=== PATIENT | female | born 1965 | race Caucasian/White ===

== ENCOUNTER → 2017-06-25 08:46 | Outpatient (CLI) | payer OTHER, SELFPAY ==
--- NOTE | 2017-06-25 09:03 | RAD_ITS ---
STUDY: X-RAY - ESOPHAGUS (BARIUM SWALLOW) WITH FLUOROSCOPY REASON FOR EXAM: Female, 52 years old. Acid reflux disease. TECHNIQUE: 11 view(s) of the esophagus were obtained following swallowing of barium. FLUOROSCOPY TIME (if supplied): (0:17) minutes/seconds COMPARISON: None. FINDINGS: There is no demonstrated esophageal foreign body. There is no demonstrated stricture or mucosal abnormality. Normal gastroesophageal junction, without a demonstrated hiatal hernia. The patient ingested a 12 mm tablet of barium without any difficulty. Normal visualized aortic arch and descending thoracic aorta. Normal visualized pulmonary parenchyma. Normal visualized osseous structures of the thorax. IMPRESSION: Normal plain film x-ray examination (barium swallow) of the esophagus. Electronically Signed: Simon Ortega MD at 15:44 EDT Tel [phone], Service support , STUDY: AIR-CONTRAST UPPER GI SERIES. REASON FOR EXAM: Female, 52 years old. Gastroesophageal reflux disease. FLUOROSCOPY TIME (if supplied): (0:16) minutes/seconds TECHNIQUE: The patient ingested barium. Multiple images of the esophagus, stomach and duodenum were obtained. COMPARISON: None. FINDINGS: The esophagus is unremarkable. There is no evidence of esophageal obstruction. No mass lesion is seen. The stomach and duodenum are unremarkable. There is no evidence of ulceration. No mass lesion is seen. RAD/Upper GI w/BA Swallow IMPRESSION: Unremarkable air contrast upper GI series. Electronically Signed: Simon Ortega MD at 15:46 EDT Tel [phone], Service support ,
== END ==
PROVIDERS: Family Provider Family Medicine; PCP Family Medicine; Visit Provider Family Medicine
DX: K20.9 Esophagitis, unspecified (principal)
CPT/HCPCS: 74246

== ENCOUNTER 2017-10-20 01:26 | Emergency (ER) | payer OTHER, SELFPAY ==
[2017-10-20 01:27] VITALS: BP 153/73; PULSE 77; PULSE 86; RESP 15; RESP 18; TEMP 36.6; O2SAT 95; O2SAT 96; BMI 34.7
[2017-10-20 01:42] LABS: Bacteria 0 SEEN /hpf (None Seen); Mucous, Urine 0 SEEN /hpf (<or=2+)
--- NOTE | 2017-10-20 01:52 | ED.VIS.GEN ---
History of Present Illness Chief Complaint: Complaint Informant: Patient Onset: Days - 2 Context: Gradual Onset - was only w/ urinating, now constant Timing: Continuous Quality: pain Location: urethral Current Severity: Moderate Maximum Severity: Moderate Worsened by: urinating Relieved by: nothing Associated Symptoms: ur frequency, urgency, dribbling urine when she goes. no blood. Narrative: Feels like prior UTI. Discomfort radiates into low mid-back, feels burning. Suprapubic pressure. No n/v, fevers, vaginal bleeding or discharge, hematuria. S/p BTL, still having menstrual cycles, denies any possibility of . Prior similar symptoms: Yes Past Medical History - Allergies and Home Meds Allergies/Adverse Reactions: Allergies prednisone Adverse Reaction (Verified 10/20/17 01:26) Other Primary Care Physician: Sylvester Ontiveros MD [Primary Care Provider] - Past Medical History: None Surgical History: - - bilateral tubal ligectomy Smoking Status: Never smoker Review of Systems All systems negative except as indicated General: Denies: Chills, Fever Gastrointestinal: Reports: Abdominal pain. Denies: Nausea, Vomiting, Diarrhea Genitourinary: Reports: Dysuria, Frequency. Denies: Hematuria Musculoskeletal: Reports: Back pain Skin: Denies: Rash, Wounds Physical Exam Vital Signs/Narrative: Vital Signs Temp Pulse Resp BP Pulse Ox 10/20/17 01:27 97.8 F 77 15 153/73 H 95 Inital Vital Signs reviewed: Yes General: Well nourished, Well developed Head: Normocephalic, Atraumatic Cardiovascular: Regular rate, Regular rhythm, No murmurs Respiratory: No distress, CTA bilaterally, Chest nontender Abdomen: Soft, Nontender, Nondistended, Normal bowel sounds Back: Nontender, Normal Inspection. Negative for: CVA tenderness Extremities: Nontender, No edema Skin: Normal color, No rash Neurological: Alert, Oriented x3, Cranial nerves II-XII grossly intact, Normal Strength, Normal Sensation Psychological: Normal affect Diagnostic/Tx/Re-eval Laboratory Tests 10/20/17 01:38 Urine Color Yellow Urine Clarity Sl. Cloudy Urine pH 7.0 Ur Specific Odell 1.010 Urine Protein 100 H Urine Glucose (UA) Normal Urine Ketones Negative Urine Occult Blood 250 H Urine Nitrite Negative Urine Bilirubin Negative Urine Urobilinogen Normal Ur Leukocyte Esterase 500 H Urine RBC 50-100 SEEN Urine WBC 50-100 SEEN Ur Squamous Epith Cells 25-50 SEEN Urine Bacteria 0 SEEN Urine Mucus 0 SEEN - Medical Decision Making Labs and history consistent with cystitis. Will treat with Macrobid and prescribe her Pyridium in addition. Culture sent. ED Disposition - Plan for ED Patient: Disposition: Home or Assisted Living Chief Complaint: Complaint Diagnosis: Acute cystitis without hematuria Instructions: ED UTI Cystitis Female Prescriptions: Nitrofurantoin Macrocrystals [Macrobid] 100 mg PO Q12 #10 cap Phenazopyridine HCl [Pyridium] 200 mg PO TID #6 tab Referrals: Sylvester Ontiveros MD [Primary Care Provider] - 3-5 Days if not improving
[2017-10-20 02:05] LABS: Color, Urine Yellow (Yellow); Glucose, Dipstick Normal (Normal); Ketone-Dipstick Negative (Negative); Leukocyte Esterase-Dipstick 500 /ul (Negative); Nitrite-Dipstick Negative (Negative); Occult Blood-Urine 250 /ul (Negative); Protein-Dipstick 100 mg/dl (Negative); Urine Bilirubin Dipstick Negative (Negative); Urine Clarity Sl. Cloudy (Clear); Urine Urobilinogen Normal (Normal)
[2017-10-20 02:12] LABS: Red Blood Cells-Urine 50-100 SEEN /hpf (0-5); Squamous Epithelial Cells - UA 25-50 SEEN /hpf (5-10); White Blood Cells 50-100 SEEN /hpf (0-5)
[2017-10-20 02:38] VITALS: BP 144/84; PULSE 83; RESP 16; O2SAT 96
[2017-10-20] MEDS: Nitrofurantoin Macrocrystals 100 MG Capsule PO (02:49)
[2017-10-20] MEDS: Phenazopyridine 95 MG Tablet 190 MG PO (02:49)
== END 2017-10-20 02:51 | disposition home or self-care (01) ==
PROVIDERS: Emergency Provider Emergency Medicine; Family Provider Family Medicine; PCP Family Medicine
DX: N30.00 Acute cystitis without hematuria (principal); B96.89 Other specified bacterial agents as the cause of diseases classified elsewhere
CPT/HCPCS: 81001; 87086; 87088; 87186; 99283

== ENCOUNTER → 2017-12-09 16:44 | Outpatient (CLI) | payer OTHER, SELFPAY ==
[2017-12-09 17:24] LABS: Absolute Lymphocyte Count 1.34 X10^3/ul (0.83-4.51); Absolute Neutrophil Count 8.7 X10^3/uL (2.0-7.7); Basophil# 0.01 X10^3/uL; Basophil% 0.1 % (0-1); Eosinophil# 0.01 X10^3/uL; Eosinophils% 0.1 % (0-5); Hematocrit 43.1 % (37-47); Hemoglobin 14.2 g/dl (12.0-15.0); Lymphocyte # 1.34 X10^3/ul (4.0); Lymphocyte % 12.6 % (19-41); Mean Corp Hgb Conc 32.9 g/gl (32-36); Mean Corpuscular Hgb 29.3 pg (27.0-32.0); Mean Corpuscular Volume 88.9 fL (81-99); Mean Platelet Vol. 9.7 fl (6.2-12.0); Monocyte# 0.52 X10^3/uL; Monocyte% 4.9 % (0-10); Neutrophil # 8.69 X10^3/uL (2.7-7.7); Platelet Count 243 K/mm3 (150-450); RBC Distribution Width CV 13.1 % (11.6-14.6); RBC Distribution Width SD 42.2 fl (35.1-43.9); Red Blood Count 4.85 M/mm3 (4.2-5.4); White Blood Count 10.6 K/mm3 (4.4-11.0)
[2017-12-09 17:31] LABS: POSITIVE COUNT NO; POSITIVE DIFFERENTIAL NO; POSITIVE MORPHOLOGY NO
[2017-12-09 17:49] LABS: Anion Gap 7 (5-15); BUN 16 mg/dL (7-18); BUN/Creat Ratio 14.4 RATIO (10-20); Calcium,Total 8.8 mg/dL (8.5-10.1); Chloride 101 mmol/L (98-107); Creatinine, Serum 1.11 mg/dL (0.55-1.02); EST Glomerular Filtration Rate 55 mL/min (>60); Est Glom Filt Rate - Afr Amer 66 mL/min (>60); Glucose 154 mg/dL (74-106); Magnesium 2.2 mg/dL (1.6-2.6); Potassium 4.6 mmol/L (3.5-5.1); Sodium Level 136 mmol/L (136-145); T4 Free Direct 0.67 ng/dL (0.76-1.46); Thyroid Stim Hormone (TSH) 1.94 uIU/mL (0.358-3.74)
== END ==
PROVIDERS: Family Provider Family Medicine; PCP Family Medicine; Visit Provider Family Medicine
DX: R00.2 Palpitations (principal); E03.9 Hypothyroidism, unspecified; R20.0 Anesthesia of skin
CPT/HCPCS: 36415; 80048; 83735; 84439; 84443; 84484; 85025

== ENCOUNTER 2017-12-09 19:19 | Emergency (ER) | payer OTHER, SELFPAY ==
[2017-12-09 19:21] VITALS: BP 162/75; PULSE 78; PULSE 80; RESP 16; RESP 18; TEMP 36.4; O2SAT 99; BMI 34.2
--- NOTE | 2017-12-09 19:30 | ED.RN ---
RN CALLED FOR EKG, PULLED OLD EKGS FOR
--- NOTE | 2017-12-09 19:41 | ED.RN ---
PATIENT CURRENTLY NOT HAVING CHEST PAIN OR PRESSURE, LAST NOTED AT 0500 THIS MORNING. PATIENT WENT TO DR. MATA OFFICE AND DID EKG AND LAB WORK AND DID NOT HEAR BACK FROM HIS OFFICE. PATIENT WAS TOLD TO COME GET CHECKED OUT IN ED.
--- NOTE | 2017-12-09 19:50 | EKG12_ITS ---
Test Reason : CHEST PAIN Blood Pressure : / mmHG Vent. Rate : 077 BPM Atrial Rate : 077 BPM P-R Int : 160 ms QRS Dur : 080 ms QT Int : 368 ms P-R-T Axes : 044 028 029 degrees QTc Int : 416 ms Normal sinus rhythm Normal ECG Confirmed by WEST CHISHOLM MD ([id number]), fan mail editor DEYSI GLEASON ([id number]) on 12/17/2017 1:41:44 PM Referred By: FORTUNATO Confirmed By:WEST CHISHOLM MD
--- NOTE | 2017-12-09 19:55 | RAD_ITS ---
STUDY: X-RAY CHEST REASON FOR EXAM: Female, 52 years old. Chest pain. TECHNIQUE: Single frontal view of the chest. COMPARISON: February 10, 2017. FINDINGS: The lungs are clear and expanded. There is no demonstrated pleural abnormality. Normal size heart. Normal mediastinum and marissa. Normal visualized pulmonary arteries. Normal visualized aortic arch and descending thoracic aorta. There is a stable dextroscoliosis of the thoracic spine. Normal visualized ribs, clavicles, and shoulders. There is no demonstrated abnormality of the visualized soft tissue structures of the upper abdomen. RAD/Chest 1 View (Portable) IMPRESSION: No acute cardiopulmonary process. Electronically Signed: Chelsie Berg MD at 21:03 EDT Tel , Service support ,
[2017-12-09 19:58] VITALS: O2SAT 98
[2017-12-09 20:22] LABS: Absolute Lymphocyte Count 1.41 X10^3/ul (0.83-4.51); Absolute Neutrophil Count 7.9 X10^3/uL (2.0-7.7); Basophil# 0.01 X10^3/uL; Basophil% 0.1 % (0-1); Eosinophil# 0.01 X10^3/uL; Eosinophils% 0.1 % (0-5); Hemoglobin 14.5 g/dl (12.0-15.0); Lymphocyte # 1.41 X10^3/ul (4.0); Lymphocyte % 14.3 % (19-41); Mean Corp Hgb Conc 33.7 g/gl (32-36); Mean Corpuscular Hgb 29.5 pg (27.0-32.0); Mean Corpuscular Volume 87.6 fL (81-99); Mean Platelet Vol. 9.6 fl (6.2-12.0); Monocyte# 0.45 X10^3/uL; Monocyte% 4.6 % (0-10); Neutrophil # 7.92 X10^3/uL (2.7-7.7); Neutrophil % 80.6 % (47-70); Platelet Count 258 K/mm3 (150-450); RBC Distribution Width CV 13.2 % (11.6-14.6); RBC Distribution Width SD 41.9 fl (35.1-43.9); Red Blood Count 4.91 M/mm3 (4.2-5.4); White Blood Count 9.8 K/mm3 (4.4-11.0)
[2017-12-09 20:23] LABS: POSITIVE COUNT NO; POSITIVE DIFFERENTIAL NO; POSITIVE MORPHOLOGY NO
[2017-12-09 20:27] LABS: BUN 15 mg/dL (7-18); Creatinine, Serum 0.98 mg/dL (0.55-1.02); EST Glomerular Filtration Rate 63 mL/min (>60); Estimated Creatinine Clearance 60.43 ml/min; Glucose 138 mg/dL (74-106)
[2017-12-09 20:28] LABS: Anion Gap 7 (5-15); BUN/Creat Ratio 15.3 RATIO (10-20); Calcium,Total 8.6 mg/dL (8.5-10.1); Chloride 102 mmol/L (98-107); Est Glom Filt Rate - Afr Amer 77 mL/min (>60); Potassium 4.4 mmol/L (3.5-5.1); Sodium Level 137 mmol/L (136-145)
--- NOTE | 2017-12-09 21:05 | ED.VISSUMM ---
- ER Visit Summary Date of Service: 12/09/17 Chief Complaint: Left jaw pain and swelling History of Present Illness: The patient is a 52 F who states that earlier today around noon she developed a sudden onset of left-sided jaw swelling. She states it made her face feel numb. She denies any dental pain. She states the swelling has come down. She is also for the past week been having some heart palpitations. She had an EKG at her doctor's office and she is concerned because it said possible anterior myocardial infarction. She believes that her heart palpitations is related to her recent increased in her [place]. Physical Examination: Afebrile vital signs are stable Gen: Well-nourished well-developed Head: Normocephalic atraumatic Eyes: Perrl EOMI ENT: TMs clear no rhinorrhea moist mucous membranes is mild swelling about the left parotid gland there is no overlying erythema. Neck: Supple no lymphadenopathy no JVD nontender CVS: Regular rate rhythm no murmurs normal S1-S2 Respiratory: No distress clear to auscultation bilaterally chest nontender Abdomen: Soft nontender nondistended normal bowel sounds no masses Back: Nontender Extremity: Nontender no edema Skin: Normal color no rash Neuro: alert orientated ?3 CN II-XII intact normal strength sensation reflexes gait cerebellar Psych: Normal affect normal mood Test Results: EKG shows a normal sinus rhythm at a rate of 77. Her outpatient EKG was reviewed which I believe is a normal sinus rhythm without ACS evidence. CBC chemistry showed a glucose of 138. Troponin was negative. Chest x-ray negative. Emergency Department Course and Treatment: I do not see evidence of ACS. Her troponin is greater than 6 hours is negative. She said 2 EKGs today that did not show ACS. Patient was seen earlier this year for chest pain has not yet had a stress test. Advised her to talk with her doctor about getting that. As far as the left facial swelling I believe that this is swelling of the parotid gland. I would recommend lemon drops monitor for erythema or for fever return if worsening or concerns Impression: 1. Left parotid salivary gland obstruction 2. Palpitations This note was generated with Osmopure dictation software. It may contain incorrect words, spelling, and punctuation that were not noted in review of the chart prior to signing ED Disposition - Plan for ED Patient: Disposition: Home or Assisted Living Chief Complaint: Dental Instructions: ED Sublingual Gland Swelling UKO Referrals: Sylvester Ontiveros MD [Primary Care Provider] - 1 Week
[2017-12-09 21:40] VITALS: BP 155/70; PULSE 75; RESP 16; O2SAT 95
== END 2017-12-09 21:45 | disposition home or self-care (01) ==
PROVIDERS: Emergency Provider Emergency Medicine; Family Provider Family Medicine; PCP Family Medicine
DX: K11.8 Other diseases of salivary glands (principal); R00.2 Palpitations; K21.9 Gastro-esophageal reflux disease without esophagitis
CPT/HCPCS: 71045; 80048; 84484; 85025; 93005; 99284; A4216

== ENCOUNTER → 2017-12-18 05:37 | Outpatient (CLI) | payer OTHER, SELFPAY ==
[2017-12-18 07:54] LABS: AST(SGOT) 23 U/L (15-37); Alanine Aminotransfer ALT/SGPT 23 U/L (13-56); Albumin, Serum 3.2 g/dL (3.2-5.0); Alkaline Phosphatase 48 U/L (45-117); Bilirubin, Direct 0.11 mg/dL (0.00-0.30); Cholesterol 203 mg/dL (200); Globulin 3.4 g/dL (2.2-4.2); High Density Lipoprotein 32 mg/dL; Protein, Total 6.6 g/dL (6.4-8.2); Triglycerides 298 mg/dL; Very Low Density Lipoprotein 60 mg/dL (5-40)
== END ==
PROVIDERS: Family Provider Family Medicine; PCP Family Medicine; Referring Provider Internal Medicine Cardiovascular Disease; Visit Provider Internal Medicine Cardiovascular Disease
DX: R07.89 Other chest pain (principal); E03.9 Hypothyroidism, unspecified; E78.5 Hyperlipidemia, unspecified
CPT/HCPCS: 36415; 80061; 80076

== ENCOUNTER → 2017-12-30 12:54 | Outpatient (CLI) | payer OTHER, SELFPAY ==
--- NOTE | 2017-12-30 13:01 | ECHOD_ITS ---
Reason For Study: CHEST PAIN Procedure This was a 2D Doppler, Color Flow transthoracic echocardiogram. Exam performed in department. Left Ventricle Normal size and thickness. The estimated ejection fraction is 65 %. Stage 1 diastolic dysfunction. No regional wall motion abnormalities noted. Right Ventricle Normal size and thickness. Normal systolic function. Atria Normal left atrium. Normal right atrium. Normal atrial septum. Mitral Valve The mitral valve is structurally normal. No prolapse or stenosis seen. Tricuspid Valve Normal tricuspid valve. Trivial tricuspid valve insufficiency. Unable to estimate RV systolic pressure due to inadequate jet, pulmonary artery pressure probably normal. Aortic Valve Normal aortic valve. Trisinus/trileaflet aortic valve. Pulmonic Valve Normal pulmonic valve. Great Vessels Normal aortic root. Normal arch. Normal inferior vena cava. Inferior vena cava collapse with sniff. Pericardium/Pleural No pericardial effusion. MMode/2D Measurements & Calculations LVIDd: 4.2 cm IVSd: 0.92 cm Ao root diam: 3.0 cm LVIDs: 2.9 cm LVPWd: 0.92 cm RVDd: 3.3 cm FS: 31.3 % LAV(MOD-bp): 39.5 ml LA A4 area: 18.4 cm2 LA dimension(2D): 4.0 cm LAV(MOD-bp) Indexed: 19.5 ml/m2 LAV(MOD-sp2): 28.2 ml LAV(MOD-sp4): 52.3 ml RA A4 area: 13.0 cm2 Time Measurements MV dec time: 0.31 sec Doppler Measurements & Calculations MV E max kody: 75.6 cm/sec Lat Peak E' Kody: 9.4 cm/sec Med Peak E' Kody: 6.8 cm/sec MV A max kody: 92.5 cm/sec E/E' lat: 8.0 E/E' med: 11.0 MV E/A: 0.82 Ao V2 max: 175.9 cm/sec AI max kody: 367.3 cm/sec LV V1 max: 120.3 cm/sec Ao max P.4 mmHg AI max P.0 mmHg LV V1 max P.8 mmHg AI dec slope: 200.9 cm/sec2 AI P1/2t: 535.4 msec Interpretation Summary The estimated ejection fraction is 65 %. Stage 1 diastolic dysfunction. Trivial tricuspid valve insufficiency. Unable to estimate RV systolic pressure due to inadequate jet, pulmonary artery pressure probably normal. There is no comparison study available. Ordering Physician: Ricardo Gamez Referring Physician: CHARIS SMITH Performed By: Judy Bustillos, ELLENCS, RVT
== END ==
PROVIDERS: Family Provider Family Medicine; PCP Family Medicine; Referring Provider Internal Medicine Cardiovascular Disease; Visit Provider Internal Medicine Cardiovascular Disease
DX: R00.2 Palpitations (principal); R07.89 Other chest pain
CPT/HCPCS: 93306

== ENCOUNTER → 2018-03-31 10:06 | Outpatient (CLI) | payer OTHER, SELFPAY ==
--- NOTE | 2018-03-31 10:10 | BI_ITS ---
MAMMOGRAPHY - BILATERAL SCREENING REASON FOR EXAM: Female, 52 years old. Routine annual screening examination. PERTINENT HISTORY: Non-contributory. TECHNIQUE: Digital bilateral breast delfina (3D mammographic acquisition) in the CC and MLO projections. 2-D mediolateral oblique (MLO) and craniocaudad (CC) views of both breasts were obtained. CAD: Full Field Digital Mammography with Computer Added Detection was performed. COMPARISON: Comparison is made with prior examination dated March 17, 2015. FINDINGS: Breast Composition: There are scattered areas of fibroglandular density. There are no dominant masses or suspicious calcifications. Stable benign-appearing bilateral axillary lymph nodes. No other significant abnormalities are identified. There has been no significant change since the prior study. BI/SCREENING MAMM (CAD), BILAT IMPRESSION: Stable bilateral screening mammogram. Yearly follow-up mammogram recommended. (A) ASSESSMENT CATEGORY: BIRADS Category 2: Benign. A letter regarding these results will be sent to the patient by the facility within 30 days. Approximately 10% of breast cancers are not detected by mammography. A normal mammogram should not delay biopsy of a clinically suspicious abnormality. [id number] Electronically Signed: Simon Ortega MD at 12:49 EST , Service support ,
== END ==
PROVIDERS: Family Provider Family Medicine; PCP Family Medicine; Referring Provider Family Medicine; Visit Provider Family Medicine
DX: Z12.31 Encounter for screening mammogram for malignant neoplasm of breast (principal)
CPT/HCPCS: 77063; 77067

== ENCOUNTER → 2018-07-21 09:29 | Outpatient (CLI) | payer OTHER, SELFPAY ==
[2017-12-16 14:51] VITALS: BMI 34.7
[2018-07-21 12:17] LABS: Erythrocyte Sedimentation Rate 19 mm/hr (0-30)
[2018-07-21 12:19] LABS: Absolute Lymphocyte Count 1.44 X10^3/ul (0.83-4.51); Absolute Neutrophil Count 2.5 X10^3/uL (2.0-7.7); Basophil# 0.01 X10^3/uL; Basophil% 0.2 % (0-1); Eosinophil# 0.08 X10^3/uL; Eosinophils% 1.8 % (0-5); Hematocrit 40.6 % (37-47); Lymphocyte # 1.44 X10^3/ul (4.0); Lymphocyte % 31.9 % (19-41); Mean Corp Hgb Conc 34.5 g/gl (32-36); Mean Corpuscular Hgb 29.5 pg (27.0-32.0); Mean Corpuscular Volume 85.5 fL (81-99); Monocyte% 11.1 % (0-10); Neutrophil # 2.48 X10^3/uL (2.7-7.7); Platelet Count 226 K/mm3 (150-450); RBC Distribution Width CV 12.9 % (11.6-14.6); Red Blood Count 4.75 M/mm3 (4.2-5.4); White Blood Count 4.5 K/mm3 (4.4-11.0)
[2018-07-21 12:21] LABS: POSITIVE COUNT NO; POSITIVE DIFFERENTIAL NO; POSITIVE MORPHOLOGY NO
[2018-07-21 12:50] LABS: ALB/GLOB Ratio 0.9 RATIO (0.9-2.4); AST(SGOT) 26 U/L (15-37); Alanine Aminotransfer ALT/SGPT 30 U/L (13-56); Albumin, Serum 3.5 g/dL (3.2-5.0); Alkaline Phosphatase 60 U/L (45-117); Anion Gap 9 (5-15); BUN 14 mg/dL (7-18); BUN/Creat Ratio 16.5 RATIO (10-20); Calcium,Total 8.8 mg/dL (8.5-10.1); Chloride 103 mmol/L (98-107); Creatinine, Serum 0.85 mg/dL (0.55-1.02); EST Glomerular Filtration Rate 74 mL/min (>60); Est Glom Filt Rate - Afr Amer 90 mL/min (>60); Glucose 83 mg/dL (74-106); Protein, Total 7.5 g/dL (6.4-8.2); Rheumatoid Factor < 10.0 IU/mL (<15); Sodium Level 139 mmol/L (136-145)
[2018-07-22 12:18] LABS: ANTINUCLEAR ANTIBODIES DIRECT Negative (Negative)
[2018-07-23 03:06] LABS: HEPATITIS B SURFACE AG Negative (Negative)
[2018-07-23 09:56] LABS: CCP IgG Antibodies 5 units (0-19); Hep B Surface Antibodies Reactive (.); Hep C Antibodies 0.2 s/co ratio (0.0-0.9); Hepatitis B Core AB IgM Negative (Negative)
== END ==
PROVIDERS: Family Provider Family Medicine; PCP Family Medicine; Referring Provider Internal Medicine Rheumatology; Visit Provider Internal Medicine Rheumatology
DX: M06.4 Inflammatory polyarthropathy (principal); E03.9 Hypothyroidism, unspecified; J45.909 Unspecified asthma, uncomplicated; E88.81 Metabolic syndrome and other insulin resistance
CPT/HCPCS: 36415; 80053; 85025; 85652; 86038; 86140; 86200; 86431; 86705; 86706; 86803; 87340

== ENCOUNTER 2018-08-18 01:02 | Emergency (ER) | payer OTHER, SELFPAY ==
[2018-08-18 01:03] VITALS: BP 198/87; PULSE 97; RESP 16; TEMP 36.7; O2SAT 100; BMI 36.1
--- NOTE | 2018-08-18 01:22 | CT_ITS ---
STUDY: CT ABDOMEN AND PELVIS WITH CONTRAST REASON FOR EXAM: Female, 53 years old. Epigastric pain RADIATION DOSAGE (If Supplied By Facility): CTDIvol = ( 8.29 ) mGy, DLP = ( 1254.03 ) mGycm TECHNIQUE: Transaxial images were obtained from the dome of the diaphragm to the symphysis pubis without oral contrast. 100 IV/Oral Isovue 300 was administered. Sagittal and coronal images were reconstructed. Individualized dose optimization techniques were used for this CT. COMPARISON: None. FINDINGS: The visualized lung bases are unremarkable. The visualized portions of the heart are within normal limits. Normal liver. Normal gallbladder and extrahepatic biliary system. Normal spleen. Normal pancreas. Normal bilateral adrenal glands. Normal right kidney. Normal left kidney. Normal visualized stomach. Normal small intestine. Normal colon. The appendix is visualized and appears normal. Normal abdominal aorta. Normal inferior vena cava. Normal retroperitoneum. Normal urinary bladder. Normal visualized uterus and ovaries. 2 dominant follicles are seen in the left ovary largest measures 2.4 cm. Normal abdominal wall. Normal osseous structures. CT/Abdomen/Pelvis WITH Contrast IMPRESSION: Normal enhanced CT of the abdomen and pelvis. Electronically Signed: Alicia Matta, at 5:16 EDT Tel , Service support ,
[2018-08-18 01:37] VITALS: BP 198/87; PULSE 97; RESP 16; TEMP 36.7; O2SAT 100
[2018-08-18] MEDS: 0.9% Normal Saline 1,000 ML 1000 ML IV (01:37)
[2018-08-18 01:43] LABS: Mucous, Urine 0 SEEN /hpf (<or=2+); Red Blood Cells-Urine 0 SEEN /hpf (0-5)
[2018-08-18 01:45] LABS: Absolute Lymphocyte Count 1.93 X10^3/ul (0.83-4.51); Absolute Neutrophil Count 3.1 X10^3/uL (2.0-7.7); Basophil# 0.01 X10^3/uL; Basophil% 0.2 % (0-1); Eosinophil# 0.08 X10^3/uL; Eosinophils% 1.4 % (0-5); Hematocrit 41.9 % (37-47); Hemoglobin 14.5 g/dl (12.0-15.0); Lymphocyte # 1.93 X10^3/ul (4.0); Lymphocyte % 33.4 % (19-41); Mean Corp Hgb Conc 34.6 g/gl (32-36); Mean Corpuscular Hgb 29.8 pg (27.0-32.0); Mean Corpuscular Volume 86.2 fL (81-99); Mean Platelet Vol. 9.4 fl (6.2-12.0); Monocyte# 0.62 X10^3/uL; Monocyte% 10.7 % (0-10); Neutrophil # 3.12 X10^3/uL (2.7-7.7); Neutrophil % 54.1 % (47-70); Platelet Count 187 K/mm3 (150-450); RBC Distribution Width CV 13.5 % (11.6-14.6); Red Blood Count 4.86 M/mm3 (4.2-5.4); White Blood Count 5.8 K/mm3 (4.4-11.0)
[2018-08-18 01:46] LABS: POSITIVE COUNT NO; POSITIVE DIFFERENTIAL NO; POSITIVE MORPHOLOGY NO
[2018-08-18 01:53] LABS: Color, Urine Yellow (Yellow); Glucose, Dipstick Normal (Normal); Ketone-Dipstick Negative (Negative); Leukocyte Esterase-Dipstick 25 /ul (Negative); Nitrite-Dipstick Negative (Negative); Occult Blood-Urine 10 /ul (Negative); Protein-Dipstick 15 mg/dl (Negative); Specific Gravity, Urine 1.015 (1.002-1.030); Urine Bilirubin Dipstick Negative (Negative); Urine Clarity Clear (Clear); Urine Urobilinogen Normal (Normal); Urine pH 6.5 (5.0 - 8.0)
[2018-08-18 01:59] LABS: Bacteria RARE /hpf (None Seen); Squamous Epithelial Cells - UA 0-5 SEEN /hpf (5-10); White Blood Cells 0-5 SEEN /hpf (0-5)
[2018-08-18 02:03] LABS: ALB/GLOB Ratio 0.9 RATIO (0.9-2.4); AST(SGOT) 21 U/L (15-37); Alanine Aminotransfer ALT/SGPT 24 U/L (13-56); Albumin, Serum 3.6 g/dL (3.2-5.0); Alkaline Phosphatase 58 U/L (45-117); Anion Gap 10 (5-15); BUN 12 mg/dL (7-18); BUN/Creat Ratio 11.8 RATIO (10-20); Calcium,Total 9.1 mg/dL (8.5-10.1); Chloride 105 mmol/L (98-107); Creatinine, Serum 1.02 mg/dL (0.55-1.02); EST Glomerular Filtration Rate 60 mL/min (>60); Est Glom Filt Rate - Afr Amer 73 mL/min (>60); Globulin 3.8 g/dL (2.2-4.2); Glucose 111 mg/dL (74-106); Lipase 106 U/L (73-393); Potassium 3.8 mmol/L (3.5-5.1); Protein, Total 7.4 g/dL (6.4-8.2); Sodium Level 140 mmol/L (136-145)
[2018-08-18 05:07] VITALS: BP 147/78; PULSE 75; RESP 18; TEMP 37.1; O2SAT 99
--- NOTE | 2018-08-18 05:26 | ED.VISSUMM ---
- ER Visit Summary Date of Service: 08/18/18 Chief Complaint: Abdominal pain History of Present Illness: The patient is a 53 F who presents with abdominal pain. This is been present for 1 week. Initially it was located in the left lower quadrant. She saw her primary care physician who was clinically diagnosed with diverticulitis and prescribed Cipro and Flagyl. She now complains of some diffuse abdominal spasms worse in the upper abdomen. She complains of nausea without vomiting. She has been having diarrhea for the past week. She also had palpitations tonight. No chest pain or shortness of breath. No fevers. Physical Examination: Afebrile vitals unremarkable except blood pressure 198/87 Moist mucous membranes Heart regular rate and rhythm Lungs are clear Abdomen soft nondistended she does have some diffuse tenderness which is greatest in the epigastrium and right upper quadrant Alert Test Results: CBC CMP lipase unremarkable. Urinalysis shows [address] otherwise normal[address] CT the abdomen and pelvis is normal. Emergency Department Course and Treatment: Patient was treated with IV fluids. She declined any medication for pain or nausea. Her work-up as above is unremarkable. She was advised to follow-up as an outpatient. She does not appear to have any acute life-threatening or surgical pathology. She does understand to return for new or worsening symptoms and was instructed on signs and symptoms to monitor for. Treatment Plan: [] Disposition: Discharge Impression: Abdominal pain of uncertain etiology This note was generated with OpTrip dictation software. It may contain incorrect words, spelling, and punctuation that were not noted in review of the chart prior to signing ED Disposition - Plan for ED Patient: Referrals: Sylvester Ontiveros MD [Primary Care Provider] -
--- NOTE | 2018-08-18 05:28 | ED.DEP ---
ED Disposition - Plan for ED Patient: Instructions: ABDOMINAL PAIN, Unknown Cause, (Female) Referrals: Sylvester Ontiveros MD [Primary Care Provider] -
[2018-08-18 05:55] VITALS: BP 140/80; PULSE 80; RESP 16; O2SAT 97
== END 2018-08-18 05:56 | disposition home or self-care (01) ==
PROVIDERS: Emergency Provider Emergency Medicine; Family Provider Family Medicine; PCP Family Medicine
DX: R10.9 Unspecified abdominal pain (principal); R19.7 Diarrhea, unspecified; R11.0 Nausea; R00.2 Palpitations
CPT/HCPCS: 74177; 80053; 81001; 83690; 85025; 96360; 99285; J7030; Q9967; A4216

== ENCOUNTER 2018-10-06 13:39 | Outpatient (RCR) | payer OTHER, SELFPAY | END 2018-10-10 23:59 | LOC: NS 13:39 | PROVIDERS: Family Provider Family Medicine; PCP Family Medicine; Visit Provider Family Medicine | DX: E78.5 Hyperlipidemia, unspecified (principal); Z71.3 Dietary counseling and surveillance | CPT/HCPCS: 97802 ==

== ENCOUNTER 2018-10-21 15:53 | Outpatient (RCR) | payer OTHER, SELFPAY | END 2018-11-09 23:59 | LOC: NS 15:53 | PROVIDERS: Family Provider Family Medicine; PCP Family Medicine; Visit Provider Family Medicine | DX: E78.5 Hyperlipidemia, unspecified (principal); Z71.3 Dietary counseling and surveillance | CPT/HCPCS: 97803 ==

== ENCOUNTER 2018-12-01 15:30 | Outpatient (RCR) | payer OTHER, SELFPAY | END 2018-12-01 23:59 | disposition home or self-care (01) | LOC: NS 15:30 | PROVIDERS: Family Provider Family Medicine; PCP Family Medicine; Visit Provider Family Medicine | DX: Z71.3 Dietary counseling and surveillance (principal); E78.5 Hyperlipidemia, unspecified | CPT/HCPCS: 97803 ==

== ENCOUNTER → 2019-01-19 09:34 | Outpatient (CLI) | payer OTHER, SELFPAY ==
--- NOTE | 2019-01-19 09:40 | RAD_ITS ---
STUDY: X-RAY CHEST REASON FOR EXAM: Female, 53 years old. Cough since Friday. Fever. Asthma. Question pneumonia. TECHNIQUE: PA and lateral views of the chest. COMPARISON: December 09, 2017. FINDINGS: The lungs are well-expanded. There is linear atelectasis in the left hilar region. There is no new mass or infiltrate. There is no demonstrated pleural abnormality. Normal size heart. Normal mediastinum and marissa. Normal visualized pulmonary arteries. Normal visualized aortic arch and descending thoracic aorta. Stable degenerative changes and dextroscoliosis of the thoracic spine. Normal visualized ribs, clavicles, and shoulders. There is no demonstrated abnormality of the visualized soft tissue structures of the upper abdomen. RAD/Chest PA and Lateral IMPRESSION: Linear atelectasis in the left hilar region without other change from December 09, 2017. Electronically Signed: Dre Rankin DO at 17:23 EST Tel [phone], Service support ,
== END ==
PROVIDERS: Family Provider Family Medicine; PCP Family Medicine; Referring Provider Family Medicine; Visit Provider Family Medicine
DX: J18.9 Pneumonia, unspecified organism (principal); J45.909 Unspecified asthma, uncomplicated
CPT/HCPCS: 71046

== ENCOUNTER → 2019-02-23 12:06 | Outpatient (CLI) | payer OTHER, SELFPAY ==
[2019-02-23 13:54] LABS: Hemoglobin A1c 6.4 % (4.2-6.3)
[2019-02-23 13:56] LABS: Cholesterol 210 mg/dL (200); Glucose 119 mg/dL (74-106); High Density Lipoprotein 31 mg/dL; Triglycerides 415 mg/dL
[2019-02-25 12:08] LABS: SJOGREN'S Anti-SS-A test 0.7 AI (0.0-0.9)
[2019-02-25 13:43] LABS: SJOGREN'S Anti-SS-B test < 0.2 AI (0.0-0.9)
[2019-02-26 09:32] LABS: Mumps Antibody, IgM 1.58 AU (0.00-0.79); Mumps Antibody,IgG < 9.0 AU/mL (Immune >10.9)
== END ==
PROVIDERS: Family Provider Family Medicine; PCP Family Medicine; Referring Provider Family Medicine; Visit Provider Family Medicine
DX: R73.01 Impaired fasting glucose (principal); K11.23 Chronic sialoadenitis; M35.00 Sjogren syndrome, unspecified
CPT/HCPCS: 36415; 80061; 82947; 83036; 86235; 86735

== ENCOUNTER 2019-08-10 16:00 | Outpatient (RCR) | payer OTHER, SELFPAY ==
--- NOTE | 2019-07-20 12:03 | HP.PTEVAL ---
Patient's Visit Information MARKO CALLAWAY is a 54 year old F referred to Physical Therapy by Dr. Sylvester Ontiveros MD with a diagnosis of R arm pain. Date of Evaluation: 07/20/19 Physical Therapist: Anastacio Tavarez, SILVANAT, OCS, CSCS - Visit Plan Frequency: Every Other Week Duration: 4-6 Weeks Plan: weekly to every other week telehealth to educate and manage arm pain with nerve stretches, shoulder adn postural ROM and strengthening. - Subjective Visit done via telehealth at patient's request. Verbal consent to treat received! Granddaughter 2 yo sitting on armchair and arm wrap;ped around, Started to fall and Marko tried to pull her back away from hearth. Got sudden sharp pain in top of shoulder and got hot as well as in center of arm. That was mid May. Improving since then. Resting it. Tis is R arm problem. Is using L arm alot now. Putting bra on and stretching arm out is worse. Also worse first thing in the am. Reaching for phone at night can be painful. Avoiding bike riding due to this. 2/10 at rest adn worse with reaching. Did mow lawn last week for the first time. Is 70% better. Wakes up at night. Tends to sleep on right side. No diagnostics. Did have numbness and tingling but it has gone away, none lately. - Pain R upper arm Pain Intensity (Out of 10): 2 Pain Intensity Range: 2, 6 - Objective Done via [facility] telehealth meeting so those limitations should be noted. Posture appears forward head and slightly elevated scap. L UE AROM WFL and without pain. B elbow and wrist AROM appears WNL and without pain. R shoulder AROM ful elevation with encouragement but painful arc and end range abd and less so flexion. IR limited to about PSIS and painful, ER is full but painful at end range. Tender, unable to check. special test unable. Sensation Unable to check. reflexes unable. Strength unable. Pt afraid to go out of house due to coronavirus and wishes to be educated best possible via teleheatlh until which time she can confidently get out of house despite the limitations. - Goals Goal 1:: Lift arm OH and out to side withotu increasing pain. Goal Time Frame: 4-6 Weeks Goal 2:: Patient feel 90% back to normal and able to manage I at home with exercises. Goal Time Frame: 4-6 Weeks Goal 3:: No interrupted sleep. Goal Time Frame: 4-6 Weeks - Rehabilitation Potential Physical Therapy Diagnosis: R arm pain, brachial plexus vs shoulder RC strain. Rehabilitation Potential: Fair - Anticipated Interventions Patient/Client Instruction: Educate patient on: Condition For the Purpose of:: To increase tolerance to activity/condition/position Therapeutic Exercise to Include: Strength training, Postural training, Flexibilty training, Passive ROM, Active ROM For the Purpose of:: To decrease pain, To improve muscle performance and motor function, To increase tolerance to activity/condition/position Thank you for the opportunity to evaluate your patient. For Medicare and Medicare HMO plans, please review the plan of care and approve it. It will need to be FAXED BACK to us at [phone] for Medicare purposes. For Medicare only, by signing this I certify the plan of care. Please let me know if there are questions or concerns regarding this plan of care. Physician Signature: Date:
--- NOTE | 2019-08-10 16:33 | HP.PTREVAL ---
Dr. Sylvester Ontiveros MD, It has been my pleasure to treat MARKO CALLAWAY over the last 3 visits for R arm pain. Please see the progress note below for an update on the physical therapy plan of care! Subjective: Comfortable at rest. Pain gets up to 9/10 with lifting blanket into dog cage. Lifting out infront is hard. Lifting up is hard. Reaching and twisting it is the worst. Reaching from couch to table hurts R UE. Slept in recliner two night as she is afraid to roll on it.Needs to take something before going to bed . Is R handed. Exercises at home have stopped due to pain. Neck is fine but hand feels weak at times when flared up. Gets tingling in lower arm at times. Objective/Function: AROM 100 flexion R, 90 abd, 35 ext rotation, PSIS IR all with pain. PROM 130 with suddent pain elevation. Strength shows pain with biceps and IR and supination. Tenderness over biceps tendon anteriorly in R shoulder. + labral tests with resisted horiz abd and ext rotation, - drop arm and - ext rotation lag test. + HK and neer. OVERALL NOT IMPROVING AND BASED ON SPECIAL TESTS ADN NEREIDA SUSPICISOUS OF LABRAL PATHOLOGY. RECOMMEND BACK TO DOCTOR FOR NEXT STEP Plan Plan: PT TO CALL DOCTOR FOR NEXT MEDICAL STEP AND THIS THERAPIST RECOMMENDING MRI TO DELINEATE PROBLEM. PT TO CALL AFTER DOCTOR VISIT. If no other options, send back to therapy if patient is willing for more in clinic treatment if willing. Treatment to this point has been teleheatlh prior to this day. Goals Goal 1:: Lift arm OH and out to side withotu increasing pain. Goal Time Frame: 4-6 Weeks Goal Progress: Not Progressing Goal 2:: Patient feel 90% back to normal and able to manage I at home with exercises. Goal Time Frame: 4-6 Weeks Goal Progress: Not Progressing Goal 3:: No interrupted sleep. Goal Time Frame: 4-6 Weeks Goal Progress: Not Progressing Anticipated Interventions Patient/Client Instruction: Educate patient on: Condition For the Purpose of:: To increase tolerance to activity/condition/position Therapeutic Exercise to Include: Strength training, Postural training, Flexibilty training, Passive ROM, Active ROM For the Purpose of:: To decrease pain, To improve muscle performance and motor function, To increase tolerance to activity/condition/position Please do not hesitate to contact me at [phone] by phone or if you have questions or concerns regarding this new plan of care! Sincerely, Anastacio Tavarez, DPT, OCS, CSCS
--- NOTE | 2019-10-05 18:51 | HP.PT.NRP ---
MARKO CALLAWAY was seen in my office for initial evaluation on 07/20/19. The following Plan of Care was established for this patient: Initial Frequency: Every Other Week Initial Duration: 4-6 Weeks Patient/Client Instruction: Educate patient on: Condition For the Purpose of:: To increase tolerance to activity/condition/position Therapeutic Exercise to Include: Strength training, Postural training, Flexibilty training, Passive ROM, Active ROM For the Purpose of:: To decrease pain, To improve muscle performance and motor function, To increase tolerance to activity/condition/position This patient was last seen in our office 08/09/29. Pertinent comments regarding their Physical therapy will appear below: Pt seen 3 visits of therapy and recmmended returning to doctor for next step. She was to call if that included returning to therapy. at this point, it has been over 6 weeks adn I will discontinue. At this point I will be discontinuing this patient from physical therapy. I would be happy to see this patient again in the future if found appropriate by the physician. Thank you! Anastacio Tavarez, DPT, OCS, CSCS
== END 2019-08-10 19:00 | disposition home or self-care (01) ==
LOC: PT 16:00
PROVIDERS: PCP Family Medicine; Referring Provider Family Medicine; Visit Provider Family Medicine
DX: M79.601 Pain in right arm (principal)
CPT/HCPCS: 97161; 97530

== ENCOUNTER 2020-03-09 22:11 | Emergency (ER) | payer OTHER, SELFPAY ==
[2020-03-09 22:15] VITALS: BP 167/86; PULSE 80; RESP 16; TEMP 36.2; O2SAT 97; BMI 35.6
--- NOTE | 2020-03-09 23:05 | EKG12_ITS ---
Test Reason : DYSRHYTHMIA Blood Pressure : / mmHG Vent. Rate : 076 BPM Atrial Rate : 076 BPM P-R Int : 156 ms QRS Dur : 084 ms QT Int : 374 ms P-R-T Axes : 053 026 050 degrees QTc Int : 420 ms Normal sinus rhythm Normal ECG Confirmed by JADYN MAYEN, HARJIT ([id number]), greeting card editor RYANNE HOLM ([id number]) on 03/13/2020 10:52:04 AM Referred By: TACOS Confirmed By:ANNIA SALAMANCA MD
[2020-03-09] MEDS: 0.9% Normal Saline 1,000 ML 125 ML IV (23:29)
[2020-03-09 23:31] VITALS: O2SAT 98
--- NOTE | 2020-03-09 23:35 | RAD_ITS ---
STUDY: X-RAY CHEST REASON FOR EXAM: Female, 54 years old. PT ARRIVES TO WITH HEADACHE, DIARRHEA, AND SOB. TESTED POSITIVE FOR COVID-19 TECHNIQUE: Single AP portable view of the chest. COMPARISON: None. FINDINGS: The lungs are clear and expanded. There is no demonstrated pleural abnormality. Normal size heart. Normal mediastinum and marissa. Normal visualized pulmonary arteries. Normal visualized aortic arch and descending thoracic aorta. There is a dextroscoliosis of the thoracic spine. Normal visualized ribs, clavicles, and shoulders. There is no demonstrated abnormality of the visualized soft tissue structures of the upper abdomen. RAD/Chest 1 View (Portable) IMPRESSION: Normal x-ray examination of the chest. Electronically Signed: Bev Almonte MD at 0:11 EST , Service support ,
--- NOTE | 2020-03-09 23:38 | ED.VIS.GEN ---
History of Present Illness Chief Complaint: Shortness of Breath Informant: Patient Onset: Today Context: Gradual Onset Timing: Intermittent Current Severity: Moderate Maximum Severity: Moderate Narrative: The patient is a 54-year-old female with history of asthma the presents to the emergency department cough, generalized malaise, near syncope. Patient states that her tested positive for Covid about a week ago. She states that she has been having similar symptoms, but did not test positive. She was placed on prednisone burst and finished her last dose today. She states tonight, she got lightheaded and felt as if she was going to pass out. She is also had some loose watery diarrhea. She is not had fever. She denies chills or sweats. She denies vomiting. She is had no chest pain. Prior similar symptoms: No Recent Illness/Hospitalization: No Past Medical History - Allergies and Home Meds Allergies/Adverse Reactions: Allergies prednisone Adverse Reaction (Verified 03/09/20 22:15) Other INJECTABLE MESSES WITH MY VISION Primary Care Physician: Sylvester Ontiveros MD [Primary Care Provider] - Prior records reviewed: Yes Past Medical History: - Surgical History: - - bilateral tubal ligectomy Smoking Status: Never smoker Review of Systems ROS: - Asthma General: Denies: Chills, Fever, Sweats Eyes: Denies: Visual changes - bilaterally, Diplopia ENT: Denies: Rhinorrhea, Sore throat Cardiovascular: Denies: Chest pain, Palpitations Respiratory: Denies: Dyspnea, Cough, Dyspnea on exertion Gastrointestinal: Reports: Nausea. Denies: Abdominal pain, Vomiting, Diarrhea, Melena, Hematochezia Genitourinary: Denies: Dysuria, Hematuria, Frequency Musculoskeletal: Denies: Back pain, Extremity Pain Skin: Denies: Rash, Wounds Neurological: Denies: Headache, Weakness, Numbness Physical Exam Vital Signs/Narrative: Vital Signs Temp Pulse Resp BP Pulse Ox 03/09/20 22:15 97.2 F L 80 16 167/86 H 97 Inital Vital Signs reviewed: Yes General: Well nourished, Well developed, No Acute Distress Head: Normocephalic, Atraumatic Eyes: Perrl, EOMI ENT: Moist mucous membranes, No rhinorrhea Neck: Supple, Nontender Cardiovascular: Regular rate, Regular rhythm, No murmurs Respiratory: No distress, CTA bilaterally, Chest nontender Abdomen: Soft, Nontender, Nondistended, Normal bowel sounds Back: Nontender, Normal Inspection Extremities: Nontender, No edema Skin: Normal color, No rash Neurological: Alert, Oriented x3, Cranial nerves II-XII grossly intact, Normal Strength, Normal Sensation Psychological: Normal affect, Normal Mood Diagnostic/Tx/Re-eval Chest X-Ray - ED: 1 View, Read by ED Physician, Normal, Heart, Lungs, Mediastinum Abnormal Lab Results 03/09/20 03/09/20 23:25 23:25 WBC 9.2 RBC 4.76 Hgb 13.8 Hct 40.7 MCV 85.5 MCH 29.0 MCHC 33.9 RDW Std Deviation 37.8 RDW Coeff of Rina 12.2 Plt Count 255 MPV 9.9 Immature Gran % (Auto) 0.900 Neut % (Auto) 78.9 H Lymph % (Auto) 14.8 L Sutter % (Auto) 5.1 Eos % (Auto) 0.1 Baso % (Auto) 0.2 Absolute Neuts (auto) 7.3 Absolute Lymphs (auto) 1.36 Nucleated RBC % 0 Sodium 137 Potassium 4.0 Chloride 105 Carbon Dioxide 29.0 Anion Gap 3 L BUN 15 Creatinine 0.95 Estim Creat Clear Calc 63.37 Est GFR (MDRD) Af Amer 79 Est GFR (MDRD) Non-Af 65 BUN/Creatinine Ratio 15.8 Glucose 160 H Calcium 9.1 Total Bilirubin 0.30 AST 13 L ALT 21 Alkaline Phosphatase 52 Total Protein 7.6 Albumin 3.8 Globulin 3.8 Albumin/Globulin Ratio 1.0 - Rhythm Strip Rhythm Strip: Sinus Rhythm Rate: 80 Ectopy: None - EKG Initial EKG Interpretation: Sinus Rhythm, No Acute Injury Pattern Prior: No Prior - Medical Decision Making Patient presents after near syncopal episode. EKG was obtained. Was sinus rhythm. There is no acute ischemia. Patient was kept on the monitor. She was gently hydrated. Metabolic work-up was pursued. I did elect to send an outpatient Covid as the patient has had symptoms for 10 days and did not feel antigen test would be sufficient. On reevaluation, she is resting comfortably. At this point, I do feel that the patient would benefit from a continued burst of steroids especially given her underlying lung disease. She is comfortable with this plan of care and will be discharged home. Impression 1. COVID-19 2. Asthma exacerbation 3. Near syncope ED Disposition - Plan for ED Patient: Instructions: ED Asthma, Acute (Adult) Prescriptions: Prednisone 10 mg PO UD #33 tab Prescription Printed Referrals: Sylvester Ontiveros MD [Primary Care Provider] -
[2020-03-09 23:42] LABS: Absolute Lymphocyte Count 1.36 X10^3/uL (0.83-4.51); Absolute Neutrophil Count 7.3 X10^3/uL (2.0-7.7); Basophil# 0.02 X10^3/uL; Basophil% 0.2 % (0-1); Eosinophil# 0.01 X10^3/uL; Eosinophils% 0.1 % (0-5); Hematocrit 40.7 % (37-47); Hemoglobin 13.8 g/dL (12.0-15.0); Lymphocyte # 1.36 X10^3/ul (4.0); Lymphocyte % 14.8 % (19-41); Mean Corp Hgb Conc 33.9 g/dL (32-36); Mean Corpuscular Volume 85.5 fL (81-99); Mean Platelet Vol. 9.9 fl (6.2-12.0); Monocyte# 0.47 X10^3/uL; Monocyte% 5.1 % (0-10); NRBC Flagged by Analyzer 0 % (0-5); Neutrophil # 7.28 X10^3/uL (2.7-7.7); Neutrophil % 78.9 % (47-70); Platelet Count 255 K/mm3 (150-450); RBC Distribution Width CV 12.2 % (11.6-14.6); RBC Distribution Width SD 37.8 fl (35.1-43.9); Red Blood Count 4.76 M/mm3 (4.2-5.4); White Blood Count 9.2 K/mm3 (4.4-11.0)
[2020-03-09 23:58] LABS: AST(SGOT) 13 U/L (15-37); Alanine Aminotransfer ALT/SGPT 21 U/L (13-56); Albumin, Serum 3.8 g/dL (3.2-5.0); Alkaline Phosphatase 52 U/L (45-117); Anion Gap 3 (5-15); BUN 15 mg/dL (7-18); BUN/Creat Ratio 15.8 RATIO (10-20); Calcium,Total 9.1 mg/dL (8.5-10.1); Chloride 105 mmol/L (98-107); Creatinine, Serum 0.95 mg/dL (0.55-1.02); EST Glomerular Filtration Rate 65 mL/min (>60); Est Glom Filt Rate - Afr Amer 79 mL/min (>60); Estimated Creatinine Clearance 63.37 ml/min; Globulin 3.8 g/dL (2.2-4.2); Glucose 160 mg/dL (74-106); Protein, Total 7.6 g/dL (6.4-8.2); Sodium Level 137 mmol/L (136-145)
[2020-03-10 00:40] VITALS: BP 152/62; PULSE 68; RESP 18; O2SAT 95
== END 2020-03-10 00:41 | disposition home or self-care (01) ==
LOC: ED 03-10 00:07
PROVIDERS: Emergency Provider Emergency Medicine; PCP Family Medicine
DX: U07.1 COVID-19 (principal); J45.901 Unspecified asthma with (acute) exacerbation; R55 Syncope and collapse; Z79.52 Long term (current) use of systemic steroids
CPT/HCPCS: 71045; 80053; 85025; 87635; 93005; 96360; 99284; J7030; A4216; U0003

== ENCOUNTER → 2020-06-27 08:20 | Outpatient (CLI) | payer OTHER, SELFPAY ==
--- NOTE | 2020-06-27 08:24 | RAD_ITS ---
STUDY: X-RAY - ABDOMEN/PELVIS REASON FOR EXAM: Female, 55 years old. ABDOMINAL PAIN TECHNIQUE: Two AP supine views of the abdomen and pelvis. COMPARISON: None. FINDINGS: Normal visualized lung bases. There is an abundance of fecal material throughout the colon. There is no demonstrated free abdominal air. The visualized liver, spleen and kidneys are grossly normal in size and morphology. Normal soft tissue structures. There is a levoscoliosis RAD/Abdomen Single View IMPRESSION: No acute findings, retained stool Electronically Signed: Nasim Flannery MD at 10:13 EDT , Service support ,
== END ==
PROVIDERS: PCP Family Medicine; Referring Provider Family Medicine; Visit Provider Family Medicine
DX: K59.00 Constipation, unspecified (principal)
CPT/HCPCS: 74018

== ENCOUNTER 2020-07-01 16:25 | Emergency (ER) | payer OTHER, SELFPAY ==
[2020-07-01 16:25] VITALS: BP 156/92; PULSE 90; RESP 16; TEMP 36.3; O2SAT 99; BMI 35.1
--- NOTE | 2020-07-01 16:51 | CT_ITS ---
STUDY: CT ABDOMEN AND PELVIS WITH CONTRAST REASON FOR EXAM: Female, 55 years old. Constipation, eval for bowel obstruction RADIATION DOSAGE (If Supplied By Facility): CTDIvol = ( 17.81 ) mGy, DLP = ( 1267.21 ) mGycm TECHNIQUE: Transaxial images were obtained from the dome of the diaphragm to the symphysis pubis with oral contrast. gastrografin and Isovue 300 100ml was administered. Sagittal and coronal images were reconstructed. Individualized dose optimization techniques were used for this CT. COMPARISON: 08/18/2018 FINDINGS: The visualized lung bases are unremarkable. The visualized portions of the heart are within normal limits. Normal liver. Normal gallbladder and extrahepatic biliary system. Normal spleen. Normal pancreas. Normal bilateral adrenal glands. Normal right kidney. Normal left kidney. Normal visualized stomach. Normal small intestine. Normal colon. The appendix is visualized and appears normal. Normal abdominal aorta. Normal inferior vena cava. Normal retroperitoneum. Normal urinary bladder. There is a small umbilical hernia containing fat. Degenerative changes of the lumbar spine with levoscoliosis. CT/Abdomen/Pelvis WITH Contrast IMPRESSION: No acute inflammatory process or bowel obstruction. Electronically Signed: Lonny Moya MD ([place]) at 18:59 EDT , Service support ,
--- NOTE | 2020-07-01 17:22 | EX.ED.DYSGE1 ---
HPI History of Present Illness Chief Complaint: Abd Pain Informant: patient Narrative Narrative: Patient is a 55-year-old female who presents to the emergency department for constipation. She states that this has been an ongoing issue since May. At that time she had diarrhea and took Imodium. Since then she has not had a solid bowel movement. She states she has been having watery stools. She had an x-ray taken as an outpatient which showed severe constipation. She has been on MiraLAX. She did an enema yesterday. She does have some abdominal discomfort but denies any significant pain. She feels like she is having some urinary pressure secondary to this. This is flaring up her back issues. She has been having low back pain. She denies any fevers or chills. She has been nauseous but not vomiting. Denies any chest pain or shortness of breath. No cough. She is supposed to get a colonoscopy scheduled this coming Friday. She denies any blood or black tarry stools. She is never had this issue before in the past. No previous abdominal surgeries. [facility] Medical History (Updated 07/01/20 @ 19:[address] Petr Carlisle DO) Chest pressure Hypothyroidism Palpitations Parotiditis Home Medications albuterol sulfate 90 mcg/actuation aerosol inhaler 1 puff INHALATION Q6H PRN 12/10/17 [History Last Taken Unknown] thyroid (pork) 90 mg tablet 90 mg PO DAILY tab 12/16/17 [History Last Taken Unknown] Allergy/AdvReac Type Severity Reaction Status Date / Time prednisone AdvReac Other Verified 07/01/20 16:25 Family History Mother Hypertension Alcoholism Drug abuse Cancer CAD (coronary artery disease) Brother Diabetes Surgical History History of tubal ligation (~1997) Social History Smoking Status: Never smoker alcohol intake: never ROS ROS ED Constitutional Constitutional ED: Denies chills or fever(s) Eyes Eyes: Denies change in vision ENT ENT ED: Denies epistaxis or rhinorrhea Cardiovascular Cardiovascular: Denies chest pain or palpitations Respiratory/Chest Respiratory/Chest: Denies cough, dyspnea or dyspnea on exertion Gastrointestinal Gastrointestinal: Reports constipation, nausea and other Details: Abdominal discomfort. ; Denies diarrhea or vomiting Genitourinary Genitourinary ED: Reports dysuria; Denies hematuria or urinary frequency Musculoskeletal Musculoskeletal: Reports back pain; Denies neck pain Integumentary Denies rash Neurologic Neurologic: Denies dizziness, headache(s) or weakness EXAM Physical Exam Const Vital Signs: 07/01/20 16:25 Temperature 97.3 F L Temperature Source Temporal Pulse Rate 90 Respiratory Rate 16 Blood Pressure 156/92 H Blood Pressure Mean 113 Pulse Ox 99 Oxygen Delivery Method Room Air Positive well nourished and well developed General Appearance ED: well developed and NAD HEENT Reports normocephalic, head/scalp atraumatic and moist mucous membranes Eyes PERRL and EOMs intact bilaterally Neck no lymphadenopathy and supple General: Negative for tenderness Chest Wall inspection of chest normal Resp normal respiratory effort and clear to auscultation bilaterally Auscultation: Negative for rales, rhonchi or wheezes Cardio regular rate, regular rhythm and no murmurs GI normal to inspection, nondistended, normoactive bowel sounds GI Narrative: Mild discomfort to palpation of the epigastric region. Palpation: soft; Negative for guarding or rebound tenderness present Back/Spine no CVA tenderness Extremity normal to inspection General Extremety ED: Negative for edema or tenderness General Extremity: Negative for edema Neuro oriented x3, CN's II-XII intact bilaterally and no sensory deficits noted Sensorium / Orientation: alert Motor Exam: strength 5/5 throughout Psych mental status grossly normal Skin no rashes or lesions noted MDM MDM MDM Narrative Medical decision making narrative: Patient presents to the ED for constipation. She was concerned about a bowel obstruction. She states that this is been an ongoing issue over the past 2 months. She has not had a solid bowel movement but has only been having water come out. She does have a benign physical exam. Vital signs within normal limits. Will check basic lab work and CT scan of the abdomen/pelvis as this is been ongoing for multiple months. She states she did have a rectal exam performed this past week and they did not discover any mass or impaction. Patient's lab work did not reveal a significant acute abnormality. She does not have a high white blood cell count. No electrolyte disturbance. Urine does not show any signs of infection. CT scan did not show any signs of obstruction or acute intra-abdominal pathology. After receiving the oral contrast she did have a large bowel movement. Recommend she follow-up with her PCP. Return precautions are reviewed. Patient is feeling much better. She is discharged home in stable condition. All questions were answered. Lab Data Labs: Laboratory Results - last 24 hr 07/01/20 07/01/20 07/01/20 17:18 17:18 18:00 WBC 6.4 RBC 4.87 Hgb 14.0 Hct 42.9 MCV 88.1 MCH 28.7 MCHC 32.6 RDW Std Deviation 39.9 RDW Coeff of Rina 12.5 Plt Count 223 MPV 10.0 Immature Gran % (Auto) 0.200 Neut % (Auto) 57.9 Lymph % (Auto) 29.0 Emanuel % (Auto) 7.7 Eos % (Auto) 4.9 Baso % (Auto) 0.3 Absolute Neuts (auto) 3.7 Absolute Lymphs (auto) 1.85 Nucleated RBC % 0 Sodium 136 Potassium 4.0 Chloride 103 Carbon Dioxide 28.0 Anion Gap 5 BUN 10 Creatinine 1.05 H Estim Creat Clear Calc 56.67 Est GFR (MDRD) Af Amer 70 Est GFR (MDRD) Non-Af 58 L BUN/Creatinine Ratio 9.5 L Glucose 103 Calcium 9.2 Total Bilirubin 0.50 Direct Bilirubin 0.11 AST 21 ALT 27 Alkaline Phosphatase 52 Total Protein 7.7 Albumin 3.9 Globulin 3.8 Urine Color Yellow Urine Clarity Clear Urine pH 6.5 Ur Specific [place] 1.010 Urine Protein Negative Urine Glucose (UA) Normal Urine Ketones 5 H Urine Occult Blood Negative Urine Nitrite Negative Urine Bilirubin Negative Urine Urobilinogen Normal Ur Leukocyte Esterase Negative Urine RBC 0 SEEN Urine WBC 0 SEEN Ur Squamous Epith Cells 0 SEEN Urine Bacteria 0 SEEN Urine Mucus 0 SEEN Radiography Diagnostic Testing: Radiology Impression Abdomen/Pelvis CT 07/01/20 16:51 IMPRESSION: No acute inflammatory process or bowel obstruction. Electronically Signed: Lonny Moya MD ([place]) at 18:59 EDT , Service support , Discharge Plan Triage Chief Complaint: Abd Pain ED Provider: Petr Carlisle Dx/Rx/DC Orders Clinical Impression: Constipation Instructions: ED Constipation (Adult) Prescriptions: No Action ProAir HFA 90 mcg/actuation HFA aerosol inhaler 1 puff INHALATION Q6H PRN (Reason: Sob &/Or Wheezing) RF: 0 thyroid (pork) 90 mg tablet 90 mg PO DAILY RF: 0 Primary Care Provider: Sylvester Ontiveros Referrals: Sylvester Ontiveros MD [Primary Care Provider] - As Needed Disposition Disposition: Home, self care Discharge Date/Time: 07/01/20 19:42
[2020-07-01 17:48] LABS: AST(SGOT) 21 U/L (15-37); Alanine Aminotransfer ALT/SGPT 27 U/L (13-56); Albumin, Serum 3.9 g/dL (3.2-5.0); Alkaline Phosphatase 52 U/L (45-117); Anion Gap 5 (5-15); BUN 10 mg/dL (7-18); BUN/Creat Ratio 9.5 RATIO (10-20); Bilirubin, Direct 0.11 mg/dL (0.00-0.30); Calcium,Total 9.2 mg/dL (8.5-10.1); Chloride 103 mmol/L (98-107); Creatinine, Serum 1.05 mg/dL (0.55-1.02); EST Glomerular Filtration Rate 58 mL/min (>60); Est Glom Filt Rate - Afr Amer 70 mL/min (>60); Estimated Creatinine Clearance 56.67 ml/min; Globulin 3.8 g/dL (2.2-4.2); Glucose 103 mg/dL (74-106); Protein, Total 7.7 g/dL (6.4-8.2); Sodium Level 136 mmol/L (136-145)
[2020-07-01 18:07] LABS: Bacteria 0 SEEN /hpf (None Seen); Mucous, Urine 0 SEEN /hpf (<or=2+); Red Blood Cells-Urine 0 SEEN /hpf (0-5); Squamous Epithelial Cells - UA 0 SEEN /hpf (5-10); White Blood Cells 0 SEEN /hpf (0-5)
[2020-07-01 18:10] LABS: Absolute Lymphocyte Count 1.85 X10^3/uL (0.83-4.51); Absolute Neutrophil Count 3.7 X10^3/uL (2.0-7.7); Basophil# 0.02 X10^3/uL; Basophil% 0.3 % (0-1); Eosinophil# 0.31 X10^3/uL; Eosinophils% 4.9 % (0-5); Hematocrit 42.9 % (37-47); Lymphocyte # 1.85 X10^3/ul (0.83-4.51); Mean Corp Hgb Conc 32.6 g/dL (32-36); Mean Corpuscular Hgb 28.7 pg (27.0-32.0); Mean Corpuscular Volume 88.1 fL (81-99); Monocyte# 0.49 X10^3/uL; Monocyte% 7.7 % (0-10); NRBC Flagged by Analyzer 0 % (0-5); Neutrophil # 3.69 X10^3/uL (2.7-7.7); Neutrophil % 57.9 % (47-70); Platelet Count 223 K/mm3 (150-450); RBC Distribution Width CV 12.5 % (11.6-14.6); RBC Distribution Width SD 39.9 fl (35.1-43.9); Red Blood Count 4.87 M/mm3 (4.2-5.4); White Blood Count 6.4 K/mm3 (4.4-11.0)
[2020-07-01 18:11] LABS: Color, Urine Yellow (Yellow); Glucose, Dipstick Normal (Normal); Ketone-Dipstick 5 mg/dl (Negative); Leukocyte Esterase-Dipstick Negative /ul (Negative); Nitrite-Dipstick Negative (Negative); Occult Blood-Urine Negative /ul (Negative); Protein-Dipstick Negative (Negative); Urine Bilirubin Dipstick Negative (Negative); Urine Clarity Clear (Clear); Urine Urobilinogen Normal (Normal); Urine pH 6.5 (5.0 - 8.0)
== END 2020-07-01 19:42 | disposition home or self-care (01) ==
PROVIDERS: Emergency Provider Emergency Medicine; PCP Family Medicine
DX: K59.00 Constipation, unspecified (principal); Z98.51 Tubal ligation status; E03.9 Hypothyroidism, unspecified; Z79.52 Long term (current) use of systemic steroids
CPT/HCPCS: 74177; 80048; 80076; 81001; 85025; 99282; Q9967; A4216

== ENCOUNTER 2020-10-28 22:21 | Emergency (ER) | payer OTHER, SELFPAY ==
[2020-10-28 22:22] VITALS: BP 201/86; PULSE 96; RESP 16; TEMP 36.7; O2SAT 96; BMI 37.1
--- NOTE | 2020-10-28 22:54 | EX.ED.DYSGE1 ---
HPI History of Present Illness Chief Complaint: Sore Throat Informant: patient Narrative Narrative: 55-year-old female states that she awoke from sleep tonight to find that she had her fingers in her mouth attempting to remove her uvula. Patient states that she is tasting blood. She denies any ingestion of anything or exposures to anything that I would be out of the ordinary for her. She states this is never happened to her before. She started to have some dental pain and wonders if an infection is spreading. [facility] Medical History (Updated 10/28/20 @ 22:[address] Ricardo Lira DO) Chest pressure Hypothyroidism Palpitations Parotiditis Home Medications albuterol sulfate 90 mcg/actuation aerosol inhaler 1 puff INHALATION Q6H PRN 12/10/17 [History Last Taken Unknown] thyroid (pork) 90 mg tablet 90 mg PO DAILY tab 12/16/17 [History Last Taken Unknown] Allergy/AdvReac Type Severity Reaction Status Date / Time prednisone AdvReac Other Verified 10/28/20 22:22 Family History Mother Hypertension Alcoholism Drug abuse Cancer CAD (coronary artery disease) Brother Diabetes Surgical History History of tubal ligation (~1997) Social History Smoking Status: Never smoker alcohol intake: never ROS ROS ED Constitutional Constitutional ED: Denies chills or weight loss Eyes Eyes: Denies change in vision or diplopia ENT ENT ED: Reports other Details: See history of present illness ; Denies ear pain, rhinorrhea or sore throat Cardiovascular Cardiovascular: Denies chest pain, orthopnea, palpitations or racing heartbeat Respiratory/Chest Respiratory/Chest: Denies cough, dyspnea or orthopnea Gastrointestinal Gastrointestinal: Denies abdominal pain, diarrhea, nausea or vomiting Genitourinary Genitourinary ED: Denies dysuria, hematuria or urinary frequency Musculoskeletal Musculoskeletal: Denies arthralgias or myalgias Integumentary Denies abscess or rash Neurologic Neurologic: Denies headache(s) or weakness Psychiatric Psychiatric: Denies anxiety, depression, suicidal ideation or suicidal thoughts Endocrine Endocrinology: Denies polydipsia, polyphagia or polyuria Allergic/Immunologic Allergic/Immunologic ED: Denies mouth swelling, tongue swelling or urticaria EXAM Physical Exam Const Vital Signs: 10/28/20 22:22 Temperature 98.1 F Temperature Source Temporal Pulse Rate 96 Respiratory Rate 16 Blood Pressure 201/86 H Blood Pressure Mean 124 Pulse Ox 96 Oxygen Delivery Method Room Air Positive well nourished and well developed General Appearance ED: well developed HEENT Reports normocephalic, head/scalp atraumatic and moist mucous membranes HEENT Narrative: Uvula is mildly swollen. At the inferior aspect is some clotted blood. I do not see any swelling of the soft palate or any obvious swelling along the gumline's. Floor the mouth is soft. She is handling her secretions normally Eyes PERRL and EOMs intact bilaterally Neck no lymphadenopathy, supple and no JVD Resp normal respiratory effort and clear to auscultation bilaterally Cardio regular rate, regular rhythm and no murmurs GI normal to inspection, nondistended, normoactive bowel sounds and non-tender Palpation: soft Back/Spine no CVA tenderness and normal ROM Extremity normal to inspection General Extremety ED: Negative for edema General Extremity: Negative for edema Neuro oriented x3 and CN's II-XII intact bilaterally Sensorium / Orientation: alert Motor Exam: strength 5/5 throughout Psych mental status grossly normal Mood & Affect: Negative for depressed or tearful Skin no rashes or lesions noted and no wounds MDM MDM MDM Narrative Medical decision making narrative: Patient was advised that she can take some Benadryl tonight. Would recommend cold fluids. This should resolve uneventfully. Discharge Plan Triage Chief Complaint: Sore Throat ED Provider: Ricardo Lira Dx/Rx/DC Orders Clinical Impression: Uvulitis Instructions: ED Uvulitis Prescriptions: No Action ProAir HFA 90 mcg/actuation HFA aerosol inhaler 1 puff INHALATION Q6H PRN (Reason: Sob &/Or Wheezing) RF: 0 thyroid (pork) 90 mg tablet 90 mg PO DAILY RF: 0 Primary Care Provider: Sylvester Ontiveros Referrals: Sylvester Ontiveros MD [Primary Care Provider] - As Needed Disposition Disposition: Home, Self Care
[2020-10-28 23:07] VITALS: RESP 15
== END 2020-10-28 23:07 | disposition home or self-care (01) ==
PROVIDERS: Emergency Provider Emergency Medicine; PCP Family Medicine
DX: K12.2 Cellulitis and abscess of mouth (principal); E03.9 Hypothyroidism, unspecified
CPT/HCPCS: 99282

== ENCOUNTER → 2021-02-06 15:36 | Outpatient (CLI) | payer OTHER, SELFPAY ==
[2021-02-08 16:15] LABS: Endomysial Antibody IgA Negative (Negative); Immunoglobulin A 160 mg/dL (87-352); t-Transglutaminase IgA <2 U/mL (0-3)
== END ==
PROVIDERS: PCP Family Medicine; Referring Provider Family Medicine; Visit Provider Family Medicine
DX: R19.7 Diarrhea, unspecified (principal)
CPT/HCPCS: 36415; 82784; 83516; 86255

== ENCOUNTER → 2021-08-08 | Outpatient (CLI) | payer OTHER, SELFPAY ==
[2021-08-08 15:52] LABS: Lipase 105 U/L (73-393)
== END | disposition home or self-care (01) ==
LOC: LABSPEC 15:09
PROVIDERS: PCP Family Medicine; Referring Provider Nurse Practitioner Family; Visit Provider Nurse Practitioner Family
DX: B34.9 Viral infection, unspecified (principal); R50.9 Fever, unspecified; R10.84 Generalized abdominal pain
CPT/HCPCS: 83690

== ENCOUNTER 2021-09-04 06:57 | Emergency (ER) | payer OTHER, SELFPAY ==
[2021-09-04 06:58] VITALS: BP 152/82; PULSE 95; RESP 18; TEMP 35.8; O2SAT 95; BMI 34.0
[2021-09-04 07:07] VITALS: BP 152/82; PULSE 95; RESP 18; TEMP 35.8; O2SAT 95
--- NOTE | 2021-09-04 07:18 | CT_ITS ---
STUDY: CT ABDOMEN AND PELVIS WITH CONTRAST REASON FOR EXAM: Female, 56 years old. Abd pain RADIATION DOSAGE (If Supplied By Facility): CTDIvol = ( 16.47 ) mGy, DLP = ( 1181.99 ) mGycm TECHNIQUE: Transaxial images were obtained from the dome of the diaphragm to the symphysis pubis without oral contrast. IV 100mL Isovue-300 was administered. Sagittal and coronal images were reconstructed. Individualized dose optimization techniques were used for this CT. COMPARISON: 07/01/2020 FINDINGS: The visualized lung bases are unremarkable. The visualized portions of the heart are within normal limits. Normal liver. Normal gallbladder and extrahepatic biliary system. Normal spleen. Normal pancreas. Normal bilateral adrenal glands. Normal right kidney. Normal left kidney. Normal visualized stomach. Normal small intestine. Normal colon. The appendix is visualized and appears normal. Normal abdominal aorta. Normal inferior vena cava. Normal retroperitoneum. Normal urinary bladder. Normal visualized uterus. Normal abdominal wall. Thoracolumbar levoscoliosis CT/Abdomen/Pelvis W IV Cont ONLY IMPRESSION: No acute abnormal finding the abdomen or pelvis. Electronically Signed: Lui Stewart MD at 8:26 EDT ,
--- NOTE | 2021-09-04 07:19 | EDS_ITS ---
HPI History of Present Illness Chief Complaint: Abd Pain Informant: patient Onset/Context/Timing Onset: Today Context: Gradual Onset Current Severity: Moderate Maximum Severity: Moderate Narrative Narrative: Patient presents secondary to abdominal pain. She developed symptoms of COVID including cough and congestion with fever mid to late last week. Her primary care physician prescribed her Paxil of it. She started this prescription on the . Patient states that she has had diarrhea each time she took a dose. She presents today because she woke this morning with burning pain in her abdomen. She has a history of diverticulitis and just had a flare 6 weeks ago. She is concerned that her diverticulitis has recurred. She reports she continues to have cough that is now nonproductive. Fever has resolved over the last several days. [facility] Medical History Asthma Diverticulitis Hypothyroidism Palpitations Parotiditis Home Medications levothyroxine 112 mcg tablet (Synthroid) 112 mcg PO DAILY 09/04/21 [History Last Taken Unknown] ondansetron 4 mg disintegrating tablet 4 mg PO Q8H PRN nausea and vomiting #10 tabs 09/04/21 [Rx Last Taken Unknown] Allergy/AdvReac Type Severity Reaction Status Date / Time prednisone AdvReac Other Verified 09/04/21 07:02 Family History Mother Hypertension Alcoholism Drug abuse Cancer CAD (coronary artery disease) Brother Diabetes Surgical History History of tubal ligation (~1997) Social History Smoking Status: Never smoker alcohol intake: never ROS ROS ED Constitutional Constitutional ED: Denies chills or fever(s) Eyes Eyes: Denies change in vision or discharge from eye(s) ENT ENT ED: Denies discharge from eye(s), rhinorrhea or sore throat Cardiovascular Cardiovascular: Denies chest pain or palpitations Respiratory/Chest Respiratory/Chest: Denies cough or dyspnea Gastrointestinal Gastrointestinal: Reports abdominal pain and diarrhea; Denies nausea or vomiting Genitourinary Genitourinary ED: Denies difficulty urinating or dysuria Musculoskeletal Musculoskeletal: Denies back pain or extremity pain Integumentary Denies Abrasions or rash Neurologic Neurologic: Denies headache(s) or weakness Allergic/Immunologic Allergic/Immunologic ED: Denies lip swelling or urticaria EXAM Physical Exam Const Vital Signs: 09/04/21 06:58 09/04/21 07:07 09/04/21 08:27 Temperature 96.5 F L 96.5 F L 97.6 F L Temperature Source Temporal Temporal Oral Pulse Rate 95 95 81 Respiratory Rate 18 18 16 Blood Pressure 152/82 H 152/82 H 139/84 H Blood Pressure Mean 105 105 102 Pulse Ox 95 95 98 Oxygen Delivery Method Room Air Room Air Room Air 09/04/21 10:28 Temperature Temperature Source Pulse Rate 79 Respiratory Rate 15 Blood Pressure 126/88 H Blood Pressure Mean Pulse Ox 98 Oxygen Delivery Method Positive well nourished and well developed General Appearance ED: well developed HEENT Reports normocephalic and head/scalp atraumatic Eyes PERRL and EOMs intact bilaterally Neck supple Chest Wall inspection of chest normal and palpation of chest normal Resp normal respiratory effort and clear to auscultation bilaterally Cardio regular rate and regular rhythm GI non-tender Auscultation: hypoactive bowel sounds Palpation: soft Extremity normal to inspection Neuro oriented x3 and no sensory deficits noted Sensorium / Orientation: alert Motor Exam: strength 5/5 throughout Psych mental status grossly normal Skin no rashes or lesions noted MDM MDM MDM Narrative Medical decision making narrative: Lab work, urinalysis, CT scan obtained. Portable chest x-ray ordered. Patient given IV fluids and Zofran. She declined morphine. Lab Data Attestation: I reviewed the patient's lab results. Labs: Laboratory Results - last 24 hr 09/04/21 09/04/21 09/04/21 07:08 07:08 08:14 WBC 4.8 RBC 4.77 Hgb 14.2 Hct 42.9 MCV 89.9 MCH 29.8 MCHC 33.1 RDW Std Deviation 44.1 H RDW Coeff of Rina 13.5 Plt Count 213 MPV 9.4 Immature Gran % (Auto) 0.400 Neut % (Auto) 64.4 Lymph % (Auto) 23.8 Pleasants % (Auto) 9.5 Eos % (Auto) 1.7 Baso % (Auto) 0.2 Absolute Neuts (auto) 3.1 Absolute Lymphs (auto) 1.13 Nucleated RBC % 0 Sodium 136 Potassium 3.8 Chloride 104 Carbon Dioxide 26.0 Anion Gap 6 BUN 8 Creatinine 1.09 H Estim Creat Clear Calc 53.95 Est GFR (MDRD) Af Amer 67 Est GFR (MDRD) Non-Af 55 L BUN/Creatinine Ratio 7.3 L Glucose 137 H Calcium 9.0 Urine Color Straw Urine Clarity Clear Urine pH 6.5 Ur Specific [place] 1.005 Urine Protein Negative Urine Glucose (UA) Normal Urine Ketones Negative Urine Occult Blood Negative Urine Nitrite Negative Urine Bilirubin Negative Urine Urobilinogen Normal Ur Leukocyte Esterase Negative Urine RBC 0 SEEN Urine WBC 0 SEEN Ur Squamous Epith Cells 0 SEEN Urine Bacteria 0 SEEN Urine Mucus 0 SEEN Radiography Chest X-Ray - ED: 1 View, Read by ED Physician, Normal, Heart, Lungs and Mediastinum Diagnostic Testing: Clinical Impression(s) from Imaging Studies Abdomen/Pelvis CT 09/04/21 07:18 IMPRESSION: No acute abnormal finding the abdomen or pelvis. Electronically Signed: Lui Stewart MD at 8:26 EDT , Chest X-Ray 09/04/21 07:19 IMPRESSION: No acute abnormal cardiopulmonary finding. Electronically Signed: Lui Stewart MD at 8:12 EDT , Treatment and Re-Evaluation Narrative: Patient's chest x-ray per my interpretation shows no focal infiltrate. Radiology interpretation reviewed. CBC and chemistry studies unremarkable. Urinalysis reveals no infection. CT scan of the abdomen pelvis reveals no acute findings, specifically no evidence of recurrent diverticulitis. Test results discussed with the patient. She will continue supportive care at home. She will stop her Paxlovid as she started noticing the symptoms following initiation of that medication. She is written a prescription for Zofran at home. Discharge Plan Triage Chief Complaint: Abd Pain ED Provider: Aileen Cadena Dx/Rx/DC Orders Clinical Impression: COVID-19, Abdominal pain Instructions: Coronavirus Disease 2019 (COVID-19): Overview, Coronavirus Disease 2019 (COVID-19): Caring for Yourself or Others, ED Abdominal Pain Unkn Cause Fem Prescriptions: New ondansetron 4 mg tablet,disintegrating 4 mg PO Q8H PRN (Reason: nausea and vomiting) Qty: 10 0RF No Action levothyroxine [Synthroid] 112 mcg Tablet 112 mcg PO DAILY Primary Care Provider: Sylvester Ontiveros Referrals: Sylvester Ontiveros MD [Primary Care Provider] - 1 Week if not improving Disposition Disposition: Home, Self Care Discharge Date/Time: 09/04/21 10:29
--- NOTE | 2021-09-04 07:19 | RAD_ITS ---
STUDY: X-RAY CHEST REASON FOR EXAM: Female, 56 years old. cough, covid TECHNIQUE: Portable, upright, AP chest radiograph COMPARISON: 03/09/2020 FINDINGS: The lungs are clear and expanded. There is no demonstrated pleural abnormality. Normal size heart. Normal mediastinum and marissa. Normal visualized pulmonary arteries. Normal visualized aortic arch and descending thoracic aorta. There is no demonstrated abnormality of the visualized soft tissue structures of the upper abdomen. RAD/Chest 1 View (Portable) IMPRESSION: No acute abnormal cardiopulmonary finding. Electronically Signed: Lui Stewart MD at 8:12 EDT ,
[2021-09-04 07:29] LABS: Absolute Lymphocyte Count 1.13 X10^3/uL (0.83-4.51); Absolute Neutrophil Count 3.1 X10^3/uL (2.0-7.7); Basophil# 0.01 X10^3/uL; Basophil% 0.2 % (0-1); Eosinophil# 0.08 X10^3/uL; Eosinophils% 1.7 % (0-5); Hematocrit 42.9 % (37-47); Hemoglobin 14.2 g/dL (12.0-15.0); Lymphocyte # 1.13 X10^3/ul (0.83-4.51); Lymphocyte % 23.8 % (19-41); Mean Corp Hgb Conc 33.1 g/dL (32-36); Mean Corpuscular Hgb 29.8 pg (27.0-32.0); Mean Corpuscular Volume 89.9 fL (81-99); Mean Platelet Vol. 9.4 fl (6.2-12.0); Monocyte# 0.45 X10^3/uL; Monocyte% 9.5 % (0-10); NRBC Flagged by Analyzer 0 % (0-5); Neutrophil # 3.06 X10^3/uL (2.7-7.7); Neutrophil % 64.4 % (47-70); Platelet Count 213 K/mm3 (150-450); RBC Distribution Width CV 13.5 % (11.6-14.6); RBC Distribution Width SD 44.1 fl (35.1-43.9); Red Blood Count 4.77 M/mm3 (4.2-5.4); White Blood Count 4.8 K/mm3 (4.4-11.0)
[2021-09-04] MEDS: Ondansetron 4 MG/2 ML Vial IV (07:30)
[2021-09-04] MEDS: 0.9% Normal Saline 1,000 ML 150 ML IV (07:30)
[2021-09-04 07:42] LABS: Anion Gap 6 (5-15); BUN 8 mg/dL (7-18); BUN/Creat Ratio 7.3 RATIO (10-20); Chloride 104 mmol/L (98-107); Creatinine, Serum 1.09 mg/dL (0.55-1.02); EST Glomerular Filtration Rate 55 mL/min (>60); Est Glom Filt Rate - Afr Amer 67 mL/min (>60); Estimated Creatinine Clearance 53.95 ml/min; Glucose 137 mg/dL (74-106); Potassium 3.8 mmol/L (3.5-5.1); Sodium Level 136 mmol/L (136-145)
[2021-09-04 08:20] LABS: Bacteria 0 SEEN /hpf (None Seen); Mucous, Urine 0 SEEN /hpf (<or=2+); Red Blood Cells-Urine 0 SEEN /hpf (0-5); Squamous Epithelial Cells - UA 0 SEEN /hpf (5-10); White Blood Cells 0 SEEN /hpf (0-5)
[2021-09-04 08:27] VITALS: BP 139/84; PULSE 81; RESP 16; TEMP 36.4; O2SAT 98
[2021-09-04 08:27] LABS: Color, Urine Straw (Yellow); Glucose, Dipstick Normal (Normal); Ketone-Dipstick Negative (Negative); Leukocyte Esterase-Dipstick Negative /ul (Negative); Nitrite-Dipstick Negative (Negative); Occult Blood-Urine Negative /ul (Negative); Protein-Dipstick Negative (Negative); Specific Gravity, Urine 1.005 (1.002-1.030); Urine Bilirubin Dipstick Negative (Negative); Urine Clarity Clear (Clear); Urine Urobilinogen Normal (Normal); Urine pH 6.5 (5.0 - 8.0)
[2021-09-04 10:28] VITALS: BP 126/88; PULSE 79; RESP 15; O2SAT 98
== END 2021-09-04 10:29 | disposition home or self-care (01) ==
PROVIDERS: Emergency Provider Emergency Medicine; PCP Family Medicine; Visit Provider Emergency Medicine
DX: U07.1 COVID-19 (principal); R10.9 Unspecified abdominal pain; E03.9 Hypothyroidism, unspecified; J45.909 Unspecified asthma, uncomplicated
CPT/HCPCS: 71045; 74177; 80048; 81001; 85025; 96361; 96374; 96375; 99283; J7030; Q9967; A4216; J2405

== ENCOUNTER → 2021-09-14 | Outpatient (CLI) | payer OTHER, SELFPAY ==
--- NOTE | 2021-09-14 14:32 | RAD_ITS ---
EXAM: XR CHEST, 2 VIEWS CLINICAL INDICATION: COUGH TECHNIQUE: Frontal and lateral views of the chest. This report was created using [employer] report generation technology. COMPARISON: 09/04/2021 FINDINGS: LUNGS AND PLEURAL SPACES: Unremarkable. No consolidation or edema. No pneumothorax. No effusion. HEART: Unremarkable. Cardiac silhouette not enlarged. MEDIASTINUM: Central airways and mediastinal contour are unremarkable. BONES/JOINTS: Mild curvature of the thoracic spine. SOFT TISSUES: Unremarkable. RAD/Chest PA and Lateral IMPRESSION: No acute findings in the chest. Electronically Signed: Jose Gutierrez MD at 14:47 EDT ,
== END | disposition home or self-care (01) ==
PROVIDERS: PCP Family Medicine; Referring Provider Family Medicine; Visit Provider Family Medicine
DX: R05.9 Cough, unspecified (principal)
CPT/HCPCS: 71046

== ENCOUNTER → 2021-10-08 | Outpatient (CLI) | payer OTHER, SELFPAY ==
--- NOTE | 2021-10-08 09:18 | RAD_ITS ---
STUDY: X-RAY - LEFT WRIST REASON FOR EXAM: Female, 56 years old. Pain. TECHNIQUE: 3 view(s) of the wrist were obtained. COMPARISON: 01/27/2015. FINDINGS: Osteopenia. Mild arthrosis of the distal radiocarpal joint. Moderate arthrosis of the distal radial ulnar joint. Separate ossification center for the ulnar styloid remote ulnar styloid fracture. Mild arthrosis of the radiocarpal row of the wrist. Moderate arthrosis of the first CMC joint. The soft tissue structures are unremarkable. RAD/Wrist min 3 Views IMPRESSION: Osteopenia with stable osteoarthritic changes since the prior study. No acute abnormality, chondrocalcinosis or erosive changes. Electronically Signed: Ajith Lemus, at 9:56 EDT ,
== END | disposition home or self-care (01) ==
LOC: MTRAD 09:17
PROVIDERS: PCP Family Medicine; Referring Provider Family Medicine; Visit Provider Family Medicine
DX: M25.532 Pain in left wrist (principal)
CPT/HCPCS: 73110

== ENCOUNTER → 2022-05-01 | Outpatient (CLI) | payer OTHER, SELFPAY ==
--- NOTE | 2022-05-02 08:18 | PFT ---
INTRODUCTION: The patient is a 56-year-old female that presents for pulmonary function studies secondary to a diagnosis of asthma. Respiratory therapy reported good patient effort. Bronchodilators were used during testing. INTERPRETATION: Forced expiration spirometry demonstrates no evidence of a large airways obstructive ventilatory defect. There was a significant response to aerosolized bronchodilators. Spirograms are of good quality and plateau gradually indicating slow emptying of the lungs. Body plethysmography was performed and revealed lung volumes to be within normal limits. Diffusing capacity by single breath CO is also within normal limits. IMPRESSION: Stigmata of small airways disease with significant bronchodilator response, consistent with the patient's history of asthma.
== END | disposition home or self-care (01) ==
LOC: PSN 08:57
PROVIDERS: Visit Provider Internal Medicine Critical Care Medicine
DX: J45.909 Unspecified asthma, uncomplicated (principal)
CPT/HCPCS: 94060; 94726; 94729

== ENCOUNTER → 2022-05-13 | Outpatient (CLI) | payer OTHER, SELFPAY ==
[2022-05-13 15:52] LABS: Absolute Lymphocyte Count 1.99 X10^3/uL (0.83-4.51); Absolute Neutrophil Count 3.9 X10^3/uL (2.0-7.7); Basophil# 0.01 X10^3/uL; Basophil% 0.1 % (0-1); Eosinophil# 0.12 X10^3/uL; Eosinophils% 1.8 % (0-5); Hematocrit 40.7 % (37-47); Hemoglobin 13.9 g/dL (12.0-15.0); Lymphocyte # 1.99 X10^3/ul (0.83-4.51); Lymphocyte % 29.7 % (19-41); Mean Corp Hgb Conc 34.2 g/dL (32-36); Mean Corpuscular Hgb 29.8 pg (27.0-32.0); Mean Corpuscular Volume 87.3 fL (81-99); Mean Platelet Vol. 9.3 fl (6.2-12.0); Monocyte% 10.4 % (0-10); NRBC Flagged by Analyzer 0 % (0-5); Neutrophil # 3.85 X10^3/uL (2.7-7.7); Neutrophil % 57.6 % (47-70); Platelet Count 225 K/mm3 (150-450); Red Blood Count 4.66 M/mm3 (4.2-5.4); White Blood Count 6.7 K/mm3 (4.4-11.0)
[2022-05-16 22:06] LABS: Alternaria tenuis 1.01 kU/L (Class II); Ash, White 0.14 kU/L (Class 0/I); Aspergillus fumigatus <0.10 kU/L (Class 0); Bermuda Grass 0.28 kU/L (Class 0/I); Birch <0.10 kU/L (Class 0); Black Walnut 0.17 kU/L (Class 0/I); Cat Hair / Dander,Stand 0.83 kU/L (Class II); Cedar, Mountain <0.10 kU/L (Class 0); Cladosporium herbarum <0.10 kU/L (Class 0); Cockroach, American <0.10 kU/L (Class 0); Cottonwood <0.10 kU/L (Class 0); D farinae Mite <0.10 kU/L (Class 0); D pteronyssinus 0.13 kU/L (Class 0/I); Dog Epithelia 1.84 kU/L (Class III); Elm, American White 0.22 kU/L (Class 0/I); Immunoglobulin E 57 IU/mL (6-495); Maple/Box Elder <0.10 kU/L (Class 0); Mulberry, White <0.10 kU/L (Class 0); Oak, White 0.12 kU/L (Class 0/I); Pecan 0.15 kU/L (Class 0/I); Penicillium Notatum <0.10 kU/L (Class 0); Pigweed, Rough <0.10 kU/L (Class 0); Russian Thistle <0.10 kU/L (Class 0); Sheep Sorrel <0.10 kU/L (Class 0); Sycamore, American <0.10 kU/L (Class 0); Timothy Grass 0.89 kU/L (Class II)
[2022-05-17 15:16] LABS: Mouse Urine <0.10 kU/L (Class 0)
[2022-05-18 19:07] LABS: Aspirgillus flavus Negative (Neg:<1:1); Aspirgillus fumigatus Negative (Neg:<1:1); Aspirgillus niger Negative (Neg:<1:1)
[2022-05-19 11:07] LABS: Immunoglobulin E 57 IU/mL (6-495)
== END | disposition home or self-care (01) ==
PROVIDERS: Referring Provider Internal Medicine Critical Care Medicine; Visit Provider Internal Medicine Critical Care Medicine
DX: J45.909 Unspecified asthma, uncomplicated (principal)
CPT/HCPCS: 36415; 82785; 85025; 86003; 86606

== ENCOUNTER → 2022-05-14 | Outpatient (CLI) | payer OTHER, SELFPAY ==
[2022-05-14 15:31] LABS: Creatinine, Serum 1.03 mg/dL (0.55-1.02); EST Glomerular Filtration Rate 59 mL/min (>60); Est Glom Filt Rate - Afr Amer 71 mL/min (>60)
== END | disposition home or self-care (01) ==
PROVIDERS: Referring Provider Physician Assistant; Visit Provider Physician Assistant
DX: I65.29 Occlusion and stenosis of unspecified carotid artery (principal); Z82.49 Family history of ischemic heart disease and other diseases of the circulatory system; E06.3 Autoimmune thyroiditis
CPT/HCPCS: 36415; 82565

== ENCOUNTER → 2022-09-17 | Outpatient (CLI) | payer OTHER, SELFPAY | END | disposition home or self-care (01) | LOC: SL 20:11 | PROVIDERS: PCP Family Medicine; Referring Provider Family Medicine; Visit Provider Family Medicine | DX: G47.10 Hypersomnia, unspecified (principal) | CPT/HCPCS: 95810 ==

== ENCOUNTER → 2022-10-03 | Outpatient (CLI) | payer OTHER, SELFPAY ==
--- NOTE | 2022-10-03 16:36 | RAD_ITS ---
STUDY: X-RAY - RIGHT HAND, ATTENTION THIRD FINGER REASON FOR EXAM: Female, 57 years old. DIP ganglion cyst. TECHNIQUE: 3 view(s) of the finger were obtained. COMPARISON: None. FINDINGS: Normal metacarpal head. Normal metacarpophalangeal joint. Normal proximal phalanx. Normal middle phalanx. Normal distal phalanx. Normal proximal interphalangeal joint. Normal distal interphalangeal joint. Circumscribed small 8 mm in diameter soft tissue mass projected along the ulnar side of the distal aspect of the middle phalanx third digit. RAD/Finger(s) Min 2 Views IMPRESSION: Soft tissue mass. No aggressive features. Electronically Signed: Ajith Lemus MD at 10:33 EDT ,
== END | disposition home or self-care (01) ==
LOC: MTRAD 16:30
PROVIDERS: PCP Family Medicine; Referring Provider Surgery; Visit Provider Surgery
DX: M67.441 Ganglion, right hand (principal)
CPT/HCPCS: 73140

== ENCOUNTER → 2022-10-10 | Outpatient (CLI) | payer OTHER, SELFPAY ==
--- NOTE | 2022-10-10 16:25 | LES_PTH ---
PATIENT: MARKO CALLAWAY LOC: [facility] U#:[id number] AGE/SX: 57/F ROOM: RE10/10/[address]: Ham Tucker MD : 1965 BED: DIS: 10/10/2022 SPEC #: [id number] RECD: 10/10/22 17:40 STATUS: [place] KENDRA #: [id number] JOMAR: 10/10/22 16:[address]: Ham Tucker DEPT: SURGICAL PATHOLOGY RECD BY: Gala Peoples Tissues: Skin of finger, NOS Procedures: Surgery Specimen Level IV HEADER OPERATION: Shave biopsy PRE-OP DIAGNOSIS: Suspicious finger lesion TISSUE SUBMITTED: Right middle finger MICROSCOPIC DIAGNOSIS Right middle finger lesion, shave biopsy: Extensive hyperkeratosis. Negative for malignancy. See comment. DEISI:mikey 10/15/2022 COMMENT Clinical correlation and appropriate follow up are necessary. MICROSCOPIC DESCRIPTION Slides are reviewed. GROSS DESCRIPTION Received is one container labeled with the patient's name and not further designated. The specimen consists of a piece of wood-white skin measuring 0.8 x 0.8 x 0.3 cm. The specimen is inked and serially sectioned. Also present in the container is a detached piece of wood-white skin measuring 0.3 x 0.2 x 0.2 cm. The entire specimen is submitted in one cassette. / SJ:rg 10/11/2022 TC:5 CPT: 60868
== END | disposition home or self-care (01) ==
PROVIDERS: PCP Family Medicine; Visit Provider Family Medicine
DX: L57.0 Actinic keratosis (principal)
CPT/HCPCS: 88305

== ENCOUNTER → 2022-10-28 | Outpatient (CLI) | payer OTHER, SELFPAY | END | disposition home or self-care (01) | LOC: SL 10:14 | PROVIDERS: PCP Family Medicine; Visit Provider Nurse Practitioner Acute Care | DX: G47.33 Obstructive sleep apnea (adult) (pediatric) (principal) ==

== ENCOUNTER → 2022-11-04 | Outpatient (CLI) | payer OTHER, SELFPAY | END | disposition home or self-care (01) | LOC: SL 10:05 | PROVIDERS: PCP Family Medicine; Visit Provider Nurse Practitioner Acute Care | DX: Z46.89 Encounter for fitting and adjustment of other specified devices (principal) ==

== ENCOUNTER → 2023-03-04 | Outpatient (CLI) | payer OTHER, SELFPAY ==
--- NOTE | 2023-03-04 11:35 | VDLE_ITS ---
Reason For Study: Right leg pain RIGHT LEFT GSV is normal. CFV is compressible, spontaneous, phasic, CFV is compressible, spontaneous, phasic, competent, and demonstrates normal competent and demonstrates normal augmentation. augmentation. FV is compressible, spontaneous, phasic, competent and demonstrates normal augmentation. POP V is compressible, spontaneous, phasic, competent and demonstrates normal augmentation. T/P Trunk is compressible. PTV is compressible. RT PerV is compressible. Procedure This is a venous duplex using B-mode, color flow and spectral Doppler. Exam performed in department. A preliminary report was called and/or faxed to [facility]. VL/Venous Duplex US, Unilateral Interpretation Summary Deep veins of the right lower extremity are patent and compressible segmentally . There is no evidence of right lower extremity deep vein thrombosis. The right great sapheno us vein appears patent and compressible segmentally. Ordering Physician: Ninfa Pringle Referring Physician: Ham Tucker Performed By: Мария Roper RVT
--- OUTSIDE RECORDS SUMMARY | 2023-03-04 12:17 | XMS RPT_ITS | CCD ---
Author Name Unknown Address [address] [place] [address] Organization [facility] Care Team Providers Care Pan Helper Name Role Phone Sylvester Ontiveros MD Primary Care Provider 1( [phone] SHAHID CRUMP Attending Unavailable SYLVESTER ONTIVEROS Primary Care Unavailable SYLVESTER ONTIVEROS Primary Care Unavailable LUIS DOMÍNGUEZ Referring Unavailable SYLVESTER ONTIVEROS Primary Care Unavailable LUIS DOMÍNGUEZ Attending Unavailable SYLVESTER ONTIVEROS Primary Care Unavailable LUIS DOMÍNGUEZ Referring Unavailable Allergies Allergy Classification Reported Allergen(s) Allergy Type Date of Onset Reaction(s) Facility (12 sources) predniSONE; Translations: [PREDNISONE] Drug Allergy 09-17-2006 Mental Status Change [facility] Medications Current Medications Medication Drug Class(es) Dates Sig (Normalized) Sig (Original) levothyroxine sodium 0.125 mg oral tablet (14 sources) l-Thyroxine Start: 11-04-2022 End: 11-04-2023 take 1 tablet by mouth once daily SYNTHROID 125 mcg tablet Take 1 tablet by mouth once daily. Wait 30 min before eating or taking other meds; Wait 4 hrs before mineral vitamins 90 tablet 3 11/04/2022 11/04/2023 Active Completed/Discontinued Medications Medication Drug Class(es) Dates Sig (Normalized) Sig (Original) 200 actuat albuterol 0.09 mg/actuat metered dose inhaler (11 sources) beta2-Adrenergic Agonist Start: 05-21-2013 take 2 puff(s) by inhalation every four hours as needed for cough albuterol 90 mcg/actuation aero Indications: URI (upper respiratory infection) , History of asthma Inhale 2 Puffs as instructed every 4 hours as needed (shortness of breath/cough/wheez e). With spacer please. 1 Inhaler 0 05/21/2013 Active Problems Active Problems Problem Classification Problem Date Documented Date Episodic/Chronic Asthma (11 sources) Unspecified asthma, uncomplicated; Translations: [Asthma, unspecified type, unspecified] 04-13-2011 Chronic Diabetes mellitus without complication (3 sources) Abnormal glucose level; Translations: [Other abnormal glucose] Onset: 02-11-2023 Episodic Disorders of lipid metabolism (14 sources) Dyslipidemia; Translations: [Hyperlipidemia, unspecified] Onset: 11-08-2009 04-13-2011 Chronic Fever of unknown origin (1 source) Fever; Translations: [Fever, unspecified] Episodic Genitourinary symptoms and ill-defined conditions (11 sources) Female stress incontinence; Translations: [Stress incontinence (female) (male)] Onset: 08-19-2011 08-19-2011 Chronic Menstrual disorders (20 sources) Dysmenorrhea; Translations: [Dysmenorrhea, unspecified] Onset: 08-19-2011 04-13-2011 Chronic Nutritional deficiencies (13 sources) Vitamin D deficiency; Translations: [Vitamin D deficiency, unspecified] Onset: 11-08-2009 04-13-2011 Chronic Other acquired deformities (11 sources) Scoliosis deformity of spine; Translations: [Other forms of scoliosis, site unspecified] 04-13-2011 Chronic Other endocrine disorders (9 sources) Hyperandrogenemia; Translations: [Androgen excess] Onset: 11-08-2009 04-13-2011 Chronic Other endocrine disorders (2 sources) Increased androgen level; Translations: [Androgen excess] Onset: 11-08-2009 04-13-2011 Chronic Other female genital disorders (11 sources) Premenstrual tension syndrome; Translations: [Premenstrual tension syndrome] Onset: 08-19-2011 08-19-2011 Chronic Other nutritional; endocrine; and metabolic disorders (13 sources) Insulin resistance; Translations: [Metabolic syndrome] Onset: 11-08-2009 04-13-2011 Chronic Other nutritional; endocrine; and metabolic disorders (11 sources) Body mass index 30+ - obesity; Translations: [Obesity, unspecified] Onset: 08-19-2011 10-19-2019 Chronic Other nutritional; endocrine; and metabolic disorders (1 source) Metabolic syndrome; Translations: [Insulin resistance] Onset: 04-13-2011 Chronic Thyroid disorders (16 sources) 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; Translations: [Other specified hypothyroidism] Onset: 06-14-2016 Chronic Unclassified (1 source) Insulin resistance; Translations: [Insulin resistance] Onset: 04-13-2011 Viral infection (1 source) Viral disease; Translations: [Viral infection, unspecified] Episodic Past or Other Problems Problem Classification Problem Date Documented Da te Episodic/Chronic Abdominal pain (14 sources) Right lower quadrant pain; Translations: [Right lower quadrant pain] Onset: 08-19-2011 08-19-2011 Episodic Genitourinary symptoms and ill-defined conditions (13 sources) Urgent desire to urinate; Translations: [Urgency of urination] Onset: 08-19-2011 08-19-2011 Episodic Nonmalignant breast conditions (11 sources) Lump in left breast; Translations: [Unspecified lump in the left breast, unspecified quadrant] Onset: 02-24-2013 02-24-2013 Episodic Other female genital disorders (11 sources) Dysplasia of cervix; Translations: [Dysplasia of cervix uteri, unspecified] Onset: 08-19-2011 08-19-2011 Episodic Results Test Name Value Interpretation Reference Range Facil it Vital Signs Date Time Vital Sign Value Performing Clinician Facility 10-01-2021 16:07-0400 Body weight 94.8 kg Luis Domínguez MD Work Phone: [facility] 10-01-2021 16:07-0400 Diastolic blood pressure 80 mm[Hg] uLis Domínguez MD Work Phone: [facility] 10-01-2021 16:07-0400 Systolic blood pressure 117 mm[Hg] Luis Domínguez MD Work Phone: [facility] 08-21-2021 13:42-0400 Body weight 94.35 kg Verito Quechee LIBRARY SCIENCE PROFESSOR.BALL TRUING MACHINE OPERATOR Work Phone: [facility] 08-21-2021 13:42-0400 Diastolic blood pressure 74 mm[Hg] Verito Quechee LIBRARY SCIENCE PROFESSOR.BALL TRUING MACHINE OPERATOR Work Phone: [facility] 08-21-2021 13:42-0400 Systolic blood pressure 112 mm[Hg] Verito Quechee LIBRARY SCIENCE PROFESSOR.BALL TRUING MACHINE OPERATOR Work Phone: [facility] 08-08-2021 10:23-0400 Body temperature 101.19 [degF] Shirley Sands LIBRARY SCIENCE PROFESSOR.BALL TRUING MACHINE OPERATOR Work Phone: [facility] 08-08-2021 10:23-0400 Body weight 97.16 kg Shirley Sands LIBRARY SCIENCE PROFESSOR.BALL TRUING MACHINE OPERATOR Work Phone: [facility] 08-08-2021 10:23-0400 Diastolic blood pressure 80 mm[Hg] Shirley Sands LIBRARY SCIENCE PROFESSOR.BALL TRUING MACHINE OPERATOR Work Phone: [facility] 08-08-2021 10:23-0400 Heart rate 100 /min Shirley Sands LIBRARY SCIENCE PROFESSOR.BALL TRUING MACHINE OPERATOR Work Phone: [facility] 08-08-2021 10:23-0400 Respiratory rate 21 /min Shirley Sands LIBRARY SCIENCE PROFESSOR.BALL TRUING MACHINE OPERATOR Work Phone: [facility] 08-08-2021 10:23-0400 SaO2% (BldA) [Mass fraction] 97 % Shirley Sands LIBRARY SCIENCE PROFESSOR.BALL TRUING MACHINE OPERATOR Work Phone: [facility] 08-08-2021 10:23-0400 Systolic blood pressure 158 mm[Hg] Shirley Sands LIBRARY SCIENCE PROFESSOR.BALL TRUING MACHINE OPERATOR Work Phone: [facility] Encounters Encounter Date Encounter Type Care Provider Facility Start: 02-17-2023 End: 02-17-2023 ambulatory SHAHID CRUMP Facility:[facility] Start: 02-11-2023 End: 02-12-2023 ambulatory SYLVESTER JEFF ONTIVEROS Facility:[facility] Start: 01-13-2023 ambulatory Luis Domínguez MD Work Phone: Endocrinology Procedures Date Procedure Procedure Detail Performing Clinician Start: 07-24-2022 Lipid 1996 panel - S too or Plasma Luis Domínguez MD Work Phone: Start: 08-21-2021 Urnls dip stick/tabl et rgnt auto w/o microscopy Verito Quechee LIBRARY SCIENCE PROFESSOR.BALL TRUING MACHINE OPERATOR Work Phone: Start: 08-08-2021 Urnls dip stick/tabl et rgnt auto w/o microscopy [facility] Provider Start: 03-17-2015 Mammography Luis epps MD Work Phone: Plan of Treatment Date Care Activity Detail Author Start: 07-25-2027 Lipid 1996 panel - Serum or Plasma Lipid Screening [facility] Start: 09-29-2026 LIPID SCREEN LIPID SCREEN [facility] Start: 04-03-2026 LIPID SCREEN LIPID SCREEN [facility] Start: 07-24-2025 Diabetes Screening Diabetes Screenin g [facility] Start: 10-19-2024 HPV TESTING HPV TESTING [facility] Start: 10-19-2024 PAP TESTING PAP TESTING [facility] Start: 09-29-2024 DIABETES SCREEN DIABETES SCREEN [facility] Start: 08-08-2024 DIABETES SCREEN DIABETES SCREEN [facility] Start: 04-03-2024 DIABETES SCREEN DIABETES SCREEN [facility] Start: 01-13-2023 End: 11-05-2023 25-hydroxyvitamin D3 [Mass/volume] in Serum or Plasma VITAMIN D 25 HYDROXY Lab Routine Vitamin D deficiency Expected: 01/13/2023, Expires: 11/05/2023 [facility] Work Phone: Payers Date Payer Category Payer Unknown [employer] P[employer] [id number] 2019-Present [phone] [facility] [address] [place] [address] PPO [id number] 2019 Unknown [id number] 2019 Unknown [id number] Social History Date Type Detail Facility Start: 01-19-2013 Tobacco smoking status NHIS Never smoked tobacco [facility] Start: 04-20-2021 End: 08-21-2021 Alcohol intake Lifetime non-drinker (finding) [facility] Start: 10-20-2019 History SDOH Alcohol Frequency 1 [facility] Start: 10-20-2019 History SDOH Social Connections Phone 5 [facility] Start: 10-20-2019 History SDOH Social Connections Membership 2 [facility] Start: 10-20-2019 History SDOH Social Connections Living 3 [facility] Start: 10-20-2019 History SDOH Physical Activity MPS 6 [facility] Start: 1965 Sex Assigned At Female [facility] Start: 07-29-2021 End: 09-29-2021 Exposure to SARS-CoV-2 (event) Not sure [facility] Work Phone: Start: 01-19-2013 Tobacco use and exposure Smokeless tobacco non-user [facility] Work Phone: Start: 10-20-2019 End: 11-04-2022 History of Social function [facility] Start: 10-20-2019 End: 11-04-2022 Social connection and isolation panel [facility] Do you belong to any clubs or organizations such as holiness groups, unions, fraternal or athletic groups, or school groups? No [facility] Are you now , , , , never or living with a partner? [facility] How often to you hav e a drink containing alcohol? Never [facility] Average Number of Drinks Not on file [facility] How hard is it for y ou to pay for the very basics like food, housing, medical care, and heating Somewhat hard [facility] Do you feel stress - tense, restless, nervous, or anxious, or unable to sleep at night because your mind is troubled all the time - these days [OSQ] Very much [facility] (I/We) worried whebaljeet er (my/our) food would run out before (I/we) got money to buy more. Never true [facility] The food that (I/we) bought just didn't last, and (I/we) didn't have money to get more. Sometimes true [facility] Start: 04-09-2021 Gender identity Identifies as female gender (finding) [facility] Start: 04-09-2021 Sexual orientation Heterosexual (finding) [facility] Clinical Notes 03-30-2014 to 02-17-2023 Telephone Encounter - Glenna Saravia Ma - 01/15/2023 7:17 AM Luis Cannon MD - 11/04/2022 2:38 PM Josep Domínguez MD - 10/01/2021 4:07 PM Collin Franco APRN.BALL TRUING MACHINE OPERATOR - 08/21/2021 1:34 PM EDT Note Date & Type Note Facility 02-17-2023 Note HNO ID: [id number] Author: SHAHID CRUMP APRN.NATALYA Service: ? Author Type: Nurse Practitioner Type: Progress Notes Filed: 02/17/2023 10:00 Note Text: 02/17/23 VIRTUAL VISIT PROGRESS NOTE This is a virtual visit using [employer] Zoom Video Visit. It required patient-provider interaction for the medical decision making as documented below. I have communicated my name and active licensure. The patient's identity and physical location were verified at the time of this visit. Either the patient or their legal practice representative has been informed of the risks and benefits of -- and alternatives to -- treatment through a remote evaluation and consents to proceed with the evaluation remotely. 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 Has not increased her dose of Synthroid since HINA Has been alternating with 112 mcg tablet and 125 mcg tablet every other day Has been struggling with depression Father in early January Stopped caring for herself while caring for her father Was eating more fast food Now is able to do more self care Taking her vitamins Working to increase physical activity Weight is beginning to decrease Down 7 lbs Went through CHO withdrawal Lasted 7-8 days -- fatigued, dizzy, head ache Symptoms have subsided Goal is to lose 20 lbs Working on low CHO diet, increased protein intake No sugar No red meats Experiencing some constipation Going 1-2 days without having a bowel movement Consuming fiber with every meal Notes not consuming enough water A1c is up to 6.0 Checking blood glucose levels daily, fasting Has seen a decrease in the past week Down from 128 >>>> 99 mg/dl Elevated lipid panel Making dietary changes Will be adding exercise in the next few weeks MEDICATION Current Outpatient Medications on File Prior to Visit Medication Sig SYNTHROID 125 mcg tablet Take 1 tablet by mouth once daily. Wait 30 min before eating or taking other meds; Wait 4 hrs before mineral vitamins L.acidoph,rhamn-B.breve,longum (PROBIOTIC) 20 billion cell cpSP albuterol 90 mcg/actuation aero Inhale 2 Puffs as instructed every 4 hours as needed (shortness of breath/cough/wheeze). With spacer please. No current facility-administered medications on file prior to visit. REVIEW OF SYSTEMS: Answers submitted by the patient for this visit: Core Review of Systems (Submitted on 02/17/2023) Fever : No Night sweats: No Recent unintentional weight change: No Nasal Congestion: No Hearing Loss: No Vision Disturbance: Yes A cough: No Difficulty Breathing?: No Chest pain: No Irregular heartbeat: No Leg Swelling: No Nausea: No Diarrhea: No Black tarry stools: No Difficulty Urinating?: No Awaken at Night More Than Once to Urinate?: No Joint pain or stiffness: No Muscle aches: No Leg or Foot Discomfort at Night?: No A rash: No Dizziness: No Headaches: No Memory Loss: No Seizures: No LABS Component Latest Ref Rng AND Units 07/24/2022 02/11/2023 02/11/2023 7:33 AM 7:33 AM Protein, Total 6.3 - 8.0 g/dL 7.2 7.1 Albumin 3.9 - 4.9 g/dL 4.3 4.2 Calcium 8.5 - 10.2 mg/dL 9.6 9.7 Bilirubin, Total 0.2 - 1.3 mg/dL 0.4 0.4 Alkaline Phosphatase 34 - 123 U/L 53 63 AST 13 - 35 U/L 33 31 ALT 7 - 38 U/L 27 32 Glucose 74 - 99 mg/dL 108 (H) 119 (H) BUN 7 - 21 mg/dL 14 12 Creatinine 0.58 - 0.96 mg/dL 0.94 0.89 Sodium 136 - 144 mmol/L 140 140 Potassium 3.7 - 5.1 mmol/L 4.1 4.4 Chloride 97 - 105 mmol/L 102 100 CO2 22 - 30 mmol/L 25 28 Anion Gap 9 - 18 mmol/L 13 12 eGFR >=60 mL/min/1.73mA? 71 76 Cholesterol, Total <200 mg/dL 262 (H) 261 (H) Triglyceride <150 mg/dL 361 (H) 437 (H) HDL Cholesterol >39 mg/dL 33 (L) 33 (L) Non HDL Cholesterol <130 mg/dL 229 (H) 228 (H) Fasting Time hrs 16 12 VLDL Cholesterol 72 (H) 86 (H) TC:HDL Ratio <5.10 7.94 (H) 7.91 (H) LDL Cholesterol 157 (H) LDL:HDL Ratio 4.76 (H) Hemoglobin A1C 4.3 - 5.6 % 5.6 6.0 (H) Estimated Average Glucose mg/dL 114 126 LDL Cholesterol, Direct <100 mg/dL 142 (H) TSH 0.270 - 4.200 mIU/L 4.860 (H) 3.150 Free T3 2.3 - 4.1 pg/mL 2.5 2.6 Free T4 0.9 - 1.7 ng/dL 1.1 1.3 Insulin 3.0 - 25.0 mU/L 20.0 Vitamin D 25 Hydroxy 31.0 - 80.0 ng/mL 40.7 PHYSICAL EXAMINATION: [facility] 07/11/2021 Last 3 Encounter Wt Readings: Date: Wt: 10/01/2021 94.8 kg (209 lb) 08/21/2021 94.3 kg (208 lb) 08/08/2021 97.2 kg (214 lb 3.2 oz) General: Well appearing, alert, in no acute distress, well-hydrated, well nourished. 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 [facility] 01-15-2023 Miscellaneous Notes HINA: 11/04/2022 Patient is not feeling well and on Prednisone. She was going to have her labs drawn but would like to wait until these medications are out of her system. How long should she wait to have labs drawn? Glenna Saravia Ma documented in this encounter [facility] 11-04-2022 Note HNO ID: [id number] Author: Luis Domínguez MD Service: ? Author Type: Physician Type: Progress Notes Filed: 11/04/2022 4:56 PM Note Text: Subjective: Marko S Hull is here today to follow-up on endocrine issues. The visit was conducted virtually Answers submitted by the patient for this visit: Core Review of Systems (Submitted on 11/04/2022) Fever : No Night Sweats: No Recent Unintentional Weight Change: No Nasal Congestion: No Hearing Loss: No Vision Disturbance: No A Cough: No Difficulty Breathing?: No Chest Pain: No Irregular Heart Beat: No Leg Swelling: No Nausea: No Diarrhea: No Black Tarry Stools: No Difficulty Urinating?: No Awaken at Night More Than Once to Urinate?: Yes Joint Pain or Stiffness: Yes Muscle Aches: Yes Leg or Foot Discomfort at Night?: Yes A Rash: No Dizziness: No Headaches: No Memory Loss: Yes Seizures: No Current Outpatient Medications Medication Sig SYNTHROID 112 mcg tablet Take 1 tablet by mouth once daily. L.acidoph,rhamn-B.breve,longum (PROBIOTIC) 20 billion cell cpSP albuterol 90 mcg/actuation aero Inhale 2 Puffs as instructed every 4 hours as needed (shortness of breath/cough/wheeze). With spacer please. No current facility-administered medications for this visit. 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 (primary encounter diagnosis) (E88.81) Insulin resistance (R73.09) Abnormal glucose (E78.5) Dyslipidemia (E55.9) Vitamin D deficiency Extreme fatigue during the last few months She was recently diagnosed with obstructive sleep apnea She's been unable to use CPAP thus far, but will soon try nasal pillows Her lab work from July was reviewed Thyroid replacement is insufficient Lipid control was poor as well - which could be exacerbated by thyroid deficiency HbA1c was normal, however Increase Synthroid from 112 to 125 mcg daily Follow up in 3 months - or soonest thereafter - with Shahid Crump APRN.BALL TRUING MACHINE OPERATOR - fasting labs prior to visit Follow up in 6 months with me I spent a total of 20 minutes on the date of the service which included preparing to see the patient, [id number] patient care, completing clinical documentation, obtaining and/or reviewing separately obtained history, counseling and educating the patient/family/caregiver, ordering medications, tests, or procedures, independently interpreting results (not separately reported), communicating results to the patient/family/caregiver, and care coordination (not separately reported). Luis Domínguez MD Endocrinology, Diabetes, AND Metabolism November 04, 2022 2:38 PM I have communicated my name and active licensure. The patient's identity and physical location were verified at the time of this visit. Either the patient or their legal practice representative has been informed of the risks and benefits of -- and alternatives to -- treatment through a remote evaluation and consents to proceed with the evaluation remotely. [facility] 11-04-2022 History of Presen t illness Narrative Subjective: Marko Kelley is here today to follow-up on endocrine issues. The visit was conducted virtually Answers submitted by the patient for this visit: Core Review of Systems (Submitted on 11/04/2022) Fever : No Night Sweats: No Recent Unintentional Weight Change: No Nasal Congestion: No Hearing Loss: No Vision Disturbance: No A Cough: No Difficulty Breathing?: No Chest Pain: No Irregular Heart Beat: No Leg Swelling: No Nausea: No Diarrhea: No Black Tarry Stools: No Difficulty Urinating?: No Awaken at Night More Than Once to Urinate?: Yes Joint Pain or Stiffness: Yes Muscle Aches: Yes Leg or Foot Discomfort at Night?: Yes A Rash: No Dizziness: No Headaches: No Memory Loss: Yes Seizures: No Current Outpatient Medications Medication Sig SYNTHROID 112 mcg tablet Take 1 tablet by mouth once daily. L.acidoph,rhamn-B.breve,longum (PROBIOTIC) 20 billion cell cpSP albuterol 90 mcg/actuation aero Inhale 2 Puffs as instructed every 4 hours as needed (shortness of breath/cough/wheeze). With spacer please. No current facility-administered medications for this visit. 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 (primary encounter diagnosis) (E88.81) Insulin resistance (R73.09) Abnormal glucose (E78.5) Dyslipidemia (E55.9) Vitamin D deficiency Extreme fatigue during the last few months She was recently diagnosed with obstructive sleep apnea She's been unable to use CPAP thus far, but will soon try nasal pillows Her lab work from July was reviewed Thyroid replacement is insufficient Lipid control was poor as well - which could be exacerbated by thyroid deficiency HbA1c was normal, however Increase Synthroid from 112 to 125 mcg daily Follow up in 3 months - or soonest thereafter - with Shahid Crump APRN.BALL TRUING MACHINE OPERATOR - fasting labs prior to visit Follow up in 6 months with me I spent a total of 20 minutes on the date of the service which included preparing to see the patient, [id number] patient care, completing clinical documentation, obtaining and/or reviewing separately obtained history, counseling and educating the patient/family/caregiver, ordering medications, tests, or procedures, independently interpreting results (not separately reported), communicating results to the patient/family/caregiver, and care coordination (not separately reported). Luis Dmoínguez MD Endocrinology, Diabetes, & Metabolism November 04, 2022 2:38 PM I have communicated my name and active licensure. The patient's identity and physical location were verified at the time of this visit. Either the patient or their legal practice representative has been informed of the risks and benefits of -- and alternatives to -- treatment through a remote evaluation and consents to proceed with the evaluation remotely. documented in this encounter [facility] 10-01-2021 History of Presen t illness Narrative Subjective: Marko Kelley is here today to follow-up on endocrine issues. The visit was conducted virtually Answers submitted by the patient for this visit: Core Review of Systems (Submitted on 10/01/2021) Fever : No Night Sweats: Yes Recent Unintentional Weight Change: No Nasal Congestion: No Hearing Loss: No Vision Disturbance: Yes A Cough: No Difficulty Breathing?: No Chest Pain: No Irregular Heart Beat: No Leg Swelling: No Nausea: No Diarrhea: No Black Tarry Stools: No Difficulty Urinating?: No Awaken at Night More Than Once to Urinate?: No Joint Pain or Stiffness: Yes Muscle Aches: No Leg or Foot Discomfort at Night?: No A Rash: No Dizziness: No Headaches: No Memory Loss: No Seizures: No Current Outpatient Medications Medication Sig L.acidoph,rhamn-B.breve,longum (PROBIOTIC) 20 billion cell cpSP SYNTHROID 112 mcg tablet Take 1 tablet by mouth once daily. triamcinolone acetonide (KENALOG) 0.1 % cream Apply 1 application to affected area three times daily. Apply sparingly to area for rash/itching. (Patient not taking: Reported on 08/08/2021 ) albuterol 90 mcg/actuation aero Inhale 2 Puffs as instructed every 4 hours as needed (shortness of breath/cough/wheeze). With spacer please. No current facility-administered medications for this visit. 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 (primary encounter diagnosis) (E88.81) Insulin resistance (R73.09) Abnormal glucose (E78.5) Dyslipidemia Thyroid level is at goal Will continue current thyroid medication regimen Glycemic control is stable, but remains elevated (prediabetic range) Lipids are abnormal, with high Tg being the most significant deviation She had a lot of stress in her life shortly after our prior visit (~6 months ago), including the of both her brother & her sister She was making progress with intermittent fasting but got out of the habit during this timeframe Options discussed I encouraged her to resume the intermittent fasting approach (or something similar) If she can minimize carbohydrate intake and lost weight, then her glucose and lipid studies will improve significantly Follow up in 6 months with labs prior to visit I spent a total of 30 minutes on the date of the service which included preparing to see the patient, [id number] patient care, completing clinical documentation, obtaining and/or reviewing separately obtained history, counseling and educating the patient/family/caregiver, ordering medications, tests, or procedures, and communicating results to the patient/family/caregiver. Luis Domínguez MD Endocrinology, Diabetes, & Metabolism October 01, 2021 4:07 PM documented in this encounter [facility] 08-23-2021 Miscellaneous Notes Patient notified. Brenda Guerra RN Please let the pt know that her US is normal and vaginal culture is negative for infection. She should follow up the GI. Verito Franco APRN.CNP documented in this encounter [facility] 08-21-2021 History of Presen t illness Narrative Marko Kelley is a 56 year old female who presents for problem visit Vaginal pain/discomfort for 1 month(s). HPI: abd pressure more constant over the past few weeks, vaginal pain is sharp/stabbing off/on Diarrhea for the past 2-3 weeks having trouble with eating/drinking will just pass through her Vaginal discharge thin looks like dry blood Sexually active Menstrual cycle every 21-35 days flow lasting about 4-5 days LMP 07/11/21 OB History T0 L3 SAB0 IAB0 Ectopic0 Multiple0 Live Births0 Insulation Professional History LMP: 11/13/2019, Having periods Age at Menarche: Age at First : Age at Menopause: Insulation Professional History Comments: Sexual Activity: Yes; Male Contraception: Tubal Ligation PAST MEDICAL HISTORY Diagnosis Date Dysmenorrhea Dysplasia of cervix 1992 Treated with the cryo Excessive or frequent menstruation Heavy periods 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 Kidney stone 09/2014 Other kyphoscoliosis and scoliosis Unspecified asthma(493.90) PAST SURGICAL HISTORY Procedure Laterality Date CAUTERY CERVIX CRYOCAUTERY INITIAL/REPEAT 1992 LIG/TRNSXJ FLP TUBE ABDL/VAG APPR UNI/BI FAMILY HISTORY Problem Relation Age of Onset Heart Mother Hypertension Mother Cancer Mother lung No Known Problems Father Diabetes Brother Diabetes Brother Diabetes Sister Cancer Maternal Aunt breast Diabetes Maternal Grandmother No Known Problems Maternal Grandfather No Known Problems Paternal Grandmother No Known Problems Paternal Grandfather Social History Tobacco Use Smoking status: Never Smoker Smokeless tobacco: Never Used Vaping Use Vaping Use: Never used Substance Use Topics Alcohol use: Never Drug use: No Current Outpatient Medications Medication Sig SYNTHROID 112 mcg tablet Take 1 tablet by mouth once daily. triamcinolone acetonide (KENALOG) 0.1 % cream Apply 1 application to affected area three times daily. Apply sparingly to area for rash/itching. (Patient not taking: Reported on 08/08/2021 ) albuterol 90 mcg/actuation aero Inhale 2 Puffs as instructed every 4 hours as needed (shortness of breath/cough/wheeze). With spacer please. No current facility-administered medications for this visit. Allergies As of Date: 08/21/2021 Allergen Noted Reaction PREDNISONE 09/17/2006 Mental Status Change Fully Assessed 08/08/2021 REVIEW OF SYSTEMS SEE HPI Expanded ROS: N/A Allergies and current medication updated:Yes EXAM: LMP 11/13/2019 GENERAL: pleasant, female in no apparent distress HEENT: Normocephalic, atraumatic, mucus membranes moist and no lesions CHEST: Normal inspiratory effort PELVIC: external genitalia normal, normal Bartholin's glands, urethra, [place]'s glands, no vulvar lesions, no cervical lesions, good vaginal support, physiologic discharge present, normal appearing perineal body and perianal region BIMANUAL: uterus normal size, shape and consistency, no adnexal masses and Moderate tenderness NEURO: alert and oriented x3,exam grossly non-focal EXTREMITIES: normal ASSESSMENT/PLAN: 1. Gross hematuria - ICD9: 599.71, ICD10: R31.0 (primary diagnosis) - UA DIP, URINE (POC) 2. Pelvic pain in female - ICD9: 625.9, ICD10: R10.2 - BACT/SINGH VAG GRAM STAIN - PELVIC US WHI Verito Franco APRN.NATALYA Medical Decision Making: Problems: Low: Acute, uncomplicated illness or injury Data: Unique test(s) ordered: 3+ Risk: Low: Low risk from testing/treatment Medical Decision Making Level: 3 - Low documented in this encounter [facility] 08-10-2021 Miscellaneous Notes Phone call placed patient advised (see prior provider encounter) Patient verbalized understanding. Patient reported visit 08/09/21 with PCP Dx diverticulitis. Rae Orosco LPN Please inform patient that her urine culture was negative for growth. She needs to follow up with her PCP to further evaluate her symptoms and blood in urine. documented in this encounter [facility] 08-08-2021 Miscellaneous Notes Pt called back and results below given. Clarissa Orosco LPN TC to Pt. Unable to LM due to the mailbox is full. Will try again later. Georgiana Tillman LPN Lipase normal. Please inform patient. documented in this encounter [facility] 08-08-2021 Miscellaneous Notes Return patients call. Informed here of the results. CBC normal CMP normal aside from mildly elevated glucose. We are pending Lipase, call to lab. Specimen is pending being sent over to [facility] Patient also reeducated of blood in her urine, culture is pending. If positive we will treat with ATB as indicated. Verbalized understanding. Patient calling for lab results done today. She was able to view them in My Chart and is asking about her UA. Eloisa Gibson, RN documented in this encounter [facility] 08-08-2021 Instructions Shirley Sands APRN.NATALYA - 08/08/2021 10:57 AM EDT ABDOMINAL PAIN GENERAL INFORMATION: Many medical conditions can cause abdominal pain. Often, the cause cannot be found. INSTRUCTIONS: 1. Your doctor did not find any evidence of a serious disease that could be causing your pain. However, you should return immediately if you develop any of the symptoms listed below. These could be signs of serious diseases that need immediate medical care. 2. You should follow up with your regular physician or with the doctor recommended to you by the emergency department. 3. Rest in bed until you feel better. 4. Take your temperature every 4 hours. 5. Do not take any medications not prescribed by the physician including laxatives and pain killers. 6. As long as you still have pain, do not eat solid foods or drink large amounts of fluids. You may take small sips of clear liquids or suck on ice. CONTACT YOUR DOCTOR OR RETURN TO THE EMERGENCY DEPARTMENT IF: 1. Your pain gets worse or concentrates in only one area. 2. You vomit blood or find blood in your stool or urine. 3. You are dizzy or faint. 4. Your abdomen becomes swollen or your bowel movements stop. 5. You have a temperature over 102 F (39 C). 6. You have trouble passing urine. 7. You feel short of breath. documented in this encounter [facility] 08-08-2021 History of Presen t illness Narrative This note was created using Parantezriter. Subjective Marko Kelley is a 56 year old female. 56 year old female with PMH of hypothyroidism presents with multiple complaints. Acute onset 8 days. rash, fever, chills, nausea, and back pain. +bilateral lower back pain. Endorses she had pubic pressure yesterday, but that has since subsided. Denies diarrhea. Denies emesis. Denies sx initially, but then endorses a little hot when I went pee Rates pain 5/10. achy denies numbness or tingling Denies trauma or injury Denies SOB/CP, or weakness. 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 No world language teacher was used. Fever This is a new problem. The current episode started more than 2 days ago (3 days ago). The problem occurs constantly. Progression since onset: waxing and waning. The maximum temperature noted was 101 to 101.9 F. The temperature was taken using a tympanic thermometer. Associated symptoms include headaches and muscle aches. Pertinent negatives include no chest pain, no fussiness, no sleepiness, no diarrhea, no vomiting, no congestion, no sore throat, no tugging at ear and no cough. She has tried nothing for the symptoms. The treatment provided no relief. Rash This is a new problem. The current episode started in the past 7 days. The problem has been gradually improving since onset. The affected locations include the left arm, left wrist, left lower leg, right arm, right hand, right wrist and right lower leg. Associated symptoms include fatigue and a fever. Pertinent negatives include no congestion, cough, diarrhea, eye pain, joint pain, rhinorrhea, shortness of breath, sore throat or vomiting. Past treatments include nothing. The treatment provided no relief. There is no history of allergies, asthma, eczema or varicella. 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 albuterol 90 mcg/actuation aero Inhale 2 Puffs as instructed every 4 hours as needed (shortness of breath/cough/wheeze). With spacer please. triamcinolone acetonide (KENALOG) 0.1 % cream Apply 1 application to affected area three times daily. Apply sparingly to area for rash/itching. FAMILY HISTORY Problem Relation Age of Onset Heart Mother Hypertension Mother Cancer Mother lung No Known Problems Father Diabetes Brother Diabetes Brother Diabetes Sister Cancer Maternal Aunt breast Diabetes Maternal Grandmother No Known Problems Maternal Grandfather No Known Problems Paternal Grandmother No Known Problems Paternal Grandfather Social History Tobacco Use Smoking status: Never Smoker Smokeless tobacco: Never Used Vaping Use Vaping Use: Never used Substance Use Topics Alcohol use: Never Drug use: No Review of Systems Constitutional: Positive for chills, fatigue and fever. Negative for activity change. HENT: Negative for congestion, ear pain, facial swelling, postnasal drip, rhinorrhea, sinus pressure, sinus pain, sore throat, trouble swallowing and voice change. Eyes: Negative for pain, redness and visual disturbance. Respiratory: Negative for cough, chest tightness, shortness of breath and wheezing. Cardiovascular: Negative for chest pain, palpitations and leg swelling. Gastrointestinal: Positive for abdominal pain and nausea. Negative for constipation, diarrhea and vomiting. Genitourinary: Positive for flank pain and pelvic pain. Negative for decreased urine volume, difficulty urinating, dysuria, frequency and urgency. States it feels hot when I pee Musculoskeletal: Positive for back pain. Negative for gait problem, joint pain and neck stiffness. B/l flank pain Skin: Positive for rash. Negative for color change, pallor and wound. Itchy rash on b/l arms and legs Allergic/Immunologic: Negative for environmental allergies, food allergies and immunocompromised state. Neurological: Positive for headaches. Negative for dizziness and numbness. Hematological: Negative for adenopathy. Does not bruise/bleed easily. Psychiatric/Behavioral: Negative for agitation, behavioral problems, confusion and decreased concentration. Objective BP 158/80 Pulse 100 Temp (!) 38.4 C (101.2 F) Resp 21 Wt 97.2 kg (214 lb 3.2 oz) LMP 11/13/2019 SpO2 97% BMI 35.37 kg/m Physical Exam Vitals and nursing note reviewed. Constitutional: General: She is not in acute distress. Appearance: Normal appearance. She is normal weight. She is not ill-appearing, toxic-appearing or diaphoretic. HENT: Head: Normocephalic. Right Ear: Tympanic membrane, ear canal and external ear normal. There is no impacted cerumen. Left Ear: Tympanic membrane, ear canal and external ear normal. There is no impacted cerumen. Nose: Nose normal. No congestion or rhinorrhea. Mouth/Throat: Mouth: Mucous membranes are moist. Pharynx: No oropharyngeal exudate or posterior oropharyngeal erythema. Eyes: General: No scleral icterus. Right eye: No discharge. Left eye: No discharge. Extraocular Movements: Extraocular movements intact. Conjunctiva/sclera: Conjunctivae normal. Pupils: Pupils are equal, round, and reactive to light. Cardiovascular: Rate and Rhythm: Tachycardia present. Pulses: Normal pulses. Heart sounds: Normal heart sounds. No murmur heard. Pulmonary: Effort: Pulmonary effort is normal. Breath sounds: Normal breath sounds. No stridor. No wheezing or rales. Abdominal: General: Bowel sounds are normal. There is no distension. Palpations: Abdomen is soft. There is no mass. Tenderness: There is abdominal tenderness (generalized abdominal TTP). There is no right CVA tenderness, left CVA tenderness, guarding or rebound. Hernia: No hernia is present. Comments: B/l lower pelvic pain Musculoskeletal: General: No swelling or tenderness. Normal range of motion. Cervical back: Normal range of motion. No rigidity or tenderness. Right lower leg: No edema. Left lower leg: No edema. Skin: General: Skin is warm and dry. Capillary Refill: Capillary refill takes less than 2 seconds. Coloration: Skin is not pale. Findings: Rash present. No erythema or lesion. Comments: Pruritic erythematous based, macular rash. No petechia. No abscess. No red streaking. Neurological: General: No focal deficit present. Mental Status: She is alert and oriented to person, place, and time. Motor: No weakness. Gait: Gait normal. Psychiatric: Mood and Affect: Mood normal. Behavior: Behavior normal. Thought Content: Thought content normal. Judgment: Judgment normal. Assessment and Plan ASSESSMENT/PLAN: 1. Viral illness - ICD9: 079.99, ICD10: B34.9 (primary diagnosis) Not entirely sure what to make of multiple varying complaints. 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 - Symptomatic treatment with prn analgesia - Supportive care with fluids and rest - Follow up in 3-5 days if symptoms persist or sooner if worsening of symptoms - COVID WITH FLUA+B, ROUTINE - CBC + DIFF - COMP METABOLIC PANEL - LIPASE BLD 2. Fever, unspecified fever cause - ICD9: 780.60, ICD10: R50.9 Related to viral Illness Supportive measures - UA DIP Positive for moderate blood and trace of protein - COVID WITH FLUA+B, ROUTINE - CBC + DIFF - COMP METABOLIC PANEL - LIPASE BLD 3. Generalized abdominal pain - ICD9: 789.07, ICD10: R10.84 Exam rather benign, no guarding. No masses Suspicions for appendicitis or intraabdominal process are los. - Labs of CBC with Diff, CMP, Amylase, Lipase and Urine analysis - CBC + DIFF - COMP METABOLIC PANEL - LIPASE BLD - URINE CULTURE - Follow-up with your PCP in 3-5 days if symptoms have not improved or sooner if symptoms worsen - Discussed red flags and need for immediate medical evaluation if any occur. - Discussed supportive care treatment with fluids, rest and analgesia. - Discussed expected course of illness Will call the patient later today about lab values. Labs obtained stat post office visit. 4. Hematuria Microscopic Will send for culture Will wait to treat based on culture results. Patient aware of blood and need Petrona Mosesus TEACHING PROVIDER (Physician/PA/LIBRARY SCIENCE PROFESSOR) NOTE OF PERSONAL INVOLVEMENT IN CARE: I have personally seen and examined the patient and performed the medical decision-making components. I have reviewed the Advanced Practice Registered Nurse (LIBRARY SCIENCE PROFESSOR) Student's documentation and verified the findings in the note as written. Any additions or changes are noted in bold/italics. Signature: Shirley Sands Date: 08/08/2021 Time: 1:48 PM documented in this encounter [facility] 05-24-2021 Miscellaneous Notes Signed Prescriptions Disp Refills SYNTHROID 112 mcg tablet 90 tablet 1 Sig: Take 1 tablet by mouth once daily. JOYCE: Yes 1. 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 Can someone get back to her today, she is asking. HINA: 04/09/2021 NOV: 10/01/2021 Component Latest Ref Rng & Units 04/03/2021 05/19/2021 TSH 0.270 - 4.200 mIU/L 1.870 0.792 Patient concern with the drop in TSH. 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 Breast pain, left 02/24/2013 08/06/2016 Hypothyroidism 11/08/2009 03/30/2014 Routine general medical exam ination at a health care facility 05/16/2008 08/19/2011 Routine gynecological examination 05/16/2008 08/19/2011 documented as of this encounter (statuses as of 08/08/2021) [facility] History of Past illness Narrative* Problem Noted Date Resolved Date 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 Breast pain, left 02/24/2013 08/06/2016 Hypothyroidism 11/08/2009 03/30/2014 Routine general medical exam ination at a health care facility 05/16/2008 08/19/2011 Routine gynecological examination 05/16/2008 08/19/2011 documented as of this encounter (statuses as of 08/08/2021) [facility] History of Past illness Narrative* Problem Noted Date Resolved Date 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 Breast pain, left 02/24/2013 08/06/2016 Hypothyroidism 11/08/2009 03/30/2014 Routine general medical exam ination at a health care facility 05/16/2008 08/19/2011 Routine gynecological examination 05/16/2008 08/19/2011 documented as of this encounter (statuses as of 08/10/2021) [facility] History of Past illness Narrative* Problem Noted Date Resolved Date 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 Breast pain, left 02/24/2013 08/06/2016 Hypothyroidism 11/08/2009 03/30/2014 Routine general medical exam ination at a [facility] care facility 05/16/2008 08/19/2011 Routine gynecological examination 05/16/2008 08/19/2011 documented as of this encounter (statuses as of 08/21/2021) [address]18-2015 History of Past illness Narrative* Problem Noted Date Resolved Date 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 Breast pain, left 02/24/2013 08/06/2016 Hypothyroidism 11/08/2009 03/30/2014 Routine general medical exam ination at a [facility] care facility 05/16/2008 08/19/2011 Routine gynecological examination 05/16/2008 08/19/2011 documented as of this encounter (statuses as of 08/22/2021) [address]18-2015 History of Past illness Narrative* Problem Noted Date Resolved Date 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 Breast pain, left 02/24/2013 08/06/2016 Hypothyroidism 11/08/2009 03/30/2014 Routine general medical exam ination at a [facility] care facility 05/16/2008 08/19/2011 Routine gynecological examination 05/16/2008 08/19/2011 documented as of this encounter (statuses as of 08/23/2021) [address]18-2015 History of Past illness Narrative* Problem Noted Date Resolved Date 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 Breast pain, left 02/24/2013 08/06/2016 Hypothyroidism 11/08/2009 03/30/2014 Routine general medical exam ination at a [facility] care facility 05/16/2008 08/19/2011 Routine gynecological examination 05/16/2008 08/19/2011 documented as of this encounter (statuses as of 10/01/2021) [address]-2015 History of Past illness Narrative* Problem Noted Date Diagnosed Date Resolved Date 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 03/07/19 17 Breast pain, left 02/24/2013 08/06/2016 Hypothyroidism 11/08/2009 03/30/2014 Routine general medical exam ination at a [facility] care facility 05/16/2008 08/19/2011 Routine gynecological examination 05/16/2008 08/19/2011 documented as of this encounter (statuses as of 11/05/2022) [facility] of Past illness Narrative* Problem Noted Date Diagnosed Date Resolved Date 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 03/07/19 17 Breast pain, left 02/24/2013 08/06/2016 Hypothyroidism 11/08/2009 03/30/2014 Routine general medical exam ination at a [facility] care facility 05/16/2008 08/19/2011 Routine gynecological examination 05/16/2008 08/19/2011 documented as of this encounter (statuses as of 01/17/2023) [facility] Diagnosis 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 [facility] Diagnosis Viral illness- Primary Unspecified viral infection, in conditions classified elsewhere and of unspecified site Fever, unspecified fever cause Generalized abdominal pain Abdominal pain, generalized Microscopic hematuria [facility] Diagnosis Gross hematuria- Primary Pelvic pain in female Unspecified symptom associated with female genital organs [facility] Diagnosis Pelvic pain in female- Primary Unspecified symptom associated with female genital organs [facility] Diagnosis 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 Insulin resistance Dysmetabolic Syndrome X Abnormal glucose Other abnormal glucose Dyslipidemia Other and unspecified hyperlipidemia [facility] Diagnosis 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 Insulin resistance Dysmetabolic Syndrome X Abnormal glucose Other abnormal glucose Dyslipidemia Other and unspecified hyperlipidemia Vitamin D deficiency Unspecified vitamin D deficiency documented in this encounter [facility] for referral (narrative)* Diagnostic Procedure Only (Routine) - Pending Review Specialty Diagnoses / Procedures Referred By Contdarnell t Referred To Contact [facility] Diagnoses Pelvic pain in female Procedures PELVIC US WHI US PELVIC NONOBSTETRIC REAL-TIME IMAGE COMPLETE Verito Franco APRN.BALL TRUING MACHINE OPERATOR [address] [place] [address] [facility] [address] [place] [id number] Referral ID Status Reason Start Date Expiration Date Visits Requested Visits Authorized [id number] Pending Review Auto-Generat ed Referral 08/21/2021 08/21/2022 1 1 [facility] Health Concerns Infection Onset Date Last Indicated Resolved Time COVID-19 Rule-Out 08/08/2021 08/08/2021 Infection Onset Date Last Indicated Resolved Time COVID-19 Rule-Out 08/08/2021 08/08/2021 08/09/2021 12:54 AM EDT Summary Purpose Family History No Family History Records Found Advance Directives No Advanced Directives Records Found Additional Source Comments Source Comments (unrecognize d section and content) In the event this informatio n is protected by the Federal Confidentiality of Alcohol and Drug Abuse Patient Records regulations: The Federal rules restrict any use of the information to criminally investigate or prosecute any alcohol or drug abuse patient.[facility] event this information is protected by the Federal Confidentiality of Alcohol and Drug Abuse Patient Records regulations: The Federal rules restrict any use of the information to criminally investigate or prosecute any alcohol or drug abuse patient.[facility] the event this information is protected by the Federal Confidentiality of Alcohol and Drug Abuse Patient Records regulations: The Federal rules restrict any use of the information to criminally investigate or prosecute any alcohol or drug abuse patient.[facility] HospitalIn the event this information is protected by the Federal Confidentiality of Alcohol and Drug Abuse Patient Records regulations: The Federal rules restrict any use of the information to criminally investigate or prosecute any alcohol or drug abuse patient.[facility] the event this information is protected by the Federal Confidentiality of Alcohol and Drug Abuse Patient Records regulations: The Federal rules restrict any use of the information to criminally investigate or prosecute any alcohol or drug abuse patient.[facility] HospitalIn the event this information is protected by the Federal Confidentiality of Alcohol and Drug Abuse Patient Records regulations: The Federal rules restrict any use of the information to criminally investigate or prosecute any alcohol or drug abuse patient.[facility] HospitalIn the event this information is protected by the Federal Confidentiality of Alcohol and Drug Abuse Patient Records regulations: The Federal rules restrict any use of the information to criminally investigate or prosecute any alcohol or drug abuse patient.[facility] HospitalIn the event this information is protected by the Federal Confidentiality of Alcohol and Drug Abuse Patient Records regulations: The Federal rules restrict any use of the information to criminally investigate or prosecute any alcohol or drug abuse patient.[facility] HospitalIn the event this information is protected by the Federal Confidentiality of Alcohol and Drug Abuse Patient Records regulations: The Federal rules restrict any use of the information to criminally investigate or prosecute any alcohol or drug abuse patient.[facility] HospitalIn the event this information is protected by the Federal Confidentiality of Alcohol and Drug Abuse Patient Records regulations: The Federal rules restrict any use of the information to criminally investigate or prosecute any alcohol or drug abuse patient.[facility] HospitalIn the event this information is protected by the Federal Confidentiality of Alcohol and Drug Abuse Patient Records regulations: The Federal rules restrict any use of the information to criminally investigate or prosecute any alcohol or drug abuse patient.[facility] Care Teams (unrecognized sec tion and content) Pan Helper Relationship Specialty Start Date End Date Sylvester Ontiveros MD PCP - General 04/27/09 Pan Helper Relationship Specialty Start Date End Date Sylvester Ontiveros MD PCP - General 04/27/09 Pan Helper Relationship Specialty Start Date End Date Sylvester Ontiveros MD PCP - General 04/27/09 Pan Helper Relationship Specialty Start Date End Date Sylvester Ontiveros MD PCP - General 04/27/09 Pan Helper Relationship Specialty Start Date End Date Sylvester Ontiveros MD PCP - General 04/27/09 Pan Helper Relationship Specialty Start Date End Date Sylvester Ontiveros MD PCP - General 04/27/09 Pan Helper Relationship Specialty Start Date End Date Sylvester Ontiveros MD PCP - General 04/27/09 Reason for Visit (unrecogniz ed section and content) Specialty Diagnoses / Procedures Referred By Contdarnell t Referred To Contact Internal Medicine / [facility] Diagnoses Fever fever, chills and rash Procedures OFFICE/OUTPATIENT NEW MODERATE MDM 45-59 MINUTES NEW SAME DAY Self Shirley Sands, LIBRARY SCIENCE PROFESSOR.BALL TRUING MACHINE OPERATOR [address] [place] [address] Referral ID Status Reason Start Date Expiration Date Visits Re quested Visits Authorized [id number] Closed 08/08/2021 02/09/2022 1 1 Reason Comments Results Reason Comments Vaginal Problem Specialty Diagnoses / Procedures Referred By Contac t Referred To Contact Gynecology / COMMERCIAL INTELLIGENCE MANAGER Diagnoses Hematuria vaginal pressure/discharge/hemat uria Procedures OFFICE/OUTPATIENT ESTABLISHED HIGH MDM 40-54 MIN EST WHI PATIENT Self, Verito Varma APRN.BALL TRUING MACHINE OPERATOR [address] [place] [address] Referral ID Status Reason Start Date Expiration Date Visits Re quested Visits Authorized [id number] Closed 08/21/2021 02/09/2022 1 1 Reason Comments 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 Specialty Diagnoses / Procedures Referred By Contac t Referred To Contact COMMERCIAL INTELLIGENCE MANAGER Diagnoses READ Procedures US PELVIC NONOBSTETRIC REAL-TIME IMAGE COMPLETE PELVIC ULTRASOUND Verito Franco APRN.BALL TRUING MACHINE OPERATOR [address] [place] [address] Yvonne Garcia MD [address] [place] [address] Referral ID Status Reason Start Date Expiration Date Visits Re quested Visits Authorized [id number] Closed 08/22/2021 02/09/2022 1 1 Reason Comments Thyroid Problem High Blood Sugar Specialty Diagnoses / Procedures Referred By Contac t Referred To Contact Laboratory Medicine / [facility] Diagnoses lab Procedures VENIPUNCTURE LAB Luis Domínguez MD [address] [place] [address] Lab [facility] Draw Station [address] [place] [address] Referral ID Status Reason Start Date Expiration Date V isits Requested Visits Authorized [id number] Authorized 12/06/2020 12/05/2021 99 99 Reason Comments Follow Up Specialty Diagnoses / Procedures Referred By Contac t Referred To Contact Endocrinology / ENDOCRINOLOGY Diagnoses thyroid follow up Procedures VIDEO SPEC EST Self Luis Domínguez MD [address] [place] [address] Referral ID Status Reason Start Date Expiration Date Visits Re quested Visits Authorized [id number] Closed 11/04/2022 02/09/2023 1 1 INFORMATION SOURCE (unrecogn ized section and content) FOR RECORDS PERTAINING TO PATIENTS WHO ARE OR HAVE BEEN ENROLLED IN A CHEMICAL DEPENDENCY/SUBSTANCEABUSE PROGRAM, SOME INFORMATION MAY BE OMITTED. This clinical summary was aggregated from multiple sources. Caution should be exercised in using it in the provision of clinical care. This summary normalizes information from multiple sources, and as a consequence, information in this document may materially change the coding, format and clinical context of patient data. In addition, data may be omitted in some cases. CLINICAL DECISIONS SHOULD BE BASED ON THE PRIMARY CLINICAL RECORDS. [facility]. provides no warranty or guarantee of the accuracy or completeness of information in this document.
== END | disposition home or self-care (01) ==
LOC: CVS 11:34
PROVIDERS: PCP Family Medicine; Referring Provider Surgery Trauma Surgery; Visit Provider Surgery Trauma Surgery
DX: M79.661 Pain in right lower leg (principal); M79.89 Other specified soft tissue disorders
CPT/HCPCS: 93971

== ENCOUNTER → 2023-03-11 | Outpatient (CLI) | payer OTHER, SELFPAY ==
--- NOTE | 2023-03-11 10:04 | CDU_ITS ---
Reason For Study: Carotid Artery Stenosis Rt. Velocities/BP Lt. Velocities/BP Prox CCA 97.9/15.7 cm/sec. Prox CCA 128.9/30.3 cm/sec. Mid CCA 86.9/19.4 cm/sec. Mid CCA 103.4/24.8 cm/sec. Dist CCA 97.9/23.0 cm/sec. Dist CCA 86.9/15.7 cm/sec. Prox ICA 85.9/19.1 cm/sec. Prox ICA 96.1/21.2 cm/sec. Mid ICA 89.4/24.1 cm/sec. Mid ICA 80.6/26.9 cm/sec. Dist ICA 114.3/28.5 cm/sec. Dist ICA 91.2/30.5 cm/sec. Rt. ICA/CCA = 1.2. Lt. ICA/CCA = 1.1. Prox ECA 107.0/10.2 cm/sec. Prox ECA 119.8/15.7 cm/sec. Rt. Vert. 56.3/11.0 cm/sec. Lt. Vert. 52.9/13.6 cm/sec. Right Extracranial There is homogeneous, smooth atherosclerotic plaque noted in the right common carotid artery. There is intimal thickening but no significant atherosclerotic plaque noted in the right internal carotid artery. There is intimal thickening but no significant atherosclerotic plaque noted in the right external carotid artery. Antegrade flow is noted in the right vertebral artery. Left Extracranial There is homogeneous, smooth atherosclerotic plaque noted in the left common carotid artery. There is intimal thickening but no significant atherosclerotic plaque noted in the left internal carotid artery. There is intimal thickening but no significant atherosclerotic plaque noted in the left external carotid artery. Antegrade flow is noted in the left vertebral artery. Procedure Carotid Duplex [id number]. This is a Carotid Duplex examination using B-mode, color flow and specral Doppler. The exam was diagnostic. Exam performed in department. VL/Carotid Duplex Ultrasound Interpretation Summary Normal right extracranial internal carotid. Normal left extracranial internal carotid. Patent and antegrade vertebrals bilaterally. Ordering Physician: Ninfa Pringle Referring Physician: N/A Performed By: Ralf Verdin RVT
--- OUTSIDE RECORDS SUMMARY | 2023-03-11 10:36 | XMS RPT_ITS | CCD ---
Author Name Unknown Address [address] [place] [address] Organization [facility] Care Team Providers Care Carbon Brusher Assembler Name Role Phone Sylvester Ontiveros MD Primary Care Provider SHAHID CRUMP Attending Unavailable SYLVESTER ONTIVEROS Primary Care Unavailable SYLVESTER ONTIVEROS Primary Care Unavailable LUIS DOMÍNGUEZ Referring Unavailable SYLVESTER ONTIVEROS Primary Care Unavailable LUIS DOMÍNGUEZ Attending Unavailable SYLVESTER ONTIVEROS Primary Care Unavailable LUIS DOMÍNGUEZ Referring Unavailable Allergies Allergy Classification Reported Allergen(s) Allergy Type Date of Onset Reaction(s) Facility (12 sources) predniSONE; Translations: [PREDNISONE] Drug Allergy 09-17-2006 Mental Status Change [facility] Medications Current Medications Medication Drug Class(es) Dates [...] 94.8 kg Luis Domínguez MD Work Phone: [facility] 10-01-2021 16:07-0400 Diastolic blood pressure 80 mm[Hg] Luis Domínguez MD Work Phone: [facility] 10-01-2021 16:07-0400 Systolic blood pressure 117 mm[Hg] Luis Domínguez MD Work Phone: [facility] 08-21-2021 13:42-0400 Body weight 94.35 kg Verito [place]ustdale LABOR RELATIONS OR PERSONNEL NEGOTIATOR.[employer] MEMBER Work Phone: [facility] 08-21-2021 13:42-0400 Diastolic blood pressure 74 mm[Hg] Verito [place]dale LABOR RELATIONS OR PERSONNEL NEGOTIATOR.[employer]MING CREW MEMBER Work Phone: [facility] 08-21-2021 13:42-0400 Systolic blood pressure 112 mm[Hg] Verito [place]ustdale LABOR RELATIONS OR PERSONNEL NEGOTIATOR.[employer]ING [employer]W MEMBER Work Phone: [facility] 08-08-2021 10:23-0400 Body temperature 101.19 [degF] Shirley Sands LABOR RELATIONS OR PERSONNEL NEGOTIATOR.[employer]W MEMBER Work Phone: [facility] 08-08-2021 10:23-0400 Body weight 97.16 kg Shirley Sands LABOR RELATIONS OR PERSONNEL NEGOTIATOR.[employer]ING [employer]W MEMBER Work Phone: [facility] 08-08-2021 10:23-0400 Diastolic blood pressure 80 mm[Hg] Shirley Sands LABOR RELATIONS OR PERSONNEL NEGOTIATOR.[employer]ING CREW MEMBER Work Phone: [facility] 08-08-2021 10:23-0400 Heart rate 100 /min Shirley Sands LABOR RELATIONS OR PERSONNEL NEGOTIATOR.[employer]ING CREW MEMBER Work Phone: [facility] 08-08-2021 10:23-0400 Respiratory rate 21 /min Shirley Sands LABOR RELATIONS OR PERSONNEL NEGOTIATOR.[employer]ING CREW MEMBER Work Phone: [facility] 08-08-2021 10:23-0400 SaO2% (BldA) [Mass fraction] 97 % Shirley Sands LABOR RELATIONS OR PERSONNEL NEGOTIATOR.[employer]ING CREW MEMBER Work Phone: [facility] 08-08-2021 10:23-0400 Systolic blood pressure 158 mm[Hg] Shirley Sands LABOR RELATIONS OR PERSONNEL NEGOTIATOR.[employer]ING CREW MEMBER Work Phone: [facility] Encounters Encounter Date Encounter Type Care Provider Facility Start: 02-17-2023 End: 02-17-2023 ambulatory SHAHID CRUMP Facility:[facility] Start: 02-11-2023 End: 02-12-2023 ambulatory SYLVESTER JEFF ONTIVEROS Facility:[facility] Start: 01-13-2023 ambulatory Luis Domínguez MD Work Phone: Endocrinology Procedures Date Procedure Procedure Detail Performing Clinician Start: 07-24-2022 Lipid 1996 panel - S too or Plasma Luis Domínguez MD Work Phone: Start: 08-21-2021 Urnls dip stick/tabl et rgnt auto w/o microscopy Verito [place]dale LABOR RELATIONS OR PERSONNEL NEGOTIATOR.[employer] MEMBER Work Phone: Start: 08-08-2021 Urnls dip stick/tabl et rgnt auto w/o microscopy [facility] Provider Start: 03-17-2015 Mammography Luis epps MD Work Phone: Plan of Treatment Date Care Activity Detail Author Start: 07-25-2027 Lipid 1996 panel - Serum or Plasma Lipid Screening [facility] Start: 09-29-2026 LIPID SCREEN LIPID SCREEN [facility] Start: 04-03-2026 LIPID SCREEN LIPID SCREEN [facility] Start: 07-24-2025 Diabetes Screening Diabetes Screenin g [facility] Start: 10-19-2024 HPV TESTING HPV TESTING [facility] Start: 10-19-2024 PAP TESTING PAP TESTING [facility] Start: 09-29-2024 DIABETES SCREEN DIABETES SCREEN [facility] Start: 08-08-2024 DIABETES SCREEN DIABETES SCREEN [facility] Start: 04-03-2024 DIABETES SCREEN DIABETES SCREEN [facility] Start: 01-13-2023 End: 11-05-2023 25-hydroxyvitamin D3 [Mass/volume] in Serum or Plasma VITAMIN D 25 HYDROXY Lab Routine Vitamin D deficiency Expected: 01/13/2023, Expires: 11/05/2023 [facility] Work Phone: Payers Date Payer Category Payer Unknown [employer] P[employer] [id number] 2019-Present [phone] [facility] [address] [place] [address] PPO [id number] 2019 Unknown [id number] 2019 Unknown [id number] Social History Date Type Detail Facility Start: 01-19-2013 Tobacco smoking status NHIS Never smoked tobacco [facility] Start: 04-20-2021 End: 08-21-2021 Alcohol intake Lifetime non-drinker (finding) [facility] Start: 10-20-2019 History SDOH Alcohol Frequency 1 [facility] Start: 10-20-2019 History SDOH Social Connections Phone 5 [facility] Start: 10-20-2019 History SDOH Social Connections Membership 2 [facility] Start: 10-20-2019 History SDOH Social Connections Living 3 [facility] Start: 10-20-2019 History SDOH Physical Activity MPS 6 [facility] Start: 1965 Sex Assigned At Female [facility] Start: 07-29-2021 End: 09-29-2021 Exposure to SARS-CoV-2 (event) Not sure [facility] Work Phone: Start: 01-19-2013 Tobacco use and exposure Smokeless tobacco non-user [facility] Work Phone: Start: 10-20-2019 End: 11-04-2022 History of Social function [facility] Start: 10-20-2019 End: 11-04-2022 Social connection and isolation panel [facility] Do you belong to any clubs or organizations such as pentecostal groups, unions, fraternal or athletic groups, or school groups? No [facility] Are you now , , , , never or living with a partner? [facility] How often to you hav e a drink containing alcohol? Never [facility] Average Number of Drinks Not on file [facility] How hard is it for y ou to pay for the very basics like food, housing, medical care, and heating Somewhat hard [facility] Do you feel stress - tense, restless, nervous, or anxious, or unable to sleep at night because your mind is troubled all the time - these days [OSQ] Very much [facility] (I/We) worried whebaljeet er (my/our) food would run out before (I/we) got money to buy more. Never true [facility] The food that (I/we) bought just didn't last, and (I/we) didn't have money to get more. Sometimes true [facility] Start: 04-09-2021 Gender identity Identifies as female gender (finding) [facility] Start: 04-09-2021 Sexual orientation Heterosexual (finding) [facility] Clinical Notes 03-30-2014 to 02-17-2023 Telephone Encounter - Glenna Saravia Ma - 01/15/2023 7:17 AM Luis Cannon MD - 11/04/2022 2:38 PM Josep Domínguez MD - 10/01/2021 4:07 PM Collin Franco APRN.[employer]ING [employer] MEMBER - 08/21/2021 1:34 PM EDT Note Date & Type Note Facility 02-17-2023 Note HNO ID: [id number] Author: SHAHID CRUMP APRN.NATALYA Service: ? Author Type: Nurse Practitioner Type: Progress Notes Filed: 02/17/2023 10:00 Note Text: 02/17/23 VIRTUAL VISIT PROGRESS NOTE This is a virtual visit using SmartFleeth[employer] Zoom Video Visit. It required patient-provider interaction for the medical decision making as documented below. I have communicated my name and active licensure. The patient's identity and physical location were verified at the time of this visit. Either the patient or their legal business process representative has been informed of the risks [...] 31.0 - 80.0 ng/mL 40.7 PHYSICAL EXAMINATION: [facility] 07/11/2021 Last 3 Encounter Wt Readings: Date: [...] - SYNTHROID 1 (more content not included)... [facility] 01-15-2023 Miscellaneous Notes HINA: 11/04/2022 Patient is not feeling well and on Prednisone. She was going to have her labs drawn but would like to wait until these medications are out of her system. How long should she wait to have labs drawn? Glenna Saravia Ma documented in this encounter [facility] 11-04-2022 Note HNO ID: [id number] Author: Luis Domínguez MD Service: ? Author Type: Physician Type: Progress Notes Filed: 11/04/2022 4:56 PM Note Text: Subjective: Marko S [place] is here today to follow-up on endocrine [...] or soonest thereafter - with Shahid Crump APRN.[employer] MEMBER - fasting labs prior to visit Follow up in 6 months with me I spent a total of 20 minutes on the date of the service which included preparing to see the patient, [id number] patient care, completing clinical documentation, obtaining and/or [...] visit. Either the patient or their legal business process representative has been informed of the risks and benefits of -- and alternatives to -- treatment through a remote evaluation and consents to proceed with the evaluation remotely. [facility] 11-04-2022 History of Presen t illness [...] or soonest thereafter - with Shahid Crump APRN.GL[employer]MING CREW MEMBER - fasting labs prior to visit Follow up in 6 months with me I spent a total of 20 minutes on the date of the service which included preparing to see the patient, [id number] patient care, completing clinical documentation, obtaining and/or reviewing separately obtained history, counseling and educating the patient/family/caregiver, ordering medications, tests, or procedures, independently interpreting results (not separately reported), communicating results to the patient/family/caregiver, and care coordination (not separately reported). Luis Domínguez MD Endocrinology, Diabetes, & Metabolism November 04, 2022 2:38 PM I have communicated my name and active licensure. The patient's identity and physical location were verified at the time of this visit. Either the patient or their legal business process representative has been informed of the risks and benefits of -- and alternatives to -- treatment through a remote evaluation and consents to proceed with the evaluation remotely. documented in this encounter [facility] 10-01-2021 History of Presen t illness Narrative [...] which included preparing to see the patient, [id number] patient care, completing clinical documentation, obtaining and/or reviewing separately obtained history, counseling and educating the patient/family/caregiver, ordering medications, tests, or procedures, and communicating results to the patient/family/caregiver. Luis Domínguez MD Endocrinology, Diabetes, & Metabolism October 01, 2021 4:07 PM documented in this encounter [facility] 08-23-2021 Miscellaneous Notes Patient notified. Brenda Guerra RN Please let the pt know that her US is normal and vaginal culture is negative for infection. She should follow up the GI. Verito Franco APRN.CNP documented in this encounter [facility] 08-21-2021 History of Presen t illness Narrative [...] L3 SAB0 IAB0 Ectopic0 Multiple0 Live Births0 Date Puller History LMP: 11/13/2019, Having periods Age at Menarche: Age at First : Age at Menopause: Date Puller History Comments: Sexual Activity: Yes; Male Contraception: [...] external genitalia normal, normal Bartholin's glands, urethra, [place]'s glands, no vulvar lesions, no cervical lesions, [...] 3 - Low documented in this encounter [facility] 08-10-2021 Miscellaneous Notes Phone call placed patient advised (see prior provider encounter) Patient verbalized understanding. Patient reported visit 08/09/21 with PCP Dx diverticulitis. Rae Orosco LPN Please inform patient that her urine culture was negative for growth. She needs to follow up with her PCP to further evaluate her symptoms and blood in urine. documented in this encounter [facility] 08-08-2021 Miscellaneous Notes Pt called back and results below given. Clarissa Orosco LPN TC to Pt. Unable to LM due to the mailbox is full. Will try again later. Georgiana Tillman LPN Lipase normal. Please inform patient. documented in this encounter [facility] 08-08-2021 Miscellaneous Notes Return patients call. Informed here of the results. CBC normal CMP normal aside from mildly elevated glucose. We are pending Lipase, call to lab. Specimen is pending being sent over to [facility] Patient also reeducated of blood in her urine, culture is pending. If positive we will treat with ATB as indicated. Verbalized understanding. Patient calling for lab results done today. She was able to view them in My Chart and is asking about her UA. Eloisa Gibson, RN documented in this encounter [facility] 08-08-2021 Instructions Shirley Sands APRN.NATALYA - 08/08/2021 [...] short of breath. documented in this encounter [facility] 08-08-2021 History of Presen t illness Narrative This note was created using ImaginAbriter. Subjective Marko Kelley is a 56 year [...] Denies SOB/CP, or weakness. 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 No professor of criminal justice was used. Fever This is a new [...] blood and need Petrona Mosesus TEACHING PROVIDER (Physician/PA/LABOR RELATIONS OR PERSONNEL NEGOTIATOR) NOTE OF PERSONAL INVOLVEMENT IN CARE: I have personally seen and examined the patient and performed the medical decision-making components. I have reviewed the Advanced Practice Registered Nurse (LABOR RELATIONS OR PERSONNEL NEGOTIATOR) Student's documentation and verified the findings in the note as written. Any additions or changes are noted in bold/italics. Signature: Shirley Sands Date: 08/08/2021 Time: 1:48 PM documented in this encounter [facility] 05-24-2021 Miscellaneous Notes Signed Prescriptions Disp Refills SYNTHROID 112 mcg tablet 90 tablet 1 Sig: Take 1 tablet by mouth once daily. JOYCE: Yes 1. 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, ICD10: E03.8, E06.3 - SYNTHROID 112 MCG TABLET - TSH BLD Shahid Crump APRN.[employer] MEMBER Patient calling back- getting concerned as she [...] a dose change documented in this encounter [facility] documented as of this encounter (statuses as of 05/24/2021) [facility] History of Past illness Narrative* Problem Noted Date Resolved Date 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 Breast pain, left 02/24/2013 08/06/2016 Hypothyroidism 11/08/2009 03/30/2014 Routine general medical exam ination at a health care facility 05/16/2008 08/19/2011 Routine gynecological examination 05/16/2008 08/19/2011 documented as of this encounter (statuses as of 08/08/2021) [facility] History of Past illness Narrative* Problem Noted Date Resolved Date 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 Breast pain, left 02/24/2013 08/06/2016 Hypothyroidism 11/08/2009 03/30/2014 Routine general medical exam ination at a health care facility 05/16/2008 08/19/2011 Routine gynecological examination 05/16/2008 08/19/2011 documented as of this encounter (statuses as of 08/08/2021) [facility] History of Past illness Narrative* Problem Noted Date Resolved Date 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 Breast pain, left 02/24/2013 08/06/2016 Hypothyroidism 11/08/2009 03/30/2014 Routine general medical exam ination at a health care facility 05/16/2008 08/19/2011 Routine gynecological examination 05/16/2008 08/19/2011 documented as of this encounter (statuses as of 08/10/2021) [facility] History of Past illness Narrative* Problem Noted Date Resolved Date 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 Breast pain, left 02/24/2013 08/06/2016 Hypothyroidism 11/08/2009 03/30/2014 Routine general medical exam ination at a [facility] care facility 05/16/2008 08/19/2011 Routine gynecological examination 05/16/2008 08/19/2011 documented as of this encounter (statuses as of 08/21/2021) [address]18-2015 History of Past illness Narrative* Problem Noted Date Resolved Date 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 Breast pain, left 02/24/2013 08/06/2016 Hypothyroidism 11/08/2009 03/30/2014 Routine general medical exam ination at a [facility] care facility 05/16/2008 08/19/2011 Routine gynecological examination 05/16/2008 08/19/2011 documented as of this encounter (statuses as of 08/22/2021) [address]2015 History of Past illness Narrative* Problem Noted Date Resolved Date 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 Breast pain, left 02/24/2013 08/06/2016 Hypothyroidism 11/08/2009 03/30/2014 Routine general medical exam ination at a [facility] care facility 05/16/2008 08/19/2011 Routine gynecological examination 05/16/2008 08/19/2011 documented as of this encounter (statuses as of 08/23/2021) [address] History of Past illness Narrative* Problem Noted Date Resolved Date 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 Breast pain, left 02/24/2013 08/06/2016 Hypothyroidism 11/08/2009 03/30/2014 Routine general medical exam ination at a [facility] care facility 05/16/2008 08/19/2011 Routine gynecological examination 05/16/2008 08/19/2011 documented as of this encounter (statuses as of 10/01/2021) [address] History of Past illness Narrative* Problem Noted Date Diagnosed Date Resolved Date 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 03/07/19 17 Breast pain, left 02/24/2013 08/06/2016 Hypothyroidism 11/08/2009 03/30/2014 Routine general medical exam ination at a [facility] care facility 05/16/2008 08/19/2011 Routine gynecological examination 05/16/2008 08/19/2011 documented as of this encounter (statuses as of 11/05/2022) [facility] History of Past illness Narrative* Problem Noted Date Diagnosed Date Resolved Date 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 03/07/19 17 Breast pain, left 02/24/2013 08/06/2016 Hypothyroidism 11/08/2009 03/30/2014 Routine general medical exam ination at a [facility] care facility 05/16/2008 08/19/2011 Routine gynecological examination 05/16/2008 08/19/2011 documented as of this encounter (statuses as of 01/17/2023) [facility] Diagnosis 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 [facility] Diagnosis Viral illness- Primary Unspecified viral infection, in conditions classified elsewhere and of unspecified site Fever, unspecified fever cause Generalized abdominal pain Abdominal pain, generalized Microscopic hematuria [facility] Diagnosis Gross hematuria- Primary Pelvic pain in female Unspecified symptom associated with female genital organs [facility] Diagnosis Pelvic pain in female- Primary Unspecified symptom associated with female genital organs [facility] Diagnosis 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 Insulin resistance Dysmetabolic Syndrome X Abnormal glucose Other abnormal glucose Dyslipidemia Other and unspecified hyperlipidemia [facility] Diagnosis 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 Insulin resistance Dysmetabolic Syndrome X Abnormal glucose Other abnormal glucose Dyslipidemia Other and unspecified hyperlipidemia Vitamin D deficiency Unspecified vitamin D deficiency documented in this encounter [facility] for referral (narrative)* Diagnostic Procedure Only (Routine) - Pending Review Specialty Diagnoses / Procedures Referred By Contdarnell t Referred To Contact [facility] Diagnoses Pelvic pain in female Procedures PELVIC US WHI US PELVIC NONOBSTETRIC REAL-TIME IMAGE COMPLETE Verito Franco APRN.[employer]MING [employer]W MEMBER [address] [place] [address] [facility] [address] [place] [id number] Referral ID Status Reason Start Date Expiration Date Visits Requested Visits Authorized [id number] Pending Review Auto-Generat ed Referral 08/21/2021 08/21/2022 1 1 [facility] Health Concerns Infection Onset Date Last Indicated [...] or prosecute any alcohol or drug abuse patient.[facility] the event this information is protected by the Federal Confidentiality of Alcohol and Drug Abuse Patient Records regulations: The Federal rules restrict any use of the information to criminally investigate or prosecute any alcohol or drug abuse patient.[facility] the event this information is protected by the Federal Confidentiality of Alcohol and Drug Abuse Patient Records regulations: The Federal rules restrict any use of the information to criminally investigate or prosecute any alcohol or drug abuse patient.[facility] the event this information is protected by the Federal Confidentiality of Alcohol and Drug Abuse Patient Records regulations: The Federal rules restrict any use of the information to criminally investigate or prosecute any alcohol or drug abuse patient.[facility] the event this information is protected by the Federal Confidentiality of Alcohol and Drug Abuse Patient Records regulations: The Federal rules restrict any use of the information to criminally investigate or prosecute any alcohol or drug abuse patient.[facility] the event this information is protected by the Federal Confidentiality of Alcohol and Drug Abuse Patient Records regulations: The Federal rules restrict any use of the information to criminally investigate or prosecute any alcohol or drug abuse patient.[facility] the event this information is protected by the Federal Confidentiality of Alcohol and Drug Abuse Patient Records regulations: The Federal rules restrict any use of the information to criminally investigate or prosecute any alcohol or drug abuse patient.[facility] the event this information is protected by the Federal Confidentiality of Alcohol and Drug Abuse Patient Records regulations: The Federal rules restrict any use of the information to criminally investigate or prosecute any alcohol or drug abuse patient.[facility] the event this information is protected by the Federal Confidentiality of Alcohol and Drug Abuse Patient Records regulations: The Federal rules restrict any use of the information to criminally investigate or prosecute any alcohol or drug abuse patient.[facility] Center[facility] the event this information is protected by the Federal Confidentiality of Alcohol and Drug Abuse Patient Records regulations: The Federal rules restrict any use of the information to criminally investigate or prosecute any alcohol or drug abuse patient.[facility] Center[facility] the event this information is protected by the Federal Confidentiality of Alcohol and Drug Abuse Patient Records regulations: The Federal rules restrict any use of the information to criminally investigate or prosecute any alcohol or drug abuse patient.[facility] Care Teams (unrecognized sec tion and content) [employer] Brusher Assembler Relationship Specialty Start Date End Date Sylvester Ontiveros MD PCP - General 04/27/09 Carbon Brusher Assembler Relationship Specialty Start Date End Date Sylvester Ontiveros MD PCP - General 04/27/09 Carbon Brusher Assembler Relationship Specialty Start Date End Date Sylvester Ontiveros MD PCP - General 04/27/09 Carbon Brusher Assembler Relationship Specialty Start Date End Date Sylvester Ontiveros MD PCP - General 04/27/09 Carbon Brusher Assembler Relationship Specialty Start Date End Date Sylvester Ontiveros MD PCP - General 04/27/09 Carbon Brusher Assembler Relationship Specialty Start Date End Date Sylvester Ontiveros MD PCP - General 04/27/09 Carbon Brusher Assembler Relationship Specialty Start Date End Date Sylvester Ontiveros MD PCP - General 04/27/09 Reason for Visit (unrecogniz ed section and content) Specialty Diagnoses / Procedures Referred By Contdarnell t Referred To Contact Internal Medicine / [facility] Diagnoses Fever fever, chills and rash Procedures OFFICE/OUTPATIENT NEW MODERATE MDM 45-59 MINUTES NEW SAME DAY Self Shirley Sands, LABOR RELATIONS OR PERSONNEL NEGOTIATOR.[employer] [address] [place] [address] Referral ID Status Reason Start Date Expiration Date Visits Re quested Visits Authorized [id number] Closed 08/08/2021 02/09/2022 1 1 Reason Comments Results Reason Comments Vaginal Problem Specialty Diagnoses / Procedures Referred By Contac t Referred To Contact Gynecology / SENIOR RADIATION THERAPIST Diagnoses Hematuria vaginal pressure/discharge/hemat uria Procedures OFFICE/OUTPATIENT ESTABLISHED HIGH MDM 40-54 MIN EST WHI PATIENT Self, Verito Varma APRN.[employer] [address] [place] [address] Referral ID Status Reason Start Date Expiration Date Visits Re quested Visits Authorized [id number] Closed 08/21/2021 02/09/2022 1 1 Reason Comments TITLE CAMERA OPERATOR Ultrasound Specialty Diagnoses / Procedures Referred By Contac t Referred To Contact SENIOR RADIATION THERAPIST Diagnoses READ Procedures US PELVIC NONOBSTETRIC REAL-TIME IMAGE COMPLETE PELVIC ULTRASOUND Verito Franco APRN.[employer] [address] [place] [address] Yvonne Garcia MD [address] [place] [address] Referral ID Status Reason Start Date Expiration Date Visits Re quested Visits Authorized [id number] Closed 08/22/2021 02/09/2022 1 1 Reason Comments Thyroid Problem High Blood Sugar Specialty Diagnoses / Procedures Referred By Contac t Referred To Contact Laboratory Medicine / LAB [facility] Diagnoses lab Procedures VENIPUNCTURE LAB Luis Domínguez MD [address] [place] [address] Lab [facility] [address] [place] [address] Referral ID Status Reason Start Date Expiration Date V isits Requested Visits Authorized [id number] Authorized 12/06/2020 12/05/2021 99 99 Reason Comments Follow Up Specialty Diagnoses / Procedures Referred By Contac t Referred To Contact Endocrinology / ENDOCRINOLOGY Diagnoses thyroid follow up Procedures VIDEO SPEC EST Self Luis Domínguez MD [address] [place] [address] Referral ID Status Reason Start Date Expiration Date Visits Re quested Visits Authorized [id number] Closed 11/04/2022 02/09/2023 1 1 INFORMATION SOURCE [...] BE BASED ON THE PRIMARY CLINICAL RECORDS. [facility]. provides no warranty or guarantee of the accuracy or completeness of information in this document.
== END | disposition home or self-care (01) ==
PROVIDERS: Referring Provider Physician Assistant; Visit Provider Physician Assistant
DX: I65.29 Occlusion and stenosis of unspecified carotid artery (principal)
CPT/HCPCS: 93880

== ENCOUNTER → 2023-03-13 | Outpatient (CLI) | payer OTHER, SELFPAY ==
--- NOTE | 2023-03-13 10:45 | RAD_ITS ---
STUDY: X-RAY - UNILATERAL RIBS ( RIGHT ) WITH CHEST REASON FOR EXAM: Female, 57 years old. Rib pain. TECHNIQUE - RIBS: 4 views of the right ribs. TECHNIQUE - CHEST: Single PA view of the chest. COMPARISON: None. FINDINGS - RIBS: Normal visualized right ribs without a demonstrated fracture. FINDINGS - CHEST: The lungs are clear and expanded. There is no demonstrated pleural abnormality. Normal size heart. Normal mediastinum and marissa. Normal visualized pulmonary arteries. Normal visualized aortic arch and descending thoracic aorta. There is a dextroscoliosis of the thoracic spine. There is mild degenerative arthrosis of the acromioclavicular joints. There is no demonstrated abnormality of the visualized soft tissue structures of the upper abdomen. RAD/Ribs Uni Min 3V w/PA Chest IMPRESSION: RIBS: Normal x-ray examination of the right ribs. CHEST: Dextroscoliosis of the thoracic spine. Mild degenerative arthrosis of the acromioclavicular joint. Electronically Signed: Liam Kunz MD at 9:54 EST ,
== END | disposition home or self-care (01) ==
LOC: MTRAD 10:45
PROVIDERS: PCP Family Medicine; Referring Provider Family Medicine; Visit Provider Family Medicine
DX: M54.9 Dorsalgia, unspecified (principal)
CPT/HCPCS: 71101

== ENCOUNTER → 2023-06-10 | Outpatient (CLI) | payer OTHER, SELFPAY ==
--- NOTE | 2023-06-10 12:57 | VDLE_ITS ---
Reason For Study: LLE PAIN RIGHT LEFT CFV is compressible, spontaneous, phasic, GSV is normal. competent and demonstrates normal CFV is compressible, spontaneous, phasic, augmentation. competent, and demonstrates normal Procedure augmentation. This is a venous duplex using B-mode, color FV is compressible, spontaneous, phasic, flow and spectral Doppler. competent and demonstrates normal Exam performed in department. augmentation. A preliminary report was called and/or faxed POP V is compressible, spontaneous, phasic, to Dr. Tucker @ [phone] @ 13:20 pm. competent and demonstrates normal augmentation. T/P Trunk is compressible. PTV is compressible. LT PerV is compressible. VL/Venous Duplex US, Unilateral Interpretation Summary Deep veins of the left lower extremity are patent and compressible segmentally. There is no evidence of left lower extremity deep vein thrombosis. The left great saphenous vein ryan ears patent and compressible segmentally. Ordering Physician: Ham Tucker Referring Physician: Ham Tucker Performed By: Renee Moss, RDCS, RVT
== END | disposition home or self-care (01) ==
LOC: CVS 12:56
PROVIDERS: PCP Family Medicine; Referring Provider Family Medicine; Visit Provider Family Medicine
DX: M79.662 Pain in left lower leg (principal)
CPT/HCPCS: 93971

== ENCOUNTER → 2023-07-16 | Outpatient (CLI) | payer OTHER, SELFPAY ==
[2023-07-16 14:00] LABS: AST(SGOT) 38 U/L (15-37); Alanine Aminotransfer ALT/SGPT 49 U/L (13-56); Albumin, Serum 3.8 g/dL (3.2-5.0); Alkaline Phosphatase 68 U/L (45-117); Anion Gap 5 (5-15); BUN 14 mg/dL (7-18); Calcium,Total 9.6 mg/dL (8.5-10.1); Chloride 102 mmol/L (98-107); EST Glomerular Filtration Rate 61 mL/min (>60); Est Glom Filt Rate - Afr Amer 73 mL/min (>60); Globulin 3.8 g/dL (2.2-4.2); Glucose 101 mg/dL (74-106); Potassium 4.1 mmol/L (3.5-5.1); Protein, Total 7.6 g/dL (6.4-8.2); Sodium Level 136 mmol/L (136-145)
== END | disposition home or self-care (01) ==
PROVIDERS: PCP Family Medicine; Referring Provider Family Medicine; Visit Provider Family Medicine
DX: M79.10 Myalgia, unspecified site (principal); E03.9 Hypothyroidism, unspecified; N39.0 Urinary tract infection, site not specified
CPT/HCPCS: 36415; 80053; 84443

== ENCOUNTER → 2023-09-19 | Outpatient (CLI) | payer OTHER, SELFPAY ==
[2023-09-19 15:07] LABS: Absolute Lymphocyte Count 1.52 X10^3/uL (0.83-4.51); Basophil# 0.01 X10^3/uL; Basophil% 0.2 % (0-1); Eosinophils% 1.9 % (0-5); Hematocrit 41.7 % (37-47); Hemoglobin 13.7 g/dL (12.0-15.0); Lymphocyte # 1.52 X10^3/ul (0.83-4.51); Lymphocyte % 29.3 % (19-41); Mean Corp Hgb Conc 32.9 g/dL (32-36); Mean Corpuscular Hgb 28.7 pg (27.0-32.0); Mean Corpuscular Volume 87.4 fL (81-99); Mean Platelet Vol. 10.9 fl (6.2-12.0); Monocyte% 9.6 % (0-10); NRBC Flagged by Analyzer 0 % (0-5); Neutrophil # 3.04 X10^3/uL (2.7-7.7); Neutrophil % 58.6 % (47-70); Platelet Count 241 K/mm3 (150-450); RBC Distribution Width SD 41.2 fl (35.1-43.9); Red Blood Count 4.77 M/mm3 (4.2-5.4); White Blood Count 5.2 K/mm3 (4.4-11.0)
[2023-09-19 15:32] LABS: ALB/GLOB Ratio 1.1 RATIO (0.9-2.4); AST(SGOT) 39 U/L (15-37); Alanine Aminotransfer ALT/SGPT 47 U/L (13-56); Albumin, Serum 3.8 g/dL (3.2-5.0); Alkaline Phosphatase 73 U/L (45-117); Anion Gap 8 (5-15); BUN 16 mg/dL (7-18); Calcium,Total 9.3 mg/dL (8.5-10.1); Chloride 105 mmol/L (98-107); Creatinine, Serum 1.07 mg/dL (0.55-1.02); EST Glomerular Filtration Rate 56 mL/min (>60); Est Glom Filt Rate - Afr Amer 68 mL/min (>60); Globulin 3.6 g/dL (2.2-4.2); Glucose 128 mg/dL (74-106); Potassium 3.9 mmol/L (3.5-5.1); Protein, Total 7.4 g/dL (6.4-8.2); Sodium Level 139 mmol/L (136-145)
[2023-09-24 01:07] LABS: Copper, Serum or Plasma 89 ug/dL (80-158)
== END | disposition home or self-care (01) ==
LOC: MFPLAB 12:25
PROVIDERS: PCP Family Medicine; Visit Provider Family Medicine
DX: G50.0 Trigeminal neuralgia (principal); R20.2 Paresthesia of skin
CPT/HCPCS: 36415; 80053; 82525; 85025

== ENCOUNTER → 2024-02-09 | Outpatient (CLI) | payer OTHER, SELFPAY ==
--- NOTE | 2024-02-09 12:42 | CDU_ITS ---
Reason For Study: Carotid Artery Disease Rt. Velocities/BP Lt. Velocities/BP Prox CCA 100/19 cm/sec. Prox CCA 95/24 cm/sec. Mid CCA 111/23 cm/sec. Mid CCA 116/19 cm/sec. Dist CCA 85/23 cm/sec. Dist CCA 90/19 cm/sec. Prox ICA 71/18 cm/sec. Prox ICA 110/25 cm/sec. Mid ICA 145/50 cm/sec. Mid ICA 133/36 cm/sec. Dist ICA 77/24 cm/sec. Dist ICA 149/43 cm/sec. Rt. ICA/CCA = 1.3. Lt. ICA/CCA = 1.3. Prox ECA 121/14 cm/sec. Prox ECA 105/14 cm/sec. Rt. Vert. 64/14 cm/sec. Lt. Vert. 72/20 cm/sec. Right Extracranial There is intimal thickening but no significant atherosclerotic plaque noted in the right common carotid artery. There is intimal thickening but no significant atherosclerotic plaque noted in the right internal carotid artery. There is intimal thickening but no significant atherosclerotic plaque noted in the right external carotid artery. Antegrade flow is noted in the right vertebral artery. Left Extracranial There is heterogeneous, smooth atherosclerotic plaque noted in the left common carotid artery. There is intimal thickening but no significant atherosclerotic plaque noted in the left internal carotid artery. There is no significant atherosclerotic plaque noted in the left external carotid artery. Antegrade flow is noted in the left vertebral artery. Procedure Carotid Duplex 23138. This is a Carotid Duplex examination using B-mode, color flow and specral Doppler. Exam performed in department. VL/Carotid Duplex Ultrasound Interpretation Summary Normal right extracranial internal carotid. Normal left extracranial internal carotid. Patent and antegrade vertebrals bilaterally. Elevated velocities with no visualized plaque bilateral. Ordering Physician: Ninfa Pringle Referring Physician: Ham Tucker Performed By: Salma Pop, SHELBI, RVT
== END | disposition home or self-care (01) ==
LOC: CVS 12:41
PROVIDERS: PCP Family Medicine; Referring Provider Physician Assistant; Visit Provider Physician Assistant
DX: I65.29 Occlusion and stenosis of unspecified carotid artery (principal)
CPT/HCPCS: 93880

== ENCOUNTER → 2024-06-17 | Outpatient (CLI) | payer BC, SELFPAY ==
[2024-06-17 14:19] LABS: Creatinine, Serum 1.01 mg/dL (0.70-1.20); EST Glomerular Filtration Rate 64 (>60)
== END | disposition home or self-care (01) ==
LOC: MTLAB 09:14
PROVIDERS: PCP Family Medicine; Referring Provider Family Medicine; Visit Provider Family Medicine
DX: E03.9 Hypothyroidism, unspecified (principal)
CPT/HCPCS: 82565; 84439; 84443

== ENCOUNTER → 2024-06-22 | Outpatient (CLI) | payer BC, SELFPAY ==
--- NOTE | 2024-06-22 13:00 | US_ITS ---
PROCEDURE: THYROID 06/22/2024 REASON FOR EXAM: THYROID LUMP TECHNIQUE: High-frequency thyroid ultrasound, including grayscale and color-flow images. REFERENCE LINKS: TI-RADS Chart: [email or web address] TI-RADS Calculator Tool with Reference Images: [email or web address] COMPARISON: None FINDINGS: Right thyroid lobe size: 3.5 cm x 1.3 cm x 1.7 cm Left thyroid lobe size: 2.8 cm x 1.3 cm x 1.2 cm Isthmus: 0.3 cm Background parenchymal echotexture is heterogeneous Nodules: . Lobe: Left, Location: Inferior pole, Size: 9 mm x 6 mm x 6 mm cm, Stability: N/A Composition: Mixed cystic and solid (+1) Echogenicity: Hyper to Isoechoic (+1) Margin: Smooth (+0) Shape: Wider than tall (+0) Echogenic Foci: None (+0) TI-RADS: <2 = TR 1 * 2 = TR 2 * 3 = TR 3 * 4-6 = TR 4 * >6 = TR 5 4 mm x 5 mm x 3 mm solid hypoechoic nodule in the right side of the isthmus. Findings suggestive of an enlarged right parathyroid gland. It measures 1.7 cm x 1.2 cm x 1.4 cm. US/Thyroid IMPRESSION: TI-RADS category 2 Findings suggestive of an enlarged right parathyroid gland. Clinical correlati on recommended. RECOMMENDATION: Based on most suspicious nodule. Nodule size = largest diameter Only evaluate nodule if =>5 mm. Growth > 20% in 2 dimensions = worsening. Follow up to 4 nodules. Recommend biopsy for no more than 2 nodules. Reading Location: [facility]
== END | disposition home or self-care (01) ==
PROVIDERS: PCP Family Medicine; Referring Provider Family Medicine; Visit Provider Family Medicine
DX: E07.9 Disorder of thyroid, unspecified (principal)
CPT/HCPCS: 76536

== ENCOUNTER → 2024-06-28 | Outpatient (CLI) | payer BC, SELFPAY ==
[2024-06-28 08:11] LABS: PTHIN 42 pg/mL (11-61)
[2024-06-28 08:20] LABS: Calcium 9.8 mg/dL (7.6-11.0)
== END | disposition home or self-care (01) ==
LOC: LAB 07:10
PROVIDERS: PCP Family Medicine; Referring Provider Family Medicine; Visit Provider Family Medicine
DX: N39.0 Urinary tract infection, site not specified (principal); E21.5 Disorder of parathyroid gland, unspecified; E03.9 Hypothyroidism, unspecified
CPT/HCPCS: 36415; 82310; 83970; 84443; 87086; 87088

== ENCOUNTER → 2024-08-30 | Outpatient (CLI) | payer OTHER, SELFPAY ==
[2024-08-30 11:25] LABS: PTHIN 46 pg/mL (11-61)
[2024-08-30 12:02] LABS: Calcium 9.3 mg/dL (7.6-11.0)
== END | disposition home or self-care (01) ==
PROVIDERS: PCP Family Medicine; Referring Provider Family Medicine; Visit Provider Family Medicine
DX: E21.5 Disorder of parathyroid gland, unspecified (principal); E03.9 Hypothyroidism, unspecified
CPT/HCPCS: 36415; 82310; 83970; 84443

== ENCOUNTER → 2024-11-30 | Outpatient (CLI) | payer OTHER, SELFPAY ==
--- OUTSIDE RECORDS SUMMARY | 2024-11-30 16:29 | XMS RPT_ITS | CCD ---
Author Organization [facility] Care Team Providers Care Smart Grid Engineer Name Role Phone Sylvester Ontiveros MD Primary Care Provider [phone] Dr. Sylvester Ontiveros Primary Care Provider Dr. Sylvester Ontiveros Referring Provider Dr. Aston Grant Attending Provider Care Physician, No Primary Primary Care Provider Unavailable Dr. Pedro Luis Light Attending Provider Dr. Aston Grant Other Provider Care Physician, No Primary Referring Provider Un available Dr. Anastacio Kimbrough Attending Provider [phone] Sanya Mariano Attending Provider [phone] MD Ham Tucker Primary Care Provider MD Ham Tucker Referring Provider [phone] Lissett GLASSBLOWER, GLASSBLOWER-C Hawa Attending Provider Sylvester Ontiveros MD Primary Care Provider MD Ham Tucker Primary Care Provider MD Ham Tucker Referring Provider Lissett GLASSBLOWER, GLASSBLOWER-C Hawa Attending Provider JAMES Pringle Attending Provider [phone] Anastacio Kimbrough Attending Provider [phone] JAMES Pringle Referring Provider [phone] MD Ham Tucker Primary Care Provider [phone] MD Ham Tucker Referring Provider JAMES Pringle Attending Provider [phone] Anastacio Kimbrough Attending Provider JAMES Pringle Referring Provider Weston MAYEN, Sylvester Aguilar Primary Care Provider [phone] SYLVESTER ONTIVEROS Primary Care Unavailable CARL DOMÍNGUEZ Referring Unavailable GRUCA, HAYLEE Referring Unavailable WESTON, SYLVESTER AGUILAR Primary Care Unavailable GRUCA, HAYLEE Attending Unavailable WESTON, SYLVESTER AGUILAR Primary Care Unavailable CARL DOMÍNGUEZ Referring Unavailable WESTON, SYLVESTER AGUILAR Primary Care Unavailable Caitlin MAYEN, Ham Primary Care Provider Ham Tucker MD Attending Provider Caitlin MAYEN, Ham Referring Provider [phone] Rick Pereira MD Attending Provider Caitlin, Chalon Referring Unavailable Caitlin, Chalon Primary Care Unavailable Rick Pereira Attending Unavailable Pringle, Ninfa Referring Unavailable Caitlin, Chalon Primary Care Unavailable Anastacio Kimbrough Attending Unavailable Pringle, Ninfa Attending Unavailable Pringle, Ninfa Referring Unavailable Caitlin, Chalon Primary Care Unavailable Caitlin, Chalon Attending Unavailable Caitlin, Chalon Referring Unavailable Caitlin, Chalon Primary Care Unavailable Caitlin, Chalon Primary Care Unavailable Rick Pereira Attending Unavailable Caitlin, Chalon Referring Unavailable Caitlin, Chalon Primary Care Unavailable Caitlin, Chalon Attending Unavailable Caitlin, Chalon Referring Unavailable Caitlin, Chalon Primary Care Unavailable Caitlin, Chalon Attending Unavailable Caitlin, Chalon Attending Unavailable Caitlin, Chalon Referring Unavailable Caitlin, Chalon Primary Care Unavailable Caitlin, Chalon Attending Unavailable Caitlin, Chalon Primary Care Unavailable Allergies Allergy Classification Reported Allergen(s) Allergy Type Date of Onset Reaction(s) Facility (20 sources) predniSONE; Translations: [PREDNISONE] Drug Allergy [address] [facility] Comment on above: INJECTABLE MESSES WI TH MY VISION (1 source) predniSONE Drug Allergy 5 [facility] Repository Medications Current Medications Medication Drug Class(es) Dates Sig (Normalized) Sig (Original) Fluticasone Propion-Salmeterol (Advair Hfa) 230-21 mcg/actuation HFA aerosol inhaler (3 sources) Start: 04-16-2022 take 1 puff(s) by inhalation twice daily Fluticasone Propion-Salmeterol (Advair Hfa) 230-21 mcg/actuation HFA aerosol inhaler Active 2 PUFF INHALATION TWICE A DAY April 16, 2022 1:00am L.acidoph,rhamn-B.b reve,longum (PROBIOTIC) 20 billion cell cpSP (9 sources) Start: 02-24-2019 L.acidoph,rhamn-B. breve,longum (PROBIOTIC) 20 billion cell cpSP 02/24/2019 Active Start: 02-24-2019 L.acidoph,rham n-B.breve,longum (PROBIOTIC) 20 billion cell cpSP polyethylene glycol 3350 [id number] mg / potassium chloride 2970 mg / sodium bicarbonate 6740 mg / sodium chloride 5860 mg / sodium sulfate 09640 mg powder for oral solution (1 source) Osmotic Laxative Start: 07-19-2024 take 4000 mL by mouth once Peg 3350-Electrolytes 236-22.74-6.74 -5.86 gram recon soln Active 4000 mL PO ONCE 4000 0 July 19, 2024 12:00am until fecal effluent is clear; do not exceed a total volume of 4000 mL Thyroid (Pork) (Niva Thyroid) 60 mg tablet (2 sources) Start: 07-19-2024 take 1 tablet by mouth once daily Thyroid (Pork) (Niva Thyroid) 60 mg tablet Active 60 mg PO daily July 19, 2024 12:00am Completed/Discontinued Medications Medication Drug Class(es) Dates Sig (Normalized) Sig (Original) [id number] 200 actuat albuterol 0.09 mg/actuat metered dose inhaler (20 sources) beta2-Adrenergic Agonist Start: 03-27-2022 End: 07-19-2024 Albuterol Sulfate 90 mcg/actuation HFA aerosol inhaler Discontinued 2 NMA INHALATION Q4H as needed for shortness of breath or wheezing 8.5 November 12, 2022 8:19am July 19, 2024 8:05am administer with spacer Start: 03-27-2022 End: 11-12-2022 take 1 puff(s) by inhalation every four hours Albuterol Sulfate Active 2 PUFF INHALATION Q4H 8.5 November 12, 2022 8:19am administer with spacer Start: 09-07-2021 End: 07-19-2024 take 2.5 mg by inhalation every six hours Albuterol Sulfate 2.5 mg /3 mL (0.083 %) solution for nebulization Discontinued 2.5 mg INHALATION EVERY 6 HOURS September 07, 2021 12:00am July 19, 2024 8:05am Start: 12-10-2017 take 1 puff(s) by in halation every six hours Albuterol Sulfate (Proair Hfa) 90 mcg/actuation HFA aerosol inhaler Active 1 PUFF INHALATION EVERY 6 HOURS December 10, 2017 12:00am Start: 05-21-2013 take 2 puff(s) by in halation every four hours as needed for cough albuterol 90 mcg/actuation aero Indications: URI (upper respiratory infection) , History of asthma Inhale 2 Puffs as instructed every 4 hours as needed (shortness of breath/cough/wheeze). With spacer please. 1 Inhaler 0 05/21/2013 Active Comment on above: Inhale 2 Puffs as in structed every 4 hours as needed (shortness of breath/cough/wheeze). With spacer please. amoxicillin 875 mg / clavulanate 125 mg oral tablet (7 sources) Penicillin-class Antibacterial Start: 01-17-2023 End: 07-19-2024 Amoxicillin-Pot Clavulanate 875-125 mg tablet Discontinued 1 {tbl} PO TWICE A DAY January 17, 2023 1:00am July 19, 2024 8:05am Start: 01-17-2023 take 1 tablet by nestor twice daily Amoxicillin-Pot Clavulanate Active 1 TABLET PO TWICE A DAY January 17, 2023 1:00am aspirin 81 mg delayed release oral tablet (12 sources) Platelet Aggregation Inhibitor, Nonsteroidal Anti-inflammatory Drug Start: 05-15-2022 End: 07-19-2024 take 1 tablet by mouth once daily Aspirin 81 mg tablet,delayed release (DR/EC) Discontinued 81 mg PO DAILY May 15, 2022 12:00am July 19, 2024 8:05am atorvastatin 40 mg oral tablet (12 sources) HMG-CoA Reductase Inhibitor Start: 05-14-2022 End: 07-19-2024 take 1 tablet by mouth at bedtime Atorvastatin 40 mg tablet Discontinued 40 mg PO AT BEDTIME 30 2 May 14, 2022 12:00am July 19, 2024 8:05am Budesonide-Formot ever (13 sources) Corticosteroid, beta2-Adrenergic Agonist Start: 03-27-2022 End: 04-16-2022 Budesonide-Formoter ol (Symbicort) 160-4.5 mcg/actuation HFA aerosol inhaler Discontinued 2 NMA INHALATION TWICE A DAY 10.2 March 27, 2022 1:00am April 16, 2022 11:56am Start: 03-27-2022 End: 04-16-2022 Budesonide-Formoterol (Symbi shelby) 160-4.5 mcg/actuation HFA aerosol inhaler Discontinued 2 NMA INHALATION TWICE A DAY 10.2 March 27, 2022 1:00am April 16, 2022 11:56am Start: 03-27-2022 End: 04-16-2022 take 1 puff(s) by inhalation twice daily Budesonide-Formoterol (Symbicort) 160-4.5 mcg/actuation HFA aerosol inhaler Discontinued 2 PUFF INHALATION TWICE A DAY 10.2 March 27, 2022 12:00am April 16, 2022 10:56am Start: 03-27-2022 End: 04-16-2022 take 1 puff(s) by inhalation twice daily Budesonide-Formoterol (Symbicort) 160-4.5 mcg/actuation HFA aerosol inhaler Discontinued 2 PUFF INHALATION TWICE A DAY 10.2 March 27, 2022 1:00am April 16, 2022 11:56am cyclobenzaprine hydrochloride 10 mg oral tablet (15 sources) Muscle Relaxant Start: 09-07-2021 End: 05-14-2022 take 1 tablet by mouth three times daily Cyclobenzaprine 10 mg tablet Discontinued 10 mg PO THREE TIMES A DAY September 07, 2021 12:00am May 14, 2022 1:46pm Fluticasone Propion-Salmeterol (10 sources) Corticosteroid , beta2-Adrenerg ic Agonist Start: 04-16-2022 End: 10-09-2022 Fluticasone Propion-Salmeterol (Advair Hfa) 230-21 mcg/actuation HFA aerosol inhaler Discontinued 2 NMA INHALATION TWICE A DAY 12 6 April 16, 2022 1:00am October 09, 2022 1:48pm Start: 04-16-2022 End: 10-09-2022 Fluticasone Propion-Salmeter ol (Advair Hfa) 230-21 mcg/actuation HFA aerosol inhaler Discontinued 2 NMA INHALATION TWICE A DAY April 16, 2022 1:00am October 09, 2022 1:48pm Start: 04-16-2022 End: 10-09-2022 take 1 puff(s) by inhalation twice daily Fluticasone Propion-Salmeterol (Advair Hfa) 230-21 mcg/actuation HFA aerosol inhaler Discontinued 2 PUFF INHALATION TWICE A DAY April 16, 2022 12:00am October 09, 2022 12:48pm Start: 04-16-2022 End: 10-09-2022 take 1 puff(s) by inhalation twice daily Fluticasone Propion-Salmeterol (Advair Hfa) 230-21 mcg/actuation HFA aerosol inhaler Discontinued 2 PUFF INHALATION TWICE A DAY April 16, 2022 1:00am October 09, 2022 1:48pm Start: 04-16-2022 take 1 puff(s) by in halation twice daily Fluticasone Propion-Salmeterol (Advair Hfa) 230-21 mcg/actuation HFA aerosol inhaler Active 2 PUFF INHALATION TWICE A DAY April 16, 2022 1:00am Fluticasone Propionate (Flov ent Hfa) 110 mcg/actuation HFA aerosol inhaler (15 sources) Start: 09-07-2021 End: 05-14-2022 Fluticasone Propionate (Flov ent Hfa) 110 mcg/actuation HFA aerosol inhaler Discontinued 1 NMA INHALATION TWICE A DAY September 07, 2021 12:00am May 14, 2022 1:46pm Start: 09-07-2021 End: 05-14-2022 take 1 puff(s) by inhalation twice daily Fluticasone Propionate (Flovent Hfa) 110 mcg/actuation HFA aerosol inhaler Discontinued 1 PUFF INHALATION TWICE A DAY September 06, 2021 11:00pm May 14, 2022 12:46pm Start: 09-07-2021 End: 05-14-2022 take 1 puff(s) by inhalation twice daily Fluticasone Propionate (Flovent Hfa) 110 mcg/actuation HFA aerosol inhaler Discontinued 1 PUFF INHALATION TWICE A DAY September 07, 2021 12:00am May 14, 2022 1:46pm Start: 09-07-2021 take 1 puff(s) by in halation twice daily Fluticasone Propionate (Flovent Hfa) 110 mcg/actuation HFA aerosol inhaler Active 1 PUFF INHALATION TWICE A DAY September 07, 2021 12:00am levothyroxine sodium 0.112 mg oral tablet (20 sources) l-Thyroxine Start: 02-17-2023 End: 07-09-2023 take 1 tablet by mouth four times weekly SYNTHROID 125 mcg tablet Indications: 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 On Friday, , and Friday 45 tablet 3 07/09/2023 Active Start: 11-04-2022 End: 11-04-2023 take 1 tablet by mouth once daily SYNTHROID 125 mcg tablet Take 1 tablet by mouth once daily. Wait 30 min before eating or taking other meds; Wait 4 hrs before mineral vitamins 90 tablet 3 11/04/2022 11/04/2023 Active Start: 05-24-2021 End: 03-04-2023 take 1 tablet by mouth once daily Levothyroxine (Synthroid) 112 mcg tablet Discontinued 112 ug PO DAILY March 04, 2023 12:09pm rotate with 125mcg Start: 12-08-2020 End: 05-24-2021 take 1 tablet by mouth once daily SYNTHROID 125 mcg tablet Take 1 tablet by mouth once daily. Wait 30 min before eating or taking other meds; Wait 4 hrs before mineral vitamins 90 tablet 3 12/08/2020 05/24/2021 Discontinued (Course of therapy completed) Comment on above: Take 1 tablet by [facility] once daily. Wait 30 min before eating or taking other meds; Wait 4 hrs before mineral vitamins Take 1 tablet by [facility] once daily. Take 1 tablet by [facility] four times a week. Friday, Friday, Friday, and Friday Wait 30 min before eating or taking other meds; Wait 4 hrs before mineral vitamins Take 1 tablet by [facility] three times a week. On Friday, , and Friday nitrofurantoin, macrocrystals 25 mg / nitrofurantoin, monohydrate 75 mg oral capsule (17 sources) Nitrofuran Antibacterial Start: End: take 1 capsule by mouth every twelve hours Nitrofurantoin Monohyd/M-Cryst 100 MG capsule Discontinued 100 mg PO EVERY 12 HOURS 10 October 20, 2017 12:00am December 16, 2017 3:56pm ondansetron 4 mg disintegrating oral tablet (16 sources) Serotonin-3 Receptor Antagonist Start: End: take 1 tablet by mouth every eight hours as needed for nausea and vomiting Ondansetron 4 mg tablet,disintegrating Discontinued 4 mg PO Q8H as needed for nausea and vomiting 10 September 04, 2021 12:00am May 14, 2022 1:37pm phenazopyridine hydrochloride 200 mg oral tablet (17 sources) Start: End: take 1 tablet by mouth three times daily Phenazopyridine 200 MG tablet Discontinued 200 mg PO THREE TIMES A DAY 6 October 20, 2017 12:00am December 16, 2017 3:56pm thyroid (fci) 90 mg oral tablet (20 sources) Start: End: Thyroid (Pork) 90 mg tablet Discontinued 90 mg PO .COMPLEX December 10, 2017 5:28pm December 16, 2017 3:56pm 90 mg PO Mon, Weds, Fri: takes a 75 mg tablet (not in our formulary) other days; triamcinolone acetonide 1 mg/ml topical cream (9 sources) Corticosteroid Start: End: triamcinolone acetonide (KENALOG) 0.1 % cream Apply 1 application to affected area three times daily. Apply sparingly to area for rash/itching. 80 g 0 04/20/2021 10/01/2021 Discontinued Comment on above: Apply 1 application to affected area three times daily. Apply sparingly to area for rash/itching. Problems Active Problems Problem Classification Problem Date Documented Date Episodic/Chronic Abdominal pain (20 sources) Right lower quadrant pain; Translations: [Right lower quadrant pain] Onset: 2 08-19-2011 Episodic Allergic reactions (9 sources) Allergic condition; Translations: [Allergy, unspecified, initial encounter] 09-27-2022 Episodic Asthma (20 sources) Unspecified asthma, uncomplicated; Translations: [Asthma, unspecified type, unspecified] 04-13-2011 Chronic Blindness and vision defects (9 sources) Disorder of vision; Translations: [Unspecified visual loss] 09-27-2022 Chronic Cardiac dysrhythmias (17 sources) Palpitations; Translations: [Palpitations] 03-09-2020 Episodic Deficiency and other anemia (2 sources) Iron deficiency anemia; Translations: [Iron deficiency anemia, unspecified] 07-22-2024 Episodic Diseases of mouth; excluding dental (17 sources) Uvulitis; Translations: [Cellulitis and abscess of mouth] 11-05-2020 Episodic Disorders of lipid metabolism (20 sources) Dyslipidemia; Translations: [Hyperlipidemia, unspecified] Onset: 0 04-13-2011 Chronic Fever of unknown origin (1 source) Fever; Translations: [Fever, unspecified] Episodic Genitourinary symptoms and ill-defined conditions (14 sources) Female stress incontinence; Translations: [Stress incontinence (female) (male)] Onset: 2 08-19-2011 Chronic Menstrual disorders (20 sources) Dysmenorrhea; Translations: [Dysmenorrhea, unspecified] Onset: 2 04-13-2011 Chronic Nonspecific chest pain (17 sources) Chest discomfort; Translations: [Other chest pain] 09-04-2021 Episodic Nutritional deficiencies (16 sources) Vitamin D deficiency; Translations: [Vitamin D deficiency, unspecified] Onset: 0 04-13-2011 Chronic Occlusion or stenosis of precerebral arteries (16 sources) Carotid artery stenosis; Translations: [Occlusion and stenosis of unspecified carotid artery] Onset: 5 05-14-2022 Chronic Osteoarthritis (18 sources) Arthritis; Translations: [Unspecified osteoarthritis, unspecified site] 09-27-2022 Chronic Other acquired deformities (14 sources) Scoliosis deformity of spine; Translations: [Other forms of scoliosis, site unspecified] 04-13-2011 Chronic Other circulatory disease (12 sources) Disorder of carotid artery; Translations: [Disorder of arteries and arterioles, unspecified] 05-15-2022 Chronic Other circulatory disease (2 sources) Disorder of arteries and arterioles, unspecified; Translations: [Unspecified disorders of arteries and arterioles] 05-14-2022 Chronic Other connective tissue disease (9 sources) Ganglion cyst of right hand; Translations: [Ganglion, right hand] 09-29-2022 Episodic Comment on above: 8 mm ganglion cyst ( mucous cyst) dorsal radial aspect right long finger at DIP joint Other connective tissue disease (2 sources) Ganglion, right hand; Translations: [Ganglion of joint] 09-27-2022 Episodic Other connective tissue disease (7 sources) Pain of right lower leg; Translations: [Pain in right lower leg] 03-04-2023 Episodic Other connective tissue disease (3 sources) Pain in right lower leg; Translations: [Pain in limb] 03-04-2023 Episodic Other endocrine disorders (9 sources) Hyperandrogenemia; Translations: [Androgen excess] Onset: 0 04-13-2011 Chronic Other endocrine disorders (5 sources) Increased androgen level; Translations: [Androgen excess] Onset: 0 04-13-2011 Chronic Other endocrine disorders (1 source) Disorder of parathyroid gland, unspecified; Translations: [Disorder of parathyroid gland, unspecified] Onset: 5 Chronic Other endocrine disorders (9 sources) Hormone level - finding; Translations: [Endocrine disorder, unspecified] 09-27-2022 Episodic Other female genital disorders (14 sources) Premenstrual tension syndrome; Translations: [Premenstrual tension syndrome] Onset: 2 08-19-2011 Chronic Other gastrointestinal disorders (17 sources) Constipation; Translations: [Constipation, unspecified] 07-01-2020 Episodic Other gastrointestinal disorders (2 sources) Dysphagia; Translations: [Dysphagia, unspecified] 07-22-2024 Episodic Comment on above: Patient describes pr ogressive dysphagia to solids and liquids. She denies any history of reflux but does have some history of heartburn, bloating, and nausea. This history is suggestive for a number of differentials including esophageal stenosis, esophageal web, H. pylori, or other . Recommend further evaluation with EGD Other nutritional; endocrine; and metabolic disorders (16 sources) Insulin resistance; Translations: [Metabolic syndrome] Onset: 0 04-13-2011 Chronic Other nutritional; endocrine; and metabolic disorders (14 sources) Body mass index 30+ - obesity; Translations: [Obesity, unspecified] Onset: 2 10-19-2019 Chronic Other nutritional; endocrine; and metabolic disorders (9 sources) Obesity; Translations: [Obesity, unspecified] 10-09-2022 Chronic Other nutritional; endocrine; and metabolic disorders (2 sources) Obesity, unspecified; Translations: [Obesity, unspecified] 10-09-2022 Chronic Other nutritional; endocrine; and metabolic disorders (2 sources) Weight decreased; Translations: [Abnormal weight loss] 07-22-2024 Episodic Comment on above: Patient describes ne w weight loss which she has attributed to small intestinal bacterial overgrowth, however, taken in concert with iron deficiency anemia and alternating bowel habits with no prior colonoscopic evaluation I recommend she proceed for screening colonoscopy concurrent with EGD recommended above. Other screening for suspected conditions (not mental disorders or infectious disease) (13 sources) Patient encounter status; Translations: [Encounter for screening for malignant neoplasm of colon] 11-02-2021 Episodic Residual codes; unclassified (9 sources) Obstructive sleep apnea syndrome; Translations: [Obstructive sleep apnea (adult) (pediatric)] 10-09-2022 Chronic Comment on above: AHI is 6.2, however 17 events per hour in the REM stage of sleep Residual codes; unclassified (4 sources) Obstructive sleep apnea (adult) (pediatric); Translations: [Obstructive sleep apnea (adult)(pediatric)] 10-09-2022 Chronic Residual codes; unclassified (12 sources) Family history of aneurysm of artery; Translations: [Family history of ischemic heart disease and other diseases of the circulatory system] 05-14-2022 Episodic Residual codes; unclassified (2 sources) Family history of ischemic heart disease and other diseases of the circulatory system; Translations: [Family history of stroke (cerebrovascular)] 05-14-2022 Episodic Rheumatoid arthritis and related disease (9 sources) Rheumatoid arthritis; Translations: [Rheumatoid arthritis, unspecified] 09-27-2022 Chronic Thyroid disorders (20 sources) 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 Domínguez in [place] Patient is a 59-year -old female with longstanding history of hypothyroidism that is still to be fully replaced given TSH persisting at 14.7 on recent check. Patient denies most symptoms related to decreased metabolic function. She presents mainly because of concerns about dysphagia but thyroid ultrasound performed last month showed a normally proportioned thyroid gland. I discussed the prevalence of thyroid nodularity and prior to provide perspective on the size of her nodules which were enumerated by radiology as a 0.9 cm left-sided thyroid nodule and a 0.5 cm right sided thyroid nodule. No TI-RADS rating was given explicitly by radiology but by their description and my independent review of the imaging I rated these as a TI-RADS 2 and 4, respectively. Being subcentimeter in size I find no indication to pursue biopsy. However, I do differ with radiology and that I believe what they described as a possible parathyroid lesion actually represents a hypoechoic, solid nodule of the right thyroid lobe. As such it would be rated a TI-RADS 4 and would be indicated for biopsy with a dimension greater than 1.5 cm. Unfortunately we were not prepared for a biopsy at today's visit so this will have to be scheduled separately. Patient does not have biochemical diagnosis of hyperparathyroidism exhibiting no abnormal calciums in her history and PTH when checked last month was within the limits. However, to be complete in our assessment I recommended submitting a very small specimen from [facility] for PTH. Patient was receptive Thyroid disorders (1 source) Disorder of thyroid, unspecified; Translations: [Disorder of thyroid, unspecified] Onset: 5 Episodic Unclassified (1 source) Insulin resistance; Translations: [Insulin resistance] Onset: 2 Urinary tract infections (18 sources) Acute cystitis; Translations: [Acute cystitis without hematuria] Onset: 5 10-21-2017 Episodic Viral infection (17 sources) Viral disease; Translations: [Viral infection, unspecified] Episodic Past or Other Problems Problem Classification Problem Date Documented Da te Episodic/Chronic Diabetes mellitus without complication (3 sources) Abnormal glucose level; Translations: [Other abnormal glucose] Onset: 02-11-2023 Episodic Genitourinary symptoms and ill-defined conditions (16 sources) Urgent desire to urinate; Translations: [Urgency of urination] Onset: 08-19-2011 08-19-2011 Episodic Nonmalignant breast conditions (16 sources) Lump in left breast; Translations: [Unspecified lump in the left breast, unspecified quadrant] Onset: 02-24-2013 Resolved: 08-06-2016 02-24-2013 Episodic Other female genital disorders (14 sources) Dysplasia of cervix; Translations: [Dysplasia of cervix uteri, unspecified] Onset: 08-19-2011 08-19-2011 Episodic Other nervous system disorders (1 source) Trigeminal neuralgia; Translations: [Trigeminal neuralgia] Onset: 10-16-2023 Episodic Results Test Name Value Interpretation Reference Range Facility [id number] 08-30-2024 Calcium [Mass/Vol] 9.3 mg/dL Normal 7.6-11.0 [facility] Comment on above: Performed By: #### L 501.0895, L501.9520, L509.1000 ####[facility] [id number] [place], [address] PTHINon 08-30-2024 PTH 46 pg/mL Normal 11-61 [facility] Comment on above: Performed By: #### L 501.0895, L501.9520, L509.1000 ####[facility] [id number] [place], [address] Serum or plasma calcium rick urement (mass/volume)Ordered By: Ham Tucker on 08-30-2024 Calcium [Mass/Vol] 9.3 mg/dL 7.6-11.0 [facility] TSH DL <= 0.005 mIU/L QnOrde red By: Ham Tucker on 08-30-2024 TSH Qn 3.630 uIU/mL 0.300-4.200 [facility] Thyroid Stim Hormone (TSH)on 08-30-2024 TSH 3.630 uIU/mL Normal 0.300-4.200 [facility] Comment on above: Performed By: #### L 501.0895, L501.9520, L509.1000 ####[facility] [address] [place], [address] Surgery Visit Reporton 07-19 Surgery Visit Report [facility] [address] [place] [address] OFFICE VISIT Date of Service: 07/19/24 MR#: [id number] Acct: [id number] Name: MARKO KELLEY Rep #: [id number] : 1965 Provider: Dr. Rick stevens MD Age/Sex: 59/F Location: [facility] Status: Signed Intake Vital Signs 12/09/22 06:36 07/19/24 08:04 Height 5 ft 6 in 5 ft 5 in Weight: 207 lb 8 oz BMI 34.5 BP 148/80 H Blood Pressure Location Rt brachial Position Sitting Respiration 18 Pulse 73 Pulse Source Palpation Temp 97.2 F L Temp Source Temporal Pulse Oximetry (%) 97 Oxygen Delivery Method room air Intake Visit Reasons: THYROID NODULE Chief Complaint: enlarged parathyoid Accompanied by: Daughter Is patient in pain?: No Allergies prednisone Adverse Reaction (Verified 07/19/24 08:05) Other Medications ???Medication ???Instructions ???Recorded ???Confirmed ???Type levothyroxine 112 mcg tablet 112 mcg PO DAILY 03/04/23 03/04/23 History (Synthroid) peg 3350-electrolytes 236 4,000 ml PO ONCE #4,000 mL 5 Rx gram-22.74 gram-6.74 gram-5.86 gram solution thyroid (pork) 60 mg tablet (Niva 60 mg PO QDAY 07/19/24 07/19/24 H istory Thyroid) COUNT INCLUDES THE [facility] Medical History (Updated 07/22/24 @ 16:[address] Rick Pereira MD) Thyroid nodule Ganglion cyst of joint of finger of right hand Ulcer Vision problem Vitamin deficiency Rheumatoid arthritis Polycystic ovary Pneumonia Osteoarthritis Heart murmur Kidney stones Hypoglycemia Hormone deficiency High triglycerides High cholesterol Generalized headaches Chronic bronchitis Cataracts, bilateral UTI (urinary tract infection) Bone fracture Arthritis Allergies Family history of intracranial aneurysms Inflammatory polyarthropathies Impaired fasting glucose COVID-19 Diverticulitis Asthma Parotiditis Hypothyroidism Palpitations Surgical History History of cataract surgery History of tubal ligation ( 1997) Family History Mother Hypertension Alcoholism Drug abuse Cancer CAD (coronary artery disease) Lung cancer Heart disease Brother Diabetes Heart disease Hypertension Brother Diabetes Brother Diabetes Sister Bone cancer Melanoma Aunt Lung cancer Uncle Lung cancer Social History Smoking Status: Never smoker alcohol intake: never substance use type: does not use additional social history: Does Take Aspirin As Needed Does Take Ibuprofen As Needed HPI HPI HPI: Patient is a 59-year-old female who presents for surgical consultation related to thyroid nodularity. They are referred for surgical consultation from Dr. Tucker. She states that this was found during a workup for some swallowing difficulty. She also notes that she has a swollen neck whenever she eats bread and finds that the right side is more swollen and tender than the left side. They report the swallowing difficulty originated approximately 6 to 8 months ago but has been progressive to the point that it can sometimes even be experienced with saliva. They do complain of a cough but states this is not new and instead related to diagnosis of asthma and use of inhaler. They do appreciate new voice changes with hoarseness. They do not have a history of snoring/sleep apnea. Additionally, their weight has been decreasing and they have a history of weight loss of approximately 20 pounds. Patient states that she was diagnosed with small intestinal bacterial overgrowth based on a lab study and she has been taking oil of oregano to treat this. She also notes that she was recently diagnosed with some vitamin deficiency and was placed on a multivitamin. There is no history of recent fatigue. They do not have a history of [heat or cold] intolerance. Other symptoms include: Pertinent positives: Constipation and diarrhea, difficulty concentrating. Heat or cold intolerance. They do have a family history of thyroid disorders and shared that most of what they are aware of his hypothyroidism, however, they note their niece just under went thyroidectomy for diagnosis of hyperthyroidism. There is no history of prior radiation exposure. Previous work-up has included thyroid ultrasound. This study was performed on 06/22/2024 and showed a right thyroid lobe measuring 3.5 x 1.3 x 1.7 cm. Within this lobe radiology identified a single subcentimeter nodule measuring 0.4 x 0.5 x 0.3 cm and described solid and hypoechoic in the right side of the isthmus. The left thyroid lobe measured 2.8 x 1.3 x 1.2 cm. Within this lobe radiology identified a nodule measuring 0.9 x 0.6 x 0.6 cm with a mixed (more content not included)... Normal [facility] Urine Cultureon 06-29-2024 URC Order Date: 07/16/23 Order Info: 630-4 - CUUR Mixed Gram Positive Organisms [place] Count 11,000-25,000 MIXC Mixed contaminants. Submit a new specimen if indicated. Normal [facility] Comment on above: Performed By: #### M 100.2200 ####[facility] [address] [place], [address] L501.0895on 06-28-2024 Calcium [Mass/Vol] 9.8 mg/dL Normal 7.6-11.0 [facility] Comment on above: Order Comment: Order Date: 06/25/24 Order Info: 09962-2 - CA Order Info: 3016-3 - TSH Performed By: #### L 501.0895, L509.1000 #### [facility] [address] [place], [address] PTHINon 06-28-2024 PTH 42 pg/mL Normal 11-61 [facility] Comment on above: Order Comment: Order Date: 06/25/24 Order Info: 0565-1 - PTHIN Performed By: #### L 501.0895, L509.1000 #### [facility] [address] [place], [address] Serum or plasma calcium rick urement (mass/volume)Ordered By: Ham Tucker on 06-28-2024 Calcium [Mass/Vol] 9.8 mg/dL 7.6-11.0 [facility] TSH DL <= 0.005 mIU/L QnOrde red By: Ham Lemuske on 06-28-2024 TSH Qn 14.700 uIU/mL High 0.300-4.200 [facility] Thyroid Stim Hormone (TSH)on 06-28-2024 TSH 14.700 uIU/mL High 0.300-4.200 [facility] Comment on above: Order Comment: Order Date: 06/25/24Order Info: 93628-8 - CAOrder Info: 3016-3 - TSH Performed By: #### L 501.9520 ####[facility] [address] [facility] [place], [place], [id number] Urine cultureOrdered By: Yoana Tucker on 06-28-2024 Bacteria identified Cx Nom (U) Positive Abnormal [facility] Thyroidon 06-22-2024 Thyroid [facility] [address] [place], [place] [address] Thyroid MR#: [id number] Acct: [id number] Name: MARKO KELLEY Rep #: [id number] : 1965 F 59 From: Simon can MD PCP: Dr. Ham Tucker MD Status: REG CLI Study: Thyroid Date of Exam: 06/22/24 Exam# [id number] Ordering Dr: Ham Tucker MD PROCEDURE: THYROID 06/22/2024 REASON FOR EXAM: THYROID LUMP TECHNIQUE: High-frequency thyroid ultrasound, including grayscale and color-flow images. REFERENCE LINKS: TI-RADS Chart: [email or web address] istant.nl/head-neck/ ti-rads/ti-rads TI-RADS Calculator Tool with Reference Images: [email or web address]://radathand.co m/radiology-calculat ors/body-imaging/tir ads-calculator/ COMPARISON: None FINDINGS: Right thyroid lobe size: 3.5 cm x 1.3 cm x 1.7 cm Left thyroid lobe size: 2.8 cm x 1.3 cm x 1.2 cm Isthmus: 0.3 cm Background parenchymal echotexture is heterogeneous Nodules: . Lobe: Left, Location: Inferior pole, Size: 9 mm x 6 mm x 6 mm cm, Stability: N/A Composition: Mixed cystic and solid (+1) Echogenicity: Hyper to Isoechoic (+1) Margin: Smooth (+0) Shape: Wider than tall (+0) Echogenic Foci: None (+0) TI-RADS: <2 = TR 1 * 2 = TR 2 * 3 = TR 3 * 4-6 = TR 4 * >6 = TR 5 4 mm x 5 mm x 3 mm solid hypoechoic nodule in the right side of the isthmus. Findings suggestive of an enlarged right parathyroid gland. It measures 1.7 cm x 1.2 cm x 1.4 cm. US/Thyroid IMPRESSION: TI-RADS category 2 Findings suggestive of an enlarged right parathyroid gland. Clinical correlation recommended. RECOMMENDATION: Based on most suspicious nodule. Nodule size = largest diameter Only evaluate nodule if =>5 mm. Growth > 20% in 2 dimensions = worsening. Follow up to 4 nodules. Recommend biopsy for no more than 2 nodules. Reading Location: [facility] CC: Dr. Ham Tucker MD Bed Maker: Signed Normal [facility] Glomerular filtration rate ( GFR) estimation/1.73 sq m using serum, plasma, or whole bOrdered By: Ham Tucker on 06-17-2024 GFR/1.73 sq M.predicted among non-blacks MDRD (S/P/Bld) [Vol rate/Area] 64 mL/min/{1.73_m2} >60 [facility] Comment on above: mL/min/1.73m2 CKD-EP I Creatinine Equation (2020) Serum Creatinine AND GFRon 0 06-17-2024 Creatinine [Mass/Vol] 1.01 mg/dL Normal 0.70-1.20 [facility] Comment on above: Order Comment: MIRIAN RODRIGUEZ COMMENT-CREAT UTO URINE Order Date: 06/15/24 Order Info: 3016-3 - TSH Order Info: 3024-7 - T4F Performed By: #### L 501.1105 #### [facility] [address] [place], [address] GFR/1.73 sq M.predicted among non-blacks MDRD (S/P/Bld) [Vol rate/Area] 64 mL/min/{1.73_m2} Normal >60 [facility] Comment on above: Order Comment: PER Hattie RODRIGUEZ COMMENT-CREAT UTO URINE Order Date: 06/15/24 Order Info: 63 - TSH Order Info: 3023-08 - T4F Result Comment: mL/m in/1.73m2 CKD-EPI Creatinine Equation (2020) Performed By: #### L 501.1105 #### [facility] [address] [place], [address] Serum creatinine measurement (mass/volume)Ordered By: Ham Tucker on 06-17-2024 Creatinine [Mass/Vol] 1.01 mg/dL 0.70-1.20 [facility] T4 Free Directon 06-17-2024 T4 FREE DIRECT 0.80 ng/dL Normal 0.76-1.46 [facility] Comment on above: Order Comment: MIRIAN RODRIGUEZ COMMENT-CREAT UTO URINE Order Date: 06/15/24 Order Info: 3016-3 - TSH Order Info: 3023-08 - T4F Performed By: #### L 506.0400, L501.9520 #### [facility] [address] [place], [address] T4 freeOrdered By: Ham garcia on 06-17-2024 Free T4 [Mass/Vol] 0.80 ng/dL 0.76-1.46 [facility] TSH DL <= 0.005 mIU/L QnOrde red By: Ham Tucker on 06-17-2024 TSH Qn 15.800 uIU/mL High 0.300-4.200 [facility] Thyroid Stim Hormone (TSH)on 06-17-2024 TSH 15.800 uIU/mL High 0.300-4.200 [facility] Comment on above: Order Comment: PER Hattie RODRIGUEZ COMMENT-CREAT UTO URINE Order Date: 06/15/24 Order Info: 3016-3 - TSH Order Info: 3024-7 - T4F Performed By: #### L 506.0400, L501.9520 #### [facility] [address] [place], [address] Carotid Duplex Ultrasoundon 02-09-2024 Carotid Duplex Ultrasound [facility] [address] [place] [address] Carotid Duplex Ultrasound 02/09/24 1253 MR#: [id number] Acct: [id number] Name: MARKO KELLEY Rep #: [id number] : 1965 58 From: Anastacio Kimbrough MD Attending Dr: JAMES Donato Status: REG CLI Ordering Dr: Ninfa Pringle Date: 02/09/24 Location: [facility] Sex: F C Admitted: Reason For Study: Carotid Artery Disease Rt. Velocities/BP Lt. Velocities/BP Prox CCA 100/19 cm/sec. Prox CCA 95/24 cm/sec. Mid CCA 111/23 cm/sec. Mid CCA 116/19 cm/sec. Dist CCA 85/23 cm/sec. Dist CCA 90/19 cm/sec. Prox ICA 71/18 cm/sec. Prox ICA 110/25 cm/sec. Mid ICA 145/50 cm/sec. Mid ICA 133/36 cm/sec. Dist ICA 77/24 cm/sec. Dist ICA 149/43 cm/sec. Rt. ICA/CCA = 1.3. Lt. ICA/CCA = 1.3. Prox ECA 121/14 cm/sec. Prox ECA 105/14 cm/sec. Rt. Vert. 64/14 cm/sec. Lt. Vert. 72/20 cm/sec. Right Extracranial There is intimal thickening but no significant atherosclerotic plaque noted in the right common carotid artery. There is intimal thickening but no significant atherosclerotic plaque noted in the right internal carotid artery. There is intimal thickening but no significant atherosclerotic plaque noted in the right external carotid artery. Antegrade flow is noted in the right vertebral artery. Left Extracranial There is heterogeneous, smooth atherosclerotic plaque noted in the left common carotid artery. There is intimal thickening but no significant atherosclerotic plaque noted in the left internal carotid artery. There is no significant atherosclerotic plaque noted in the left external carotid artery. Antegrade flow is noted in the left vertebral artery. Procedure Carotid Duplex 80157. This is a Carotid Duplex examination using B-mode, color flow and specral Doppler. Exam performed in department. VL/Carotid Duplex Ultrasound Interpretation Summary Normal right extracranial internal carotid. Normal left extracranial internal carotid. Patent and antegrade vertebrals bilaterally. Elevated velocities with no visualized plaque bilateral. Ordering Physician: Ninfa Pringle Referring Physician: Ham Tucker Performed By: Salma Pop, SHELBI, RVT 02/09/24 1558 Date Anastacio Kimbrough MD CC: JAMES Donato; Dr. Ham Tucker MD Date Dictated: 02/09/24 1253 Date Transcribed: 02/09/24 1558 Bed Maker: Signed Normal [facility] T3Free SerPl-mCncon 11-17-19 24 Free T3 [Mass/Vol] 2.3 pg/mL Normal 2.3-4.1 [facility] Comment on above: Order Comment: Speci men Type: BLOOD SPECIMEN Ordering Facility: [facility] Address: [address] [place] [address] Performed By: #### 3 051-0, 3024-7, 3016-3 #### [facility] CLIA [id number] [address] [place] [address] [place] [address] [place] T4 Free SerPl-mCncon 10-07-2 024 Free T4 [Mass/Vol] 1.0 ng/dL Normal 0.9-1.7 [facility] Comment on above: Order Comment: Speci corby Type: BLOOD SPECIMEN Ordering Facility: [facility] Address: [address] [place] [address] Performed By: #### 3 051-0, 3024-7, 3016-3 #### [facility] CLIA [id number] [address] [place] [address] [place] TSH SerPl-aCncon 11-17-2023 TSH Qn 11.200 m[IU]/L High 0.270-4.200 [facility] Comment on above: Order Comment: Silvianohattie tavarez Type: BLOOD SPECIMEN Ordering Facility: [facility] Address: [address] [place] [address] Performed By: #### 2 4323-8, 3024-7, 13775-2, 3051-0 #### [facility] CLIA [id number] [address] [place] [address] [place] Copper, Serum or Plasmaon COPPER, SERUM 89 ug/dL Normal 80-158 [facility] Comment on above: Order Comment: Test( s) 875536-Psmdem, Serum or Plasma was developed and its performance characteristics determined by [facility]. It has not been cleared or approved by the Food and Drug Administration. Result Comment: Dete ction Limit = 5 Performed at: [address] [id number] Sheet Cutter: Eduardo Self MD, Phone: [phone] Performed By: #### L 500.4050, L3300.0100, L100.0100 #### [facility] [address] [place], [address] CBC W/Diff, Automatedon Absolute Lymph 1.52 X10 3/uL Normal 0.83-4.51 [facility] Comment on above: Order Comment: Order Date: 09/19/23 Order Info: 0184-1 - CBCD Performed By: #### L 500.4050, L3300.0100, L100.0100 #### [facility] [address] [place], [address] Absolute Neut 3.0 X10 3/uL Normal 2.0-7.7 [facility] Comment on above: Order Comment: Order Date: 09/19/23 Order Info: 0184-1 - CBCD Performed By: #### L 500.4050, L3300.0100, L100.0100 #### [facility] [address] [place], [address] Basophils/100 WBC (Bld) 0.2 % Normal 0-1 [facility] Comment on above: Order Comment: Order Date: 09/19/23 Order Info: 0184- - CBCD Performed By: #### L 500.4050, L3300.0100, L100.0100 #### [facility] [address] [place], [address] Eosinophils/100 WBC (Bld) 1.9 % Normal 0-5 [facility] Comment on above: Order Comment: Order Date: 09/19/23 Order Info: 018- - CBCD Performed By: #### L 500.4050, L3300.0100, L100.0100 #### [facility] [address] [place], [address] Erythrocyte distribution width (RBC) [Ratio] 13.0 % Normal 11.6-14.6 [facility] Comment on above: Order Comment: Order Date: 09/19/23 Order Info: 0184-1 - CBCD Performed By: #### L 500.4050, L3300.0100, L100.0100 #### [facility] [address] [place], [address] Hematocrit (Bld) [Volume fraction] 41.7 % Normal 37-47 [facility] Comment on above: Order Comment: Order Date: 09/19/23 Order Info: 0184- - CBCD Performed By: #### L 500.4050, L3300.0100, L100.0100 #### [facility] [address] [place], [address] Hemoglobin (Bld) [Mass/Vol] 13.7 g/dL Normal 12.0-15.0 [facility] Comment on above: Order Comment: Order Date: 09/19/23 Order Info: 018- - CBCD Performed By: #### L 500.4050, L3300.0100, L100.0100 #### [facility] [address] [place], [address] IG% 0.400 Normal 0.0-0.9 [facility] Comment on above: Order Comment: Order Date: 09/19/23 Order Info: 01805-11 - CBCD Result Comment: IG% - Immature Granulocytes (promyelocytes, myelocytes and metamyelocytes) > 1% indicates that a LEFT SHIFT is Present. Performed By: #### L 500.4050, L3300.0100, L100.0100 #### [facility] [address] [place], [address] Lymphocytes/100 WBC (Bld) 29.3 % Normal 19-41 [facility] Comment on above: Order Comment: Order Date: 09/19/23 Order Info: 01805-11 - CBCD Performed By: #### L 500.4050, L3300.0100, L100.0100 #### [facility] [address] [place], [address] MCH (RBC) [Entitic mass] 28.7 pg Normal 27.0-32.0 [facility] Comment on above: Order Comment: Order Date: 09/19/23 Order Info: 018- - CBCD Performed By: #### L 500.4050, L3300.0100, L100.0100 #### [facility] [address] [place], [address] MCHC (RBC) [Mass/Vol] 32.9 g/dL Normal 32-36 [facility] Comment on above: Order Comment: Order Date: 09/19/23 Order Info: 0184-1 - CBCD Performed By: #### L 500.4050, L3300.0100, L100.0100 #### [facility] [address] [place], [address] MCV (RBC) [Entitic vol] 87.4 fL Normal 81-99 [facility] Comment on above: Order Comment: Order Date: 09/19/23 Order Info: 0184-1 - CBCD Performed By: #### L 500.4050, L3300.0100, L100.0100 #### [facility] [address] [place], [address] Monocytes/100 WBC (Bld) 9.6 % Normal 0-10 [facility] Comment on above: Order Comment: Order Date: 09/19/23 Order Info: 0184- - CBCD Performed By: #### L 500.4050, L3300.0100, L100.0100 #### [facility] [address] [place], [address] Neutrophils/100 WBC (Bld) 58.6 % Normal 47-70 [facility] Comment on above: Order Comment: Order Date: 09/19/23 Order Info: 0184-1 - CBCD Performed By: #### L 500.4050, L3300.0100, L100.0100 #### [facility] [address] [place], [address] Nucleated RBC (Bld) [#/Vol] 0 10*3/uL Normal 0-5 [facility] Comment on above: Order Comment: Order Date: 09/19/23 Order Info: 0184-1 - CBCD Performed By: #### L 500.4050, L3300.0100, L100.0100 #### [facility] [address] [place], [address] Platelet mean volume (Bld) [Entitic vol] 10.9 fL Normal 6.2-12.0 [facility] Comment on above: Order Comment: Order Date: 09/19/23 Order Info: 0184-1 - CBCD Performed By: #### L 500.4050, L3300.0100, L100.0100 #### [facility] [address] [place], [address] Platelets (Bld) [#/Vol] 241 10*3/uL Normal 150-450 [facility] Comment on above: Order Comment: Order Date: 09/19/23 Order Info: 0184-1 - CBCD Performed By: #### L 500.4050, L3300.0100, L100.0100 #### [facility] [address] [place], [address] RBC (Bld) [#/Vol] 4.77 10*6/uL Normal 4.2-5.4 [facility] Comment on above: Order Comment: Order Date: 09/19/23 Order Info: 0184-1 - CBCD Performed By: #### L 500.4050, L3300.0100, L100.0100 #### [facility] [address] [place], [address] RDW SD 41.2 fl Normal 35.1-43.9 [facility] Comment on above: Order Comment: Order Date: 09/19/23 Order Info: 0184-1 - CBCD Performed By: #### L 500.4050, L3300.0100, L100.0100 #### [facility] [address] [place], [address] WBC (Bld) [#/Vol] 5.2 10*3/uL Normal 4.4-11.0 [facility] Comment on above: Order Comment: Order Date: 09/19/23 Order Info: 0184-1 - CBCD Performed By: #### L 500.4050, L3300.0100, L100.0100 #### [facility] [address] [place], [address] Comprehensive Metabolic Prof ilon 09-19-2023 Albumin [Mass/Vol] 3.8 g/dL Normal 3.2-5.0 [facility] Comment on above: Order Comment: Order Date: 09/19/23 Order Info: 0786-1 - CMP Performed By: #### L 500.4050, L3300.0100, L100.0100 #### [facility] [address] [place], [address] Albumin/Globulin [Mass ratio] 1.1 {ratio} Normal 0.9-2.4 [facility] Comment on above: Order Comment: Order Date: 09/19/23 Order Info: 0786-1 - CMP Performed By: #### L 500.4050, L3300.0100, L100.0100 #### [facility] [address] [place], [address] ALK P 73 U/L Normal 45-117 [facility] Comment on above: Order Comment: Order Date: 09/19/23 Order Info: 0786-1 - CMP Performed By: #### L 500.4050, L3300.0100, L100.0100 #### [facility] [address] [place], [address] ALT [Catalytic activity/Vol] 47 U/L Normal 13-56 [facility] Comment on above: Order Comment: Order Date: 09/19/23 Order Info: 0786-1 - CMP Performed By: #### L 500.4050, L3300.0100, L100.0100 #### [facility] [address] [place], [address] AST [Catalytic activity/Vol] 39 U/L High 15-37 [facility] Comment on above: Order Comment: Order Date: 09/19/23 Order Info: 0786-1 - CMP Performed By: #### L 500.4050, L3300.0100, L100.0100 #### [facility] [address] [place], [address] Bilirubin [Mass/Vol] 0.40 mg/dL Normal 0.20-1.00 [facility] Comment on above: Order Comment: Order Date: 09/19/23 Order Info: 0786-1 - CMP Result Comment: For patients on eltrombopag therapy, use of Dimension [place] TBIL is not recommended. Performed By: #### L 500.4050, L3300.0100, L100.0100 #### [facility] [address] [place], [address] BUN/CRE 15.0 RATIO Normal 10-20 [facility] Comment on above: Order Comment: Order Date: 09/19/23 Order Info: 0786-1 - CMP Performed By: #### L 500.4050, L3300.0100, L100.0100 #### [facility] [address] [place], [address] CA,Total 9.3 mg/dL Normal 8.5-10.1 [facility] Comment on above: Order Comment: Order Date: 09/19/23 Order Info: 0786-1 - CMP Performed By: #### L 500.4050, L3300.0100, L100.0100 #### [facility] [address] [place], [address] Chloride [Moles/Vol] 105 mmol/L Normal 98-107 [facility] Comment on above: Order Comment: Order Date: 09/19/23 Order Info: 0786-1 - CMP Performed By: #### L 500.4050, L3300.0100, L100.0100 #### [facility] [address] [place], [address] CO2 [Moles/Vol] 26.0 mmol/L Normal 21.0-32.0 [facility] Comment on above: Order Comment: Order Date: 09/19/23 Order Info: 0786-1 - CMP Performed By: #### L 500.4050, L3300.0100, L100.0100 #### [facility] [address] [place], [address] Creatinine [Mass/Vol] 1.07 mg/dL High 0.55-1.02 [facility] [facility] Comment on above: Order Comment: Order Date: 09/19/23 Order Info: 0786-1 - CMP Result Comment: The validity of the calculated GFR GFRAA in patients over 70 years has not been determined. Clinical correlation is essential. Performed By: #### L 500.4050, L3300.0100, L100.0100 #### [facility] [address] [place], [address] EST GFR - AA 68 mL/min Normal >60 [facility] Comment on above: Order Comment: Order Date: 09/19/23 Order Info: 0786-1 - CMP Result Comment: Afri can Japanese GFR Calc Performed By: #### L 500.4050, L3300.0100, L100.0100 #### [facility] [address] [place], [address] GAP 8 Normal 5-15 [facility] Comment on above: Order Comment: Order Date: 09/19/23 Order Info: 0786-1 - CMP Performed By: #### L 500.4050, L3300.0100, L100.0100 #### [facility] [address] [place], [address] GFR/1.73 sq M.predicted among non-blacks MDRD (S/P/Bld) [Vol rate/Area] 56 mL/min/{1.73_m2} Low >60 [facility] Comment on above: Order Comment: Order Date: 09/19/23 Order Info: 0786-1 - CMP Result Comment: Non- GFR Calc Performed By: #### L 500.4050, L3300.0100, L100.0100 #### [facility] [address] [place], [address] Globulin (S) [Mass/Vol] 3.6 g/dL Normal 2.2-4.2 [facility] Comment on above: Order Comment: Order Date: 09/19/23 Order Info: 0786-1 - CMP Performed By: #### L 500.4050, L3300.0100, L100.0100 #### [facility] [address] [place], [address] Glucose [Mass/Vol] 128 mg/dL High 74-106 [facility] Comment on above: Order Comment: Order Date: 09/19/23 Order Info: 0786-1 - CMP Result Comment: Fast ing Glucose result greater than or equal to 126 mg/dL suggests DIABETES MELLITUS per A.D.A. criteria. Performed By: #### L 500.4050, L3300.0100, L100.0100 #### [facility] [address] [place], [address] Potassium [Moles/Vol] 3.9 mmol/L Normal 3.5-5.1 [facility] Comment on above: Order Comment: Order Date: 09/19/23 Order Info: 0786-1 - CMP Performed By: #### L 500.4050, L3300.0100, L100.0100 #### [facility] [address] [place], [address] Sodium [Moles/Vol] 139 mmol/L Normal 136-145 [facility] Comment on above: Order Comment: Order Date: 09/19/23 Order Info: 0786-1 - CMP Performed By: #### L 500.4050, L3300.0100, L100.0100 #### [facility] [address] [place], [address] T PROT 7.4 g/dL Normal 6.4-8.2 [facility] Comment on above: Order Comment: Order Date: 09/19/23 Order Info: 0786-1 - CMP Performed By: #### L 500.4050, L3300.0100, L100.0100 #### [facility] [address] [place], [address] Urea nitrogen [Mass/Vol] 16 mg/dL Normal 7-18 [facility] Comment on above: Order Comment: Order Date: 09/19/23 Order Info: 0786-1 - CMP Performed By: #### L 500.4050, L3300.0100, L100.0100 #### [facility] [address] [place], [address] 25(OH)D3 [facility] 2023 25-hydroxyvitamin D3 [Mass/Vol] 54.5 ng/mL Normal 31.0-80.0 [facility] Comment on above: Order Comment: Speci men Type: BLOOD SPECIMEN Ordering Facility: [facility] Address: [address] [place] [address] Result Comment: Clas sification of 25 [place] Vitamin D status: Deficiency/Insufficiency: < or = 30 ng/ml. Sufficiency/Optimal Levels: 31-80 ng/mL Toxicity: > 100 ng/mL. Test performed by chemiluminescent immunoassay. Performed By: #### 1 989-3 #### [facility] CLIA [id number] [address] [place] [address] [place] Comprehensive metabolic 2000 panelon 05-21-2023 Albumin [Mass/Vol] 4.1 g/dL Normal 3.9-4.9 [facility] Comment on above: Order Comment: Speci men Type: BLOOD SPECIMEN Ordering Facility: [facility] Address: [address] [place] [address] Performed By: #### 2 4323-8, 3024-7, 75201-9, 3051-0 #### [facility] CLIA [id number] [address] [address] [place] ALP [Catalytic activity/Vol] 69 U/L Normal 34-123 [facility] Comment on above: Order Comment: Speci men Type: BLOOD SPECIMEN Ordering Facility: [facility] Address: [address] [place] [address] Performed By: #### 2 4323-8, 3024-7, 61919-7, 3051-0 #### [facility] CLIA [id number] [address] [place] [address] [place] ALT [Catalytic activity/Vol] 22 U/L Normal 7-38 [facility] Comment on above: Order Comment: Speci men Type: BLOOD SPECIMEN Ordering Facility: [facility] Address: [address] [place] [address] Performed By: #### 2 4323-8, 3024-7, 17506-0, 3051-0 #### [facility] CLIA [id number] [address] [place] [address] [place] Anion gap [Moles/Vol] 11 mmol/L Normal 9-18 [facility] Comment on above: Order Comment: Speci men Type: BLOOD SPECIMEN Ordering Facility: [facility] Address: [address] [place] [address] Performed By: #### 2 4323-8, 3024-7, 06151-5, 3051-0 #### [facility] CLIA [id number] [address] [place] [address] [place] AST [Catalytic activity/Vol] 28 U/L Normal 13-35 [facility] Comment on above: Order Comment: Speci men Type: BLOOD SPECIMEN Ordering Facility: [facility] Address: [address] [place] [address] Performed By: #### 2 4323-8, 3024-7, 48224-0, 3051-0 #### [facility] CLIA [id number] [address] [place] [address] [place] Bilirubin [Mass/Vol] 0.3 mg/dL Normal 0.2-1.3 [facility] Comment on above: Order Comment: Speci men Type: BLOOD SPECIMEN Ordering Facility: [facility] Address: [address] [place] [address] Performed By: #### 2 4323-8, 3024-7, 50297-8, 3051-0 #### [facility] CLIA [id number] [address] [place] [address] [place] Calcium [Mass/Vol] 8.6 mg/dL Normal 8.5-10.2 [facility] Comment on above: Order Comment: Speci men Type: BLOOD SPECIMEN Ordering Facility: [facility] Address: [address] [place] [address] Performed By: #### 2 4323-8, 3024-7, 55760-8, 3051-0 #### [facility] CLIA [id number] [address] [place] [address] [place] Chloride [Moles/Vol] 104 mmol/L Normal 97-105 [facility] Comment on above: Order Comment: Speci men Type: BLOOD SPECIMEN Ordering Facility: [facility] Address: [address] [place] [address] Performed By: #### 2 4323-8, 3024-7, 52558-2, 3051-0 #### [facility] CLIA [id number] [address] [place] [address] [place] CO2 [Moles/Vol] 25 mmol/L Normal 22-30 [facility] Comment on above: Order Comment: Speci men Type: BLOOD SPECIMEN Ordering Facility: [facility] Address: [address] [place] [address] Performed By: #### 2 4323-8, 3024-7, 07330-5, 3051-0 #### [facility] CLIA [id number] [address] [place] [address] [place] Creatinine [Mass/Vol] 0.99 mg/dL High 0.58-0.96 [facility] Comment on above: Order Comment: Elissa tavarez Type: BLOOD SPECIMEN Ordering Facility: [facility] Address: [address] [place] [address] Performed By: #### 2 4323-8, 3024-7, 90765-7, 3051-0 #### [facility] CLIA [id number] [address] [place] [address] [place] Creatinine and Glomerular filtration rate.predicted panel (S/P/Bld) 66 mL/min/1.73m??? Normal >=60 [facility] Comment on above: Order Comment: Elissa tavarez Type: BLOOD SPECIMEN Ordering Facility: [facility] Address: [address] [place] [address] Result Comment: Vivian mated Glomerular Filtration Rate (eGFR) is calculated using the 2020 CKD-EPI creatinine equation. This equation utilizes serum creatinine, sex, and age as parameters. The creatinine assay has traceable calibration to isotope dilution-mass spectrometry. Refer to KDIGO guidelines for clinical interpretation. In patients with unstable renal function, e.g. those with acute kidney injury, the eGFR may not accurately reflect actual GFR. Performed By: #### 2 4323-8, 3024-7, 88092-9, 3051-0 #### [facility] CLIA [id number] [address] [place] [address] [place] Glucose [Mass/Vol] 126 mg/dL High 74-99 [facility] Comment on above: Order Comment: Elissa tavarez Type: BLOOD SPECIMEN Ordering Facility: [facility] Address: [address] [place] [address] Result Comment: The [place] Diabetes Association (ADA) provides guidance for cutoff values for fasting glucose and random glucose. The ADA defines fasting as no caloric intake for at least 8 hours. Fasting plasma glucose results between 100 to 125 mg/dL indicate increased risk for diabetes (prediabetes). Fasting plasma glucose results greater than or equal to 126 mg/dL meet the criteria for diagnosis of diabetes. In the absence of unequivocal hyperglycemia, results should be confirmed by repeat testing. In a patient with classic symptoms of hyperglycemia or hyperglycemic crisis, random plasma glucose results greater than or equal to 200 mg/dL meet the criteria for diagnosis of diabetes. Reference: Standards of Medical Care in Diabetes 2016, [place] Diabetes Association. Diabetes Care. 2016.39(Suppl 1). Performed By: #### 2 4323-8, 3024-7, 91149-2, 3051-0 #### [facility] CLIA [id number] [address] [place] [address] [place] Potassium [Moles/Vol] 4.2 mmol/L Normal 3.7-5.1 [facility] Comment on above: Order Comment: Spechattie tavarez Type: BLOOD SPECIMEN Ordering Facility: [facility] Address: [address] [place] [address] Performed By: #### 2 4323-8, 3024-7, 93406-8, 3051-0 #### [facility] CLIA [id number] [address] [place] [address] [place] Protein [Mass/Vol] 6.8 g/dL Normal 6.3-8.0 [facility] Comment on above: Order Comment: Elissa tavarez Type: BLOOD SPECIMEN Ordering Facility: [facility] Address: [address] [place] [address] Performed By: #### 2 4323-8, 3024-7, 84581-9, 3051-0 #### [facility] CLIA [id number] [address] [place] [address] [place] Sodium [Moles/Vol] 140 mmol/L Normal 136-144 [facility] Comment on above: Order Comment: Silvianoi corby Type: BLOOD SPECIMEN Ordering Facility: [facility] Address: [address] [place] [address] Performed By: #### 2 4323-8, 3024-7, 76854-1, 3051-0 #### [facility] CLIA [id number] [address] [place] [address] [place] Urea nitrogen [Mass/Vol] 13 mg/dL Normal 7-21 [facility] Comment on above: Order Comment: Elissa tavarez Type: BLOOD SPECIMEN Ordering Facility: [facility] Address: [address] [place] [address] Performed By: #### 2 4323-8, 3024-7, 16599-6, 305-0 #### [facility] CLIA [id number] [address] [place] [address] [place] HbA1c (Bld)on 05-21-2023 Average glucose Estimated from glycated hemoglobin (Bld) [Mass/Vol] 114 mg/dL Normal [facility] Comment on above: Order Comment: Elissa tavarez Type: BLOOD SPECIMEN Ordering Facility: [facility] Address: [address] [place] [address] Result Comment: eAG: (Estimated average glucose) is a calculated value from HgbA1c and is customer development representative of the average blood glucose level in the last 2-3 month period. Performed By: #### 2 4323-8, 3027, 71778-2, 305-0 #### [facility] CLIA [id number] [address] [place] [address] [place] HbA1c (Bld) [Mass fraction] 5.6 % Normal 4.3-5.6 [facility] Comment on above: Order Comment: Elissa tavarez Type: BLOOD SPECIMEN Ordering Facility: [facility] Address: [address] [place] [address] Result Comment: Amer [place] Diabetes Association guidelines indicate that patients with HgbA1c in the range 5.7-6.4% are at increased risk for development of diabetes, and intervention by lifestyle modification may be beneficial. HgbA1c greater or equal to 6.5% is considered diagnostic of diabetes. Performed By: #### 2 4323-8, 3024-7, 56092-1, 305-0 #### [facility] CLIA [id number] [address] [place], [place] [address] [place] Lipid 1996 panelon 4 Cholesterol [Mass/Vol] 260 mg/dL High <200 [facility] Comment on above: Order Comment: Silvianoi men Type: BLOOD SPECIMEN Ordering Facility: [facility] Address: [address] [place] [address] Result Comment: <200 mg/dL, Desirable 200-239 mg/dL, Borderline high >239 mg/dL, High Performed By: #### 2 4323-8, 3024-7, 32845-8, 3051-0 #### [facility] CLIA [id number] [address] [place] [address] [place] Cholesterol in HDL [Mass/Vol] 34 mg/dL Low >39 [facility] Comment on above: Order Comment: Elissa tavarez Type: BLOOD SPECIMEN Ordering Facility: [facility] Address: [address] [place] [address] Result Comment: 40-5 9 mg/dL, Acceptable >59 mg/dL, High: Negative risk factor for coronary heart disease <40 mg/dL, Low: Positive risk factor for coronary heart disease Performed By: #### 2 4323-8, 3024-7, 99332-3, 3051-0 #### [facility] CLIA [id number] [address] [place] [address] [place] Cholesterol in LDL [Mass/Vol] 158 mg/dL High <100 [facility] Comment on above: Order Comment: Elissa corby Type: BLOOD SPECIMEN Ordering Facility: [facility] Address: [address] [place] [address] Result Comment: <100 mg/dL, Optimal 100-129 mg/dL, Near optimal/above optimal 130-159 mg/dL, Borderline high 160-189 mg/dL, High >189 mg/dL, Very high Secondary prevention optimal LDL Cholesterol levels are recommended to be < 70 mg/dL Performed By: #### 2 4323-8, 3024-7, 99003-9, 3051-0 #### [facility] CLIA [id number] [address] [place], [place] [address] [place] Cholesterol in LDL/Cholesterol in HDL [Mass ratio] 4.65 {ratio} High <2.54 [facility] Comment on above: Order Comment: Elissa tavarez Type: BLOOD SPECIMEN Ordering Facility: [facility] Address: [address] [place] [address] Result Comment: Maria E crain: 1. National Cholesterol Education Program ATP III Guideline At-A-Glance Quick Desk Reference: National Heart, Lung, and Blood Elwin. National Institutes of Health. 2001: NIH Publication No. 01-3305. 2. An International Atherosclerosis Society position paper: global recommendations for the management of dyslipidemia: executive summary, Atherosclerosis. 2014: 232(2):410-413. Performed By: #### 2 4323-8, 3024-7, 75151-0, 3051-0 #### [facility] CLIA [id number] [address] [place] [address] [place] Cholesterol in VLDL [Mass/Vol] 68 mg/dL High <30 [facility] Comment on above: Order Comment: Elissa tavarez Type: BLOOD SPECIMEN Ordering Facility: [facility] Address: [address] [place] [address] Performed By: #### 2 4323-8, 3024-7, 96919-6, 3051-0 #### [facility] CLIA [id number] [address] [place] [address] [place] Cholesterol non HDL [Mass/Vol] 226 mg/dL High <130 [facility] Comment on above: Order Comment: Elissa tavarez Type: BLOOD SPECIMEN Ordering Facility: [facility] Address: [address] [place] [address] Result Comment: <130 mg/dL, Optimal 130-159 mg/dL, Near optimal/above optimal 160-189 mg/dL, Borderline high 190-219 mg/dL, High >219 mg/dL, Very high Secondary prevention optimal non HDL Cholesterol levels are recommended to be <100 mg/dL Performed By: #### 2 4323-8, 3024-7, 14883-4, 3051-0 #### [facility] CLIA [id number] [address] [place] [address] [place] Cholesterol.total/Choleste rol in HDL [Mass ratio] 7.65 {ratio} High <5.10 [facility] Comment on above: Order Comment: Speci men Type: BLOOD SPECIMEN Ordering Facility: [facility] Address: [address] [place] [address] Performed By: #### 2 4323-8, 3024-7, 87476-2, 3051-0 #### [facility] CLIA [id number] [address] [place] [address] [place] FASTING TIME 14 hrs Normal [facility] Comment on above: Order Comment: Speci men Type: BLOOD SPECIMEN Ordering Facility: [facility] Address: [address] [place] [address] Performed By: #### 2 4323-8, 3024-7, 91341-2, 3051-0 #### [facility] CLIA [id number] [address] [place] [address] [place] Triglyceride [Mass/Vol] 341 mg/dL High <150 [facility] Comment on above: Order Comment: Speci men Type: BLOOD SPECIMEN Ordering Facility: [facility] Address: [address] [place] [address] Result Comment: <150 mg/dL, Normal 150-199 mg/dL, Borderline high 200-499 mg/dL, High >499 mg/dL, Very high Performed By: #### 2 4323-8, 3024-7, 43195-5, 3051-0 #### [facility] CLIA [id number] [address] [place], [place] [address] [place] T3Free SerPl-mCncon 05-21-19 24 Free T3 [Mass/Vol] 2.5 pg/mL Normal 2.3-4.1 [facility] Comment on above: Order Comment: Speci men Type: BLOOD SPECIMEN Ordering Facility: [facility] Address: [address] [place] [address] Performed By: #### 2 4323-8, 3024-7, 13513-8, 3051-0 #### [facility] CLIA [id number] [address] [place] [address] [place] T4 Free SerPl-mCncon 024 Free T4 [Mass/Vol] 1.2 ng/dL Normal 0.9-1.7 [facility] Comment on above: Order Comment: Speci men Type: BLOOD SPECIMEN Ordering Facility: [facility] Address: [address] [place] [address] Performed By: #### 2 4323-8, 3024-7, 94887-5, 3051-0 #### [facility] CLIA [id number] [address] [place] [address] [place] TSH SerPl-aCncon 05-21-2023 TSH Qn 3.490 m[IU]/L Normal 0.270-4.200 [facility] Comment on above: Order Comment: Speci men Type: BLOOD SPECIMEN Ordering Facility: [facility] Address: [address] [place] [address] Performed By: #### 2 4323-8, 3024-7, 60664-8, 3051-0 #### [facility] CLIA [id number] [address] [place] [address] OF [place]ID Haritha 02-18-2023 NATALYAN Telephone (ENDTWN) MARKO KELLEY ([id number]) 1965 F Date Time Provider Department 02/18/23 HAYLEE CRUMP During your visit today, we recorded the following information about you: Keith Irvin OCCA 02/18/2023 3:46 PM Signed Received a fax from [employer] stating that the patient has been approved for Synthroid 125 mcg and 112 mcg from 02/18/2023 to 02/19/2024. Letters have been sent to scanning. Thank you, ROSENDO Carrillo Allergies As of Date: 02/18/2023 Noted Allergy Reaction PREDNISONE 09/17/2006 1 - Mental Status Change Comments: Has taken recently and was ok / Injections in particular cause a reaction Date Reviewed: 02/17/2023 Reviewed by: Haylee Crump APRN.NURSING TECH - Fully Assessed Reason for Visit: Insurance Authorization [[id number]] Cmt: Synthroid Prescriptions as of 02/18/2023 - SYNTHROID 125 mcg tablet Take 1 tablet by mouth four times a week. Friday, Friday, Friday, and Friday Wait 30 min before eating or taking other meds; Wait 4 hrs before mineral vitamins - SYNTHROID 112 mcg tablet Take 1 tablet by mouth three times a week. On Friday, , and Friday - L.acidoph,rhamn-B.br mary yanes (PROBIOTIC) 20 billion cell cpSP - albuterol 90 mcg/actuation aero Inhale 2 Puffs as instructed every 4 hours as needed (shortness of breath/cough/wheeze) . With spacer please. 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] 11/08/2009 Hypothyroidism [E03.9] 11/08/2009 03/30/2014 Vitamin D deficiency [E55.9] 11/08/2009 Dyslipidemia [E78.5] 11/08/2009 Excessive or frequent menstruation [N92.0] 08/19/2011 Premenstrual tension syndromes [N94.3] 08/19/2011 Urgency of urination [R39.15] 08/19/2011 Female stress incontinence [N39.3] 08/19/2011 Obesity (BMI 30-39.9) [E66.9] 08/19/2011 Dysplasia of cervix, unspecified [N87.9] 08/19/2011 Abdominal pain, right lower quadrant [R10.31] 08/19/2011 Left breast lump [N63.20] 02/24/2013 Breast pain, left [N64.4] 02/24/2013 08/06/2016 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 Sufficiency/Optimal Levels: 31-80 ng/mL Toxicity: > 100 ng/mL. Test performed by chemiluminescent immunoassay. Performed By: #### 1 989-3 #### [facility] CLIA [id number] [address] [place] [address] [place] Cholesterol in LDL Direct as say [Mass/Vol]on 02-11-2023 Cholesterol in LDL [Mass/Vol] 142 mg/dL High <100 [facility] Comment on above: Order Comment: Elissa tavarez Type: BLOOD SPECIMEN Ordering Facility: [facility] Address: [address] [place] [address] Result Comment: <100 mg/dL, Optimal 100-129 mg/dL, Near optimal/above optimal 130-159 mg/dL, Borderline high 160-189 mg/dL, High >189 mg/dL, Very high Secondary prevention optimal LDL Cholesterol levels are recommended to be < 70 mg/dL Performed By: #### 2 4323-8, 3024-7, 36423-6, 3051-0 #### [facility] CLIA [id number] [address] [place] [address] [place] Cholesterol in VLDL [Mass/Vol] 86 mg/dL High <30 [facility] Comment on above: Order Comment: Speci men Type: BLOOD SPECIMEN Ordering Facility: [facility] Address: [address] [place] [address] Performed By: #### 2 4323-8, 3024-7, 76306-4, 3051-0 #### [facility] CLIA [id number] [address] [place] [address] [place] Comprehensive metabolic 2000 panelon 02-11-2023 Albumin [Mass/Vol] 4.2 g/dL Normal 3.9-4.9 [facility] Comment on above: Order Comment: Speci men Type: BLOOD SPECIMEN Ordering Facility: [facility] Address: [address] [place] [address] Performed By: #### 2 4323-8, 3024-7, 42255-8, 3051-0 #### [facility] CLIA [id number] [address] [place] [address] [place] ALP [Catalytic activity/Vol] 63 U/L Normal 34-123 [facility] Comment on above: Order Comment: Speci men Type: BLOOD SPECIMEN Ordering Facility: [facility] Address: [address] [place] [address] Performed By: #### 2 4323-8, 3024-7, 97678-4, 3051-0 #### [facility] CLIA [id number] [address] [place] [address] [place] ALT [Catalytic activity/Vol] 32 U/L Normal 7-38 [facility] Comment on above: Order Comment: Speci men Type: BLOOD SPECIMEN Ordering Facility: [facility] Address: [address] [place] [address] Performed By: #### 2 4323-8, 3024-7, 02838-6, 3051-0 #### [facility] CLIA [id number] [address] [place] [address] [place] Anion gap [Moles/Vol] 12 mmol/L Normal 9-18 [facility] Comment on above: Order Comment: Speci men Type: BLOOD SPECIMEN Ordering Facility: [facility] Address: [address] [place] [address] Performed By: #### 2 4323-8, 3024-7, 22609-2, 3051-0 #### [facility] CLIA [id number] [address] [place] [address] [place] AST [Catalytic activity/Vol] 31 U/L Normal 13-35 [facility] Comment on above: Order Comment: Speci men Type: BLOOD SPECIMEN Ordering Facility: [facility] Address: [address] [place] [address] Performed By: #### 2 4323-8, 3024-7, 43595-0, 3051-0 #### [facility] CLIA [id number] [address] [place] [address] [place] Bilirubin [Mass/Vol] 0.4 mg/dL Normal 0.2-1.3 [facility] Comment on above: Order Comment: Speci men Type: BLOOD SPECIMEN Ordering Facility: [facility] Address: [address] [place] [address] Performed By: #### 2 4323-8, 3024-7, 71387-5, 3051-0 #### [facility] CLIA [id number] [address] [place] [address] [place] Calcium [Mass/Vol] 9.7 mg/dL Normal 8.5-10.2 [facility] Comment on above: Order Comment: Speci men Type: BLOOD SPECIMEN Ordering Facility: [facility] Address: [address] [place] [address] Performed By: #### 2 4323-8, 3024-7, 30871-3, 3051-0 #### [facility] CLIA [id number] [address] [place] [address] [place] Chloride [Moles/Vol] 100 mmol/L Normal 97-105 [facility] Comment on above: Order Comment: Speci men Type: BLOOD SPECIMEN Ordering Facility: [facility] Address: [address] [place] [address] Performed By: #### 2 4323-8, 3024-7, 96687-2, 3051-0 #### [facility] CLIA [id number] [address] [place] [address] [place] CO2 [Moles/Vol] 28 mmol/L Normal 22-30 [facility] Comment on above: Order Comment: Speci men Type: BLOOD SPECIMEN Ordering Facility: [facility] Address: [address] [place] [address] Performed By: #### 2 4323-8, 3024-7, 81224-7, 3051-0 #### [facility] CLIA [id number] [address] [place] [address] [place] Creatinine [Mass/Vol] 0.89 mg/dL Normal 0.58-0.96 [facility] Comment on above: Order Comment: Speci men Type: BLOOD SPECIMEN Ordering Facility: [facility] Address: [address] [place] [address] Performed By: #### 2 4323-8, 3024-7, 61521-2, 3051-0 #### [facility] CLIA [id number] [address] [place] [address] [place] Creatinine and Glomerular filtration rate.predicted panel (S/P/Bld) 76 mL/min/1.73m??? Normal >=60 [facility] Comment on above: Order Comment: Speci men Type: BLOOD SPECIMEN Ordering Facility: [facility] Address: [address] [place] [address] Result Comment: Vivian mated Glomerular Filtration Rate (eGFR) is calculated using the 2020 CKD-EPI creatinine equation. This equation utilizes serum creatinine, sex, and age as parameters. The creatinine assay has traceable calibration to isotope dilution-mass spectrometry. Refer to KDIGO guidelines for clinical interpretation. In patients with unstable renal function, e.g. those with acute kidney injury, the eGFR may not accurately reflect actual GFR. Performed By: #### 2 4323-8, 3024-7, 73533-7, 3051-0 #### [facility] CLIA [id number] [address] [place] [address] [place] Glucose [Mass/Vol] 119 mg/dL High 74-99 [facility] Comment on above: Order Comment: Elissa men Type: BLOOD SPECIMEN Ordering Facility: [facility] Address: [address] [place] [address] Result Comment: The [place] Diabetes Association (ADA) provides guidance for cutoff values for fasting glucose and random glucose. The ADA defines fasting as no caloric intake for at least 8 hours. Fasting plasma glucose results between 100 to 125 mg/dL indicate increased risk for diabetes (prediabetes). Fasting plasma glucose results greater than or equal to 126 mg/dL meet the criteria for diagnosis of diabetes. In the absence of unequivocal hyperglycemia, results should be confirmed by repeat testing. In a patient with classic symptoms of hyperglycemia or hyperglycemic crisis, random plasma glucose results greater than or equal to 200 mg/dL meet the criteria for diagnosis of diabetes. Reference: Standards of Medical Care in Diabetes 2016, [place] Diabetes Association. Diabetes Care. 2016.39(Suppl 1). Performed By: #### 2 4323-8, 3024-7, 94934-7, 305-0 #### [facility] CLIA [id number] [address] [place] [address] [place] Potassium [Moles/Vol] 4.4 mmol/L Normal 3.7-5.1 [facility] Comment on above: Order Comment: Elissa men Type: BLOOD SPECIMEN Ordering Facility: [facility] Address: [address] [place] [address] Performed By: #### 2 4323-8, 3024-7, 69342-4, 3051-0 #### [facility] CLIA [id number] [address] [place] [address] [place] Protein [Mass/Vol] 7.1 g/dL Normal 6.3-8.0 [facility] Comment on above: Order Comment: Speci men Type: BLOOD SPECIMEN Ordering Facility: [facility] Address: [address] [place] [address] Performed By: #### 2 4323-8, 3024-7, 39818-1, 3051-0 #### [facility] CLIA [id number] [address] [place] [address] [place] Sodium [Moles/Vol] 140 mmol/L Normal 136-144 [facility] Comment on above: Order Comment: Speci men Type: BLOOD SPECIMEN Ordering Facility: [facility] Address: [address] [place] [address] Performed By: #### 2 4323-8, 3024-7, 96189-5, 3051-0 #### [facility] CLIA [id number] [address] [place] [address] [place] Urea nitrogen [Mass/Vol] 12 mg/dL Normal 7-21 [facility] Comment on above: Order Comment: Speci men Type: BLOOD SPECIMEN Ordering Facility: [facility] Address: [address] [place] [address] Performed By: #### 2 4323-8, 3024-7, 60088-7, 3051-0 #### [facility] CLIA [id number] [address] [place] [address] [place] HbA1c (Bld)on 02-11-2023 Average glucose Estimated from glycated hemoglobin (Bld) [Mass/Vol] 126 mg/dL Normal [facility] Comment on above: Order Comment: Speci men Type: BLOOD SPECIMEN Ordering Facility: [facility] Address: [address] [place] [address] Result Comment: eAG: (Estimated average glucose) is a calculated value from HgbA1c and is customer development representative of the average blood glucose level in the last 2-3 month period. Performed By: #### 2 4323-8, 3024-7, 03813-8, 3051-0 #### [facility] CLIA [id number] [address] [place] [address] [place] HbA1c (Bld) [Mass fraction] 6.0 % High 4.3-5.6 [facility] Comment on above: Order Comment: Speci men Type: BLOOD SPECIMEN Ordering Facility: [facility] Address: [address] [place] [address] Result Comment: Sam [place] Diabetes Association guidelines indicate that patients with HgbA1c in the range 5.7-6.4% are at increased risk for development of diabetes, and intervention by lifestyle modification may be beneficial. HgbA1c greater or equal to 6.5% is considered diagnostic of diabetes. Performed By: #### 2 4323-8, 3024-7, 37338-4, 305-0 #### [facility] CLIA [id number] [address] [place] [address] [place] Lipid 1996 panelon 4 Cholesterol [Mass/Vol] 261 mg/dL High <200 [facility] Comment on above: Order Comment: Speci men Type: BLOOD SPECIMEN Ordering Facility: [facility] Address: [address] [place] [address] Result Comment: <200 mg/dL, Desirable 200-239 mg/dL, Borderline high >239 mg/dL, High Performed By: #### 2 4323-8, 3024-7, 29630-3, 305-0 #### [facility] CLIA [id number] [address] [place] [address] [place] Cholesterol in HDL [Mass/Vol] 33 mg/dL Low >39 [facility] Comment on above: Order Comment: Speci men Type: BLOOD SPECIMEN Ordering Facility: [facility] Address: [address] [place] [address] Result Comment: 40-5 9 mg/dL, Acceptable >59 mg/dL, High: Negative risk factor for coronary heart disease <40 mg/dL, Low: Positive risk factor for coronary heart disease Performed By: #### 2 4323-8, 3024-7, 87734-5, 3051-0 #### [facility] CLIA [id number] [address] [place] [address] [place] Cholesterol in LDL [Mass/Vol] Normal [facility] Comment on above: Order Comment: Elissa tavarez Type: BLOOD SPECIMEN Ordering Facility: [facility] Address: [address] [place] [address] Result Comment: Unab le to calculate due to increased Triglycerides. See LDL-Chol, Direct. Performed By: #### 2 4323-8, 3024-7, 47879-6, 3051-0 #### [facility] CLIA [id number] [address] [place] [address] [place] Cholesterol in LDL/Cholesterol in HDL [Mass ratio] Normal [facility] Comment on above: Order Comment: Elissa tavarez Type: BLOOD SPECIMEN Ordering Facility: [facility] Address: [address] [place] [address] Result Comment: Unab le to calculate due to elevated Triglycerides. Reference: 1. National Cholesterol Education Program ATP III Guideline At-A-Glance Quick Desk Reference: National Heart, Lung, and Blood [place]. National Institutes of Health. 2001: NIH Publication No. 01-3305. 2. An International Atherosclerosis Society position paper: global recommendations for the management of dyslipidemia: executive summary, Atherosclerosis. 2014: 232(2):410-413. Performed By: #### 2 4323-8, 3024-7, 78978-7, 3051-0 #### [facility] CLIA [id number] [address] [place], [place] [id number] [place] Cholesterol in VLDL [Mass/Vol] Normal [facility] Comment on above: Order Comment: Speci men Type: BLOOD SPECIMEN Ordering Facility: [facility] Address: [address] [place] [address] Result Comment: Unab le to calculate due to increased Triglycerides. See LDL-Chol, Direct. Performed By: #### 2 4323-8, 3024-7, 92273-0, 3051-0 #### [facility] CLIA [id number] [address] [place] [address] [place] Cholesterol non HDL [Mass/Vol] 228 mg/dL High <130 [facility] Comment on above: Order Comment: Speci men Type: BLOOD SPECIMEN Ordering Facility: [facility] Address: [address] [place] [address] Result Comment: <130 mg/dL, Optimal 130-159 mg/dL, Near optimal/above optimal 160-189 mg/dL, Borderline high 190-219 mg/dL, High >219 mg/dL, Very high Secondary prevention optimal non HDL Cholesterol levels are recommended to be <100 mg/dL Performed By: #### 2 4323-8, 3024-7, 13283-4, 3051-0 #### [facility] CLIA [id number] [address] [place] [address] [place] Cholesterol.total/Choleste rol in HDL [Mass ratio] 7.91 {ratio} High <5.10 [facility] Comment on above: Order Comment: Speci men Type: BLOOD SPECIMEN Ordering Facility: [facility] Address: [address] [place] [address] Performed By: #### 2 4323-8, 3024-7, 88302-1, 3051-0 #### [facility] CLIA [id number] [address] [place] [address] [place] FASTING TIME 12 hrs Normal [facility] Comment on above: Order Comment: Speci men Type: BLOOD SPECIMEN Ordering Facility: [facility] Address: [address] [place] [address] Performed By: #### 2 4323-8, 3024-7, 74211-5, 3051-0 #### [facility] CLIA [id number] [address] [place] [address] [place] Triglyceride [Mass/Vol] 437 mg/dL High <150 [facility] Comment on above: Order Comment: Speci men Type: BLOOD SPECIMEN Ordering Facility: [facility] Address: [address] [place] [address] Result Comment: <150 mg/dL, Normal 150-199 mg/dL, Borderline high 200-499 mg/dL, High >499 mg/dL, Very high Performed By: #### 2 4323-8, 3023-7, 15450-1, 305-0 #### [facility] CLIA [id number] [address] [place] [address] [place] T3Free SerPl-mCncon 02-11-19 24 Free T3 [Mass/Vol] 2.6 pg/mL Normal 2.3-4.1 [facility] Comment on above: Order Comment: Speci men Type: BLOOD SPECIMEN Ordering Facility: [facility] Address: [address] [place] [address] Performed By: #### 2 4323-8, 7, 66332-5, 305-0 #### [facility] CLIA [id number] [address] [place] [address] [place] T4 Free SerPl-mCncon 024 Free T4 [Mass/Vol] 1.3 ng/dL Normal 0.9-1.7 [facility] Comment on above: Order Comment: Speci men Type: BLOOD SPECIMEN Ordering Facility: [facility] Address: [address] [place] [address] Performed By: #### 2 4323-8, 3023-7, 73649-2, 3051-0 #### [facility] CLIA [id number] [address] [place] [address] [place] TSH SerPl-aCncon 02-11-2023 TSH Qn 3.150 m[IU]/L Normal 0.270-4.200 [facility] Comment on above: Order Comment: Speci men Type: BLOOD SPECIMEN Ordering Facility: [facility] Address: [address] [place] [address] Performed By: #### 2 4323-8, 3024-7, 02402-6, 3051-0 #### [facility] CLIA [id number] [address] [place] [address] [place] [address] [place] No Panel InformationOrdered By: Ninfa Albrecht on 05-14-2022 Estimated GFR (MDRD) Amer 71 mL/min >60 [facility] Comment on above: GFR Calc Estimated GFR (MDRD) Non-Af Amer 59 mL/min >60 [facility] Comment on above: Non- GFR Calc Serum or plasma creatinine m easurement (mass/volume)Ordered By: Ninfa Albrecht on 05-14-2022 Creatinine [Mass/Vol] 1.03 mg/dL 0.55-1.02 [facility] Comment on above: The validity of the calculated GFR & GFRAA in patients over 70 years has not been determined. Clinical correlation is essential. Absolute lymphocyte countOrd ered By: Dr. Grant on 05-13-2022 Lymphocytes Auto (Unsp spec) [#/Vol] 1.99 10*3/uL 0.83-4.51 [facility] Alternaria alternata IgE ser umOrdered By: Dr. Grant on 05-13-2022 A. alternata IgE Qn (S) 1.01 kU/L Class II [facility] Basophil percentageOrdered B y: Dr. Grant on 05-13-2022 Basophils/100 WBC (Bld) 0.1 % 0-1 [facility] Eosinophils/100 WBC (Bld) 1.8 % 0-5 [facility] Neutrophils (Bld) [#/Vol] 3.9 10*3/uL 2.0-7.7 [facility] Neutrophils/100 WBC (Bld) 57.6 % 47-70 [facility] WBC (Bld) [#/Vol] 6.7 10*3/uL 4.4-11.0 [facility] Blood erythrocytes count (nu mber/volume)Ordered By: Dr. Grant on 05-13-2022 RBC (Bld) [#/Vol] 4.66 10*6/uL 4.2-5.4 [facility] Blood hemoglobin measurement (mass/volume)Ordered By: Dr. Grant on 05-13-2022 Hemoglobin (Bld) [Mass/Vol] 13.9 g/dL 12.0-15.0 [facility] Blood lymphocytes/100 leukoc ytesOrdered By: Dr. Grant on 05-13-2022 Lymphocytes/100 WBC (Bld) 29.7 % 19-41 [facility] Blood monocytes/100 leukocyt esOrdered By: Dr. Grant on 05-13-2022 Monocytes/100 WBC (Bld) 10.4 % 0-10 [facility] Blood platelet mean volumeOr dered By: Dr. Grant on 05-13-2022 Platelet mean volume (Bld) [Entitic vol] 9.3 fL 6.2-12.0 [facility] Determination of erythrocyte mean corpuscular volume (MCV)Ordered By: Dr. Grant on 05-13-2022 MCV (RBC) [Entitic vol] 87.3 fL 81-99 [facility] Hematocrit Auto (Bld) [Volum e fraction]Ordered By: Dr. Grant on 05-13-2022 Hematocrit (Bld) [Volume fraction] 40.7 % 37-47 [facility] - Hematology and Cell countsOrdered By: Dr. Grant on 05-13-2022 Erythrocyte distribution width (RBC) [Entitic vol] 41.0 fL 35.1-43.9 [facility] Erythrocyte distribution width (RBC) [Ratio] 13.0 % 11.6-14.6 [facility] Immature granulocytes/100 WBC (Bld) 0.400 % 0.0-0.9 [facility] Comment on above: IG% - Immature Granu locytes (promyelocytes, myelocytes and metamyelocytes) > 1% indicates that a LEFT SHIFT is Present. MCH (RBC) [Entitic mass] 29.8 pg 27.0-32.0 [facility] Nucleated RBC/100 WBC (Bld) [Ratio] 0 % 0-5 [facility] MCHC Auto (RBC) [Mass/Vol]Or dered By: Dr. Grant on 05-13-2022 MCHC (RBC) [Mass/Vol] 34.2 g/dL 32-36 [facility] No Panel InformationOrdered By: Dr. Grant on 05-13-2022 Cat Hair Allergen 0.83 kU/L Class II [facility] Common Ragweed (Short) Allergen 1.10 kU/L Class II [facility] Immunoglobulin E 57 IU/mL 6-495 [facility] Comment on above: Performed at: [id number] Director: Eduardo Self MD, Phone: [phone] [place]) Allergen IgE Ab <0.10 kU/L Class 0 [facility] Mouse Urine Allergen IgE Antibody <0.10 kU/L [facility] 0 [facility] Comment on above: Performed at: [facility] [id number] Director: Eduardo Self MD, Phone: [phone] [facility] Comment Comment . [facility] Comment on above: Levels of Specific I gE Class Description of Class ----- < 0.10 0 Negative 0.10 - 0.31 0/I Equivocal/Low 0.32 - 0.55 I Low 0.56 - 1.40 II Moderate 1.41 - 3.90 III High 3.91 - 19.00 IV Very High 19.01 - 100.00 V Very High >100.00 Very High [place] Allergen 0.12 kU/L Class 0/I [facility] Platelets bldOrdered By: Dr. Grant on 05-13-2022 Platelets (Bld) [#/Vol] 225 10*3/uL 150-450 [facility] Rough pigweed specific IgE a ntibody assayOrdered By: Dr. Grant on 05-13-2022 Rough Pigweed IgE Qn (S) <0.10 kU/L Class 0 [facility] Serum Japanese sycamore IgE antibody assay (units/volume)Ordered By: Dr. Grant on 05-13-2022 Japanese [place] IgE Qn (S) <0.10 kU/L Class 0 [facility] Serum Aspergillus flavus ant ibody detection by immunodiffusionOrdered By: Dr. Grant on 05-13-2022 A. flavus Ab Immune diff Ql (S) Negative Neg:<1:1 [facility] Serum Aspergillus fumigatus IgE antibody assay (units/volume)Ordered By: Dr. Grant on 05-13-2022 A. fumigatus IgE Qn (S) <0.10 kU/L Class [address] [facility] Serum Aspergillus fumigatus antibody detection by immunodiffusionOrdered By: Dr. Grant on 05-13-2022 A. fumigatus Ab Immune diff Ql (S) Negative Neg:<1:1 [facility] Serum Aspergillus niger anti body detection by immunodiffusionOrdered By: Dr. Grant on 05-13-2022 A. niger Ab Immune diff Ql (S) Negative Neg:<1:1 [facility] Serum Bermuda grass IgE anti body assay (units/volume)Ordered By: Dr. Grant on 05-13-2022 Bermuda grass IgE Qn (S) 0.28 kU/L Class 0/I [facility] Serum Cladosporium herbarum IgE antibody assay (units/volume)Ordered By: Dr. Grant on 05-13-2022 C. herbarum IgE Qn (S) <0.10 kU/L Class 0 [facility] Serum Dermatophagoides farin ae specific IgE antibody assay (units/volume)Ordered By: Dr. Grant on 05-13-2022 Japanese house dust mite IgE Qn (S) <0.10 kU/L Class 0 [facility] Serum house dust mi te IgE antibody assay (units/volume)Ordered By: Dr. Grant on 05-13-2022 house dust mite IgE Qn (S) 0.13 kU/L Class 0/I [facility] Serum Penicillium notatum Ig E antibody assay (units/volume)Ordered By: Dr. Grant on 05-13-2022 P. notatum IgE Qn (S) <0.10 kU/L Class 0 [facility] Serum Periplaneta americana IgE antibody assay (units/volume)Ordered By: Dr. Grant on 05-13-2022 Japanese Cockroach IgE Qn (S) <0.10 kU/L Class 0 [facility] Serum Sri Lankan thistle specif ic IgE antibody assayOrdered By: Dr. Grant on 05-13-2022 Saltwort IgE Qn (S) <0.10 kU/L Class 0 [facility] Serum birch specific IgE ant ibody assayOrdered By: Dr. Grant on 05-13-2022 Silver Birch IgE Qn (S) <0.10 kU/L Class 0 [facility] Serum black walnut IgE antib jenni assay (units/volume)Ordered By: Dr. Grant on 05-13-2022 Black [place] IgE Qn (S) 0.17 kU/L Class 0/I [facility] Serum cottonwood IgE antibod y assay (units/volume)Ordered By: Dr. Grant on 05-13-2022 [place] IgE Qn (S) <0.10 kU/L Class 0 [facility] Serum dog epithelium IgE ant ibody assay (units/volume)Ordered By: Dr. Grant on 05-13-2022 Dog epithelium IgE Qn (S) 1.84 kU/L Class III [facility] Serum mountain cedar specifi c IgE antibody assayOrdered By: Dr. Grant on 05-13-2022 Mountain Juniper IgE Qn (S) <0.10 kU/L Class 0 [facility] Serum pecan or hickory nut I gE antibody assay (units/volume)Ordered By: Dr. Grant on 05-13-2022 Pecan or [place]ix[place] Nut IgE Qn (S) 0.15 kU/L Class 0/I [facility] Serum sheep sorrel IgE antib jenni assay (units/volume)Ordered By: Dr. Grant on 05-13-2022 Sheep [place] IgE Qn (S) <0.10 kU/L Class [address] [facility] Serum kimberley IgE antibody a ssay (units/volume)Ordered By: Dr. Grant on 05-13-2022 Kimberley IgE Qn (S) 0.89 kU/L Class II [facility] Serum white cesar IgE antibody assay (units/volume)Ordered By: Dr. Grant on 05-13-2022 White Cesar IgE Qn (S) 0.14 kU/L Class 0/I [facility] Serum white elm IgE antibody assay (units/volume)Ordered By: Dr. Grant on 05-13-2022 White Elm IgE Qn (S) 0.22 kU/L Class 0/I [facility] Serum white mulberry IgE ant ibody assay (units/volume)Ordered By: Dr. Grant on 05-13-2022 White mulberry IgE Qn (S) <0.10 kU/L Class 0 [facility] Absolute lymphocyte counton 09-04-2021 Lymphocytes Auto (Unsp spec) [#/Vol] 1.13 10*3/uL 0.83-4.51 [facility] Work Phone: Basophil percentageon 2021 Basophil percentage 0 SEEN /hpf 0-5 [facility] Work Phone: Basophils/100 WBC (Bld) 0.2 % 0-1 [facility] Work Phone: Chloride [Moles/Vol] 104 mmol/L 98-107 [facility] Work Phone: Eosinophils/100 WBC (Bld) 1.7 % 0-5 [facility] Work Phone: Glucose [Mass/Vol] 137 mg/dL 74-106 [facility] Work Phone: Comment on above: Fasting Glucose resu lt greater than or equal to 126 mg/dL suggests DIABETES MELLITUS per A.D.A. criteria. Neutrophils (Bld) [#/Vol] 3.1 10*3/uL 2.0-7.7 [facility] Work Phone: Neutrophils/100 WBC (Bld) 64.4 % 47-70 [facility] Work Phone: Potassium [Moles/Vol] 3.8 mmol/L 3.5-5.1 [facility] Work Phone: Sodium [Moles/Vol] 136 mmol/L 136-145 [facility] Work Phone: WBC (Bld) [#/Vol] 4.8 10*3/uL 4.4-11.0 [facility] Work Phone: Bilirubin Test strip Ql (U)o n 09-04-2021 Bilirubin Ql (U) Negative Negative [facility] Work Phone: Blood erythrocytes count (nu mber/volume)on 09-04-2021 RBC (Bld) [#/Vol] 4.77 10*6/uL 4.2-5.4 [facility] Work Phone: Blood hemoglobin measurement (mass/volume)on 09-04-2021 Hemoglobin (Bld) [Mass/Vol] 14.2 g/dL 12.0-15.0 [facility] Work Phone: Blood lymphocytes/100 leukoc yteson 09-04-2021 Lymphocytes/100 WBC (Bld) 23.8 % 19-41 [facility] Work Phone: Blood monocytes/100 leukocyt eson 09-04-2021 Monocytes/100 WBC (Bld) 9.5 % 0-10 [facility] Work Phone: Blood platelet mean volumeon 09-04-2021 Platelet mean volume (Bld) [Entitic vol] 9.4 fL 6.2-12.0 [facility] Work Phone: Determination of erythrocyte mean corpuscular volume (MCV)on 09-04-2021 MCV (RBC) [Entitic vol] 89.9 fL 81-99 [facility] Work Phone: Hematocrit Auto (Bld) [Volum e fraction]on 09-04-2021 Hematocrit (Bld) [Volume fraction] 42.9 % 37-47 [facility] Work Phone: Ketones Test strip Ql (U)on 09-04-2021 Ketones Ql (U) Negative Negative [facility] Work Phone: Laboratory - Chemistry and C hemistry - challengeon 09-04-2021 CO2 [Moles/Vol] 26.0 mmol/L 21.0-32.0 [facility] Work Phone: [phone] Urea nitrogen/Creatinine [Mass ratio] 7.3 mg/mg 10-20 [facility] Work Phone: [phone] Laboratory - Hematology and Cell countson 09-04-2021 Erythrocyte distribution width (RBC) [Entitic vol] 44.1 fL 35.1-43.9 [facility] Work Phone: [phone] Erythrocyte distribution width (RBC) [Ratio] 13.5 % 11.6-14.6 [facility] Work Phone: [phone] Immature granulocytes/100 WBC (Bld) 0.400 % 0.0-0.9 [facility] Work Phone: [phone] Comment on above: IG% - Immature Granu locytes (promyelocytes, myelocytes and metamyelocytes) > 1% indicates that a LEFT SHIFT is Present. MCH (RBC) [Entitic mass] 29.8 pg 27.0-32.0 [facility] Work Phone: [phone] Nucleated RBC/100 WBC (Bld) [Ratio] 0 % 0-5 [facility] Work Phone: [phone] MCHC Auto (RBC) [Mass/Vol]on 09-04-2021 MCHC (RBC) [Mass/Vol] 33.1 g/dL 32-36 [facility] Work Phone: [phone] Mucus LM Ql (Urine sed)on Mucus Ql (Urine sed) 0 SEEN /hpf [facility] Work Phone: [phone] Nitrite Test strip Ql (U)on 09-04-2021 Nitrite Ql (U) Negative Negative [facility] Work Phone: [phone] Panel Informationon 09-04 Estimated Creatinine Clearance Calc 53.95 ml/min [facility] Work Phone: [phone] Estimated GFR (MDRD) Amer 67 mL/min >60 [facility] Work Phone: [phone] Comment on above: GFR Calc Estimated GFR (MDRD) Non-Af Amer 55 mL/min >60 [facility] Work Phone: Comment on above: Non- GFR Calc Platelets bldon 09-04-2021 Platelets (Bld) [#/Vol] 213 10*3/uL 150-450 [facility] Work Phone: Protein Test strip Ql (U)on 09-04-2021 Protein Ql (U) Negative Negative [facility] Work Phone: Serum or plasma calcium rick urement (mass/volume)on 09-04-2021 Calcium [Mass/Vol] 9.0 mg/dL 8.5-10.1 oste r [facility] Work Phone: Serum or plasma creatinine m easurement (mass/volume)on 09-04-2021 Creatinine [Mass/Vol] 1.09 mg/dL 0.55-1.02 [facility] Work Phone: Comment on above: The validity of the calculated GFR & GFRAA in patients over 70 years has not been determined. Clinical correlation is essential. Serum or plasma urea nitroge n measurement (mass/volume)on 09-04-2021 Urea nitrogen [Mass/Vol] 8 mg/dL 7-18 [facility] Work Phone: Squamous epithelial cells de tection in urine sediment by light microscopyon 09-04-2021 Epithelial cells.squamous LM Ql (Urine sed) 0 SEEN /hpf 5-10 [facility] Work Phone: Thin prep Papanicolaou smear with manual screeningon 09-04-2021 Thin prep Papanicolaou smear with manual screening 6 5-15 [facility] Work Phone: Urine blood detectionon 08-11 RBC Ql (U) Negative Negative [facility] Work Phone: RBC Ql (U) 0 SEEN /hpf 0-5 [facility] Work Phone: Urine clarityon 09-04-2021 Clarity (U) Clear Clear [facility] Work Phone: Urine color determinationon 09-04-2021 Color (U) Straw Yellow [facility] Work Phone: Urine glucose detectionon Glucose Ql (U) Normal mg/dl Normal [facility] Work Phone: Urine leukocyte esterase det ection by dipstickon 09-04-2021 Leukocyte esterase Test strip Ql (U) Negative Negative [facility] Work Phone: Urine pHon 09-04-2021 pH (U) 6.5 [pH] 5.0 - 8.0 [facility] Work Phone: Urine sediment bacteria coun t by microscopy (number/high power field)on 09-04-2021 Bacteria LM.HPF (Urine sed) [#/Area] 0 /[HPF] None Seen [facility] Work Phone: Urine specific gravity measu rementon 09-04-2021 Specific gravity (U) [Rel density] 1.005 1.002-1.030 [facility] Work Phone: Urobilinogen Auto test strip Ql (U)on 09-04-2021 Urobilinogen Ql (U) Normal mg/dl Normal [facility] Work Phone: UA DIP, URINE (POC)on 2021 BILIRUBIN UA (POCT) Negative Negative [facility] CLARITY UA (POCT) Clear [facility] COLOR UA (POCT) Yellow [facility] GLUCOSE UA (POCT) Negative Negative mg/dL [facility] HEMOGLOBIN/BLOOD UA (POCT) Trace-intact Abnormal Negativ e [facility] KETONE UA (POCT) Negative Negative mg/dL [facility] LEUKOCYTES UA (POCT) Negative Negative [facility] NITRITE UA (POCT) Negative Negative [facility] PH UA (POCT) 5.5 4.5 - 8.0 [facility] Protein Ql (U) Trace Abnormal Negative mg/dL [facility] SPECIFIC GRAVITY UA (POCT) >=1.030 1 .005 - 1.030 [facility] UROBILINOGEN UA (POCT) 0.2 E.U./dL Elda l E.U./dL [facility] CBC W Auto Differential pane l (Bld)on 08-08-2021 Abs Immature Gran 0.03 k/uL <0.10 k/uL [facility] Basophils (Bld) [#/Vol] 10*3/uL <0.11 k/uL C [facility] Basophils/100 WBC (Bld) 0.1 % C [facility] Differential cell count method Nom (Bld) Auto [facility] Eosinophils (Bld) [#/Vol] 0.03 10*3/uL <0.46 k/ uL [facility] Eosinophils/100 WBC (Bld) 0.4 % [facility] Erythrocyte distribution width (RBC) [Ratio] 12.7 % 11.5 - 15.0 % [facility] Hematocrit (Bld) [Volume fraction] 42.7 % 36.0 - 46.0 % [facility] Hemoglobin (Bld) [Mass/Vol] 14.3 g/dL 11.5 - 15.5 g/dL [facility] Immature Gran % 0.4 % [facility] Lymphocytes (Bld) [#/Vol] 1.24 10*3/uL 1. 00 - 4.00 k/uL [facility] Lymphocytes/100 WBC (Bld) 14.6 % [facility] MCH (RBC) [Entitic mass] 29.5 pg 26. 0 - 34.[address] [facility] MCHC (RBC) [Mass/Vol] 33.5 g/dL 30.5 - 36.0 g/dL [facility] MCV (RBC) [Entitic vol] 88.0 fL 80.0 - 100.[address] [facility] Monocytes (Bld) [#/Vol] 0.75 10*3/uL <0.87 k/uL [facility] Monocytes/100 WBC (Bld) 8.8 % C [facility] Neutrophils (Bld) [#/Vol] 6.45 10*3/uL 1. 45 - 7.50 k/uL [facility] Neutrophils/100 WBC (Bld) 75.7 % [facility] Nucleated RBC (Bld) [#/Vol] 10*3/uL <0.01 k/uL [facility] Nucleated RBC/100 WBC (Bld) [Ratio] 0.0 /[address] [facility] Platelet mean volume (Bld) [Entitic vol] 9.9 fL 9.0 - 12.[address] [facility] Platelets (Bld) [#/Vol] 232 10*3/uL 150 - 400 k/uL [facility] RBC (Bld) [#/Vol] 4.85 10*6/uL 3.90 - 5.2 0 m/uL [facility] WBC (Bld) [#/Vol] 8.51 10*3/uL 3.70 - 11. 00 k/uL [facility] Comprehensive metabolic 2000 panelon 08-08-2021 Albumin [Mass/Vol] 4.2 g/dL 3.9 - 4.9 g/dL [facility] ALP [Catalytic activity/Vol] 55 U/L 34 - 123 U/L [facility] ALT [Catalytic activity/Vol] 28 U/L 7 - 38 U/L [facility] Anion gap [Moles/Vol] 12 mmol/L 9 - 18 mmol/L [facility] AST [Catalytic activity/Vol] 29 U/L 13 - 35 U/L [facility] Bilirubin [Mass/Vol] 0.5 mg/dL 0.2 - 1 .3 mg/dL [facility] Calcium [Mass/Vol] 8.7 mg/dL 8.5 - 10. 2 mg/dL [facility] Chloride [Moles/Vol] 101 mmol/L 97 - 10 5 mmol/L [facility] CO2 [Moles/Vol] 24 mmol/L 22 - 30 mmol/L [facility] Creatinine [Mass/Vol] 0.94 mg/dL 0.58 - 0.96 mg/dL [facility] Estimated Glomerular Filtration Rate 71 mL/min/1.73m >=60 mL/min/1.73m [facility] Glucose [Mass/Vol] 115 mg/dL High 74 - 99 mg/dL [facility] Potassium [Moles/Vol] 4.2 mmol/L 3.7 - 5.1 mmol/L [facility] Protein [Mass/Vol] 7.1 g/dL 6.3 - 8.0 g/dL [facility] Sodium [Moles/Vol] 137 mmol/L 136 - 144 mmol/L [facility] Urea nitrogen [Mass/Vol] 12 mg/dL 7 - 21 mg/d L [facility] Laboratory - Chemistry and C hemistry - challengeon 08-08-2021 Lipase [Catalytic activity/Vol] 105 U/L 73-393 [facility] Work Phone: UA DIP, URINE (POC)on 2021 BILIRUBIN UA (POCT) Negative Negative [facility] CLARITY UA (POCT) Clear [facility] COLOR UA (POCT) Dark yellow [facility] GLUCOSE UA (POCT) Negative Negative mg/dL [facility] HEMOGLOBIN/BLOOD UA (POCT) Moderate Abnormal Negative [facility] KETONE UA (POCT) Negative Negative mg/dL [facility] LEUKOCYTES UA (POCT) Negative Negative [facility] NITRITE UA (POCT) Negative Negative [facility] PH UA (POCT) 5.5 4.5 - 8.0 [facility] Protein Ql (U) Trace Abnormal Negative mg/dL [facility] SPECIFIC GRAVITY UA (POCT) 1.020 1 .005 - 1.030 [facility] UROBILINOGEN UA (POCT) 0.2 E.U./dL Elda l E.U./dL [facility] Vital Signs Date Time Vital Sign Value Performing Clinician Facility 07-19-2024 08:04-0400 Body height 165.1 cm Ham Tucker MD Work Phone: [facility] 07-19-2024 08:04-0400 Body mass index (BMI) [Ratio] 34.5 kg/m2 Ham Tucker MD Work Phone: [facility] 07-19-2024 08:04-0400 Body temperature 97.2 [degF] Ham Tucker MD Work Phone: [facility] 07-19-2024 08:04-0400 Body weight 94.12 kg Ham Tucker MD Work Phone: [facility] 07-19-2024 08:04-0400 Diastolic blood pressure 80 mm[Hg] Ham Tucker MD Work Phone: [facility] 07-19-2024 08:04-0400 Heart rate 73 /min Ham Tucker MD Work Phone: [facility] 07-19-2024 08:04-0400 Respiratory rate 18 /min Ham Tucker MD Work Phone: [facility] 07-19-2024 08:04-0400 SaO2% (BldA) [Mass fraction] 97 % Ham Tucker MD Work Phone: [facility] 07-19-2024 08:04-0400 Systolic blood pressure 148 mm[Hg] Ham Tucker MD Work Phone: [facility] 03-04-2023 11:06-0500 Body temperature 98.2 [degF] MD Ham Tucker Work Phone: [facility] 03-04-2023 11:06-0500 Body weight 95.25 kg MD Ham Tucker Work Phone: [facility] 03-04-2023 11:06-0500 Diastolic blood pressure 73 mm[Hg] MD Ham Tucker Work Phone: [facility] 03-04-2023 11:06-0500 Heart rate 87 /min MD Ham Tucker Work Phone: [phone] [place] [address] 03-04-2023 11:06-0500 Respiratory rate 16 /min MD Ham Tucker Work Phone: [facility] 03-04-2023 11:06-0500 SaO2% (BldA) [Mass fraction] 97 % MD Ham Tucker Work Phone: [facility] 03-04-2023 11:06-0500 Systolic blood pressure 140 mm[Hg] MD Ham Tucker Work Phone: [facility] 12-09-2022 06:36-0400 Body height 167.64 cm MD Ham Tucker Work Phone: [facility] 12-09-2022 06:36-0400 Body mass index (BMI) [Ratio] 35.2 kg/m2 MD Ham Tucker Work Phone: [facility] 12-09-2022 06:36-0400 Body temperature 96.6 [degF] MD Ham uTcker Work Phone: [facility] 12-09-2022 06:36-0400 Body weight 99.1 kg MD Ham Tucker Work Phone: [facility] 12-09-2022 06:36-0400 Diastolic blood pressure 74 mm[Hg] MD Ham Tucker Work Phone: [facility] 12-09-2022 06:36-0400 Heart rate 85 /min MD Ham Tucker Work Phone: [facility] 12-09-2022 06:36-0400 Respiratory rate 17 /min MD Ham Tucker Work Phone: [facility] 12-09-2022 06:36-0400 SaO2% (BldA) [Mass fraction] 96 % MD Ham Tucker Work Phone: [facility] 12-09-2022 06:36-0400 Systolic blood pressure 150 mm[Hg] MD Ham Tucker Work Phone: [phone] [place] [address] 10-09-2022 07:42-0400 Body height 167.64 cm MD Ham Tucker Work Phone: [facility] 10-09-2022 07:42-0400 Body mass index (BMI) [Ratio] 34.5 kg/m2 MD Ham Tucker Work Phone: [phone] [place] [address] 10-09-2022 07:42-0400 Body temperature 97.5 [degF] MD Ham Tucker Work Phone: [phone] [place] [address] 10-09-2022 07:42-0400 Body weight 97.06 kg MD Ham Tucker Work Phone: [facility] 10-09-2022 07:42-0400 Diastolic blood pressure 74 mm[Hg] MD Ham Tucker Work Phone: [phone] [place] [address] 10-09-2022 07:42-0400 Heart rate 85 /min MD Ham Tucker Work Phone: [facility] 10-09-2022 07:42-0400 Respiratory rate 18 /min MD Ham Tucker Work Phone: [facility] 10-09-2022 07:42-0400 SaO2% (BldA) [Mass fraction] 97 % MD Ham Tucker Work Phone: [facility] 10-09-2022 07:42-0400 Systolic blood pressure 139 mm[Hg] MD Ham Tucker Work Phone: [facility] 09-27-2022 13:43-0400 Body mass index (BMI) [Ratio] 34.7 kg/m2 MD Ham Tucker Work Phone: [facility] 09-27-2022 13:43-0400 Body temperature 98.9 [degF] MD Ham Tucker Work Phone: [facility] 09-27-2022 13:43-0400 Body weight 97.63 kg MD Ham Tucker Work Phone: [facility] 09-27-2022 13:43-0400 Diastolic blood pressure 81 mm[Hg] MD Ham Tucker Work Phone: [facility] 09-27-2022 13:43-0400 Heart rate 81 /min MD Ham Tucker Work Phone: [facility] 09-27-2022 13:43-0400 Respiratory rate 17 /min MD Ham Tucker Work Phone: [facility] 09-27-2022 13:43-0400 SaO2% (BldA) [Mass fraction] 98 % MD Ham Tucker Work Phone: [facility] 09-27-2022 13:43-0400 Systolic blood pressure 135 mm[Hg] MD Ham Tucker Work Phone: [facility] 05-15-2022 08:48-0400 Body height 167.[address] Sylvester Ontiveros Work Phone: [facility] 05-15-2022 08:48-0400 Body mass index (BMI) [Ratio] 35.5 kg/m2 Dr. Sylvester Ontiveros Work Phone: [facility] 05-15-2022 08:48-0400 Body temperature 97.8 [degF] Dr. Sylvester Ontiveros Work Phone: [facility] 05-15-2022 08:48-0400 Body weight 99.[address] Sylvester Ontiveros Work Phone: [facility] 05-15-2022 08:48-0400 Diastolic blood pressure 74 mm[Hg] Dr. Sylvester Ontiveros Work Phone: [facility] 05-15-2022 08:48-0400 Heart rate 99 /min Dr. Sylvester Ontiveros Work Phone: [facility] 05-15-2022 08:48-0400 Respiratory rate 18 /min Dr. Sylvester Ontiveros Work Phone: [facility] 05-15-2022 08:48-0400 SaO2% (BldA) [Mass fraction] 97 % Dr. Sylvester Ontiveros Work Phone: [facility] 05-15-2022 08:48-0400 Systolic blood pressure 143 mm[Hg] Dr. Sylvester Ontiveros Work Phone: [facility] 05-14-2022 13:44-0400 Diastolic blood pressure 76 mm[Hg] Dr. Sylvester Ontiveros Work Phone: [facility] 05-14-2022 13:44-0400 Heart rate 92 /min Dr. Sylvester Ontiveros Work Phone: [facility] 05-14-2022 13:44-0400 SaO2% (BldA) [Mass fraction] 98 % Dr. Sylvester Ontiveros Work Phone: [facility] 05-14-2022 13:44-0400 Systolic blood pressure 136 mm[Hg] Dr. Sylvester Ontiveros Work Phone: [facility] 03-27-2022 07:37-0500 Body height 167.[address] Sylvester Ontiveros Work Phone: [facility] 03-27-2022 07:37-0500 Body mass index (BMI) [Ratio] 34.8 kg/m2 Dr. Sylvester Ontiveros Work Phone: [facility] 03-27-2022 07:37-0500 Body temperature 97.5 [degF] Dr. Sylvester Ontiveros Work Phone: [facility] 03-27-2022 07:37-0500 Body weight 97.[address] Sylvester Ontiveros Work Phone: [facility] 03-27-2022 07:37-0500 Diastolic blood pressure 80 mm[Hg] Dr. Sylvester Ontiveros Work Phone: [facility] 03-27-2022 07:37-0500 Heart rate 98 /min Dr. Sylvester Ontiveros Work Phone: [facility] 03-27-2022 07:37-0500 Respiratory rate 18 /min Dr. Sylvester Ontiveros Work Phone: [facility] 03-27-2022 07:37-0500 SaO2% (BldA) [Mass fraction] 96 % Dr. Sylvester Ontiveros Work Phone: [facility] 03-27-2022 07:37-0500 Systolic blood pressure 129 mm[Hg] Dr. Sylvester Ontiveros Work Phone: [facility] 10-01-2021 16:07-0400 Body weight 94.8 kg Carl Domínguez MD Work Phone: [facility] 10-01-2021 16:07-0400 Diastolic blood pressure 80 mm[Hg] Carl Domínguez MD Work Phone: [facility] 10-01-2021 16:07-0400 Systolic blood pressure 117 mm[Hg] Carl Domínguez MD Work Phone: [facility] 09-04-2021 10:28-0400 Diastolic blood pressure 88 mm[Hg] [facility] Work Phone: 09-04-2021 10:28-0400 Heart rate 79 /min [facility] Work Phone: 09-04-2021 10:28-0400 Respiratory rate 15 /min [facility] Work Phone: 09-04-2021 10:28-0400 SaO2% (BldA) [Mass fraction] 98 % [facility] Work Phone: 09-04-2021 10:28-0400 Systolic blood pressure 126 mm[Hg] [facility] Work Phone: 09-04-2021 08:27-0400 Body temperature 97.6 [degF] [facility] Work Phone: 09-04-2021 06:58-0400 Body height 167.64 cm [facility] Work Phone: 09-04-2021 06:58-0400 Body mass index (BMI) [Ratio] 34 kg/m2 [facility] Work Phone: 09-04-2021 06:58-0400 Body weight 95.6 kg [facility] Work Phone: 08-21-2021 13:42-0400 Body weight 94.35 kg Verito Joan TOASTER ELEMENT REPAIRER.NURSING TECH Work Phone: [facility] 08-21-2021 13:42-0400 Diastolic blood pressure 74 mm[Hg] Verito [place] TOASTER ELEMENT REPAIRER.NURSING TECH Work Phone: [facility] 08-21-2021 13:42-0400 Systolic blood pressure 112 mm[Hg] Verito Joan TOASTER ELEMENT REPAIRER.NURSING TECH Work Phone: [facility] 08-08-2021 10:23-0400 Body temperature 101.19 [degF] Shirley Sands TOASTER ELEMENT REPAIRER.NURSING TECH Work Phone: [facility] 08-08-2021 10:23-0400 Body weight 97.16 kg Shirley Sands TOASTER ELEMENT REPAIRER.NURSING TECH Work Phone: [facility] 08-08-2021 10:23-0400 Diastolic blood pressure 80 mm[Hg] Shirley Sands TOASTER ELEMENT REPAIRER.NURSING TECH Work Phone: [facility] 08-08-2021 10:23-0400 Heart rate 100 /min Shirley Sands TOASTER ELEMENT REPAIRER.NURSING TECH Work Phone: [facility] 08-08-2021 10:23-0400 Respiratory rate 21 /min Shirley Sands TOASTER ELEMENT REPAIRER.NURSING TECH Work Phone: [facility] 08-08-2021 10:23-0400 SaO2% (BldA) [Mass fraction] 97 % Shirley Sands TOASTER ELEMENT REPAIRER.NURSING TECH Work Phone: [facility] 08-08-2021 10:23-0400 Systolic blood pressure 158 mm[Hg] Shirley Sands TOASTER ELEMENT REPAIRER.NURSING TECH Work Phone: [facility] Encounters Encounter Date Encounter Type Care Provider Facility Start: 08-30-2024 End: 08-30-2024 ambulatory Ham Tucker MD Work Phone: [facility] Start: 08-30-2024 End: 08-30-[address] Ham Tucker MD [facility] Work Phone: Start: 08-30-2024 End: 08-30-2024 ambulatory Ham Caitlin Facility:[facility] Start: 08-27-2024 ambulatory Ham Tucker Facility:[facility] Start: 07-19-2024 End: 07-19-[address] Rick Pereira MD -[facility] Work Phone: Start: 07-19-2024 End: 07-19-2024 ambulatory Ham Tucker MD Work Phone: [facility] Work Phone: Start: 06-28-2024 End: 06-28-[address] Ham Tucker MD -Laboratory Work Phone: Start: 06-28-2024 End: 06-28-2024 ambulatory Ham Tucker Facility:[facility] Start: 06-22-2024 End: 06-22-2024 ambulatory Ham Tucker MD Work Phone: [facility] Work Phone: Start: 06-22-2024 End: 06-22-[address] Ham Tucker MD [facility] Work Phone: Start: 06-22-2024 End: 06-22-2024 ambulatory Ham Tucker Facility:[facility] Start: 06-17-2024 End: 06-17-2024 ambulatory Ham Tucker MD Work Phone: [facility] Work Phone: Start: 06-17-2024 End: 06-17-[address] [facility] Start: 06-17-2024 End: 06-17-2024 ambulatory Ham Tucker Facility:[facility] Start: 02-09-2024 ambulatory [facility] Facility:[facility] Start: 02-09-2024 End: 02-09-2024 ambulatory [facility] Facility:[facility] Start: 11-17-2023 End: 11-17-2023 ambulatory SYLVESTER PAPPASNAN Facility:[facility] Start: 11-03-2023 End: 11-12-2023 ambulatory Carl Domínguez MD Work Phone: Endocrinology Comment on above: Synthroid problem Start: 09-19-2023 End: 09-19-2023 ambulatory [facility] Facility:[facility] Start: 07-09-2023 Refill Haylee Crump APRN.NURSING TECH Work Phone: Endocrinology Comment on above: Refill Request Start: 06-10-2023 Non-patient / Non-visit MD Yoana Tucker Work Phone: [facility] Start: 06-10-2023 End: 06-10-2023 ambulatory MD Ham Tucker Work Phone: [facility] Work Phone: Start: 06-10-2023 End: 06-10-2023 Patient encounter procedure MD Ham Tucker Work Phone: [facility] Work Phone: Start: 05-22-2023 ambulatory Haylee Alisia TOASTER ELEMENT REPAIRER.NURSING TECH Work Phone: Endocrinology Comment on above: A1C Start: 05-21-2023 End: 05-21-2023 ambulatory HAYLEE CRUMP Facility:[facility] Start: 03-13-2023 End: 03-13-2023 ambulatory MD Ham Tucker Work Phone: [facility] Work Phone: Start: 03-13-2023 End: 03-13-2023 Patient encounter procedure MD Ham Tucker Work Phone: [facility] Work Phone: Start: 03-11-2023 Non-patient / Non-visit MD Yoana Tucker Work Phone: [facility] Start: 03-11-2023 End: 03-11-2023 ambulatory MD Ham Tucker Work Phone: [facility] Work Phone: Start: 03-11-2023 End: 03-11-2023 Patient encounter procedure MD Ham Tucker Work Phone: [facility] Work Phone: Start: 03-04-2023 Non-patient / Non-visit MD Yoana Tucker Work Phone: [facility] Start: 03-04-2023 End: 03-04-2023 Patient encounter procedure MD Ham Tucker Work Phone: [facility] Work Phone: Start: 02-17-2023 End: 02-17-2023 ambulatory HAYLEE CRUMP Facility:[facility] Start: 02-11-2023 End: 02-11-2023 ambulatory CARL DOMÍNGUEZ Facility:[facility] Start: 01-13-2023 ambulatory Carl Domínguez MD Work Phone: Endocrinology Comment on above: TSH blood work Start: 12-09-2022 End: 12-09-2022 Patient encounter procedure MD Ham Tucker Work Phone: [facility]-Pulmonary Medicine [facility] Work Phone: Start: 11-04-2022 End: 11-04-2022 ambulatory Carl Domínguez MD Work Phone: Endocrinology Comment on above: 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); Insulin resistance; Abnormal glucose; Dyslipidemia; Vitamin D deficiency Start: 11-04-2022 End: 11-04-2022 Telemedicine consultation with patient Carl Domínguez MD Work Phone: [facility] Start: 10-28-2022 End: 10-28-2022 ambulatory MD Ham Tucker Work Phone: [facility] Work Phone: Start: 10-28-2022 End: 10-28-2022 Patient encounter procedure MD Ham Tucker Work Phone: [facility]-Sleep Lab Work Phone: Start: 10-10-2022 End: 10-10-2022 ambulatory MD Ham Tucker Work Phone: [facility] Work Phone: Start: 10-10-2022 End: 10-10-2022 Patient encounter procedure MD Ham Tucker Work Phone: [facility]-Laboratory, Specimen Work Phone: Start: 10-09-2022 End: 10-09-2022 Patient encounter procedure MD Ham Tucker Work Phone: [facility]-Pulmonary Medicine [facility] Work Phone: Start: 10-03-2022 End: 10-03-2022 Patient encounter procedure MD Ham Tucker Work Phone: [facility]-Radiology, [place] Work Phone: Start: 09-27-2022 End: 09-27-2022 Patient encounter procedure MD Ham Tucker Work Phone: [facility] Plastic Recon Surg Work Phone: Start: 09-17-2022 End: 09-17-2022 ambulatory [facility] Work Phone: Start: 09-17-2022 End: 09-17-2022 Patient encounter procedure [facility]-Sleep Lab Work Phone: Start: 05-15-2022 End: 05-15-[address] Sylvester Ontiveros Work Phone: [facility]-Pulmonary Medicine [facility] Start: 05-14-2022 End: 05-14-[address] Sylvester Ontiveros Work Phone: [facility] Work Phone: Start: 05-14-2022 End: 05-14-[address] Sylvester Ontiveros Work Phone: [facility]-Laboratory Start: 05-14-2022 End: 05-14-[address] Sylvester Ontiveros Work Phone: [facility] Vascular Surgery Start: 05-13-2022 End: 05-13-[address] Sylvester Ontiveros Work Phone: [facility] Work Phone: Start: 05-13-2022 End: 05-13-[address] Sylvester Ontiveros Work Phone: [facility]-Laboratory Start: 2022 Non-patient / Non-visit Dr. Christian Ontiveros Work Phone: [facility] Start: 05-01-2022 Non-patient / Non-visit Dr. Christian Ontiveros Work Phone: [facility] Start: 05-01-[address] Sylvester Ontiveros Work Phone: [facility]-Cardiovascular Services Start: 05-01-2022 End: 05-01-[address] Sylvester Ontiveros Work Phone: [facility] Work Phone: Start: 05-01-2022 End: 05-01-[address] Sylvester Ontiveros Work Phone: [facility]-Pulmonary Services/Neurology Start: 03-27-2022 End: 03-27-[address] 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); Insulin resistance; Abnormal glucose; Dyslipidemia Start: 10-01-2021 End: 10-01-2021 Telemedicine consultation with patient Carl Domínguez MD Work Phone: [facility] Start: 09-14-2021 End: 09-14-2021 Patient encounter procedure [facility] Start: 09-04-2021 End: 09-04-2021 Emergency department patient visit [facility]-Emergency Department Start: 08-23-2021 Telephone encounter Verito lizama APRN.CNP Work Phone: OB/Gynecology Comment on above: Results Start: 08-22-2021 End: 08-22-2021 ambulatory Yvonne Hinton MD Work Phone: OB/Gynecology Comment on above: PEDIATRIC CLINICAL NURSE SPECIALIST Ultrasound Start: 08-22-2021 End: 08-22-2021 Patient encounter procedure Yvonne Hinton MD Work Phone: [facility] Start: 08-21-2021 End: 08-21-2021 Patient encounter procedure Verito Franco TOASTER ELEMENT REPAIRER.NURSING TECH Work Phone: OB/Gynecology Comment on above: Gross hematuria (Radha willie Dx); Pelvic pain in female Start: 08-09-2021 Telephone encounter Shirley bloom TOASTER ELEMENT REPAIRER.NURSING TECH Work Phone: [facility] [place] Comment on above: Results Start: 08-08-2021 End: 08-08-2021 Patient encounter procedure [facility]-Laboratory, Specimen Start: 08-08-2021 Telephone encounter Sylvester Ontiveros MD Work Phone: Internal Medicine [place] Comment on above: Results Start: 08-08-2021 End: 08-08-2021 Patient encounter procedure Shirley Sands TOASTER ELEMENT REPAIRER.NURSING TECH Work Phone: [facility] Care Comment on above: Viral illness (Prima ry Dx); Fever, unspecified fever cause; Generalized abdominal pain; Microscopic hematuria Start: 05-21-2021 ambulatory Carl Domínguez MD Work Phone: Endocrinology Comment on above: Question regarding T SH BLD Start: 05-16-2008 End: 08-19-2011 Patient encounter status Haylee Annashley ANN.NURSING TECH Work Phone: [facility] Procedures Date Procedure Procedure Detail Performing Clinician Start: 08-30-2024 Parathyroid hormone measurement Ham Tucker MD Work Phone: Start: 06-28-2024 Urine culture Ham garcia MD Work Phone: Start: 06-28-2024 Parathyroid hormone measurement Ham Tucker MD Work Phone: Start: 06-22-2024 US scan of thyroid Tiffanie Tucker MD Work Phone: Start: 05-21-2023 Lipid 1996 panel - S too or Plasma Haylee Annashley ANN.NURSING TECH Work Phone: Start: 03-13-2023 X-ray of chest posteroanterior view MD Ham Tucker Work Phone: Start: 10-03-2022 Diagnostic radiograp hy of finger MD Ham Tucker Work Phone: Start: 07-24-2022 Lipid 1996 panel - S too or Plasma Carl Domínguez MD Work Phone: Start: 10-08-2021 Plain x-ray of wrist Start: 09-14-2021 Plain chest X-ray Start: 09-04-2021 Plain chest X-ray Start: 09-04-2021 Computed tomography of abdomen and pelvis with intravenous contrast Start: 08-21-2021 Urnls dip stick/tabl et rgnt auto w/o microscopy Verito [place] TOASTER ELEMENT REPAIRERMARY Work Phone: Start: 08-08-2021 Urnls dip stick/tabl et rgnt auto w/o microscopy [facility] Provider Start: 03-17-2015 Mammography Carl epps MD Work Phone: Plan of Treatment Date Care Activity Detail Author Start: 05-20-2028 Lipid panel Lipid Screening [facility] Start: 07-25-2027 Lipid 1996 panel - S too or Plasma Lipid Screening [facility] Start: 09-29-[address] SCREEN [facility] Start: 05-20-2026 Diabetes Screening Diabetes Screenin [facility] Start: 04-03-[address] L[address]ID SCREEN [facility] Start: 07-24-2025 Diabetes Screening Diabetes Screenin [facility] Start: 10-19-2024 [address] [facility] Start: 10-19-2024 [address] PAP TESTING [facility] Start: 10-19-2024 Screening for malign ant neoplasm of cervix [facility] Start: 09-29-2024 DIABETES SCREEN DIABETES SCREEN [facility] Start: 08-08-2024 DIABETES SCREEN DIABETES SCREEN [facility] Start: 06-28-2024 Bacteria identified in Urine by Culture Urine Culture [facility] Start: 06-22-2024 US scan of thyroid Thyroid [facility] Start: 06-22-2024 US Thyroid gland [facility] Start: 04-03-2024 DIABETES SCREEN DIABETES SCREEN [facility] Start: 11-12-2023 End: 02-11-2024 Thyrotropin [Units/volume] in Serum or Plasma THYROID STIMULATING HORMONE Lab Routine 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 Expected: 11/12/2023, Expires: 02/11/2024 [facility] Work Phone: Comment on above: Expected: 11/12/2023 , Expires: 02/11/2024 Start: 11-12-2023 End: 02-11-2024 Thyroxine (T4) free [Mass/volume] in Serum or Plasma T4 FREE/FREE THYROXINE Lab Routine 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 Expected: 11/12/2023, Expires: 02/11/2024 [facility] Comment on above: Expected: 11/12/2023 , Expires: 02/11/2024 Start: 11-12-2023 End: 02-11-2024 Triiodothyronine (T3) Free [Mass/volume] in Serum or Plasma T3, FREE Lab Routine 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 Expected: 11/12/2023, Expires: 02/11/2024 [facility] Comment on above: Expected: 11/12/2023 , Expires: 02/11/2024 Start: 10-12-2023 Covid-19 Vaccine ( season) Covid-19 Vaccine ( season) [facility] Start: 10-12-2023 Influenza vaccination Influenza Vacc ine (#1) [facility] Start: 02-10-2023 Behavioral Health Screening Behavioral Health Screening [facility] Start: 01-13-2023 End: 11-05-2023 25-hydroxyvitamin D3 [Mass/volume] in Serum or Plasma VITAMIN D 25 HYDROXY Lab Routine Vitamin D deficiency Expected: 01/13/2023, Expires: 11/05/2023 [facility] Work Phone: Comment on above: Expected: 01/13/2023 , Expires: 11/05/2023 Start: 01-13-2023 End: 11-05-2023 Comprehensive metabolic 2000 panel - Serum or Plasma COMP METABOLIC PANEL Lab Routine Insulin resistance Abnormal glucose Expected: 01/13/2023, Expires: 11/05/2023 [facility] Work Phone: Comment on above: Expected: 01/13/2023 , Expires: 11/05/2023 Start: 01-13-2023 End: 11-05-2023 Hemoglobin A1c in Blood HGB A1C Lab Routine Abnormal glucose Expected: 01/13/2023, Expires: 11/05/2023 [facility] Work Phone: Comment on above: Expected: 01/13/2023 , Expires: 11/05/2023 Start: 01-13-2023 End: 11-05-2023 Lipid 1996 panel - Serum or Plasma LIPID PANEL BASIC Lab Routine Dyslipidemia Expected: 01/13/2023, Expires: 11/05/2023 [facility] Work Phone: Comment on above: Expected: 01/13/2023 , Expires: 11/05/2023 Start: 01-13-2023 End: 11-05-2023 Thyrotropin [Units/volume] in Serum or Plasma TSH BLD Lab Routine 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 Expected: 01/13/2023, Expires: 11/05/2023 [facility] Work Phone: Comment on above: Expected: 01/13/2023 , Expires: 11/05/2023 Start: 01-13-2023 End: 11-05-2023 Thyroxine (T4) free [Mass/volume] in Serum or Plasma T4 FREE/FREE THYROX Lab Routine 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 Expected: 01/13/2023, Expires: 11/05/2023 [facility] Work Phone: Comment on above: Expected: 01/13/2023 , Expires: 11/05/2023 Start: 01-13-2023 End: 11-05-2023 Triiodothyronine (T3) Free [Mass/volume] in Serum or Plasma T3 FREE BLD Lab Routine 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 Expected: 01/13/2023, Expires: 11/05/2023 [facility] Work Phone: Comment on above: Expected: 01/13/2023 , Expires: 11/05/2023 Start: 10-11-2022 Covid-19 Vaccine () Covid-[address] () [facility] Start: 10-11-2022 Influenza vaccination Influenza Vacc ine (#1) [facility] Start: 05-15-2022 Patient referral [facility] Work Phone: Start: 03-03-2022 End: 10-01-2022 Comprehensive metabolic 2000 panel - Serum or Plasma COMP METABOLIC PANEL Lab Routine Insulin resistance Abnormal glucose Expected: 03/03/2022, Expires: 10/01/2022 [facility] Work Phone: Comment on above: Expected: 03/03/2022 , Expires: 10/01/2022 Start: 03-03-2022 End: 10-01-2022 Hemoglobin A1c in Blood HGB A1C Lab Routine Insulin resistance Abnormal glucose Expected: 03/03/2022, Expires: 10/01/2022 [facility] Work Phone: Comment on above: Expected: 03/03/2022 , Expires: 10/01/2022 Start: 03-03-2022 End: 10-01-2022 Insulin [Units/volume] in Serum or Plasma INSULIN ASSAY BLOOD Lab Routine Insulin resistance Abnormal glucose Expected: 03/03/2022, Expires: 10/01/2022 [facility] Work Phone: Comment on above: Expected: 03/03/2022 , Expires: 10/01/2022 Start: 03-03-2022 End: 10-01-2022 Lipid 1996 panel - Serum or Plasma LIPID PANEL BASIC Lab Routine Dyslipidemia Expected: 03/03/2022, Expires: 10/01/2022 [facility] Work Phone: Comment on above: Expected: 03/03/2022 , Expires: 10/01/2022 Start: 02-10-2022 Depression Assessment Depression Ass essment [facility] Start: 10-11-2021 Influenza vaccination [facility] Start: 09-04-2021 [facility] Work Phone: Start: 08-08-2021 End: 08-22-2021 Influenza virus A and B RNA and SARS-CoV-2 (COVID-19) N gene panel - Respiratory specimen by FRED with probe detection [facility] Work Phone: Comment on above: Expected: 08/08/2021 , Expires: 08/22/2021 Start: 05-31-2021 COVID-19 VACCINE (4 - Booster for Pfizer series) COVID-19 VACCINE (4 - Booster for Pfizer series) [facility] Start: 05-24-2021 End: 07-24-2021 Thyrotropin [Units/volume] in Serum or Plasma TSH BLD Lab Routine 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 Expected: 05/24/2021, Expires: 07/24/2021 [facility] Work Phone: Comment on above: Expected: 05/24/2021 , Expires: 07/24/2021 Start: 03-31-2021 Screening for malign ant neoplasm of colon [facility] Start: 12-20-2020 Screening for malign ant neoplasm of breast Mammogram Screening [facility] Start: 03-17-[address] [facility] Start: 05-03-2015 SHINGRIX VACCINE (1 of 2) LERNER GRIX VACCINE (1 of 2) [facility] Start: 2010 COLOGUARD (FIT-DNA) COLOGUARD (FIT-D NA) [facility] Start: [address] [facility] Start: 2010 COLORECTAL CANCER SCREENING COLORECTAL CANCER SCREENING [facility] Start: [address] COLONOGRAPHY [facility] Start: 2010 FECAL OCCULT BLOOD FECAL OCCULT BLOO D [facility] Start: 2010 Screening for malign ant neoplasm of colon [facility] Start: 2010 SIGMOIDOSCOPY SIGMOIDOSCOPY [facility] Start: 1984 Hepatitis B Vaccine (1 of 3 - 19+ 3-dose series) Hepatitis B Vaccine (1 of 3 - 19+ 3-dose series) [facility] Start: [address] [facility] Start: 05-03-1983 ANNUAL PCP TEAM MENTAL HEALTH NURSE PRACTITIONER JUAN F DISEASE VISIT ANNUAL PCP TEAM CHRONIC DISEASE VISIT [facility] Start: 05-03-1983 Anxiety Screening Anxiety Screening [facility] Start: 05-03-1983 Depression Screening Depression Scre ening [facility] Start: 1977 Adult depression scr eening assessment DEPRESSION SCREENING [facility] Start: 1965 HEPATITIS B (1 of 3 - 3-dose series) HEPATITIS B (1 of 3 - 3-dose series) [facility] Start: 1965 Hepatitis B Vaccine (1 of 3 - 3-dose series) Hepatitis B Vaccine (1 of 3 - 3-dose series) [facility] Bacteria identified in Urine by Culture URINE CULTURE Microbiology Routine Generalized abdominal pain 08/08/2021 11:11 AM EDT [facility] Work Phone: CBC W Auto Different ial panel - Blood [facility] CTA Head vessels and Neck vessels W contrast IV [facility] IgE [Units/volume] i n Serum or Plasma [facility] Microscopic observat ion [Identifier] in Vaginal fluid by Gram stain BACT/SINGH VAG GRAM STAIN Microbiology Routine Pelvic pain in female 08/21/2021 2:15 PM EDT [facility] Work Phone: Patient Education Coronavirus [facility] 2019 (COVID-19): Overview Coronavirus Disease 2019 (COVID-19): Caring for Yourself or Others ED Abdominal Pain Unkn Cause Fem [facility] Work Phone: Patient referral [facility] Work Phone: PELVIC US WHI PELVIC US WHI An c Imaging Routine Pelvic pain in female Ordered: 08/21/2021 [facility] Work Phone: Comment on above: Ordered: 08/21/2021 End: 10-01-2022 Thyrotropin [Units/volume] in Serum or Plasma TSH BLD Lab Routine 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 Once per month for 12 Occurrences starting 10/01/2021 until 10/01/2022 [facility] Work Phone: Comment on above: Once per month for 1 2 Occurrences starting 10/01/2021 until 10/01/2022 End: 10-01-2022 Thyroxine (T4) free [Mass/volume] in Serum or Plasma T4 FREE/FREE THYROX Lab Routine 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 Once per month for 12 Occurrences starting 10/01/2021 until 10/01/2022 [facility] Work Phone: Comment on above: Once per month for 1 2 Occurrences starting 10/01/2021 until 10/01/2022 End: 10-01-2022 Triiodothyronine (T3) Free [Mass/volume] in Serum or Plasma T3 FREE BLD Lab Routine 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 Once per month for 12 Occurrences starting 10/01/2021 until 10/01/2022 [facility] Work Phone: Comment on above: Once per month for 1 2 Occurrences starting 10/01/2021 until 10/01/2022 UA DIP B/O UA DIP B/O Lab R outine Fever, unspecified fever cause Ordered: 08/08/2021 [facility] Work Phone: Comment on above: Ordered: 08/08/2021 Urine culture [facility] Immunizations Immunization Date Immunization Notes Care Provider [facility] 12-09-2022 influenza, injectabl e, quadrivalent, preservative free MD Ham Tucker Work Phone: [facility] 12-09-2022 influenza virus vaccine, unspecified formulation Carl Domínguez MD Work Phone: [facility] 12-22-2021 Covid Pfizer Bivalen t Booster [facility] 01-30-2021 Covid (Pfizer) [facility] 05-26-2020 Covid (Pfizer) [facility] 05-05-2020 Covid (Pfizer) [facility] Payers Date Payer Category Payer Unknown [id number] 2024 Unknown [id number] 2023 Self-pay [id number] 2019 Unknown [employer] PPO [id number] 2019-Present [phone] [place] [address] PPO [id number] 2019 Unknown [id number] 2014 Unknown [id number] Unknown [id number] Unknown [id number] Unknown [id number] Unknown [id number] Unknown [id number] Unknown [id number] Unknown [id number] Unknown [id number] Unknown [id number] Social History Date Type Detail Facility Start: 01-19-2013 End: 03-04-2023 Tobacco smoking status NHIS Never smoked tobacco [facility] Start: 04-20-2021 End: 02-17-2023 Alcohol intake Lifetime non-drinker (finding) [facility] Start: 10-20-2019 History SDOH Alcohol Frequency 1 [facility] Start: 10-20-2019 History SDOH Social Connections Phone 5 [facility] Start: 10-20-2019 History SDOH Social Connections Membership 2 [facility] Start: 10-20-2019 History SDOH Social Connections Living 3 [facility] Start: 10-20-2019 History SDOH Physical Activity MPS 6 [facility] Start: 1965 Sex Assigned At Female [facility] Start: 07-29-2021 End: 09-29-2021 Exposure to SARS-CoV-2 (event) Not sure [facility] Work Phone: Start: 10-28-2020 End: 03-04-2023 Tobacco smoking status NHIS Unknown if ever smoked [facility] Start: 07-01-2020 Non-smoker [facility] Start: 01-19-2013 Tobacco use and exposure Smokeless tobacco non-user [facility] Work Phone: Start: 10-20-2019 End: 11-04-2022 History of [address] function [facility] Start: 10-20-2019 End: 11-04-2022 Social connection and isolation panel [facility] Do you belong to any clubs or organizations such as tenriism groups, unions, fraternal or athletic groups, or school groups? No [facility] Are you now , , , , never or living with a partner? [facility] How often to you hav e a drink containing alcohol? Never [facility] Average Number of Drinks Not on file [facility] How hard is it for y ou to pay for the very basics like food, housing, medical care, and heating Somewhat hard [facility] Do you feel stress - tense, restless, nervous, or anxious, or unable to sleep at night because your mind is troubled all the time - these days [OSQ] Very much [facility] (I/We) worried stanislav er (my/our) food would run out before (I/we) got money to buy more. Never true [facility] The food that (I/we) bought just didn't last, and (I/we) didn't have money to get more. Sometimes true [facility] Start: 04-09-2021 Gender identity Identifies as female gender (finding) [facility] Start: 04-09-2021 Sexual orientation Heterosexual (finding) [facility] Clinical Notes 03-30-2014 to 07-19-2024 Note Date & Type Note Facility 07-19-2024 Evaluation note Diagnosis Onset Date Resolution Dysphagia acute July 19, 2024 7:47am Iron deficiency anemia acute Ju 2024 7:47am Multiple thyroid nodules acute July 19, 2024 7 :47am Weight loss acute July 19 7:47am [facility] Work Phone: 1(509) 285-742805-16-2025 Radiology Diagnostic study note [facility] Imaging Services [address] [place], [place] [address] Thyroid MR#: [id number] Acct: [id number] Name: MARKO KELLEY Rep #: [id number] : 1965 F 59 From: Munir Ortega MD PCP: Dr. Ham Tucker MD Status: REG CL I Study:Thyroid Date of Exam: 06/22/24 Exam# [id number] Ordering Dr: Yoana Tucker MD PROCEDURE: THYROID 06/22/2024 REASON FOR EXAM: THYROID LUMP TECHNIQUE: High-frequency thyroid ultrasound, including grayscale and color-flow images. REFERENCE LINKS: TI-RADS Chart: [email or web address] TI-RADS Calculator Tool with Reference Images: [email or web address] COMPARISON: None FINDINGS: Right thyroid lobe size: 3.5 cm x 1.3 cm x 1.7 cm Left thyroid lobe size: 2.8 cm x 1.3 cm x 1.2 cm Isthmus: 0.3 cm Background parenchymal echotexture is heterogeneous Nodules: . Lobe: Left, Location: Inferior pole, Size: 9 mm x 6 mm x 6 mm cm, Stability: N/A Composition: Mixed cystic and solid (+1) Echogenicity: Hyper to Isoechoic (+1) Margin: Smooth (+0) Shape: Wider than tall (+0) Echogenic Foci: None (+0) TI-RADS: <2 = TR 1 * 2 = TR 2 * 3 = TR 3 * 4-6 = TR 4 * >6 = TR 5 4 mm x 5 mm x 3 mm solid hypoechoic nodule in the right side of the isthmus. Findings suggestive of an enlarged right parathyroid gland. It measures 1.7 cm x 1.2 cm x 1.4 cm. US/Thyroid IMPRESSION: TI-RADS category 2 Findings suggestive of an enlarged right parathyroid gland. Clinical correlation recommended. RECOMMENDATION: Based on most suspicious nodule. Nodule size = largest diameter Only evaluate nodule if =>5 mm. Growth > 20% in 2 dimensions = worsening. Follow up to 4 nodules. Recommend biopsy for no more than 2 nodules. Reading Location: [id number] CC: Dr. 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 Patient is requesting labs due to having symptoms. Thank you, ROSENDO Carrillo * Telephone Encounter - Evi Beaver - 11/10/2023 1:07 PM EDT Patient is concerned about her thyroid levels. Asking for Dr Catrachita Leach to order labs. Please advise at [phone]. * Telephone Encounter - Barbra Finn RN - 11/04/2023 8:31 AM EDT Please see patient's my chart message. Last TSH/T3/T4 drawn 05/21/2023. Patient reduced dose of synthroid by half d/t symptoms and has continued the reduced dose. Barbra Finn RN documented in this encounterSt. [facility] Telephone encounter Note * Telephone Encounter - Keith Irvin OCCA - 11/10/2023 1:50 PM EDT HINA- 02/17/2023 NOV- Not scheduled Patient states that her body has developed an issue with Synthroid. Patient is requesting labs due to having symptoms. Thank you, ROSENDO Carrillo [facility] Telephone encounter Note* Telephone Encounter - Evi Beaver - 11/10/2023 1:07 PM EDT Patient is concerned about her thyroid levels. Asking for Dr Catrachita Leach to order labs. Please advise at [phone]. [facility] Telephone encounter Note* Telephone Encounter - Barbra Finn RN - 11/04/2023 8:31 AM EDT Please see patient's my chart message. Last TSH/T3/T4 drawn 05/21/2023. Patient reduced dose of synthroid by half d/t symptoms and has continued the reduced dose. Barbra Finn, RN [facility]-29[facility]24 Telephone encounter Note* Telephone Encounter - Keith Irvin OCCA - 07/09/2023 9:01 AM EDT Requester: Patient Patients last Endocrinology visit occurred 02/17/2023. Follow-up evaluation has been established Patient comment: Remember, I'm taking 125 mcg every other day. I have a 15 day supply for 112 mcg but I have 1 pill of 125 mcg. Please call in 60 day (total) supply for each so I don't have to go thepharmacy every two weeks. Upcoming Endocrinology Appointments - Next 365 Days No appointments to display Requested Prescriptions Pending Prescriptions Disp Refills SYNTHROID 125 mcg tablet 20 tablet 5 Sig: Take 1 tablet by mouth four times a week. Friday, Friday, Friday, and Friday Wait 30 min before eating or taking other meds; Wait 4 hrs before mineral vitamins SYNTHROID 112 mcg tablet 15 tablet 5 Sig: Take 1 tablet by mouth three times a week. On Friday, , and Friday If patient is due for an appointment please route to provider for refill consideration and also to the endo scheduling pool. PSS NOTE: Patient needs scheduled appointment Yes ROSENDO Carrillo [facility] Miscellaneous Notes* Telephone Encounter - Keith Irvin OCCA - 07/09/2023 9:01 AM EDT Requester: Patient Patients last Endocrinology visit occurred 02/17/2023. Follow-up evaluation has been established Patient comment: Remember, I'm taking 125 mcg every other day. I have a 15 day supply for 112 mcg but I have 1 pill of 125 mcg. Please call in 60 day (total) supply for each so I don't have to go thepharmacy every two weeks. Upcoming Endocrinology Appointments - Next 365 Days No appointments to display Requested Prescriptions Pending Prescriptions Disp Refills SYNTHROID 125 mcg tablet 20 tablet 5 Sig: Take 1 tablet by mouth four times a week. Friday, Friday, Friday, and Friday Wait 30 min before eating or taking other meds; Wait 4 hrs before mineral vitamins SYNTHROID 112 mcg tablet 15 tablet 5 Sig: Take 1 tablet by mouth three times a week. On Friday, , and Friday If patient is due for an appointment please route to provider for refill consideration and also to the endo scheduling pool. PSS NOTE: Patient needs scheduled appointment Yes ROSENDO Carrillo documented in this encounterSt. Mary[facility]04-12-2024 Miscellaneous Notes* Telephone Encounter - Keith Irvin OCCA - 05/23/2023 12:45 PM EDT - 02/17/2023Dec- 10/06/2023 Please review recent message and advise. Thank you, ROSENDO Carrillo documented in this encounterSt. Mary'[facility]01-08-2024 NoteHNO ID: [id number] Author: HAYLEE CRUMP APRN.NURSING TECH Service: ? Author Type: Nurse Practitioner Type: Progress Notes Filed: 02/17/2023 10:00 Note Text: 02/17/23 VIRTUAL VISIT PROGRESS NOTE This is a virtual visit using 117go Zoom Video Visit. It required patient-provider interaction for the medical decision making as documented below. I have communicated my name and active licensure. The patient's identity and physical location were verified at the time of this visit. Either the patient or their legal customer development representative has been informed of the risks [...] Component Latest Ref Rng AND Units 07/24/2022 02/11/202302/1102/11/2023 7:33 AM 7:33 AM Protein, Total 6.3 [...] 31.0 - 80.0 ng/mL 40.7 PHYSICAL EXAMINATION: LMP 07/11/2021 Last 3 Encounter Wt Readings: Date: [...] thyroiditis - SYNTHROID 1 (more content not included)...[facility]12-06-2023 Miscellaneous Notes* Telephone Encounter - Glenna Saravia Ma - 01/15/2023 7:17 AM EST HINA: 11/04/2022 Patient is not feeling well and on Prednisone. She was going to have her labs drawn but would like to wait until these medications are out of her system. How long should she wait to have labs drawn? Glenna Saravia Ma documented in this encounterSt. Mary'[facility]09-25-2023 History of Present illness Narrative* Carl Domínguez MD - 11/04/2022 2:38 PM EDT Subjective: Marko Kelley is here today to [...] months - or soonest thereafter - with Haylee Crump APRN.NURSING TECH - fasting labs prior to visit Follow up in 6 months with me I spent a total of 20 minutes on the date of the service which included preparing to see the patient, [id number] patient care, completing clinical documentation, obtaining and/or reviewing separately obtained history, counseling and educating the patient/family/caregiver, ordering medications, sonja ts, or procedures, independently interpreting results (not separately reported), communicating results to the patient/family/caregiver, and care coordination (not separately reported). Carl Domínguez MD Endocrinology, Diabetes, & Metabolism November 04, 2022 2:38 PM I have communicated my name and active licensure. The patient's identity and physical location wereverified at the time of this visit. Either the patient or their legal customer development representative has been informed of the risks and benefits of -- and alternatives to -- treatment through a remote evaluation andconsents to proceed with the evaluation remotely. documented in this encounterSt. Mary'S [facility] Center03-23-2023 Procedure [facility]08-22-2022 History of Present illness Narrative* Carl Domínguez MD - 10/01/2021 4:07 PM EDT Subjective: Marko Kelley is here today to [...] which included preparing to see the patient, [id number] patient care, completing clinical documentation, obtaining and/or reviewing separately obtained history, counseling and educating the patient/family/caregiver, ordering medications, sonja ts, or procedures, and communicating results to the patient/family/caregiver. Carl Domínguez MD Endocrinology, Diabetes, & Metabolism October 01, 2021 4:07 PM documented in this encounterSt. Mary'[facility]07-14-2022 Miscellaneous Notes* Telephone Encounter - Brenda Guerra RN - 08/23/2021 9:15 AM EDT Patient notified. Brenda Guerra RN * Telephone Encounter - Verito Franco APRN.CNP - 08/23/2021 9:06 AM EDT Please let the pt know that her US is normal and vaginal culture is negative for infection. She should follow up the GI. Verito Franco APRN.CNP documented in this encounterSt. Mary'S Medical Center07-12-2022 History of Present illness Narrative* Verito Franco APRN.CNP - 08/21/2021 1:34 PM EDT Marko Kelley is a 56 year old [...] L3 SAB0 IAB0 Ectopic0 Multiple0 Live Births0 Cracker Sprayer History LMP: 11/13/2019, Having periods Age at Menarche: Age at First : Age at Menopause: Cracker Sprayer History Comments: Sexual Activity: Yes; Male Contraception: [...] external genitalia normal, normal Bartholin's glands, urethra, Congress's glands, no vulvar lesions, no cervical lesions, [...] STAIN - PELVIC US WHI Verito Franco APRN.CNP Medical Decision Making: Problems: Low: Acute, uncomplicated illness or injury Data: Unique test(s) ordered: 3+ Risk: Low: Low risk from testing/treatment Medical Decision Making Level: 3 - Low documented in this encounterSt. Mary'[facility]07-01-2022 Miscellaneous Notes* Telephone Encounter - Rae Orosco LPN - 08/10/2021 8:10 AM EDT Phone call placed patient advised (see prior provider encounter) Patient verbalized understanding. Patient reported visit 08/09/21 with PCP Dx diverticulitis. Rae Orosco LPN * Telephone Encounter - Shirley Sands APRN.CNP - 08/09/2021 1:29 PM EDT Please inform patient that her urine culture was negative for growth. She needs to follow up with her PCP to further evaluate her symptoms and blood in urine. documented in this encounterSt. Mary'S [facility] Center06-29-2022 Miscellaneous Notes* Telephone Encounter - Clarissa Orosco LPN - 08/08/2021 4:57 PM EDT Pt called back and results below given. Clarissa Orosco LPN * Telephone Encounter - Georgiana Tillman LPN - 08/08/2021 4:51 PM EDT TC to Pt. Unable to LM due to the mailbox is full. Will try again later. Georgiana Tillman LPN * Telephone Encounter - Shirley Sands APRN.CNP - 08/08/2021 4:45 PM EDT Lipase normal. Please inform patient. documented in this encounterSt. Mary'S Medical Center06-29-2022 Miscellaneous Notes* Telephone Encounter - Shirley Sands APRN.CNP - 08/08/2021 2:05 PM EDT Return patients call. Informed here of the results. CBC normal CMP normal aside from mildly elevated glucose. We are pending Lipase, call to lab. Specimen is pending being sent over to [facility] Patient also reeducated of blood in her urine, culture is pending. If positive we will treat with ATB as indicated. Verbalized understanding. * Telephone Encounter - Eloisa Gibson RN - 08/08/2021 1:16 PM EDT Patient calling for lab results done today. She was able to view them in My Chart and is asking about her UA. Eloisa Gibson RN documented in this encounterSt. Mary'S [facility] Center06-29-2022 Instructions* Patient Instructions* Shirley Sands APRN.CNP - 08/08/2021 10:57 AM EDT ABDOMINAL PAIN [...] or drink large amounts of fluids. You maytake small sips of clear liquids or suck [...] feel short of breath. documented in this encounterSt. Mary'S Medical Center06-29-2022 History of Present illness Narrative* Shirley Sands APRN.CNP - 08/08/2021 10:54 AM EDT This note was created using TagCashriter. Subjective Marko Kelley is a 56 year [...] Denies SOB/CP, or weakness. 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 No certified court interpreter was used. Fever This is a new [...] Patient aware of blood and need Petrona Lopesus TEACHING PROVIDER (Physician/PA/TOASTER ELEMENT REPAIRER) NOTE OF PERSONAL INVOLVEMENT IN CARE: I have personally seen and examined the patient and performed the medical decision-making components. I have reviewed the Advanced Practice Registered Nurse (TOASTER ELEMENT REPAIRER) Student's documentation and verified the findings in the note as written. Any additions or changes are noted in bold/italics. Signature: Shirley Sands Date: 08/08/2021 Time: 1:48 PM documented in this encounterSt. Mary'S Medical Center04-14-2022 Miscellaneous Notes* Telephone Encounter - Haylee Crump APRN.CNP - 05/24/2021 7:37 AM EDT Signed Prescriptions Disp Refills SYNTHROID 112 mcg tablet 90 tablet 1 Sig: Take 1 tablet by mouth once daily. JOYCE: Yes 1. 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 Can someone get back to her today, she is asking. * Telephone Encounter - Becca Castanon RN - 05/22/2021 10:58 AM EDT HINA: 04/09/2021 NOV: 10/01/2021 Component Latest Ref Rng & Units 04/03/2021 05/19/2021 TSH 0.270 - 4.200 mIU/L 1.870 0.792 Patient concern with the drop in TSH. Also has c/o irregular heart beat and palpitations the past couple of weeks Currently on 125 mcg once daily of Synthroid - Asking for a dose change documented in this encounterSt. Mary'S [facility] Center02-18-2015 History of Past illness Narrative* Problem Noted Date Resolved Date 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 Breast pain, left 02/24/2013 08/06/2016 Hypothyroidism 11/08/2009 03/30/2014 Routine general medical exam ination at [facility] 05/16/2008 08/19/2011 Routine gynecological examination 05/16/2008 08/19/2011 documented as of this encounter (statuses as of 05/24/2021) [facility] of Past illness Narrative* Problem Noted Date Resolved Date 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 Breast pain, left 02/24/2013 08/06/2016 Hypothyroidism 11/08/2009 03/30/2014 Routine general medical exam ination [facility] 05/16/2008 08/19/2011 Routine gynecological examination 05/16/2008 08/19/2011 documented as of this encounter (statuses as of 08/08/2021) [facility] of Past illness Narrative* Problem Noted Date Resolved Date 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 Breast pain, left 02/24/2013 08/06/2016 Hypothyroidism 11/08/2009 03/30/2014 Routine general medical exam ination at a health care facility 05/16/2008 08/19/2011 Routine gynecological examination 05/16/2008 08/19/2011 documented as of this encounter (statuses as of 08/08/2021) [place] [address]-18-2015 History of Past illness Narrative* Problem Noted Date Resolved Date 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 Breast pain, left 02/24/2013 08/06/2016 Hypothyroidism 11/08/2009 03/30/2014 Routine general medical exam [facility] 05/16/2008 08/19/2011 Routine gynecological examination 05/16/2008 08/19/2011 documented as of this encounter (statuses as of 08/10/2021) [address]18-2015 History of Past illness Narrative* Problem Noted Date Resolved Date 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 Breast pain, left 02/24/2013 08/06/2016 Hypothyroidism 11/08/2009 03/30/2014 Routine general medical exam [facility]ation [facility] 05/16/2008 08/19/2011 Routine gynecological examination 05/16/2008 08/19/2011 documented as of this encounter (statuses as of 08/21/2021) [address]18[address]2015 History of Past illness Narrative* Problem Noted Date Resolved Date 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 Breast pain, left 02/24/2013 08/06/2016 Hypothyroidism 11/08/2009 03/30/2014 Routine general medical exam ination [facility] 05/16/2008 08/19/2011 Routine gynecological examination 05/16/2008 08/19/2011 documented as of this encounter (statuses as of 08/22/2021) [address]2015 History of Past illness Narrative* Problem Noted Date Resolved Date 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 Breast pain, left 02/24/2013 08/06/2016 Hypothyroidism 11/08/2009 03/30/2014 Routine general medical exam ination [facility] 05/16/2008 08/19/2011 Routine gynecological examination 05/16/2008 08/19/2011 documented as of this encounter (statuses as of 08/23/2021) [address]2015 History of Past illness Narrative* Problem Noted Date Resolved Date 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 Breast pain, left 02/24/2013 08/06/2016 Hypothyroidism 11/08/2009 03/30/2014 Routine general medical exam ination at a health care facility 05/16/2008 08/19/2011 Routine gynecological examination 05/16/2008 08/19/2011 documented as of this encounter (statuses as of 10/01/2021) [facility] Narrative* Problem Noted Date Diagnosed Date Resolved Date 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 03/07/19 17 Breast pain, left 02/24/2013 08/06/2016 Hypothyroidism 11/08/2009 03/30/2014 Routine general medical exam [facility]ation [facility] 05/16/2008 08/19/2011 Routine gynecological examination 05/16/2008 08/19/2011 documented as of this encounter (statuses as of 11/05/2022) [facility] of Past illness Narrative* Problem Noted Date Diagnosed Date Resolved Date 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 03/07/19 17 Breast pain, left 02/24/2013 08/06/2016 Hypothyroidism 11/08/2009 03/30/2014 Routine general medical exam ination [facility] 05/16/2008 08/19/2011 Routine gynecological examination 05/16/2008 08/19/2011 documented as of this encounter (statuses as of 01/17/2023) [address]2015 History of Past illness Narrative* Problem Noted Date Diagnosed Date Resolved Date 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 03/07/19 17 Breast pain, left 02/24/2013 08/06/2016 Hypothyroidism 11/08/2009 03/30/2014 Routine general medical exam [facility]ation [facility] 05/16/2008 08/19/2011 Routine gynecological examination 05/16/2008 08/19/2011 documented as of this encounter (statuses as of 05/30/2023) 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* Diagnosis Viral illness- Primary Unspecified viral infection, in conditions classified elsewhere and of unspecified site Fever, unspecified fever cause Generalized abdominal pain Abdominal pain, generalized Microscopic hematuria documented [facility] this encounter [facility]Eval[facility] noteNo assessment information availableWEast [facility] Work Phone: Evaluation note* Diagnosis Gross hematuria- Primary Pelvic pain in female Unspecified symptom associated with female genital organs [facility] this 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 Insulin resistance Dysmetabolic Syndrome X Abnormal glucose Other abnormal glucose Dyslipidemia Other and unspecified hyperlipidemia documented in this encounter [facility] note* Diagnosis Onset Date Resolution Status Asthma acute [facility] Work Phone: Evaluation note* Diagnosis Onset Date Resolution Status Asthma chronic Family history of intracranial aneurysms acute Terri's thyroiditis acut e Right-sided carotid artery disease acute Asthma chronic Hypothyroidism chronic Asthma chronic [facility] Work Phone: Evaluation note* Diagnosis Onset Date Resolution Status Ganglion cyst of joint of finger of right hand chronic BENJIE (obstructive sleep apnea) acute Asthma chronic Obesity chronic [facility] Work Phone: Evaluation note* Diagnosis 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 Insulin resistance Dysmetabolic Syndrome X Abnormal glucose Other abnormal glucose Dyslipidemia Other and unspecified hyperlipidemia Vitamin D deficiency Unspecified vitamin D deficiency documented in this encounter [facility] note* Diagnosis Onset Date Resolution Status BENJIE (obstructive sleep apnea) acute Asthma chronic Carotid artery stenosis acut e Pain and swelling of right lower leg acute [facility] Work Phone: Evaluation note* Diagnosis Onset Date Resolution Status Carotid artery stenosis acut e Pain and swelling of right lower leg acute [facility] Work Phone: Evaluation note* Diagnosis 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 Diagnoses Pelvic pain in female Procedures PELVIC US WHI US PELVIC NONOBSTETRIC REAL-TIME IMAGE COMPLETE Verito Franco, SETH.NURSING TECH [address] [place] [address] [facility] [address] [place] [address] Referral ID Status Reason Start Date Expiration Date Visits Requested Visits Authorized [id number] Pending Review Auto-Generat ed Referral 08/21/2021 08/21/2022 1 1 [facility] for referral (narrative)No reason for referral information availableWEast [facility] Work Phone: Health Concerns Infection Onset Date Last Indicated Resolved Time COVID-19 Rule-Out 08/08/2021 08/08/2021 Infection Onset Date Last Indicated Resolved Time COVID-19 Rule-Out 08/08/2021 08/08/2021 08/09/2021 12:54 AM EDT Family History No Family History Records Found Relationship Condition Age at Onset Recorded Date/T rose mary mother Hypertension Unknown Alcoholism Unknown Drug abuse Unknown Malignant neoplasm Unknown Coronary artery disease Unknown brother Diabetes mellitus Unknown Relationship Condition Age at Onset Recorded Date/T rose mary mother Hypertension Unknown Alcoholism Unknown Drug abuse Unknown Malignant neoplasm Unknown Coronary artery disease Unknown Malignant neoplasm of lung Unknown Cardiac disease Unknown brother Diabetes mellitus Unknown Hypertension Unknown sister Malignant neoplasm of bone Unknown Malignant melanoma Unknown aunt Malignant neoplasm of lung Unknown uncle Malignant neoplasm of lung Unknown Advance Directives No Advanced Directives Records Found Advance Directive Response Recorded Date/ Time Living Will No October 28, 2020 10:26pm Power of Pillowcase Cleaner No October 10:26pm Advance Directive Response Recorded Date/ Time Living Will No September 04, 2021 7:01am Power of Pillowcase Cleaner No September 04 7:01am Advance Directive Response Recorded Date/ Time Living Will No September 04, 2021 6:01am Power of Pillowcase Cleaner No September 04 6:01am Chief Complaint and Reason for Visit Chief Complaint ABDOMINAL PAIN Chief Complaint ABDOMINAL PAIN COUGH Chief Complaint Asthma ASTHMA ASTHMA Asthma Reason for Visit Asthma Chief Complaint Asthma ASTHMA ASTHMA Asthma Bloodflow Screening E ORDER 6 wk FU Reason for Visit Asthma Family history of intracranial aneurysms Terri's thyroiditis Right-sided carotid artery disease Asthma Hypothyroidism Asthma Chief Complaint Hypersomnia, unspeci fied Chief Complaint Hypersomnia, unspeci fied CONSULT-SKIN LESION ON FINGER ganglion cyst right middle finger follow up sleep study Reason for Visit Ganglion cyst of veronique nt of finger of right hand BENJIE (obstructive sleep apnea) Asthma Obesity Chief Complaint Hypersomnia, unspeci fied CONSULT-SKIN LESION ON FINGER ganglion cyst right middle finger follow up sleep study BENJIE Reason for Visit Ganglion cyst of veronique nt of finger of right hand BENJIE (obstructive sleep apnea) Asthma Obesity Chief Complaint 6 month follow up F/U FOR CAROTID Pain in right lower leg CAROTID ARTERY STENOSIS RIb pain Reason for Visit BENJIE (obstructive sle ep apnea) Asthma Carotid artery stenosis Pain and swelling of right lower leg Chief Complaint F/U FOR CAROTID Pain in right lower leg CAROTID ARTERY STENOSIS RIb pain STAT PAIN IN LEFT CALF Reason for Visit Carotid artery steno sis Pain and swelling of right lower leg Chief Complaint Admit Date E-ORDER June 17, 2024 9:12am Disorder of thyroid, unspecified June 22t h2024 12:51pm Chief Complaint Admit Date E-ORDER June 17, 2024 9:12am Disorder of thyroid, unspecified June 12:51pm INT LABS June 28, 2024 7:09a m Chief Complaint Admit Date E-ORDER June 17, 2024 9:12am Disorder of thyroid, unspecified June h2024 12:51pm INT LABS June 28, 2024 7:09a m THYROID NODULE July 19, 2024 7:47a m Reason for Visit Admit Date Dysphagia July 19, 2024 7:47a m Iron deficiency anemia July 19, 2024 7: 47am Multiple thyroid nodules July 19, 2024 7:47am Weight loss July 19, 2024 7:47a m Summary Purpose Additional Source Comments Source Comments (unrecognize d section and content) In the event this informatio n is protected by the Federal Confidentiality of Alcohol and Drug Abuse Patient Records regulations: The Federal rules restrict any use of the information to criminally investigate or prosecute any alcohol or drug abuse patient.[facility] the event this information is protected by the Federal Confidentiality of Alcohol and Drug Abuse Patient Records regulations: The Federal rules restrict any use of the information to criminally investigate or prosecute any alcohol or drug abuse patient.[facility] the event this information is protected by the Federal Confidentiality of Alcohol and Drug Abuse Patient Records regulations: The Federal rules restrict any use of the information to criminally investigate or prosecute any alcohol or drug abuse patient.[facility] the event this information is protected by the Federal Confidentiality of Alcohol and Drug Abuse Patient Records regulations: The Federal rules restrict any use of the information to criminally investigate or prosecute any alcohol or drug abuse patient.[facility] the event this information is protected by the Federal Confidentiality of Alcohol and Drug Abuse Patient Records regulations: The Federal rules restrict any use of the information to criminally investigate or prosecute any alcohol or drug abuse patient.[facility] the event this information is protected by the Federal Confidentiality of Alcohol and Drug Abuse Patient Records regulations: The Federal rules restrict any use of the information to criminally investigate or prosecute any alcohol or drug abuse patient.[facility] the event this information is protected by the Federal Confidentiality of Alcohol and Drug Abuse Patient Records regulations: The Federal rules restrict any use of the information to criminally investigate or prosecute any alcohol or drug abuse patient.[facility] the event this information is protected by the Federal Confidentiality of Alcohol and Drug Abuse Patient Records regulations: The Federal rules restrict any use of the information to criminally investigate or prosecute any alcohol or drug abuse patient.[facility] the event this information is protected by the Federal Confidentiality of Alcohol and Drug Abuse Patient Records regulations: The Federal rules restrict any use of the information to criminally investigate or prosecute any alcohol or drug abuse patient.[facility] the event this information is protected by the Federal Confidentiality of Alcohol and Drug Abuse Patient Records regulations: The Federal rules restrict any use of the information to criminally investigate or prosecute any alcohol or drug abuse patient.[facility] the event this information is protected by the Federal Confidentiality of Alcohol and Drug Abuse Patient Records regulations: The Federal rules restrict any use of the information to criminally investigate or prosecute any alcohol or drug abuse patient.[facility] the event this information is protected by the Federal Confidentiality of Alcohol and Drug Abuse Patient Records regulations: The Federal rules restrict any use of the information to criminally investigate or prosecute any alcohol or drug abuse patient.[facility] the event this information is protected by the Federal Confidentiality of Alcohol and Drug Abuse Patient Records regulations: The Federal rules restrict any use of the information to criminally investigate or prosecute any alcohol or drug abuse patient.[facility] Center[facility] the event this information is protected by the Federal Confidentiality of Alcohol and Drug Abuse Patient Records regulations: The Federal rules restrict any use of the information to criminally investigate or prosecute any alcohol or drug abuse patient.[facility] Care Teams (unrecognized sec tion and content) Smart Grid Engineer Relationship Specialty Start Date End Date Sylvester Ontiveros MD PCP - General 04/27/09 Smart Grid Engineer Relationship Specialty Start Date End Date Sylvester Ontiveros MD PCP - General 04/27/09 Smart Grid Engineer Relationship Specialty Start Date End Date Sylvester Ontiveros MD PCP - General 04/27/09 Smart Grid Engineer Relationship Specialty Start Date End Date Sylvester Ontiveros MD PCP - General 04/27/09 Smart Grid Engineer Relationship Specialty Start Date End Date Sylvester Ontiveros MD PCP - General 04/27/09 Smart Grid Engineer Relationship Specialty Start Date End Date Sylvester Ontiveros MD PCP - General 04/27/09 Team Status: Active Member Role Status Dates Dr. Sylvester Ontiveros MD Family Provider Active No Primary Care Physician Primary Care Provider Active Team Status: Inactive Member Role Status Dates Dr. Sylvester Ontiveros MD Primary Care Provider, Referring Provider Active Dr. Aston Grant DO Attending Provider Active Team Status: Active Member Role Status Dates No Primary Care Physician Primary Care Provider Active Dr. Pedro Luis Light MD Attending Provider Active Team Status: Active Member Role Status Dates No Primary Care Physician Primary Care Provider Active Dr. Aston Grant DO Attending Provider, Other Provide r Active Team Status: Active Member Role Status Dates Dr. Anastacio Kimbrough MD Attending Provider Active No Primary Care Physician Primary Care Provider Active Team Status: Inactive Member Role Status No Primary Care Physician Primary Care Provider Active Dr. Aston Grant DO Attending Provider Active Team Status: Inactive Member Role Status Dates Dr. Sylvester Ontiveros MD Referring Provider Active Dr. Aston Grant DO Attending Provider Active No Primary Care Physician Primary Care Provider Active Team Status: Inactive Member Role Status No Primary Care Physician Primary Care Provider, Refer ring Provider Active Dr. Anastacio Kimbrough MD Attending Provider Active Team Status: Inactive Member Role Status No Primary Care Physician Primary Care Provider Active Dr. Aston Grant DO Attending Provider, Referring Pro vider Active Team Status: Active Member Role Status No Primary Care Physician Primary Care Provider Active Ninfa RAMIREZ PA Attending Provider, Referrin g Provider Active Team Status: Inactive Member Role Status No Primary Care Physician Primary Care Provider Active Ninfa Bilópez RAMIREZ PA Attending Provider, Referrin g Provider Active Team Status: Active Member Role Status Dr. Sylvester Ontiveros MD Family Provider Active Ham Tucker MD Primary Care Provider Active Team Status: Inactive Member Role Status Oneal Tucker MD Primary Care Provide r, Attending Provider, Referring Provider Active Team Status: Inactive Member Role Status Dr. Sanya Mariano MD Attending Provider Active Ham Tucker MD Primary Care Provider, Referring Prov ider Active Team Status: Inactive Member Role Status Oneal Tucker MD Primary Care Provider, Referring Prov ider Active Hawa Galeana GLASSBLOWER, GLASSBLOWER-C Attending Provider Active Team Status: Inactive Member Role Status Oneal Tucker MD Primary Care Provider, Attending Prov ider Active Team Status: Inactive Member Role Status Oneal Tucker MD Primary Care Provider Active Dr. Sanya Mariano MD Attending Provider, Referring P rovider Active Team Status: Inactive Member Role Status Oneal Tucker MD Primary Care Provider Active Hawa Galeana GLASSBLOWER, GLASSBLOWER-C Attending Provider Active Smart Grid Engineer Relationship Specialty Start Date End Date Sylvester Ontiveros MD PCP - General 04/27/09 Smart Grid Engineer Relationship Specialty Start Date End Date Sylvester Ontiveros MD PCP - General 04/27/09 Team Status: Inactive Member Role Status Oneal Tucker MD Primary Care Provider, Referring Prov ider Active JAMES Donato Attending Provider Active Team Status: Active Member Role Status Oneal Tucker MD Primary Care Provider Active Dr. Anastacio Kimbrough MD Attending Provider Active Team Status: Inactive Member Role Status Oneal Mcnulty Primary Care Physician Primary Care Provider Active JAMES Donato Attending Provider, Referring Provid er Active Team Status: Inactive Member Role Status Oneal Tucker MD Primary Care Provider Active Dr. Anastacio Kimbrough MD Attending Provider, Referring Pro vider Active Team Status: Active Member Role Status Oneal Tucker MD Primary Care Provide r, Attending Provider, Referring Provider Active Team Status: Active Member Role Status Oneal Tucker MD Primary Care Provider Active Dr. Anastacio Kimbrough MD Attending Provider Active JAMES Donato Referring Provider Active Smart Grid Engineer Relationship Specialty Start Date End Date Sylvester Ontiveros MD PCP - General 04/27/09 Smart Grid Engineer Relationship Specialty Start Date End Date Sylvester Ontiveros MD PCP - General 04/27/09 Team Status: Active Member Role Status Oneal Tucker MD Primary Care Provider Active Team Status: Inactive Member Role Status Oneal Tucker MD Primary Care Provider Active St art: June 17, 2024 End: June 17, 2024 Ham Tucker MD Attending Provider Active Start : June 17, 2024 End: June 17, 2024 Ham Tucker MD Referring Provider Active Start : June 17, 2024 End: June 17, 2024 Team Status: Active Member Role Status Oneal Tucker MD Primary Care Provider Active St art: June 22, 2024 Ham Tucker MD Attending Provider Active Start : June 22, 2024 Ham Tucker MD Referring Provider Active Start : June 22, 2024 Team Status: Inactive Member Role Status Oneal Tucker MD Primary Care Provider Active St art: June 22, 2024 End: June 22, 2024 Ham Tucker MD Attending Provider Active Start : June 22, 2024 End: June 22, 2024 Ham Tucker MD Referring Provider Active Start : June 22, 2024 End: June 22, 2024 Team Status: Active Member Role Status Oneal Tucker MD Primary Care Provider Active St art: June 28, 2024 Ham Tucker MD Attending Provider Active Start : June 28, 2024 Ham Tucker MD Referring Provider Active Start : June 28, 2024 Team Status: Inactive Member Role Status Oneal Tucker MD Primary Care Provider Active St art: June 28, 2024 End: June 28, 2024 Ham Tucker MD Attending Provider Active Start : June 28, 2024 End: June 28, 2024 Ham Tucker MD Referring Provider Active Start : June 28, 2024 End: June 28, 2024 Team Status: Inactive Member Role Status Oneal Tucker MD Primary Care Provider Active St art: July 19, 2024 End: July 19, 2024 Ham Tucker MD Referring Provider Active Start : July 19, 2024 End: July 19, 2024 Dr. Rick Pereira MD Attending Provider Active Start: July 19, 2024 End: July 19, 2024 Team Status: Active Member Role/Relationship Status Oneal Tucker MD Primary Care Provider Active Team Status: Inactive Member Role/Relationship Status Oneal Tucker MD Primary Care Provider Active St art: June 17, 2024 End: June 17, 2024 Ham Tucker MD Attending Provider Active Start : June 17, 2024 End: June 17, 2024 Ham Tucker MD Referring Provider Active Start : June 17, 2024 End: June 17, 2024 Team Status: Inactive Member Role/Relationship Status Oneal Tucker MD Primary Care Provider Active St art: June 22, 2024 End: June 22, 2024 Ham Tucker MD Attending Provider Active Start : June 22, 2024 End: June 22, 2024 Ham Tucker MD Referring Provider Active Start : June 22, 2024 End: June 22, 2024 Team Status: Inactive Member Role/Relationship Status Oneal Tucker MD Primary Care Provider Active St art: June 28, 2024 End: June 28, 2024 Ham Tucker MD Attending Provider Active Start : June 28, 2024 End: June 28, 2024 Ham Tucker MD Referring Provider Active Start : June 28, 2024 End: June 28, 2024 Team Status: Inactive Member Role/Relationship Status Oneal Tucker MD Primary Care Provider Active St art: July 19, 2024 End: July 19, 2024 Ham Tucker MD Referring Provider Active Start : July 19, 2024 End: July 19, 2024 Dr. Rick Pereira MD Attending Provider Active Start: July 19, 2024 End: July 19, 2024 Team Status: Inactive Member Role/Relationship Status Oneal Tucker MD Primary Care Provider Active St art: August 30, 2024 End: August 30, 2024 Ham Tucker MD Attending Provider Active Start : August 30, 2024 End: August 30, 2024 Ham Tucker MD Referring Provider Active Start : August 30, 2024 End: August 30, 2024 Reason for Visit (unrecogniz ed section and content) Reason Comments Fever chills, back pain x 1 day, nausea x 3 days Rash all over from head t o toe x 8 days Specialty Diagnoses / Procedures Referred By Contac t Referred To Contact Internal Medicine / [facility] Diagnoses Fever fever, chills and rash Procedures OFFICE/OUTPATIENT NEW MODERATE MDM 45-59 MINUTES NEW SAME DAY Self Shirley Sands, TOASTER ELEMENT REPAIRER.NURSING TECH [address] [place] [address] Referral ID Status Reason Start Date Expiration Date Visits Re quested Visits Authorized [id number] Closed 08/08/2021 02/09/2022 1 1 Reason Comments Results Reason Comments Vaginal Problem Specialty Diagnoses / Procedures Referred By Contac t Referred To Contact Gynecology / [employer] [facility] Diagnoses Hematuria vaginal pressure/discharge/hemat uria Procedures OFFICE/OUTPATIENT ESTABLISHED HIGH MDM 40-54 MIN EST WHI PATIENT SelfMD Joan Renee, TOASTER ELEMENT REPAIRER.NURSING TECH [address] [place] [address] Referral ID Status Reason Start Date Expiration Date Visits Re quested Visits Authorized [id number] Closed 08/21/2021 02/09/2022 1 1 Reason Comments PEDIATRIC CLINICAL NURSE SPECIALIST Ultrasound Specialty Diagnoses / Procedures Referred By Contac t Referred To Contact [employer] Diagnoses READ Procedures US PELVIC NONOBSTETRIC REAL-TIME IMAGE COMPLETE PELVIC ULTRASOUND Verito Franco, TOASTER ELEMENT REPAIRER.NURSING TECH [address] [place] [address] Yvonne Garcia MD [address] [place] [address] Referral ID Status Reason Start Date Expiration Date Visits Re quested Visits Authorized [id number] Closed 08/22/2021 02/09/2022 1 1 Reason Comments Thyroid Problem High Blood Sugar Specialty Diagnoses / Procedures Referred By Contac t Referred To Contact Laboratory Medicine / [facility] [address] Diagnoses lab Procedures VENIPUNCTURE LAB Carl Domínguez MD [address] [place] [address] Lab [facility] [address] [place] [address] Referral ID Status Reason Start Date Expiration Date V isits Requested Visits Authorized [id number] Authorized 12/06/2020 12/05/2021 99 99 Reason Comments Follow Up Specialty Diagnoses / Procedures Referred By Contac t Referred To Contact Endocrinology / ENDOCRINOLOGY Diagnoses thyroid follow up Procedures VIDEO SPEC EST Self Carl Domínguez MD [address] [place] [address] Referral ID Status Reason Start Date Expiration Date Visits Re quested Visits Authorized [id number] Closed 11/04/2022 02/09/2023 1 1 Reason Onset Date Comments Refill Request 07/09/2023 Goals (unrecognized section and content) Goals may be documented in a n alternate sectionGoals may be documented in an alternate sectionGoals may be documented in an alternate sectionGoals may be documented in an alternate sectionGoals may be documented in an alternate sectionGoals may be documented in an alternate sectionGoals may be documented in an alternate sectionGoals may be documented in an alternate sectionGoals may be documented in an alternate sectionGoals may be documented in an alternate sectionGoals may be documented in an alternate sectionGoals may be documented in an alternate sectionGoals may be documented in an alternate sectionGoals may be documented in an alternate sectionGoals may be documented in an alternate sectionGoals may be documented in an alternate sectionGoals may be documented in an alternate section INFORMATION SOURCE (unrecogn ized section and content) DATE CREATED AUTHOR 11/19/2023 [facility] DATE CREATED AUTHOR 'Mary LYLE 09/04/2024 [facility] FOR RECORDS PERTAINING TO PATIENTS WHO ARE [...] BE BASED ON THE PRIMARY CLINICAL RECORDS. [employer] provides no warranty or guarantee of the accuracy or completeness of information in this document.
--- OUTSIDE RECORDS SUMMARY | 2024-11-30 16:29 | XMS RPT_ITS | CCD ---
Author Organization [facility] Care Team Providers Care Telecommunications Facility Examiner Name Role Phone Sylvester Ontiveros MD Primary Care Provider [phone] Dr. Sylvester Ontiveros Primary Care Provider Dr. [...] Ham Tucker Referring Provider [phone] Lissett PRODUCTION SUPERVISOR TRAINEE, PRODUCTION SUPERVISOR TRAINEE-C Hawa Attending Provider Sylvester Ontiveros MD Primary Care Provider MD Ham Tucker Primary Care Provider MD Ham Tucker Referring Provider Lissett PRODUCTION SUPERVISOR TRAINEE, PRODUCTION SUPERVISOR TRAINEE-C Hawa Attending Provider JAMES Pringle Attending Provider [phone] Anastacio Kimbrough Attending Provider [phone] JAMES Pringle Referring Provider [phone] MD Ham Tucker Primary Care Provider [phone] MD Ham Tucker Referring Provider JAMES Pringle Attending Provider [phone] Anastacio Kimbrough Attending Provider JAMES Pringle Referring Provider Weston MAYEN, Sylvester Aguilar Primary Care Provider SYLVESTER ONTIVEROS Primary Care Unavailable CARL DOMÍNGUEZ Referring Unavailable GRUCA, HAYLEE Referring Unavailable WESTON, SYLVESTER AGUILAR Primary Care Unavailable GRUCA, HAYLEE Attending Unavailable WESTON, SYLVESTER AGUILAR Primary Care Unavailable CARL DOMÍNGUEZ Referring Unavailable WESTON, SYLVESTER AGUILAR Primary Care Unavailable Caitlin MAYEN, Ham Primary Care Provider Ham Tucker MD Attending Provider Caitlin MAYEN, Ham Referring Provider [phone] Rick Pereira MD Attending Provider [...] [PREDNISONE] Drug Allergy 7 Mental Status Change [facility] Comment on above: INJECTABLE MESSES WI TH MY VISION (1 source) predniSONE Drug Allergy 5 [facility] Repository Medications Current Medications Medication Drug Class(es) [...] 20 billion cell cpSP polyethylene glycol 3350 [id number] mg / potassium chloride 2970 mg / sodium bicarbonate 6740 mg / sodium chloride 5860 mg / sodium sulfate 45463 mg powder for oral solution (1 source) [...] Drug Class(es) Dates Sig (Normalized) Sig (Original) [id number] 200 actuat albuterol 0.09 mg/actuat metered dose [...] Comment on above: Take 1 tablet by [facility] once daily. Wait 30 min before eating or taking other meds; Wait 4 hrs before mineral vitamins Take 1 tablet by [facility] once daily. Take 1 tablet by [facility] four times a week. Friday, Friday, Friday, and Friday Wait 30 min before eating or taking other meds; Wait 4 hrs before mineral vitamins Take 1 tablet by [facility] three times a week. On Friday, [...] 2017 12:00am December 16, 2017 3:56pm thyroid (half-way) 90 mg oral tablet (20 sources) Start: [...] Comment on above: Sees Dr. Domínguez in [place] Patient is a 59-year -old female with [...] 08-30-2024 Calcium [Mass/Vol] 9.3 mg/dL Normal 7.6-11.0 [facility] Comment on above: Performed By: #### L 501.0895, L501.9520, L509.1000 ####[facility] [address] [place], [address] PTHINon 08-30-2024 PTH 46 pg/mL Normal 11-61 [facility] Comment on above: Performed By: #### L 501.0895, L501.9520, L509.1000 ####[facility] [address] [place], [address] Serum or plasma calcium rick urement (mass/volume)Ordered By: Ham Tucker on 08-30-2024 Calcium [Mass/Vol] 9.3 mg/dL 7.6-11.0 [facility] TSH DL <= 0.005 mIU/L QnOrde red By: Ham Tucker on 08-30-2024 TSH Qn 3.630 uIU/mL 0.300-4.200 [facility] Thyroid Stim Hormone (TSH)on 08-30-2024 TSH 3.630 uIU/mL Normal 0.300-4.200 [facility] Comment on above: Performed By: #### L 501.0895, L501.9520, L509.1000 ####[facility] [address] [place], [address] Surgery Visit Reporton 07-19 Surgery Visit Report [facility] [address] [place] [address] OFFICE VISIT Date of Service: 07/19/24 MR#: [id number] Acct: [id number] Name: MARKO KELLEY Rep #: [id number] : 1965 Provider: Dr. Rick stevens MD Age/Sex: 59/F Location: [facility] Status: Signed Intake Vital Signs 12/09/22 06:36 [...] PO QDAY 07/19/24 07/19/24 H istory Thyroid) [facility] Medical History (Updated 07/22/24 @ 16:11 by [...] Lung cancer Uncle Lung cancer Social History (Reviewed 12/09/22 @ 10:56 by Hawa Galeana PRODUCTION SUPERVISOR TRAINEE, PRODUCTION SUPERVISOR TRAINEE-C) Smoking Status: Never smoker alcohol intake: never [...] a mixed (more content not included)... Normal [facility] Urine Cultureon 06-29-2024 URC Order Date: 07/16/23 Order Info: 630-4 - CUUR Mixed Gram Positive Organisms [place] Count 11,000-25,000 MIXC Mixed contaminants. Submit a new specimen if indicated. Normal [facility] Comment on above: Performed By: #### M 100.2200 ####[facility] [address] [place], [address] L501.0895on 06-28-2024 Calcium [Mass/Vol] 9.8 mg/dL Normal 7.6-11.0 [facility] Comment on above: Order Comment: Order Date: 06/25/24 Order Info: 83587-2 - CA Order Info: 3016-3 - TSH Performed By: #### L 501.0895, L509.1000 #### [facility] [address] [place], [address] PTHINon 06-28-2024 PTH 42 pg/mL Normal 11-61 [facility] Comment on above: Order Comment: Order Date: 06/25/24 Order Info: 0565-1 - PTHIN Performed By: #### L 501.0895, L509.1000 #### [facility] [address] [place], [address] Serum or plasma calcium rick urement (mass/volume)Ordered By: Ham Tucker on 06-28-2024 Calcium [Mass/Vol] 9.8 mg/dL 7.6-11.0 [facility] TSH DL <= 0.005 mIU/L QnOrde red By: Ham Lemuske on 06-28-2024 TSH Qn 14.700 uIU/mL High 0.300-4.200 [facility] Thyroid Stim Hormone (TSH)on 06-28-2024 TSH 14.700 uIU/mL High 0.300-4.200 [facility] Comment on above: Order Comment: Order Date: 06/25/24Order Info: 64111-6 - CAOrder Info: 3016-3 - TSH Performed By: #### L 501.9520 ####[facility] [address] [facility] [place], [place], [id number] Urine cultureOrdered By: Yoana Tucker on 06-28-2024 Bacteria identified Cx Nom (U) Positive Abnormal [facility] Thyroidon 06-22-2024 Thyroid [facility] [address] [place], [place] [address] Thyroid MR#: [id number] Acct: [id number] Name: MARKO KELLEY Rep #: [id number] : 1965 F 59 From: Simon can MD PCP: Dr. Ham Tucker MD Status: REG CLI Study: Thyroid Date of Exam: 06/22/24 Exam# [id number] Ordering Dr: Ham Tucker MD PROCEDURE: THYROID [...] no more than 2 nodules. Reading Location: [facility] CC: Dr. Ham Tucker MD Shot Dropper: Signed Normal [facility] Glomerular filtration rate ( GFR) estimation/1.73 sq m using serum, plasma, or whole bOrdered By: Ham Tucker on 06-17-2024 GFR/1.73 sq M.predicted among non-blacks MDRD (S/P/Bld) [Vol rate/Area] 64 mL/min/{1.73_m2} >60 [facility] Comment on above: mL/min/1.73m2 CKD-EP I Creatinine Equation (2020) Serum Creatinine AND GFRon 0 06-17-2024 Creatinine [Mass/Vol] 1.01 mg/dL Normal 0.70-1.20 [facility] Comment on above: Order Comment: MIRIAN RODRIGUEZ COMMENT-CREAT UTO URINE Order Date: 06/15/24 Order Info: 3016-3 - TSH Order Info: 3024-7 - T4F Performed By: #### L 501.1105 #### [facility] [address] [place], [address] GFR/1.73 sq M.predicted among non-blacks MDRD (S/P/Bld) [Vol rate/Area] 64 mL/min/{1.73_m2} Normal >60 [facility] Comment on above: Order Comment: PER Hattie RODRIGUEZ COMMENT-CREAT UTO URINE Order Date: 06/15/24 Order Info: 63 - TSH Order Info: 3023-08 - T4F Result Comment: mL/m in/1.73m2 CKD-EPI Creatinine Equation (2020) Performed By: #### L 501.1105 #### [facility] [address] [place], [address] Serum creatinine measurement (mass/volume)Ordered By: Ham Tucker on 06-17-2024 Creatinine [Mass/Vol] 1.01 mg/dL 0.70-1.20 [facility] T4 Free Directon 06-17-2024 T4 FREE DIRECT 0.80 ng/dL Normal 0.76-1.46 [facility] Comment on above: Order Comment: MIRIAN RODRIGUEZ COMMENT-CREAT UTO URINE Order Date: 06/15/24 Order Info: 3016-3 - TSH Order Info: 3023-08 - T4F Performed By: #### L 506.0400, L501.9520 #### [facility] [address] [place], [address] T4 freeOrdered By: Ham garcia on 06-17-2024 Free T4 [Mass/Vol] 0.80 ng/dL 0.76-1.46 [facility] TSH DL <= 0.005 mIU/L QnOrde red By: Ham Tucker on 06-17-2024 TSH Qn 15.800 uIU/mL High 0.300-4.200 [facility] Thyroid Stim Hormone (TSH)on 06-17-2024 TSH 15.800 uIU/mL High 0.300-4.200 [facility] Comment on above: Order Comment: PER Hattie RODRIGUEZ COMMENT-CREAT UTO URINE Order Date: 06/15/24 Order Info: 3016-3 - TSH Order Info: 3024-7 - T4F Performed By: #### L 506.0400, L501.9520 #### [facility] [address] [place], [address] Carotid Duplex Ultrasoundon 02-09-2024 Carotid Duplex Ultrasound [facility] [address] [place] [address] Carotid Duplex Ultrasound 02/09/24 1253 MR#: [id number] Acct: [id number] Name: MARKO KELLEY Rep #: [id number] : 1965 58 From: Anastacio Kimbrough MD [...] the left vertebral artery. Procedure Carotid Duplex 92466. This is a Carotid Duplex examination using [...] Dictated: 02/09/24 1253 Date Transcribed: 02/09/24 1558 Shot Dropper: Signed Normal [facility] T3Free SerPl-mCncon 11-17-19 24 Free T3 [Mass/Vol] 2.3 pg/mL Normal 2.3-4.1 [facility] Comment on above: Order Comment: Speci men Type: BLOOD SPECIMEN Ordering Facility: [facility] Address: [address] [place] [address] Performed By: #### 3 051-0, 3024-7, 3016-3 #### [facility] CLIA [id number] [address] [place] [address] [place] [address] [place] T4 Free SerPl-mCncon 10-07-2 024 Free T4 [Mass/Vol] 1.0 ng/dL Normal 0.9-1.7 [facility] Comment on above: Order Comment: Speci corby Type: BLOOD SPECIMEN Ordering Facility: [facility] Address: [address] [place] [address] Performed By: #### 3 051-0, 3024-7, 3016-3 #### [facility] CLIA [id number] [address] [place] [address] [place] TSH SerPl-aCncon 11-17-2023 TSH Qn 11.200 m[IU]/L High 0.270-4.200 [facility] Comment on above: Order Comment: Silvianohattie tavarez Type: BLOOD SPECIMEN Ordering Facility: [facility] Address: [address] [place] [address] Performed By: #### 2 4323-8, 3024-7, 51873-5, 3051-0 #### [facility] CLIA [id number] [address] [place] [address] [place] Copper, Serum or Plasmaon COPPER, SERUM 89 ug/dL Normal 80-158 [facility] Comment on above: Order Comment: Test( s) 159870-Ikwmby, Serum or Plasma was developed and its performance characteristics determined by [facility]. It has not been cleared or approved by the Food and Drug Administration. Result Comment: Dete ction Limit = 5 Performed at: [address] [id number] Filling Station Equipment Mechanic: Eduardo Self MD, Phone: [phone] Performed By: #### L 500.4050, L3300.0100, L100.0100 #### [facility] [address] [place], [address] CBC W/Diff, Automatedon Absolute Lymph 1.52 X10 3/uL Normal 0.83-4.51 [facility] Comment on above: Order Comment: Order Date: 09/19/23 Order Info: 0184-1 - CBCD Performed By: #### L 500.4050, L3300.0100, L100.0100 #### [facility] [address] [place], [address] Absolute Neut 3.0 X10 3/uL Normal 2.0-7.7 [facility] Comment on above: Order Comment: Order Date: 09/19/23 Order Info: 0184-1 - CBCD Performed By: #### L 500.4050, L3300.0100, L100.0100 #### [facility] [address] [place], [address] Basophils/100 WBC (Bld) 0.2 % Normal 0-1 [facility] Comment on above: Order Comment: Order Date: 09/19/23 Order Info: 0184- - CBCD Performed By: #### L 500.4050, L3300.0100, L100.0100 #### [facility] [address] [place], [address] Eosinophils/100 WBC (Bld) 1.9 % Normal 0-5 [facility] Comment on above: Order Comment: Order Date: 09/19/23 Order Info: 018- - CBCD Performed By: #### L 500.4050, L3300.0100, L100.0100 #### [facility] [address] [place], [address] Erythrocyte distribution width (RBC) [Ratio] 13.0 % Normal 11.6-14.6 [facility] Comment on above: Order Comment: Order Date: 09/19/23 Order Info: 0184-1 - CBCD Performed By: #### L 500.4050, L3300.0100, L100.0100 #### [facility] [address] [place], [address] Hematocrit (Bld) [Volume fraction] 41.7 % Normal 37-47 [facility] Comment on above: Order Comment: Order Date: 09/19/23 Order Info: 0184- - CBCD Performed By: #### L 500.4050, L3300.0100, L100.0100 #### [facility] [address] [place], [address] Hemoglobin (Bld) [Mass/Vol] 13.7 g/dL Normal 12.0-15.0 [facility] Comment on above: Order Comment: Order Date: 09/19/23 Order Info: 018- - CBCD Performed By: #### L 500.4050, L3300.0100, L100.0100 #### [facility] [address] [place], [address] IG% 0.400 Normal 0.0-0.9 [facility] Comment on above: Order Comment: Order Date: 09/19/23 Order Info: 01805-11 - CBCD Result Comment: IG% - Immature Granulocytes (promyelocytes, myelocytes and metamyelocytes) > 1% indicates that a LEFT SHIFT is Present. Performed By: #### L 500.4050, L3300.0100, L100.0100 #### [facility] [address] [place], [address] Lymphocytes/100 WBC (Bld) 29.3 % Normal 19-41 [facility] Comment on above: Order Comment: Order Date: 09/19/23 Order Info: 01805-11 - CBCD Performed By: #### L 500.4050, L3300.0100, L100.0100 #### [facility] [address] [place], [address] MCH (RBC) [Entitic mass] 28.7 pg Normal 27.0-32.0 [facility] Comment on above: Order Comment: Order Date: 09/19/23 Order Info: 018- - CBCD Performed By: #### L 500.4050, L3300.0100, L100.0100 #### [facility] [address] [place], [address] MCHC (RBC) [Mass/Vol] 32.9 g/dL Normal 32-36 [facility] Comment on above: Order Comment: Order Date: 09/19/23 Order Info: 0184-1 - CBCD Performed By: #### L 500.4050, L3300.0100, L100.0100 #### [facility] [address] [place], [address] MCV (RBC) [Entitic vol] 87.4 fL Normal 81-99 [facility] Comment on above: Order Comment: Order Date: 09/19/23 Order Info: 0184-1 - CBCD Performed By: #### L 500.4050, L3300.0100, L100.0100 #### [facility] [address] [place], [address] Monocytes/100 WBC (Bld) 9.6 % Normal 0-10 [facility] Comment on above: Order Comment: Order Date: 09/19/23 Order Info: 0184- - CBCD Performed By: #### L 500.4050, L3300.0100, L100.0100 #### [facility] [address] [place], [address] Neutrophils/100 WBC (Bld) 58.6 % Normal 47-70 [facility] Comment on above: Order Comment: Order Date: 09/19/23 Order Info: 0184-1 - CBCD Performed By: #### L 500.4050, L3300.0100, L100.0100 #### [facility] [address] [place], [address] Nucleated RBC (Bld) [#/Vol] 0 10*3/uL Normal 0-5 [facility] Comment on above: Order Comment: Order Date: 09/19/23 Order Info: 0184-1 - CBCD Performed By: #### L 500.4050, L3300.0100, L100.0100 #### [facility] [address] [place], [address] Platelet mean volume (Bld) [Entitic vol] 10.9 fL Normal 6.2-12.0 [facility] Comment on above: Order Comment: Order Date: 09/19/23 Order Info: 0184-1 - CBCD Performed By: #### L 500.4050, L3300.0100, L100.0100 #### [facility] [address] [place], [address] Platelets (Bld) [#/Vol] 241 10*3/uL Normal 150-450 [facility] Comment on above: Order Comment: Order Date: 09/19/23 Order Info: 0184-1 - CBCD Performed By: #### L 500.4050, L3300.0100, L100.0100 #### [facility] [address] [place], [address] RBC (Bld) [#/Vol] 4.77 10*6/uL Normal 4.2-5.4 [facility] Comment on above: Order Comment: Order Date: 09/19/23 Order Info: 0184-1 - CBCD Performed By: #### L 500.4050, L3300.0100, L100.0100 #### [facility] [address] [place], [address] RDW SD 41.2 fl Normal 35.1-43.9 [facility] Comment on above: Order Comment: Order Date: 09/19/23 Order Info: 0184-1 - CBCD Performed By: #### L 500.4050, L3300.0100, L100.0100 #### [facility] [address] [place], [address] WBC (Bld) [#/Vol] 5.2 10*3/uL Normal 4.4-11.0 [facility] Comment on above: Order Comment: Order Date: 09/19/23 Order Info: 0184-1 - CBCD Performed By: #### L 500.4050, L3300.0100, L100.0100 #### [facility] [address] [place], [address] Comprehensive Metabolic Prof ilon 09-19-2023 Albumin [Mass/Vol] 3.8 g/dL Normal 3.2-5.0 [facility] Comment on above: Order Comment: Order Date: 09/19/23 Order Info: 0786-1 - CMP Performed By: #### L 500.4050, L3300.0100, L100.0100 #### [facility] [address] [place], [address] Albumin/Globulin [Mass ratio] 1.1 {ratio} Normal 0.9-2.4 [facility] Comment on above: Order Comment: Order Date: 09/19/23 Order Info: 0786-1 - CMP Performed By: #### L 500.4050, L3300.0100, L100.0100 #### [facility] [address] [place], [address] ALK P 73 U/L Normal 45-117 [facility] Comment on above: Order Comment: Order Date: 09/19/23 Order Info: 0786-1 - CMP Performed By: #### L 500.4050, L3300.0100, L100.0100 #### [facility] [address] [place], [address] ALT [Catalytic activity/Vol] 47 U/L Normal 13-56 [facility] Comment on above: Order Comment: Order Date: 09/19/23 Order Info: 0786-1 - CMP Performed By: #### L 500.4050, L3300.0100, L100.0100 #### [facility] [address] [place], [address] AST [Catalytic activity/Vol] 39 U/L High 15-37 [facility] Comment on above: Order Comment: Order Date: 09/19/23 Order Info: 0786-1 - CMP Performed By: #### L 500.4050, L3300.0100, L100.0100 #### [facility] [address] [place], [address] Bilirubin [Mass/Vol] 0.40 mg/dL Normal 0.20-1.00 [facility] Comment on above: Order Comment: Order Date: 09/19/23 Order Info: 0786-1 - CMP Result Comment: For patients on eltrombopag therapy, use of Dimension Dalhart TBIL is not recommended. Performed By: #### L 500.4050, L3300.0100, L100.0100 #### [facility] [address] [place], [address] BUN/CRE 15.0 RATIO Normal 10-20 [facility] Comment on above: Order Comment: Order Date: 09/19/23 Order Info: 0786-1 - CMP Performed By: #### L 500.4050, L3300.0100, L100.0100 #### [facility] [address] [place], [address] CA,Total 9.3 mg/dL Normal 8.5-10.1 [facility] Comment on above: Order Comment: Order Date: 09/19/23 Order Info: 0786-1 - CMP Performed By: #### L 500.4050, L3300.0100, L100.0100 #### [facility] [address] [place], [address] Chloride [Moles/Vol] 105 mmol/L Normal 98-107 [facility] Comment on above: Order Comment: Order Date: 09/19/23 Order Info: 0786-1 - CMP Performed By: #### L 500.4050, L3300.0100, L100.0100 #### [facility] [address] [place], [address] CO2 [Moles/Vol] 26.0 mmol/L Normal 21.0-32.0 [facility] Comment on above: Order Comment: Order Date: 09/19/23 Order Info: 0786-1 - CMP Performed By: #### L 500.4050, L3300.0100, L100.0100 #### [facility] [address] [place], [address] Creatinine [Mass/Vol] 1.07 mg/dL High 0.55-1.02 [facility] Comment on above: Order Comment: Order Date: 09/19/23 Order Info: 0786-1 - CMP Result Comment: The validity of the calculated GFR GFRAA in patients over 70 years has not been determined. Clinical correlation is essential. Performed By: #### L 500.4050, L3300.0100, L100.0100 #### [facility] [address] [place], [address] EST GFR - AA 68 mL/min Normal >60 [facility] Comment on above: Order Comment: Order Date: 09/19/23 Order Info: 0786-1 - CMP Result Comment: Afri can Liberian GFR Calc Performed By: #### L 500.4050, L3300.0100, L100.0100 #### [facility] [address] [place], [address] GAP 8 Normal 5-15 [facility] Comment on above: Order Comment: Order Date: 09/19/23 Order Info: 0786-1 - CMP Performed By: #### L 500.4050, L3300.0100, L100.0100 #### [facility] [address] [place], [address] GFR/1.73 sq M.predicted among non-blacks MDRD (S/P/Bld) [Vol rate/Area] 56 mL/min/{1.73_m2} Low >60 [facility] Comment on above: Order Comment: Order Date: 09/19/23 Order Info: 0786-1 - CMP Result Comment: Non- GFR Calc Performed By: #### L 500.4050, L3300.0100, L100.0100 #### [facility] [address] [place], [address] Globulin (S) [Mass/Vol] 3.6 g/dL Normal 2.2-4.2 [facility] Comment on above: Order Comment: Order Date: 09/19/23 Order Info: 0786-1 - CMP Performed By: #### L 500.4050, L3300.0100, L100.0100 #### [facility] [address] [place], [address] Glucose [Mass/Vol] 128 mg/dL High 74-106 [facility] Comment on above: Order Comment: Order Date: 09/19/23 Order Info: 0786-1 - CMP Result Comment: Fast ing Glucose result greater than or equal to 126 mg/dL suggests DIABETES MELLITUS per A.D.A. criteria. Performed By: #### L 500.4050, L3300.0100, L100.0100 #### [facility] [address] [place], [address] Potassium [Moles/Vol] 3.9 mmol/L Normal 3.5-5.1 [facility] Comment on above: Order Comment: Order Date: 09/19/23 Order Info: 0786-1 - CMP Performed By: #### L 500.4050, L3300.0100, L100.0100 #### [facility] [address] [place], [address] Sodium [Moles/Vol] 139 mmol/L Normal 136-145 [facility] Comment on above: Order Comment: Order Date: 09/19/23 Order Info: 0786-1 - CMP Performed By: #### L 500.4050, L3300.0100, L100.0100 #### [facility] [address] [place], [address] T PROT 7.4 g/dL Normal 6.4-8.2 [facility] Comment on above: Order Comment: Order Date: 09/19/23 Order Info: 0786-1 - CMP Performed By: #### L 500.4050, L3300.0100, L100.0100 #### [facility] [address] [place], [address] Urea nitrogen [Mass/Vol] 16 mg/dL Normal 7-18 [facility] Comment on above: Order Comment: Order Date: 09/19/23 Order Info: 0786-1 - CMP Performed By: #### L 500.4050, L3300.0100, L100.0100 #### [facility] [address] [place], [address] 25(OH)D3 [facility] 2023 25-hydroxyvitamin D3 [Mass/Vol] 54.5 ng/mL Normal 31.0-80.0 [facility] Comment on above: Order Comment: Speci men Type: BLOOD SPECIMEN Ordering Facility: [facility] Address: [address] [place] [address] Result Comment: Clas sification of 25 [place] Vitamin D status: Deficiency/Insufficiency: < or = 30 ng/ml. Sufficiency/Optimal Levels: 31-80 ng/mL Toxicity: > 100 ng/mL. Test performed by chemiluminescent immunoassay. Performed By: #### 1 989-3 #### [facility] CLIA [id number] [address] [place] [address] [place] Comprehensive metabolic 2000 panelon 05-21-2023 Albumin [Mass/Vol] 4.1 g/dL Normal 3.9-4.9 [facility] Comment on above: Order Comment: Speci men Type: BLOOD SPECIMEN Ordering Facility: [facility] Address: [address] [place] [address] Performed By: #### 2 4323-8, 3024-7, 96842-6, 3051-0 #### [facility] CLIA [id number] [id number], [place] [address] [place] ALP [Catalytic activity/Vol] 69 U/L Normal 34-123 [facility] Comment on above: Order Comment: Speci men Type: BLOOD SPECIMEN Ordering Facility: [facility] Address: [address] [place] [address] Performed By: #### 2 4323-8, 3024-7, 19101-6, 3051-0 #### [facility] CLIA [id number] [address] [place] [address] [place] ALT [Catalytic activity/Vol] 22 U/L Normal 7-38 [facility] Comment on above: Order Comment: Speci men Type: BLOOD SPECIMEN Ordering Facility: [facility] Address: [address] [place] [address] Performed By: #### 2 4323-8, 3024-7, 36924-3, 3051-0 #### [facility] CLIA [id number] [address] [place] [address] [place] Anion gap [Moles/Vol] 11 mmol/L Normal 9-18 [facility] Comment on above: Order Comment: Speci men Type: BLOOD SPECIMEN Ordering Facility: [facility] Address: [address] [place] [address] Performed By: #### 2 4323-8, 3024-7, 65592-2, 3051-0 #### [facility] CLIA [id number] [address] [place] [address] [place] AST [Catalytic activity/Vol] 28 U/L Normal 13-35 [facility] Comment on above: Order Comment: Speci men Type: BLOOD SPECIMEN Ordering Facility: [facility] Address: [address] [place] [address] Performed By: #### 2 4323-8, 3024-7, 84035-2, 3051-0 #### [facility] CLIA [id number] [address] [place] [address] [place] Bilirubin [Mass/Vol] 0.3 mg/dL Normal 0.2-1.3 [facility] Comment on above: Order Comment: Speci men Type: BLOOD SPECIMEN Ordering Facility: [facility] Address: [address] [place] [address] Performed By: #### 2 4323-8, 3024-7, 78700-4, 3051-0 #### [facility] CLIA [id number] [address] [place] [address] [place] Calcium [Mass/Vol] 8.6 mg/dL Normal 8.5-10.2 [facility] Comment on above: Order Comment: Speci men Type: BLOOD SPECIMEN Ordering Facility: [facility] Address: [address] [place] [address] Performed By: #### 2 4323-8, 3024-7, 65037-6, 3051-0 #### [facility] CLIA [id number] [address] [place] [address] [place] Chloride [Moles/Vol] 104 mmol/L Normal 97-105 [facility] Comment on above: Order Comment: Speci men Type: BLOOD SPECIMEN Ordering Facility: [facility] Address: [address] [place] [address] Performed By: #### 2 4323-8, 3024-7, 43090-9, 3051-0 #### [facility] CLIA [id number] [address] [place] [address] [place] CO2 [Moles/Vol] 25 mmol/L Normal 22-30 [facility] Comment on above: Order Comment: Speci men Type: BLOOD SPECIMEN Ordering Facility: [facility] Address: [address] [place] [address] Performed By: #### 2 4323-8, 3024-7, 19186-9, 3051-0 #### [facility] CLIA [id number] [address] [place] [address] [place] Creatinine [Mass/Vol] 0.99 mg/dL High 0.58-0.96 [facility] Comment on above: Order Comment: Elissa tavarez Type: BLOOD SPECIMEN Ordering Facility: [facility] Address: [address] [place] [address] Performed By: #### 2 4323-8, 3024-7, 62778-2, 3051-0 #### [facility] CLIA [id number] [address] [place] [address] [place] Creatinine and Glomerular filtration rate.predicted panel (S/P/Bld) 66 mL/min/1.73m??? Normal >=60 [facility] Comment on above: Order Comment: Elissa tavarez Type: BLOOD SPECIMEN Ordering Facility: [facility] Address: [address] [place] [address] Result Comment: Vivian mated Glomerular Filtration Rate [...] GFR. Performed By: #### 2 4323-8, 3024-7, 80984-2, 3051-0 #### [facility] CLIA [id number] [address] [place] [address] [place] Glucose [Mass/Vol] 126 mg/dL High 74-99 [facility] Comment on above: Order Comment: Elissa tavarez Type: BLOOD SPECIMEN Ordering Facility: [facility] Address: [address] [place] [address] Result Comment: The [place] Diabetes Association (ADA) provides guidance for cutoff [...] Standards of Medical Care in Diabetes 2016, [place] Diabetes Association. Diabetes Care. 2016.39(Suppl 1). Performed By: #### 2 4323-8, 3024-7, 98039-1, 3051-0 #### [facility] CLIA [id number] [address] [place] [address] [place] Potassium [Moles/Vol] 4.2 mmol/L Normal 3.7-5.1 [facility] Comment on above: Order Comment: Spechattie tavarez Type: BLOOD SPECIMEN Ordering Facility: [facility] Address: [address] [place] [address] Performed By: #### 2 4323-8, 3024-7, 34694-7, 3051-0 #### [facility] CLIA [id number] [address] [place] [address] [place] Protein [Mass/Vol] 6.8 g/dL Normal 6.3-8.0 [facility] Comment on above: Order Comment: Elissa tavarez Type: BLOOD SPECIMEN Ordering Facility: [facility] Address: [address] [place] [address] Performed By: #### 2 4323-8, 3024-7, 30043-0, 3051-0 #### [facility] CLIA [id number] [address] [place] [address] [place] Sodium [Moles/Vol] 140 mmol/L Normal 136-144 [facility] Comment on above: Order Comment: Silvianoi corby Type: BLOOD SPECIMEN Ordering Facility: [facility] Address: [address] [place] [address] Performed By: #### 2 4323-8, 3024-7, 15141-2, 3051-0 #### [facility] CLIA [id number] [address] [place] [address] [place] Urea nitrogen [Mass/Vol] 13 mg/dL Normal 7-21 [facility] Comment on above: Order Comment: Elissa tavarez Type: BLOOD SPECIMEN Ordering Facility: [facility] Address: [address] [place] [address] Performed By: #### 2 4323-8, 3024-7, 48966-3, 305-0 #### [facility] CLIA [id number] [address] [place] [address] [place] HbA1c (Bld)on 05-21-2023 Average glucose Estimated from glycated hemoglobin (Bld) [Mass/Vol] 114 mg/dL Normal [facility] Comment on above: Order Comment: Elissa tavarez Type: BLOOD SPECIMEN Ordering Facility: [facility] Address: [address] [place] [address] Result Comment: eAG: (Estimated average glucose) is a calculated value from HgbA1c and is chain sales representative of the average blood glucose level in the last 2-3 month period. Performed By: #### 2 4323-8, 3027, 09565-5, 305-0 #### [facility] CLIA [id number] [address] [place] [address] [place] HbA1c (Bld) [Mass fraction] 5.6 % Normal 4.3-5.6 [facility] Comment on above: Order Comment: Elissa tavarez Type: BLOOD SPECIMEN Ordering Facility: [facility] Address: [address] [place] [address] Result Comment: [place] Diabetes Association guidelines indicate that patients with HgbA1c in the range 5.7-6.4% are at increased risk for development of diabetes, and intervention by lifestyle modification may be beneficial. HgbA1c greater or equal to 6.5% is considered diagnostic of diabetes. Performed By: #### 2 4323-8, 3024-7, 61248-8, 305-0 #### [facility] CLIA [id number] [address] [place], [place] [address] [place] Lipid 1996 panelon 4 Cholesterol [Mass/Vol] 260 mg/dL High <200 [facility] Comment on above: Order Comment: Silvianoi men Type: BLOOD SPECIMEN Ordering Facility: [facility] Address: [address] [place] [address] Result Comment: <200 mg/dL, Desirable 200-239 mg/dL, Borderline high >239 mg/dL, High Performed By: #### 2 4323-8, 3024-7, 91077-5, 3051-0 #### [facility] CLIA [id number] [address] [place] [address] [place] Cholesterol in HDL [Mass/Vol] 34 mg/dL Low >39 [facility] Comment on above: Order Comment: Elissa tavarez Type: BLOOD SPECIMEN Ordering Facility: [facility] Address: [address] [place] [address] Result Comment: 40-5 9 mg/dL, Acceptable >59 mg/dL, High: Negative risk factor for coronary heart disease <40 mg/dL, Low: Positive risk factor for coronary heart disease Performed By: #### 2 4323-8, 3024-7, 28344-5, 3051-0 #### [facility] CLIA [id number] [address] [place] [address] [place] Cholesterol in LDL [Mass/Vol] 158 mg/dL High <100 [facility] Comment on above: Order Comment: Elissa corby Type: BLOOD SPECIMEN Ordering Facility: [facility] Address: [address] [place] [address] Result Comment: <100 mg/dL, Optimal 100-129 mg/dL, Near optimal/above optimal 130-159 mg/dL, Borderline high 160-189 mg/dL, High >189 mg/dL, Very high Secondary prevention optimal LDL Cholesterol levels are recommended to be < 70 mg/dL Performed By: #### 2 4323-8, 3024-7, 87947-7, 3051-0 #### [facility] CLIA [id number] [address] [place], [place] [address] [place] Cholesterol in LDL/Cholesterol in HDL [Mass ratio] 4.65 {ratio} High <2.54 [facility] Comment on above: Order Comment: Elissa tavarez Type: BLOOD SPECIMEN Ordering Facility: [facility] Address: [address] [place] [address] Result Comment: Maria E crain: 1. National Cholesterol Education Program ATP III Guideline At-A-Glance Quick Desk Reference: National Heart, Lung, and Blood [place]. National Institutes of Health. 2001: NIH Publication No. 01-3305. 2. An International Atherosclerosis Society position paper: global recommendations for the management of dyslipidemia: executive summary, Atherosclerosis. 2014: 232(2):410-413. Performed By: #### 2 4323-8, 3024-7, 68350-6, 3051-0 #### [facility] CLIA [id number] [address] [place] [address] [place] Cholesterol in VLDL [Mass/Vol] 68 mg/dL High <30 [facility] Comment on above: Order Comment: Elissa tavarez Type: BLOOD SPECIMEN Ordering Facility: [facility] Address: [address] [place] [address] Performed By: #### 2 4323-8, 3024-7, 22263-7, 3051-0 #### [facility] CLIA [id number] [address] [place] [address] [place] Cholesterol non HDL [Mass/Vol] 226 mg/dL High <130 [facility] Comment on above: Order Comment: Elissa tavarez Type: BLOOD SPECIMEN Ordering Facility: [facility] Address: [address] [place] [address] Result Comment: <130 mg/dL, Optimal 130-159 mg/dL, Near optimal/above optimal 160-189 mg/dL, Borderline high 190-219 mg/dL, High >219 mg/dL, Very high Secondary prevention optimal non HDL Cholesterol levels are recommended to be <100 mg/dL Performed By: #### 2 4323-8, 3024-7, 73100-9, 3051-0 #### [facility] CLIA [id number] [address] [place] [address] [place] Cholesterol.total/Choleste rol in HDL [Mass ratio] 7.65 {ratio} High <5.10 [facility] Comment on above: Order Comment: Speci men Type: BLOOD SPECIMEN Ordering Facility: [facility] Address: [address] [place] [address] Performed By: #### 2 4323-8, 3024-7, 57332-9, 3051-0 #### [facility] CLIA [id number] [address] [place] [address] [place] FASTING TIME 14 hrs Normal [facility] Comment on above: Order Comment: Speci men Type: BLOOD SPECIMEN Ordering Facility: [facility] Address: [address] [place] [address] Performed By: #### 2 4323-8, 3024-7, 78829-4, 3051-0 #### [facility] CLIA [id number] [address] [place] [address] [place] Triglyceride [Mass/Vol] 341 mg/dL High <150 [facility] Comment on above: Order Comment: Speci men Type: BLOOD SPECIMEN Ordering Facility: [facility] Address: [address] [place] [address] Result Comment: <150 mg/dL, Normal 150-199 mg/dL, Borderline high 200-499 mg/dL, High >499 mg/dL, Very high Performed By: #### 2 4323-8, 3024-7, 27083-2, 3051-0 #### [facility] CLIA [id number] [address] [place], [place] [address] [place] T3Free SerPl-mCncon 05-21-19 24 Free T3 [Mass/Vol] 2.5 pg/mL Normal 2.3-4.1 [facility] Comment on above: Order Comment: Speci men Type: BLOOD SPECIMEN Ordering Facility: [facility] Address: [address] [place] [address] Performed By: #### 2 4323-8, 3024-7, 97277-5, 3051-0 #### [facility] CLIA [id number] [address] [place] [address] [place] T4 Free SerPl-mCncon 024 Free T4 [Mass/Vol] 1.2 ng/dL Normal 0.9-1.7 [facility] Comment on above: Order Comment: Speci men Type: BLOOD SPECIMEN Ordering Facility: [facility] Address: [address] [place] [address] Performed By: #### 2 4323-8, 3024-7, 65795-1, 3051-0 #### [facility] CLIA [id number] [address] [place] [address] [place] TSH SerPl-aCncon 05-21-2023 TSH Qn 3.490 m[IU]/L Normal 0.270-4.200 [facility] Comment on above: Order Comment: Speci men Type: BLOOD SPECIMEN Ordering Facility: [facility] Address: [address] [place] [address] Performed By: #### 2 4323-8, 3024-7, 00448-4, 3051-0 #### [facility] CLIA [id number] [address] [place] [address] [place] Haritha 02-18-2023 NATALYAN Telephone (ENDTWN) MARKO KELLEY ([id number]) 1965 F Date Time Provider Department 02/18/23 HAYLEE CRUMP During your visit today, we recorded the following information about you: Keith Irvin OCCA 02/18/2023 3:46 PM Signed Received a fax from [employer] stating that the patient has been approved [...] Date Reviewed: 02/17/2023 Reviewed by: Haylee Crump APRN.[employer] - Fully Assessed Reason for Visit: Insurance Authorization [[id number]] Cmt: Synthroid Prescriptions as of 02/18/2023 - [...] scoliosis [M41.80] Routine general medical examination at [facility]*05/16/2008 08/19/2011 Class: Chronic Routine gynecological examination [Z01.419] [...] Status:Closed by KEITH IRVIN on 02/18/23 Normal [facility] 25(OH)D3 [facility] 25-hydroxyvitamin D3 [Mass/Vol] 40.7 ng/mL Normal 31.0-80.0 [facility] Comment on above: Order Comment: Elissa tavarez Type: BLOOD SPECIMEN Ordering Facility: [facility] Address: [address] [place] [address] Result Comment: Clas sification of 25 [place] Vitamin D status: Deficiency/Insufficiency: < or = 30 ng/ml. Sufficiency/Optimal Levels: 31-80 ng/mL Toxicity: > 100 ng/mL. Test performed by chemiluminescent immunoassay. Performed By: #### 1 989-3 #### [facility] CLIA [id number] [address] [place] [address] [place] Cholesterol in LDL Direct as say [Mass/Vol]on 02-11-2023 Cholesterol in LDL [Mass/Vol] 142 mg/dL High <100 [facility] Comment on above: Order Comment: Elissa tavarez Type: BLOOD SPECIMEN Ordering Facility: [facility] Address: [address] [place] [address] Result Comment: <100 mg/dL, Optimal 100-129 mg/dL, Near optimal/above optimal 130-159 mg/dL, Borderline high 160-189 mg/dL, High >189 mg/dL, Very high Secondary prevention optimal LDL Cholesterol levels are recommended to be < 70 mg/dL Performed By: #### 2 4323-8, 3024-7, 87028-6, 3051-0 #### [facility] CLIA [id number] [address] [place] [address] [place] Cholesterol in VLDL [Mass/Vol] 86 mg/dL High <30 [facility] Comment on above: Order Comment: Speci men Type: BLOOD SPECIMEN Ordering Facility: [facility] Address: [address] [place] [address] Performed By: #### 2 4323-8, 3024-7, 77380-4, 3051-0 #### [facility] CLIA [id number] [address] [place] [address] [place] Comprehensive metabolic 2000 panelon 02-11-2023 Albumin [Mass/Vol] 4.2 g/dL Normal 3.9-4.9 [facility] Comment on above: Order Comment: Speci men Type: BLOOD SPECIMEN Ordering Facility: [facility] Address: [address] [place] [address] Performed By: #### 2 4323-8, 3024-7, 24234-3, 3051-0 #### [facility] CLIA [id number] [address] [place] [address] [place] ALP [Catalytic activity/Vol] 63 U/L Normal 34-123 [facility] Comment on above: Order Comment: Speci men Type: BLOOD SPECIMEN Ordering Facility: [facility] Address: [address] [place] [address] Performed By: #### 2 4323-8, 3024-7, 19844-5, 3051-0 #### [facility] CLIA [id number] [address] [place] [address] [place] ALT [Catalytic activity/Vol] 32 U/L Normal 7-38 [facility] Comment on above: Order Comment: Speci men Type: BLOOD SPECIMEN Ordering Facility: [facility] Address: [address] [place] [address] Performed By: #### 2 4323-8, 3024-7, 92976-7, 3051-0 #### [facility] CLIA [id number] [address] [place] [address] [place] Anion gap [Moles/Vol] 12 mmol/L Normal 9-18 [facility] Comment on above: Order Comment: Speci men Type: BLOOD SPECIMEN Ordering Facility: [facility] Address: [address] [place] [address] Performed By: #### 2 4323-8, 3024-7, 82468-3, 3051-0 #### [facility] CLIA [id number] [address] [place] [address] [place] AST [Catalytic activity/Vol] 31 U/L Normal 13-35 [facility] Comment on above: Order Comment: Speci men Type: BLOOD SPECIMEN Ordering Facility: [facility] Address: [address] [place] [address] Performed By: #### 2 4323-8, 3024-7, 03794-8, 3051-0 #### [facility] CLIA [id number] [address] [place] [address] [place] Bilirubin [Mass/Vol] 0.4 mg/dL Normal 0.2-1.3 [facility] Comment on above: Order Comment: Speci men Type: BLOOD SPECIMEN Ordering Facility: [facility] Address: [address] [place] [address] Performed By: #### 2 4323-8, 3024-7, 85948-3, 3051-0 #### [facility] CLIA [id number] [address] [place] [address] [place] Calcium [Mass/Vol] 9.7 mg/dL Normal 8.5-10.2 [facility] Comment on above: Order Comment: Speci men Type: BLOOD SPECIMEN Ordering Facility: [facility] Address: [address] [place] [address] Performed By: #### 2 4323-8, 3024-7, 32985-7, 3051-0 #### [facility] CLIA [id number] [address] [place] [address] [place] Chloride [Moles/Vol] 100 mmol/L Normal 97-105 [facility] Comment on above: Order Comment: Speci men Type: BLOOD SPECIMEN Ordering Facility: [facility] Address: [address] [place] [address] Performed By: #### 2 4323-8, 3024-7, 99685-4, 3051-0 #### [facility] CLIA [id number] [address] [place] [address] [place] CO2 [Moles/Vol] 28 mmol/L Normal 22-30 [facility] Comment on above: Order Comment: Speci men Type: BLOOD SPECIMEN Ordering Facility: [facility] Address: [address] [place] [address] Performed By: #### 2 4323-8, 3024-7, 87416-1, 3051-0 #### [facility] CLIA [id number] [address] [place] [address] [place] Creatinine [Mass/Vol] 0.89 mg/dL Normal 0.58-0.96 [facility] Comment on above: Order Comment: Speci men Type: BLOOD SPECIMEN Ordering Facility: [facility] Address: [address] [place] [address] Performed By: #### 2 4323-8, 3024-7, 65076-5, 3051-0 #### [facility] CLIA [id number] [address] [place] [address] [place] Creatinine and Glomerular filtration rate.predicted panel (S/P/Bld) 76 mL/min/1.73m??? Normal >=60 [facility] Comment on above: Order Comment: Speci men Type: BLOOD SPECIMEN Ordering Facility: [facility] Address: [address] [place] [address] Result Comment: Vivian mated Glomerular Filtration Rate [...] GFR. Performed By: #### 2 4323-8, 3024-7, 23626-6, 3051-0 #### [facility] CLIA [id number] [address] [place] [address] [place] Glucose [Mass/Vol] 119 mg/dL High 74-99 [facility] Comment on above: Order Comment: Elissa men Type: BLOOD SPECIMEN Ordering Facility: [facility] Address: [address] [place] [address] Result Comment: The [place] Diabetes Association (ADA) provides guidance for cutoff [...] Standards of Medical Care in Diabetes 2016, [place] Diabetes Association. Diabetes Care. 2016.39(Suppl 1). Performed By: #### 2 4323-8, 3024-7, 76469-3, 305-0 #### [facility] CLIA [id number] [address] [place] [address] [place] Potassium [Moles/Vol] 4.4 mmol/L Normal 3.7-5.1 [facility] Comment on above: Order Comment: Elissa men Type: BLOOD SPECIMEN Ordering Facility: [facility] Address: [address] [place] [address] Performed By: #### 2 4323-8, 3024-7, 35397-4, 3051-0 #### [facility] CLIA [id number] [address] [place] [address] [place] Protein [Mass/Vol] 7.1 g/dL Normal 6.3-8.0 [facility] Comment on above: Order Comment: Speci men Type: BLOOD SPECIMEN Ordering Facility: [facility] Address: [address] [place] [address] Performed By: #### 2 4323-8, 3024-7, 97882-2, 3051-0 #### [facility] CLIA [id number] [address] [place] [address] [place] Sodium [Moles/Vol] 140 mmol/L Normal 136-144 [facility] Comment on above: Order Comment: Speci men Type: BLOOD SPECIMEN Ordering Facility: [facility] Address: [address] [place] [address] Performed By: #### 2 4323-8, 3024-7, 40529-5, 3051-0 #### [facility] CLIA [id number] [address] [place] [address] [place] Urea nitrogen [Mass/Vol] 12 mg/dL Normal 7-21 [facility] Comment on above: Order Comment: Speci men Type: BLOOD SPECIMEN Ordering Facility: [facility] Address: [address] [place] [address] Performed By: #### 2 4323-8, 3024-7, 74026-5, 3051-0 #### [facility] CLIA [id number] [address] [place] [address] [place] HbA1c (Bld)on 02-11-2023 Average glucose Estimated from glycated hemoglobin (Bld) [Mass/Vol] 126 mg/dL Normal [facility] Comment on above: Order Comment: Speci men Type: BLOOD SPECIMEN Ordering Facility: [facility] Address: [address] [place] [address] Result Comment: eAG: (Estimated average glucose) is a calculated value from HgbA1c and is chain sales representative of the average blood glucose level in the last 2-3 month period. Performed By: #### 2 4323-8, 3024-7, 58671-9, 3051-0 #### [facility] CLIA [id number] [address] [place] [address] [place] HbA1c (Bld) [Mass fraction] 6.0 % High 4.3-5.6 [facility] Comment on above: Order Comment: Speci men Type: BLOOD SPECIMEN Ordering Facility: [facility] Address: [address] [place] [address] Result Comment: Sam [place] Diabetes Association guidelines indicate that patients with HgbA1c in the range 5.7-6.4% are at increased risk for development of diabetes, and intervention by lifestyle modification may be beneficial. HgbA1c greater or equal to 6.5% is considered diagnostic of diabetes. Performed By: #### 2 4323-8, 3024-7, 83068-8, 305-0 #### [facility] CLIA [id number] [address] [place] [address] [place] Lipid 1996 panelon 4 Cholesterol [Mass/Vol] 261 mg/dL High <200 [facility] Comment on above: Order Comment: Speci men Type: BLOOD SPECIMEN Ordering Facility: [facility] Address: [address] [place] [address] Result Comment: <200 mg/dL, Desirable 200-239 mg/dL, Borderline high >239 mg/dL, High Performed By: #### 2 4323-8, 3024-7, 09418-5, 305-0 #### [facility] CLIA [id number] [address] [place] [address] [place] Cholesterol in HDL [Mass/Vol] 33 mg/dL Low >39 [facility] Comment on above: Order Comment: Speci men Type: BLOOD SPECIMEN Ordering Facility: [facility] Address: [address] [place] [address] Result Comment: 40-5 9 mg/dL, Acceptable >59 mg/dL, High: Negative risk factor for coronary heart disease <40 mg/dL, Low: Positive risk factor for coronary heart disease Performed By: #### 2 4323-8, 3024-7, 02764-0, 3051-0 #### [facility] CLIA [id number] [address] [place] [address] [place] Cholesterol in LDL [Mass/Vol] Normal [facility] Comment on above: Order Comment: Elissa tavarez Type: BLOOD SPECIMEN Ordering Facility: [facility] Address: [address] [place] [address] Result Comment: Unab le to calculate due to increased Triglycerides. See LDL-Chol, Direct. Performed By: #### 2 4323-8, 3024-7, 52311-6, 3051-0 #### [facility] CLIA [id number] [address] [place] [address] [place] Cholesterol in LDL/Cholesterol in HDL [Mass ratio] Normal [facility] Comment on above: Order Comment: Elissa tavarez Type: BLOOD SPECIMEN Ordering Facility: [facility] Address: [address] [place] [address] Result Comment: Unab le to calculate due to elevated Triglycerides. Reference: 1. National Cholesterol Education Program ATP III Guideline At-A-Glance Quick Desk Reference: National Heart, Lung, and Blood [place]. National Institutes of Health. 2001: NIH Publication No. 01-3305. 2. An International Atherosclerosis Society position paper: global recommendations for the management of dyslipidemia: executive summary, Atherosclerosis. 2014: 232(2):410-413. Performed By: #### 2 4323-8, 3024-7, 51600-0, 3051-0 #### [facility] CLIA [id number] [address] [place], [place] [id number] [place] Cholesterol in VLDL [Mass/Vol] Normal [facility] Comment on above: Order Comment: Speci men Type: BLOOD SPECIMEN Ordering Facility: [facility] Address: [address] [place] [address] Result Comment: Unab le to calculate due to increased Triglycerides. See LDL-Chol, Direct. Performed By: #### 2 4323-8, 3024-7, 26881-4, 3051-0 #### [facility] CLIA [id number] [address] [place] [address] [place] Cholesterol non HDL [Mass/Vol] 228 mg/dL High <130 [facility] Comment on above: Order Comment: Speci men Type: BLOOD SPECIMEN Ordering Facility: [facility] Address: [address] [place] [address] Result Comment: <130 mg/dL, Optimal 130-159 mg/dL, Near optimal/above optimal 160-189 mg/dL, Borderline high 190-219 mg/dL, High >219 mg/dL, Very high Secondary prevention optimal non HDL Cholesterol levels are recommended to be <100 mg/dL Performed By: #### 2 4323-8, 3024-7, 98638-4, 3051-0 #### [facility] CLIA [id number] [address] [place] [address] [place] Cholesterol.total/Choleste rol in HDL [Mass ratio] 7.91 {ratio} High <5.10 [facility] Comment on above: Order Comment: Speci men Type: BLOOD SPECIMEN Ordering Facility: [facility] Address: [address] [place] [address] Performed By: #### 2 4323-8, 3024-7, 22354-5, 3051-0 #### [facility] CLIA [id number] [address] [place] [address] [place] FASTING TIME 12 hrs Normal [facility] Comment on above: Order Comment: Speci men Type: BLOOD SPECIMEN Ordering Facility: [facility] Address: [address] [place] [address] Performed By: #### 2 4323-8, 3024-7, 01624-9, 3051-0 #### [facility] CLIA [id number] [address] [place] [address] [place] Triglyceride [Mass/Vol] 437 mg/dL High <150 [facility] Comment on above: Order Comment: Speci men Type: BLOOD SPECIMEN Ordering Facility: [facility] Address: [address] [place] [address] Result Comment: <150 mg/dL, Normal 150-199 mg/dL, Borderline high 200-499 mg/dL, High >499 mg/dL, Very high Performed By: #### 2 4323-8, 3023-7, 46757-7, 305-0 #### [facility] CLIA [id number] [address] [place] [address] [place] T3Free SerPl-mCncon 02-11-19 24 Free T3 [Mass/Vol] 2.6 pg/mL Normal 2.3-4.1 [facility] Comment on above: Order Comment: Speci men Type: BLOOD SPECIMEN Ordering Facility: [facility] Address: [address] [place] [address] Performed By: #### 2 4323-8, 7, 54676-8, 305-0 #### [facility] CLIA [id number] [address] [place] [address] [place] T4 Free SerPl-mCncon 024 Free T4 [Mass/Vol] 1.3 ng/dL Normal 0.9-1.7 [facility] Comment on above: Order Comment: Speci men Type: BLOOD SPECIMEN Ordering Facility: [facility] Address: [address] [place] [address] Performed By: #### 2 4323-8, 3023-7, 24522-1, 3051-0 #### [facility] CLIA [id number] [address] [place] [address] [place] TSH SerPl-aCncon 02-11-2023 TSH Qn 3.150 m[IU]/L Normal 0.270-4.200 [facility] Comment on above: Order Comment: Speci men Type: BLOOD SPECIMEN Ordering Facility: [facility] Address: [address] [place] [address] Performed By: #### 2 4323-8, 3024-7, 11911-8, 3051-0 #### [facility] CLIA [id number] [address] [place] [address] [place] [address] [place] No Panel InformationOrdered By: Ninfa Albrecht on 05-14-2022 Estimated GFR (MDRD) Amer 71 mL/min >60 [facility] Comment on above: GFR Calc Estimated GFR (MDRD) Non-Af Amer 59 mL/min >60 [facility] Comment on above: Non- GFR Calc Serum or plasma creatinine m easurement (mass/volume)Ordered By: Ninfa Albrecht on 05-14-2022 Creatinine [Mass/Vol] 1.03 mg/dL 0.55-1.02 [facility] Comment on above: The validity of the calculated GFR & GFRAA in patients over 70 years has not been determined. Clinical correlation is essential. Absolute lymphocyte countOrd ered By: Dr. Grant on 05-13-2022 Lymphocytes Auto (Unsp spec) [#/Vol] 1.99 10*3/uL 0.83-4.51 [facility] Alternaria alternata IgE ser umOrdered By: Dr. Grant on 05-13-2022 A. alternata IgE Qn (S) 1.01 kU/L Class II [facility] Basophil percentageOrdered B y: Dr. Grant on 05-13-2022 Basophils/100 WBC (Bld) 0.1 % 0-1 [facility] Eosinophils/100 WBC (Bld) 1.8 % 0-5 [facility] Neutrophils (Bld) [#/Vol] 3.9 10*3/uL 2.0-7.7 [facility] Neutrophils/100 WBC (Bld) 57.6 % 47-70 [facility] WBC (Bld) [#/Vol] 6.7 10*3/uL 4.4-11.0 [facility] Blood erythrocytes count (nu mber/volume)Ordered By: Dr. Grant on 05-13-2022 RBC (Bld) [#/Vol] 4.66 10*6/uL 4.2-5.4 [facility] Blood hemoglobin measurement (mass/volume)Ordered By: Dr. Grant on 05-13-2022 Hemoglobin (Bld) [Mass/Vol] 13.9 g/dL 12.0-15.0 [facility] Blood lymphocytes/100 leukoc ytesOrdered By: Dr. Grant on 05-13-2022 Lymphocytes/100 WBC (Bld) 29.7 % 19-41 [facility] Blood monocytes/100 leukocyt esOrdered By: Dr. Grant on 05-13-2022 Monocytes/100 WBC (Bld) 10.4 % 0-10 [facility] Blood platelet mean volumeOr dered By: Dr. Grant on 05-13-2022 Platelet mean volume (Bld) [Entitic vol] 9.3 fL 6.2-12.0 [facility] Determination of erythrocyte mean corpuscular volume (MCV)Ordered By: Dr. Grant on 05-13-2022 MCV (RBC) [Entitic vol] 87.3 fL 81-99 [facility] Hematocrit Auto (Bld) [Volum e fraction]Ordered By: Dr. Grant on 05-13-2022 Hematocrit (Bld) [Volume fraction] 40.7 % 37-47 [facility] Laboratory - Hematology and Cell countsOrdered By: Dr. Grant on 05-13-2022 Erythrocyte distribution width (RBC) [Entitic vol] 41.0 fL 35.1-43.9 [facility] Erythrocyte distribution width (RBC) [Ratio] 13.0 % 11.6-14.6 [facility] Immature granulocytes/100 WBC (Bld) 0.400 % 0.0-0.9 [facility] Comment on above: IG% - Immature Granu locytes (promyelocytes, myelocytes and metamyelocytes) > 1% indicates that a LEFT SHIFT is Present. MCH (RBC) [Entitic mass] 29.8 pg 27.0-32.0 [facility] Nucleated RBC/100 WBC (Bld) [Ratio] 0 % 0-5 [facility] MCHC Auto (RBC) [Mass/Vol]Or dered By: Dr. Grant on 05-13-2022 MCHC (RBC) [Mass/Vol] 34.2 g/dL 32-36 [facility] No Panel InformationOrdered By: Dr. Grant on 05-13-2022 Cat Hair Allergen 0.83 kU/L Class II [facility] Common Ragweed (Short) Allergen 1.10 kU/L Class II [facility] Immunoglobulin E 57 IU/mL 6-495 [facility] Comment on above: Performed at: [address] [id number] Director: Eduardo Self MD, Phone: [phone] Maple (Mill[place]) Allergen IgE Ab <0.10 kU/L Class 0 [facility] Mouse Urine Allergen IgE Antibody <0.10 kU/L [facility] 0 [facility] Comment on above: Performed at: [address] [id number] Director: Eduardo Self MD, Phone: [phone] RAST Comment Comment . [facility] Comment on above: Levels of Specific I gE Class Description of Class ----- < 0.10 0 Negative 0.10 - 0.31 0/I Equivocal/Low 0.32 - 0.55 I Low 0.56 - 1.40 II Moderate 1.41 - 3.90 III High 3.91 - 19.00 IV Very High 19.01 - 100.00 V Very High >100.00 Very High Dewar Tree Allergen 0.12 kU/L Class 0/I [facility] Platelets bldOrdered By: Dr. Grant on 05-13-2022 Platelets (Bld) [#/Vol] 225 10*3/uL 150-450 [facility] Rough pigweed specific IgE a ntibody assayOrdered By: Dr. Grant on 05-13-2022 Rough Pigweed IgE Qn (S) <0.10 kU/L Class 0 [facility] Serum Liberian sycamore IgE antibody assay (units/volume)Ordered By: Dr. Grant on 05-13-2022 Liberian [place] IgE Qn (S) <0.10 kU/L Class 0 [facility] Serum Aspergillus flavus ant ibody detection by immunodiffusionOrdered By: Dr. Grant on 05-13-2022 A. flavus Ab Immune diff Ql (S) Negative Neg:<1:1 [facility] Serum Aspergillus fumigatus IgE antibody assay (units/volume)Ordered By: Dr. Grant on 05-13-2022 A. fumigatus IgE Qn (S) <0.10 kU/L Class 0 [facility] Serum Aspergillus fumigatus antibody detection by immunodiffusionOrdered By: Dr. Grant on 05-13-2022 A. fumigatus Ab Immune diff Ql (S) Negative Neg:<1:1 [facility] Serum Aspergillus niger anti body detection by immunodiffusionOrdered By: Dr. Grant on 05-13-2022 A. niger Ab Immune diff Ql (S) Negative Neg:<1:1 [facility] Serum Bermuda grass IgE anti body assay (units/volume)Ordered By: Dr. Grant on 05-13-2022 Bermuda grass IgE Qn (S) 0.28 kU/L Class 0/I [facility] Serum Cladosporium herbarum IgE antibody assay (units/volume)Ordered By: Dr. Grant on 05-13-2022 C. herbarum IgE Qn (S) <0.10 kU/L Class 0 [facility] Serum Dermatophagoides farin ae specific IgE antibody assay (units/volume)Ordered By: Dr. Grant on 05-13-2022 Liberian house dust mite IgE Qn (S) <0.10 kU/L Class 0 [facility] Serum house dust mi te IgE antibody assay (units/volume)Ordered By: Dr. Grant on 05-13-2022 house dust mite IgE Qn (S) 0.13 kU/L Class 0/I [facility] Serum Penicillium notatum Ig E antibody assay (units/volume)Ordered By: Dr. Grant on 05-13-2022 P. notatum IgE Qn (S) <0.10 kU/L Class 0 [facility] Serum Periplaneta americana IgE antibody assay (units/volume)Ordered By: Dr. Grant on 05-13-2022 Liberian Cockroach IgE Qn (S) <0.10 kU/L Class 0 [facility] Serum Panamanian thistle specif ic IgE antibody assayOrdered By: Dr. Grant on 05-13-2022 Saltwort IgE Qn (S) <0.10 kU/L Class 0 [facility] Serum birch specific IgE ant ibody assayOrdered By: Dr. Grant on 05-13-2022 Silver Birch IgE Qn (S) <0.10 kU/L Class 0 [facility] Serum black walnut IgE antib jenni assay (units/volume)Ordered By: Dr. Grant on 05-13-2022 Black [place] IgE Qn (S) 0.17 kU/L Class 0/I [facility] Serum cottonwood IgE antibod y assay (units/volume)Ordered By: Dr. Grant on 05-13-2022 [place] IgE Qn (S) <0.10 kU/L Class 0 [facility] Serum dog epithelium IgE ant ibody assay (units/volume)Ordered By: Dr. Grant on 05-13-2022 Dog epithelium IgE Qn (S) 1.84 kU/L Class III [facility] Serum mountain cedar specifi c IgE antibody assayOrdered By: Dr. Grant on 05-13-2022 Mountain Juniper IgE Qn (S) <0.10 kU/L Class 0 [facility] Serum pecan or hickory nut I gE antibody assay (units/volume)Ordered By: Dr. Grant on 05-13-2022 Pecan or [place] Nut IgE Qn (S) 0.15 kU/L Class 0/I [facility] Serum sheep sorrel IgE antib jenni assay (units/volume)Ordered By: Dr. Grant on 05-13-2022 Sheep Chicken IgE Qn (S) <0.10 kU/L Class 0 [facility] Serum kimberley IgE antibody a ssay (units/volume)Ordered By: Dr. Grant on 05-13-2022 Kimberley IgE Qn (S) 0.89 kU/L Class II [facility] Serum white cesar IgE antibody assay (units/volume)Ordered By: Dr. Grant on 05-13-2022 White Cesar IgE Qn (S) 0.14 kU/L Class 0/I [facility] Serum white elm IgE antibody assay (units/volume)Ordered By: Dr. Grant on 05-13-2022 White Elm IgE Qn (S) 0.22 kU/L Class 0/I [facility] Serum white mulberry IgE ant ibody assay (units/volume)Ordered By: Dr. Grant on 05-13-2022 White mulberry IgE Qn (S) <0.10 kU/L Class 0 [facility] Absolute lymphocyte counton 09-04-2021 Lymphocytes Auto (Unsp spec) [#/Vol] 1.13 10*3/uL 0.83-4.51 [facility] Work Phone: Basophil percentageon 2021 Basophil percentage 0 SEEN /hpf 0-5 [facility] Work Phone: Basophils/100 WBC (Bld) 0.2 % 0-1 [facility] Work Phone: Chloride [Moles/Vol] 104 mmol/L 98-107 [facility] Work Phone: Eosinophils/100 WBC (Bld) 1.7 % 0-5 [facility] Work Phone: Glucose [Mass/Vol] 137 mg/dL 74-106 [facility] Work Phone: Comment on above: Fasting Glucose resu lt greater than or equal to 126 mg/dL suggests DIABETES MELLITUS per A.D.A. criteria. Neutrophils (Bld) [#/Vol] 3.1 10*3/uL 2.0-7.7 [facility] Work Phone: Neutrophils/100 WBC (Bld) 64.4 % 47-70 [facility] Work Phone: Potassium [Moles/Vol] 3.8 mmol/L 3.5-5.1 [facility] Work Phone: Sodium [Moles/Vol] 136 mmol/L 136-145 [facility] Work Phone: WBC (Bld) [#/Vol] 4.8 10*3/uL 4.4-11.0 [facility] Work Phone: Bilirubin Test strip Ql (U)o n 09-04-2021 Bilirubin Ql (U) Negative Negative [facility] Work Phone: Blood erythrocytes count (nu mber/volume)on 09-04-2021 RBC (Bld) [#/Vol] 4.77 10*6/uL 4.2-5.4 [facility] Work Phone: Blood hemoglobin measurement (mass/volume)on 09-04-2021 Hemoglobin (Bld) [Mass/Vol] 14.2 g/dL 12.0-15.0 [facility] Work Phone: Blood lymphocytes/100 leukoc yteson 09-04-2021 Lymphocytes/100 WBC (Bld) 23.8 % 19-41 [facility] Work Phone: Blood monocytes/100 leukocyt eson 09-04-2021 Monocytes/100 WBC (Bld) 9.5 % 0-10 [facility] Work Phone: Blood platelet mean volumeon 09-04-2021 Platelet mean volume (Bld) [Entitic vol] 9.4 fL 6.2-12.0 [facility] Work Phone: Determination of erythrocyte mean corpuscular volume (MCV)on 09-04-2021 MCV (RBC) [Entitic vol] 89.9 fL 81-99 [facility] Work Phone: Hematocrit Auto (Bld) [Volum e fraction]on 09-04-2021 Hematocrit (Bld) [Volume fraction] 42.9 % 37-47 [facility] Work Phone: Ketones Test strip Ql (U)on 09-04-2021 Ketones Ql (U) Negative Negative [facility] Work Phone: Laboratory - Chemistry and C hemistry - challengeon 09-04-2021 CO2 [Moles/Vol] 26.0 mmol/L 21.0-32.0 [facility] Work Phone: [phone] Urea nitrogen/Creatinine [Mass ratio] 7.3 mg/mg 10-20 [facility] Work Phone: [phone] Laboratory - Hematology and Cell countson 09-04-2021 Erythrocyte distribution width (RBC) [Entitic vol] 44.1 fL 35.1-43.9 [facility] Work Phone: [phone] Erythrocyte distribution width (RBC) [Ratio] 13.5 % 11.6-14.6 [facility] Work Phone: [phone] Immature granulocytes/100 WBC (Bld) 0.400 % 0.0-0.9 [facility] Work Phone: [phone] Comment on above: IG% - Immature Granu locytes (promyelocytes, myelocytes and metamyelocytes) > 1% indicates that a LEFT SHIFT is Present. MCH (RBC) [Entitic mass] 29.8 pg 27.0-32.0 [facility] Work Phone: [phone] Nucleated RBC/100 WBC (Bld) [Ratio] 0 % 0-5 [facility] Work Phone: [phone] MCHC Auto (RBC) [Mass/Vol]on 09-04-2021 MCHC (RBC) [Mass/Vol] 33.1 g/dL 32-36 [facility] Work Phone: [phone] Mucus LM Ql (Urine sed)on Mucus Ql (Urine sed) 0 SEEN /hpf [facility] Work Phone: [phone] Nitrite Test strip Ql (U)on 09-04-2021 Nitrite Ql (U) Negative Negative [facility] Work Phone: [phone] Panel Informationon 09-04 Estimated Creatinine Clearance Calc 53.95 ml/min [facility] Work Phone: [phone] Estimated GFR (MDRD) Amer 67 mL/min >60 [facility] Work Phone: [phone] Comment on above: GFR Calc Estimated GFR (MDRD) Non-Af Amer 55 mL/min >60 [facility] Work Phone: Comment on above: Non- GFR Calc Platelets bldon 09-04-2021 Platelets (Bld) [#/Vol] 213 10*3/uL 150-450 [facility] Work Phone: Protein Test strip Ql (U)on 09-04-2021 Protein Ql (U) Negative Negative [facility] Work Phone: Serum or plasma calcium rick urement (mass/volume)on 09-04-2021 Calcium [Mass/Vol] 9.0 mg/dL 8.5-10.1 [facility] Work Phone: Serum or plasma creatinine m easurement (mass/volume)on 09-04-2021 Creatinine [Mass/Vol] 1.09 mg/dL 0.55-1.02 [facility] Work Phone: Comment on above: The validity of the calculated GFR & GFRAA in patients over 70 years has not been determined. Clinical correlation is essential. Serum or plasma urea nitroge n measurement (mass/volume)on 09-04-2021 Urea nitrogen [Mass/Vol] 8 mg/dL 7-18 [facility] Work Phone: Squamous epithelial cells de tection in urine sediment by light microscopyon 09-04-2021 Epithelial cells.squamous LM Ql (Urine sed) 0 SEEN /hpf 5-10 [facility] Work Phone: Thin prep Papanicolaou smear with manual screeningon 09-04-2021 Thin prep Papanicolaou smear with manual screening 6 5-15 [facility] Work Phone: Urine blood detectionon 08-11 RBC Ql (U) Negative Negative [facility] Work Phone: RBC Ql (U) 0 SEEN /hpf 0-5 [facility] Work Phone: Urine clarityon 09-04-2021 Clarity (U) Clear Clear [facility] Work Phone: Urine color determinationon 09-04-2021 Color (U) Straw Yellow [facility] Work Phone: Urine glucose detectionon Glucose Ql (U) Normal mg/dl Normal [facility] Work Phone: Urine leukocyte esterase det ection by dipstickon 09-04-2021 Leukocyte esterase Test strip Ql (U) Negative Negative [facility] Work Phone: Urine pHon 09-04-2021 pH (U) 6.5 [pH] 5.0 - 8.0 [facility] Work Phone: Urine sediment bacteria coun t by microscopy (number/high power field)on 09-04-2021 Bacteria LM.HPF (Urine sed) [#/Area] 0 /[HPF] None Seen [facility] Work Phone: Urine specific gravity measu rementon 09-04-2021 Specific gravity (U) [Rel density] 1.005 1.002-1.030 [facility] Work Phone: Urobilinogen Auto test strip Ql (U)on 09-04-2021 Urobilinogen Ql (U) Normal mg/dl Normal [facility] Work Phone: UA DIP, URINE (POC)on 2021 BILIRUBIN UA (POCT) Negative Negative [facility] CLARITY UA (POCT) Clear [facility] COLOR UA (POCT) Yellow [facility] GLUCOSE UA (POCT) Negative Negative mg/dL [facility] HEMOGLOBIN/BLOOD UA (POCT) Trace-intact Abnormal Negativ e [facility] KETONE UA (POCT) Negative Negative mg/dL [facility] LEUKOCYTES UA (POCT) Negative Negative [facility] NITRITE UA (POCT) Negative Negative [facility] PH UA (POCT) 5.5 4.5 - 8.0 [facility] Protein Ql (U) Trace Abnormal Negative mg/dL [facility] SPECIFIC GRAVITY UA (POCT) >=1.030 1 .005 - 1.030 [facility] UROBILINOGEN UA (POCT) 0.2 E.U./dL Elda l E.U./dL [facility] CBC W Auto Differential pane l (Bld)on 08-08-2021 Abs Immature Gran 0.03 k/uL <0.10 k/uL [facility] Basophils (Bld) [#/Vol] 10*3/uL <0.11 k/uL C [facility] Basophils/100 WBC (Bld) 0.1 % C [facility] Differential cell count method Nom (Bld) Auto [facility] Eosinophils (Bld) [#/Vol] 0.03 10*3/uL <0.46 k/ uL [facility] Eosinophils/100 WBC (Bld) 0.4 % [facility] Erythrocyte distribution width (RBC) [Ratio] 12.7 % 11.5 - 15.0 % [facility] Hematocrit (Bld) [Volume fraction] 42.7 % 36.0 - 46.0 % [facility] Hemoglobin (Bld) [Mass/Vol] 14.3 g/dL 11.5 - 15.5 g/dL [facility] Immature Gran % 0.4 % [facility] Lymphocytes (Bld) [#/Vol] 1.24 10*3/uL 1. 00 - 4.00 k/uL [facility] Lymphocytes/100 WBC (Bld) 14.6 % [facility] MCH (RBC) [Entitic mass] 29.5 pg 26. 0 - 34.0 pg [facility] MCHC (RBC) [Mass/Vol] 33.5 g/dL 30.5 - 36.0 g/dL [facility] MCV (RBC) [Entitic vol] 88.0 fL 80.0 - 100.0 fL [facility] Monocytes (Bld) [#/Vol] 0.75 10*3/uL <0.87 k/uL [facility] Monocytes/100 WBC (Bld) 8.8 % C [facility] Neutrophils (Bld) [#/Vol] 6.45 10*3/uL 1. 45 - 7.50 k/uL [facility] Neutrophils/100 WBC (Bld) 75.7 % [facility] Nucleated RBC (Bld) [#/Vol] 10*3/uL <0.01 k/uL [facility] Nucleated RBC/100 WBC (Bld) [Ratio] 0.0 /100 WBC [facility] Platelet mean volume (Bld) [Entitic vol] 9.9 fL 9.0 - 12.7 fL [facility] Platelets (Bld) [#/Vol] 232 10*3/uL 150 - 400 k/uL [facility] RBC (Bld) [#/Vol] 4.85 10*6/uL 3.90 - 5.2 0 m/uL [facility] WBC (Bld) [#/Vol] 8.51 10*3/uL 3.70 - 11. 00 k/uL [facility] Comprehensive metabolic 2000 panelon 08-08-2021 Albumin [Mass/Vol] 4.2 g/dL 3.9 - 4.9 g/dL [facility] ALP [Catalytic activity/Vol] 55 U/L 34 - 123 U/L [facility] ALT [Catalytic activity/Vol] 28 U/L 7 - 38 U/L [facility] Anion gap [Moles/Vol] 12 mmol/L 9 - 18 mmol/L [facility] AST [Catalytic activity/Vol] 29 U/L 13 - 35 U/L [facility] Bilirubin [Mass/Vol] 0.5 mg/dL 0.2 - 1 .3 mg/dL [facility] Calcium [Mass/Vol] 8.7 mg/dL 8.5 - 10. 2 mg/dL [facility] Chloride [Moles/Vol] 101 mmol/L 97 - 10 5 mmol/L [facility] CO2 [Moles/Vol] 24 mmol/L 22 - 30 mmol/L [facility] Creatinine [Mass/Vol] 0.94 mg/dL 0.58 - 0.96 mg/dL [facility] Estimated Glomerular Filtration Rate 71 mL/min/1.73m >=60 mL/min/1.73m [facility] Glucose [Mass/Vol] 115 mg/dL High 74 - 99 mg/dL [facility] Potassium [Moles/Vol] 4.2 mmol/L 3.7 - 5.1 mmol/L [facility] Protein [Mass/Vol] 7.1 g/dL 6.3 - 8.0 g/dL [facility] Sodium [Moles/Vol] 137 mmol/L 136 - 144 mmol/L [facility] Urea nitrogen [Mass/Vol] 12 mg/dL 7 - 21 mg/d L [facility] Laboratory - Chemistry and C hemistry - challengeon 08-08-2021 Lipase [Catalytic activity/Vol] 105 U/L [id number] [facility] Work Phone: UA DIP, URINE (POC)on 2021 BILIRUBIN UA (POCT) Negative Negative [facility] CLARITY UA (POCT) Clear [facility] COLOR UA (POCT) Dark yellow [facility] GLUCOSE UA (POCT) Negative Negative mg/dL [facility] HEMOGLOBIN/BLOOD UA (POCT) Moderate Abnormal Negative [facility] KETONE UA (POCT) Negative Negative mg/dL [facility] LEUKOCYTES UA (POCT) Negative [facility] NITRITE UA (POCT) Negative Negative [facility] PH UA (POCT) 5.5 4.5 - 8.0 [facility] Protein Ql (U) Trace Abnormal Negative mg/dL [facility] SPECIFIC GRAVITY UA (POCT) 1.020 1 .005 - 1.030 [facility] UROBILINOGEN UA (POCT) 0.2 E.U./dL Elda l E.U./dL [facility] Vital Signs Date Time Vital Sign Value Performing Clinician Facility 07-19-2024 08:04-0400 Body height 165.1 cm Ham Tucker MD Work Phone: [facility] 07-19-2024 08:04-0400 Body mass index (BMI) [Ratio] 34.5 kg/m2 Ham Tucker MD Work Phone: [facility] 07-19-2024 08:04-0400 Body temperature 97.2 [degF] Ham Tucker MD Work Phone: [facility] 07-19-2024 08:04-0400 Body weight 94.12 kg Ham Tucker MD Work Phone: [facility] 07-19-2024 08:04-0400 Diastolic blood pressure 80 mm[Hg] Ham Tucker MD Work Phone: [facility] 07-19-2024 08:04-0400 Heart rate 73 /min Ham Tucker MD Work Phone: [facility] 07-19-2024 08:04-0400 Respiratory rate 18 /min Ham Tucker MD Work Phone: [facility] 07-19-2024 08:04-0400 SaO2% (BldA) [Mass fraction] 97 % Ham Tucker MD Work Phone: [facility] 07-19-2024 08:04-0400 Systolic blood pressure 148 mm[Hg] Ham Tucker MD Work Phone: [facility] 03-04-2023 11:06-0500 Body temperature 98.2 [degF] MD Ham Tucker Work Phone: [facility] 03-04-2023 11:06-0500 Body weight 95.25 kg MD Ham Tucker Work Phone: [facility] 03-04-2023 11:06-0500 Diastolic blood pressure 73 mm[Hg] MD Ham Tucker Work Phone: [facility] 03-04-2023 11:06-0500 Heart rate 87 /min MD Ham Tucker Work Phone: 7(943)[phone] [place] [address] 03-04-2023 11:06-0500 Respiratory rate 16 /min MD Ham Tucker Work Phone: [facility] 03-04-2023 11:06-0500 SaO2% (BldA) [Mass fraction] 97 % MD Ham Tucker Work Phone: [facility] 03-04-2023 11:06-0500 Systolic blood pressure 140 mm[Hg] MD Ham Tucker Work Phone: [facility] 12-09-2022 06:36-0400 Body height 167.64 cm MD Ham Tucker Work Phone: [facility] 12-09-2022 06:36-0400 Body mass index (BMI) [Ratio] 35.2 kg/m2 MD Ham Tucker Work Phone: [facility] 12-09-2022 06:36-0400 Body temperature 96.6 [degF] MD Ham Tucker Work Phone: [facility] 12-09-2022 06:36-0400 Body weight 99.1 kg MD Ham Tucker Work Phone: [facility] 12-09-2022 06:36-0400 Diastolic blood pressure 74 mm[Hg] MD Ham Tucker Work Phone: [facility] 12-09-2022 06:36-0400 Heart rate 85 /min MD Ham Tucker Work Phone: [facility] 12-09-2022 06:36-0400 Respiratory rate 17 /min MD Ham Tucker Work Phone: [facility] 12-09-2022 06:36-0400 SaO2% (BldA) [Mass fraction] 96 % MD Ham Tucker Work Phone: [facility] 12-09-2022 06:36-0400 Systolic blood pressure 150 mm[Hg] MD Ham Tucker Work Phone: 2(789)[phone] [place] [address] 10-09-2022 07:42-0400 Body height 167.64 cm MD Ham Tucker Work Phone: [facility] 10-09-2022 07:42-0400 Body mass index (BMI) [Ratio] 34.5 kg/m2 MD Ham Tucker Work Phone: 1(602)[phone] [place] [address] 10-09-2022 07:42-0400 Body temperature 97.5 [degF] MD Ham Tucker Work Phone: 6(290)[phone] [place] [address] 10-09-2022 07:42-0400 Body weight 97.06 kg MD Ham Tucker Work Phone: [facility] 10-09-2022 07:42-0400 Diastolic blood pressure 74 mm[Hg] MD Ham Tucker Work Phone: 4(403)845-474896 [place] [address] 10-09-2022 07:42-0400 Heart rate 85 /min MD Ham Tucker Work Phone: [facility] 10-09-2022 07:42-0400 Respiratory rate 18 /min MD Ham Tucker Work Phone: [facility] 10-09-2022 07:42-0400 SaO2% (BldA) [Mass fraction] 97 % MD Ham Tucker Work Phone: [facility] 10-09-2022 07:42-0400 Systolic blood pressure 139 mm[Hg] MD Ham Tucker Work Phone: [facility] 09-27-2022 13:43-0400 Body mass index (BMI) [Ratio] 34.7 kg/m2 MD Ham Tucker Work Phone: [facility] 09-27-2022 13:43-0400 Body temperature 98.9 [degF] MD Ham Tucker Work Phone: [facility] 09-27-2022 13:43-0400 Body weight 97.63 kg MD Ham Tucker Work Phone: [facility] 09-27-2022 13:43-0400 Diastolic blood pressure 81 mm[Hg] MD Ham Tucker Work Phone: [facility] 09-27-2022 13:43-0400 Heart rate 81 /min MD Ham Tucker Work Phone: [facility] 09-27-2022 13:43-0400 Respiratory rate 17 /min MD Ham Tucker Work Phone: [facility] 09-27-2022 13:43-0400 SaO2% (BldA) [Mass fraction] 98 % MD Ham Tucker Work Phone: [facility] 09-27-2022 13:43-0400 Systolic blood pressure 135 mm[Hg] MD Ham Tucker Work Phone: [facility] 05-15-2022 08:48-0400 Body height 167.[address] Sylvester Ontiveros Work Phone: [facility] 05-15-2022 08:48-0400 Body mass index (BMI) [Ratio] 35.5 kg/m2 Dr. Sylvester Ontiveros Work Phone: [facility] 05-15-2022 08:48-0400 Body temperature 97.8 [degF] Dr. Sylvester Ontiveros Work Phone: [facility] 05-15-2022 08:48-0400 Body weight 99.[address] Sylvester Ontiveros Work Phone: [facility] 05-15-2022 08:48-0400 Diastolic blood pressure 74 mm[Hg] Dr. Sylvester Ontiveros Work Phone: [facility] 05-15-2022 08:48-0400 Heart rate 99 /min Dr. Sylvester Ontiveros Work Phone: [facility] 05-15-2022 08:48-0400 Respiratory rate 18 /min Dr. Sylvester Ontiveros Work Phone: [facility] 05-15-2022 08:48-0400 SaO2% (BldA) [Mass fraction] 97 % Dr. Sylvester Ontiveros Work Phone: [facility] 05-15-2022 08:48-0400 Systolic blood pressure 143 mm[Hg] Dr. Sylvester Ontiveros Work Phone: [facility] 05-14-2022 13:44-0400 Diastolic blood pressure 76 mm[Hg] Dr. Sylvester Ontiveros Work Phone: [facility] 05-14-2022 13:44-0400 Heart rate 92 /min Dr. Sylvester Ontiveros Work Phone: [facility] 05-14-2022 13:44-0400 SaO2% (BldA) [Mass fraction] 98 % Dr. Sylvester Ontiveros Work Phone: [facility] 05-14-2022 13:44-0400 Systolic blood pressure 136 mm[Hg] Dr. Sylvester Ontiveros Work Phone: [facility] 03-27-2022 07:37-0500 Body height 167.[address] Sylvester Ontiveros Work Phone: [facility] 03-27-2022 07:37-0500 Body mass index (BMI) [Ratio] 34.8 kg/m2 Dr. Sylvester Ontiveros Work Phone: [facility] 03-27-2022 07:37-0500 Body temperature 97.5 [degF] Dr. Sylvester Ontiveros Work Phone: [facility] 03-27-2022 07:37-0500 Body weight 97.[address] Sylvester Ontiveros Work Phone: [facility] 03-27-2022 07:37-0500 Diastolic blood pressure 80 mm[Hg] Dr. Sylvester Ontiveros Work Phone: [facility] 03-27-2022 07:37-0500 Heart rate 98 /min Dr. Sylvester Ontiveros Work Phone: [facility] 03-27-2022 07:37-0500 Respiratory rate 18 /min Dr. Sylvester Ontiveros Work Phone: [facility] 03-27-2022 07:37-0500 SaO2% (BldA) [Mass fraction] 96 % Dr. Sylvester Ontiveros Work Phone: [facility] 03-27-2022 07:37-0500 Systolic blood pressure 129 mm[Hg] Dr. Sylvester Ontiveros Work Phone: [facility] 10-01-2021 16:07-0400 Body weight 94.8 kg Carl Domínguez MD Work Phone: [facility] 10-01-2021 16:07-0400 Diastolic blood pressure 80 mm[Hg] Carl Domínguez MD Work Phone: [facility] 10-01-2021 16:07-0400 Systolic blood pressure 117 mm[Hg] Carl Domínguez MD Work Phone: [facility] 09-04-2021 10:28-0400 Diastolic blood pressure 88 mm[Hg] [facility] Work Phone: 09-04-2021 10:28-0400 Heart rate 79 /min [facility] Work Phone: 09-04-2021 10:28-0400 Respiratory rate 15 /min [facility] Work Phone: 09-04-2021 10:28-0400 SaO2% (BldA) [Mass fraction] 98 % [facility] Work Phone: 09-04-2021 10:28-0400 Systolic blood pressure 126 mm[Hg] [facility] Work Phone: 09-04-2021 08:27-0400 Body temperature 97.6 [degF] [facility] Work Phone: 09-04-2021 06:58-0400 Body height 167.64 cm [facility] Work Phone: 09-04-2021 06:58-0400 Body mass index (BMI) [Ratio] 34 kg/m2 [facility] Work Phone: 09-04-2021 06:58-0400 Body weight 95.6 kg [facility] Work Phone: 08-21-2021 13:42-0400 Body weight 94.35 kg Verito Joan NEUROPSYCHOLOGY DIVISION CHIEF.[employer] Work Phone: [facility] 08-21-2021 13:42-0400 Diastolic blood pressure 74 mm[Hg] Verito Dutch John NEUROPSYCHOLOGY DIVISION CHIEF.[employer] Work Phone: [facility] 08-21-2021 13:42-0400 Systolic blood pressure 112 mm[Hg] Verito Joan NEUROPSYCHOLOGY DIVISION CHIEF.[employer] Work Phone: [facility] 08-08-2021 10:23-0400 Body temperature 101.19 [degF] 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[employer] Work Phone: [facility] 08-08-2021 10:23-0400 Body weight 97.16 kg 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[employer] Work Phone: [facility] 08-08-2021 10:23-0400 Diastolic blood pressure 80 mm[Hg] 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[employer] Work Phone: [facility] 08-08-2021 10:23-0400 Heart rate 100 /min 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[employer] Work Phone: [facility] 08-08-2021 10:23-0400 Respiratory rate 21 /min 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[employer] Work Phone: [facility] 08-08-2021 10:23-0400 SaO2% (BldA) [Mass fraction] 97 % 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 Ham Tucker MD -[facility] [place] Work Phone: Start: 08-30-2024 End: 08-30-2024 ambulatory Ham Caitlin Facility:[facility] Start: 08-27-2024 ambulatory Ham Tucker Facility:[facility] Start: 07-19-2024 End: 07-19-[address] Rick Pereira MD -[facility] Work Phone: Start: 07-19-2024 End: 07-19-2024 ambulatory Ham Tucker MD Work Phone: [facility] Work Phone: Start: 06-28-2024 End: 06-28-[address] Ham Tucker MD -Laboratory Work Phone: Start: 06-28-2024 End: 06-28-2024 ambulatory Ham Tucker Facility:[facility] Start: 06-22-2024 End: 06-22-2024 ambulatory Ham Tucker MD Work Phone: [facility] Work Phone: Start: 06-22-2024 End: 06-22-[address] aHm Tucker MD [facility] Work Phone: Start: 06-22-2024 End: 06-22-2024 ambulatory Ham Tucker Facility:[facility] Start: 06-17-2024 End: 06-17-2024 ambulatory Ham Tucker MD Work Phone: [facility] Work Phone: Start: 06-17-2024 End: 06-17-[address] [facility] Start: 06-17-2024 End: 06-17-2024 ambulatory Ham Tucker Facility:[facility] Start: 02-09-2024 ambulatory [facility] Facility:[facility] Start: 02-09-2024 End: 02-09-2024 ambulatory [facility] Facility:[facility] Start: 11-17-2023 End: 11-17-2023 ambulatory SYLVESTER PAPPASNAN Facility:[facility] Start: 11-03-2023 End: 11-12-2023 ambulatory Carl Domínguez MD Work Phone: Endocrinology Comment on above: Synthroid problem Start: 09-19-2023 End: 09-19-2023 ambulatory [facility] Facility:[facility] Start: 07-09-2023 Refill Haylee Crump APRN.[employer] Work Phone: Endocrinology Comment on above: Refill Request Start: 06-10-2023 Non-patient / Non-visit MD Yoana Tucker Work Phone: [facility] Start: 06-10-2023 End: 06-10-2023 ambulatory MD Ham Tucker Work Phone: [facility] Work Phone: Start: 06-10-2023 End: 06-10-2023 Patient encounter procedure MD Ham Tucker Work Phone: [facility]-Cardiovascular Services Work Phone: Start: 05-22-2023 ambulatory Haylee Alisia NEUROPSYCHOLOGY DIVISION CHIEF.[employer] Work Phone: Endocrinology Comment on above: A1C Start: 05-21-2023 End: 05-21-2023 ambulatory HAYLEE CRUMP Facility:[facility] Start: 03-13-2023 End: 03-13-2023 ambulatory MD Ham Tucker Work Phone: [facility] Work Phone: Start: 03-13-2023 End: 03-13-2023 Patient encounter procedure MD Ham Tucker Work Phone: [facility] Work Phone: Start: 03-11-2023 Non-patient / Non-visit MD Yoana Tucker Work Phone: [facility] Start: 03-11-2023 End: 03-11-2023 ambulatory MD Ham Tucker Work Phone: [facility] Work Phone: Start: 03-11-2023 End: 03-11-2023 Patient encounter procedure MD Ham Tucker Work Phone: [facility]-Cardiovascular Services Work Phone: Start: 03-04-2023 Non-patient / Non-visit MD Yoana Tucker Work Phone: [facility] Start: 03-04-2023 End: 03-04-2023 Patient encounter procedure MD Ham Tucker Work Phone: [facility] Vascular Surgery Work Phone: Start: 02-17-2023 End: 02-17-2023 ambulatory HAYLEE CRUMP Facility:[facility] Start: 02-11-2023 End: 02-11-2023 ambulatory CARL DOMÍNGUEZ Facility:[facility] Start: 01-13-2023 ambulatory Carl Domínguez MD Work Phone: Endocrinology Comment on above: TSH blood work Start: 12-09-2022 End: 12-09-2022 Patient encounter procedure MD Ham Tucker Work Phone: [facility]-Pulmonary Medicine [facility] Work Phone: Start: 11-04-2022 End: 11-04-2022 ambulatory Carl Domínguez MD Work Phone: Endocrinology Comment on above: 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); Insulin resistance; Abnormal glucose; Dyslipidemia; Vitamin D deficiency Start: 11-04-2022 End: 11-04-2022 Telemedicine consultation with patient Carl Domínguez MD Work Phone: [facility] Start: 10-28-2022 End: 10-28-2022 ambulatory MD Ham Tucker Work Phone: [facility] Work Phone: Start: 10-28-2022 End: 10-28-2022 Patient encounter procedure MD Ham Tucker Work Phone: [facility]-Sleep Lab Work Phone: Start: 10-10-2022 End: 10-10-2022 ambulatory MD Ham Tucker Work Phone: [facility] Work Phone: Start: 10-10-2022 End: 10-10-2022 Patient encounter procedure MD Ham Tucker Work Phone: [facility]-Laboratory, Specimen Work Phone: Start: 10-09-2022 End: 10-09-2022 Patient encounter procedure MD Ham Tucker Work Phone: [facility]-Pulmonary Medicine [facility] Work Phone: Start: 10-03-2022 End: 10-03-2022 Patient encounter procedure MD Ham Tucker Work Phone: [facility]-Radiology, [place] Work Phone: Start: 09-27-2022 End: 09-27-2022 Patient encounter procedure MD Ham Tucker Work Phone: [facility] Plastic [facility]con [facility] Work Phone: Start: 09-17-2022 End: 09-17-2022 ambulatory [facility] Work Phone: Start: 09-17-2022 End: 09-17-2022 Patient encounter procedure [facility]-Sleep Lab Work Phone: Start: 05-15-2022 End: 05-15-[address] Sylvester Ontiveros Work Phone: [facility]-Pulmonary Medicine [facility] Start: 05-14-2022 End: 05-14-[address] Sylvester Ontiveros Work Phone: [facility] Work Phone: Start: 05-14-2022 End: 05-14-[address] Sylvester Ontiveros Work Phone: [facility]-Laboratory Start: 05-14-2022 End: 05-14-[address] Sylvester Ontiveros Work Phone: [facility] Vascular Surgery Start: 05-13-2022 End: 05-13-[address] Sylvester Ontiveros Work Phone: [facility] Work Phone: Start: 05-13-2022 End: 05-13-[address] Sylvester Ontiveros Work Phone: [facility]-Laboratory Start: 2022 Non-patient / Non-visit Dr. Christian Ontiveros Work Phone: [facility] Start: 05-01-2022 Non-patient / Non-visit Dr. Christian Ontiveros Work Phone: [facility] Start: 05-01-[address] Sylvester Ontiveros Work Phone: [facility]-Cardiovascular Services Start: 05-01-2022 End: 05-01-[address] Sylvester Ontiveros Work Phone: [facility] Work Phone: Start: 05-01-2022 End: 05-01-[address] Sylvester Ontiveros Work Phone: [facility]-Pulmonary Services/Neurology Start: 03-27-2022 End: 03-27-[address] [facility] Start: 10-08-2021 End: 10-08-2021 ambulatory [facility] Work Phone: Start: 10-08-2021 End: 10-08-2021 Patient encounter procedure [facility] Start: 10-01-2021 End: 10-01-2021 ambulatory Carl Domínguez MD Work Phone: Endocrinology Comment on above: 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); Insulin resistance; Abnormal glucose; Dyslipidemia Start: 10-01-2021 End: 10-01-2021 Telemedicine consultation with patient Carl Domínguez MD Work Phone: [facility] Start: 09-14-2021 End: 09-14-2021 Patient encounter procedure [facility] Start: 09-04-2021 End: 09-04-2021 Emergency department patient visit [facility]-Emergency Department Start: 08-23-2021 Telephone encounter Verito lizama APRN.CNP Work Phone: OB/Gynecology Comment on above: Results Start: 08-22-2021 End: 08-22-2021 ambulatory Yvonne Hinton MD Work Phone: OB/Gynecology Comment on above: [employer] Ultrasound Start: 08-22-2021 End: 08-22-2021 Patient encounter procedure Yvonne Hinton MD Work Phone: [facility] Start: 08-21-2021 End: 08-21-2021 Patient encounter procedure Verito Franco NEUROPSYCHOLOGY DIVISION CHIEF.[employer] Work Phone: OB/Gynecology Comment on above: Gross hematuria (Radha willie Dx); Pelvic pain in female Start: 08-09-2021 Telephone encounter Shirley bloom NEUROPSYCHOLOGY DIVISION CHIEF.[employer] Work Phone: [facility] [place] Comment on above: Results Start: 08-08-2021 End: 08-08-2021 Patient encounter procedure [facility]-Laboratory, Specimen Start: 08-08-2021 Telephone encounter Sylvester Ontiveros MD Work Phone: [facility] [place] Comment on above: Results Start: 08-08-2021 End: 08-08-2021 Patient encounter procedure 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[employer] Work Phone: [facility] Comment on above: Viral illness (Prima ry Dx); Fever, unspecified fever cause; Generalized abdominal pain; Microscopic hematuria Start: 05-21-2021 ambulatory Carl Domínguez MD Work Phone: Endocrinology Comment on above: Question regarding T SH BLD Start: 05-16-2008 End: 08-19-2011 Patient encounter status Haylee Annashley ANN.[employer] Work Phone: [facility] Procedures Date Procedure Procedure Detail Performing Clinician Start: 08-30-2024 Parathyroid hormone measurement Ham Tucker MD Work Phone: Start: 06-28-2024 Urine culture Ham garcia MD Work Phone: Start: 06-28-2024 Parathyroid hormone measurement Ham Tucker MD Work Phone: Start: 06-22-2024 US scan of thyroid Tiffanie Tucker MD Work Phone: Start: 05-21-2023 Lipid 1996 panel - S too or Plasma Haylee Annashley ANN.[employer] Work Phone: Start: 03-13-2023 X-ray of chest [...] stick/tabl et rgnt auto w/o microscopy Verito Dutch John NEUROPSYCHOLOGY DIVISION CHIEFMARY Work Phone: Start: 08-08-2021 Urnls dip stick/tabl et rgnt auto w/o microscopy [facility] Provider Start: 03-17-2015 Mammography Carl epps MD Work Phone: Plan of Treatment Date Care Activity Detail Author Start: 05-20-2028 Lipid panel Lipid Screening [facility] Start: 07-25-2027 Lipid 1996 panel - S too or Plasma Lipid Screening [facility] Start: 09-29-2026 LIPID SCREEN LIPID SCREEN [facility] Start: 05-20-2026 Diabetes Screening Diabetes Screenin [facility] Start: 04-03-2026 LIPID SCREEN LIPID SCREEN [facility] Start: 07-24-2025 Diabetes Screening Diabetes Screenin [facility] Start: 10-19-2024 HPV TESTING HPV TESTING [facility] Start: 10-19-2024 PAP TESTING PAP TESTING [facility] Start: 10-19-2024 Screening for malign ant neoplasm of cervix [facility] Start: 09-29-2024 DIABETES SCREEN DIABETES SCREEN [facility] Start: 08-08-2024 DIABETES SCREEN DIABETES SCREEN [facility] Start: 06-28-2024 Bacteria identified in Urine by Culture Urine Culture [facility] Start: 06-22-2024 US scan of thyroid Thyroid [facility] Start: 06-22-2024 US Thyroid gland [facility] Start: 04-03-2024 DIABETES SCREEN DIABETES SCREEN [facility] Start: 11-12-2023 End: 02-11-2024 Thyrotropin [Units/volume] in Serum or Plasma THYROID STIMULATING HORMONE Lab Routine 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 Expected: 11/12/2023, Expires: 02/11/2024 [facility] Work Phone: Comment on above: Expected: 11/12/2023 , Expires: 02/11/2024 Start: 11-12-2023 End: 02-11-2024 Thyroxine (T4) free [Mass/volume] in Serum or Plasma T4 FREE/FREE THYROXINE Lab Routine 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 Expected: 11/12/2023, Expires: 02/11/2024 [facility] Comment on above: Expected: 11/12/2023 , Expires: 02/11/2024 Start: 11-12-2023 End: 02-11-2024 Triiodothyronine (T3) Free [Mass/volume] in Serum or Plasma T3, FREE Lab Routine 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 Expected: 11/12/2023, Expires: 02/11/2024 [facility] Comment on above: Expected: 11/12/2023 , Expires: 02/11/2024 Start: 10-12-2023 Covid-19 Vaccine ( season) Covid-19 Vaccine ( season) [facility] Start: 10-12-2023 Influenza vaccination Influenza Vacc ine (#1) [facility] Start: 02-10-2023 Behavioral Health Screening Behavioral Health Screening [facility] Start: 01-13-2023 End: 11-05-2023 25-hydroxyvitamin D3 [Mass/volume] in Serum or Plasma VITAMIN D 25 HYDROXY Lab Routine Vitamin D deficiency Expected: 01/13/2023, Expires: 11/05/2023 [facility] Work Phone: Comment on above: Expected: 01/13/2023 , Expires: 11/05/2023 Start: 01-13-2023 End: 11-05-2023 Comprehensive metabolic 2000 panel - Serum or Plasma COMP METABOLIC PANEL Lab Routine Insulin resistance Abnormal glucose Expected: 01/13/2023, Expires: 11/05/2023 [facility] Work Phone: Comment on above: Expected: 01/13/2023 , Expires: 11/05/2023 Start: 01-13-2023 End: 11-05-2023 Hemoglobin A1c in Blood HGB A1C Lab Routine Abnormal glucose Expected: 01/13/2023, Expires: 11/05/2023 [facility] Work Phone: Comment on above: Expected: 01/13/2023 , Expires: 11/05/2023 Start: 01-13-2023 End: 11-05-2023 Lipid 1996 panel - Serum or Plasma LIPID PANEL BASIC Lab Routine Dyslipidemia Expected: 01/13/2023, Expires: 11/05/2023 [facility] Work Phone: Comment on above: Expected: 01/13/2023 , Expires: 11/05/2023 Start: 01-13-2023 End: 11-05-2023 Thyrotropin [Units/volume] in Serum or Plasma TSH BLD Lab Routine 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 Expected: 01/13/2023, Expires: 11/05/2023 [facility] Work Phone: Comment on above: Expected: 01/13/2023 , Expires: 11/05/2023 Start: 01-13-2023 End: 11-05-2023 Thyroxine (T4) free [Mass/volume] in Serum or Plasma T4 FREE/FREE THYROX Lab Routine 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 Expected: 01/13/2023, Expires: 11/05/2023 [facility] Work Phone: Comment on above: Expected: 01/13/2023 , Expires: 11/05/2023 Start: 01-13-2023 End: 11-05-2023 Triiodothyronine (T3) Free [Mass/volume] in Serum or Plasma T3 FREE BLD Lab Routine 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 Expected: 01/13/2023, Expires: 11/05/2023 [facility] Work Phone: Comment on above: Expected: 01/13/2023 , Expires: 11/05/2023 Start: 10-11-2022 Covid-19 Vaccine () Covid-19 Vaccine () [facility] Start: 10-11-2022 Influenza vaccination Influenza Vacc ine (#1) [facility] Start: 05-15-2022 Patient referral [facility] Work Phone: Start: 03-03-2022 End: 10-01-2022 Comprehensive metabolic 2000 panel - Serum or Plasma COMP METABOLIC PANEL Lab Routine Insulin resistance Abnormal glucose Expected: 03/03/2022, Expires: 10/01/2022 [facility] Work Phone: Comment on above: Expected: 03/03/2022 , Expires: 10/01/2022 Start: 03-03-2022 End: 10-01-2022 Hemoglobin A1c in Blood HGB A1C Lab Routine Insulin resistance Abnormal glucose Expected: 03/03/2022, Expires: 10/01/2022 [facility] Work Phone: Comment on above: Expected: 03/03/2022 , Expires: 10/01/2022 Start: 03-03-2022 End: 10-01-2022 Insulin [Units/volume] in Serum or Plasma INSULIN ASSAY BLOOD Lab Routine Insulin resistance Abnormal glucose Expected: 03/03/2022, Expires: 10/01/2022 [facility] Work Phone: Comment on above: Expected: 03/03/2022 , Expires: 10/01/2022 Start: 03-03-2022 End: 10-01-2022 Lipid 1996 panel - Serum or Plasma LIPID PANEL BASIC Lab Routine Dyslipidemia Expected: 03/03/2022, Expires: 10/01/2022 [facility] Work Phone: Comment on above: Expected: 03/03/2022 , Expires: 10/01/2022 Start: 02-10-2022 Depression Assessment Depression Ass essment [facility] Start: 10-11-2021 Influenza vaccination [facility] Start: 09-04-2021 [facility] Work Phone: Start: 08-08-2021 End: 08-22-2021 Influenza virus A and B RNA and SARS-CoV-2 (COVID-19) N gene panel - Respiratory specimen by FRED with probe detection [facility] Work Phone: Comment on above: Expected: 08/08/2021 , Expires: 08/22/2021 Start: 05-31-2021 COVID-19 VACCINE (4 - Booster for Pfizer series) COVID-19 VACCINE (4 - Booster for Pfizer series) [facility] Start: 05-24-2021 End: 07-24-2021 Thyrotropin [Units/volume] in Serum or Plasma TSH BLD Lab Routine 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 Expected: 05/24/2021, Expires: 07/24/2021 [facility] Work Phone: Comment on above: Expected: 05/24/2021 , Expires: 07/24/2021 Start: 03-31-2021 Screening for malign ant neoplasm of colon [facility] Start: 12-20-2020 Screening for malign ant neoplasm of breast Mammogram Screening [facility] Start: 03-17-2016 Mammography [facility] Start: 05-03-2015 SHINGRIX VACCINE (1 of 2) LERNER GRIX VACCINE (1 of 2) [facility] Start: 2010 COLOGUARD (FIT-DNA) COLOGUARD (FIT-D NA) [facility] Start: 2010 Colonoscopy COLONOSCOPY [facility] Start: 2010 COLORECTAL CANCER SCREENING COLORECTAL CANCER SCREENING [facility] Start: [address] COLONOGRAPHY [facility] Start: 2010 FECAL OCCULT BLOOD FECAL OCCULT BLOO D [facility] Start: 2010 Screening for malign ant neoplasm of colon [facility] Start: 2010 SIGMOIDOSCOPY SIGMOIDOSCOPY [facility] Start: 1984 Hepatitis B Vaccine (1 of 3 - 19+ 3-dose series) Hepatitis B Vaccine (1 of 3 - 19+ 3-dose series) [facility] Start: 1984 Urine microalbumin profile [facility] Start: 05-03-1983 ANNUAL PCP TEAM DETACHER JUAN F DISEASE VISIT ANNUAL PCP TEAM CHRONIC DISEASE VISIT [facility] Start: 05-03-1983 Anxiety Screening Anxiety Screening [facility] Start: 05-03-1983 Depression Screening Depression Scre ening [facility] Start: 1977 Adult depression scr eening assessment DEPRESSION SCREENING [facility] Start: 1965 HEPATITIS B (1 of 3 - 3-dose series) HEPATITIS B (1 of 3 - 3-dose series) [facility] Start: 1965 Hepatitis B Vaccine (1 of 3 - 3-dose series) Hepatitis B Vaccine (1 of 3 - 3-dose series) [facility] Bacteria identified in Urine by Culture URINE CULTURE Microbiology Routine Generalized abdominal pain 08/08/2021 11:11 AM EDT [facility] Work Phone: CBC W Auto Different ial panel - Blood [facility] CTA Head vessels and Neck vessels W contrast IV [facility] IgE [Units/volume] i n Serum or Plasma [facility] Microscopic observat ion [Identifier] in Vaginal fluid by Gram stain BACT/SINGH VAG GRAM STAIN Microbiology Routine Pelvic pain in female 08/21/2021 2:15 PM EDT [facility] Work Phone: Patient Education [facility] (COVID-19): Overview Coronavirus Disease 2019 (COVID-19): Caring for Yourself or Others ED Abdominal Pain Unkn Cause Fem [facility] Work Phone: Patient referral [facility] Work Phone: PELVIC US WHI PELVIC US WHI An c Imaging Routine Pelvic pain in female Ordered: 08/21/2021 [facility] Work Phone: Comment on above: Ordered: 08/21/2021 End: 10-01-2022 Thyrotropin [Units/volume] in Serum or Plasma TSH BLD Lab Routine 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 Once per month for 12 Occurrences starting 10/01/2021 until 10/01/2022 [facility] Work Phone: Comment on above: Once per month for 1 2 Occurrences starting 10/01/2021 until 10/01/2022 End: 10-01-2022 Thyroxine (T4) free [Mass/volume] in Serum or Plasma T4 FREE/FREE THYROX Lab Routine 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 Once per month for 12 Occurrences starting 10/01/2021 until 10/01/2022 [facility] Work Phone: Comment on above: Once per month for 1 2 Occurrences starting 10/01/2021 until 10/01/2022 End: 10-01-2022 Triiodothyronine (T3) Free [Mass/volume] in Serum or Plasma T3 FREE BLD Lab Routine 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 Once per month for 12 Occurrences starting 10/01/2021 until 10/01/2022 [facility] Work Phone: Comment on above: Once per month for 1 2 Occurrences starting 10/01/2021 until 10/01/2022 UA DIP B/O UA DIP B/O Lab R outine Fever, unspecified fever cause Ordered: 08/08/2021 [facility] Work Phone: Comment on above: Ordered: 08/08/2021 Urine culture [facility] Immunizations Immunization Date Immunization Notes Care Provider [facility] 12-09-2022 influenza, injectabl e, quadrivalent, preservative free MD Ham Tucekr Work Phone: [facility] 12-09-2022 influenza virus vaccine, unspecified formulation Carl Domínguez MD Work Phone: [facility] 12-22-2021 Covid Pfizer Bivalen t Booster [facility] 01-30-2021 Covid (Pfizer) [facility] 05-26-2020 Covid (Pfizer) [facility] 05-05-2020 Covid (Pfizer) [facility] Payers Date Payer Category Payer Unknown [id number] 2024 Unknown [id number] 2023 Self-pay [id number] 2019 Unknown [employer] PPO [id number] 2019-Present [phone] [address] [place] [address] PPO [id number] 2019 Unknown [id number] 2014 Unknown [id number] Unknown [id number] Unknown [id number] Unknown [id number] Unknown [id number] Unknown [id number] Unknown [id number] Unknown [id number] Unknown [id number] Unknown [id number] Social History Date Type Detail Facility Start: 01-19-2013 End: 03-04-2023 Tobacco smoking status NHIS Never smoked tobacco [facility] Start: 04-20-2021 End: 02-17-2023 Alcohol intake Lifetime non-drinker (finding) [facility] Start: 10-20-2019 History SDOH Alcohol Frequency 1 [facility] Start: 10-20-2019 History SDOH Social Connections Phone 5 [facility] Start: 10-20-2019 History SDOH Social Connections Membership 2 [facility] Start: 10-20-2019 History SDOH Social Connections Living 3 [facility] Start: 10-20-2019 History SDOH Physical Activity MPS 6 [facility] Start: 1965 Sex Assigned At Female [facility] Start: 07-29-2021 End: 09-29-2021 Exposure to SARS-CoV-2 (event) Not sure [facility] Work Phone: Start: 10-28-2020 End: 03-04-2023 Tobacco smoking status NHIS Unknown if ever smoked [facility] Start: 07-01-2020 Non-smoker [facility] Start: 01-19-2013 Tobacco use and exposure Smokeless tobacco non-user [facility] Work Phone: Start: 10-20-2019 End: 11-04-2022 History of Social function [facility] Start: 10-20-2019 End: 11-04-2022 Social connection and isolation panel [facility] Do you belong to any clubs or organizations such as muslim groups, unions, fraternal or athletic groups, or school groups? No [facility] Are you now , , , , never or living with a partner? [facility] How often to you hav e a drink containing alcohol? Never [facility] Average Number of Drinks Not on file [facility] How hard is it for y ou to pay for the very basics like food, housing, medical care, and heating Somewhat hard [facility] Do you feel stress - tense, restless, nervous, or anxious, or unable to sleep at night because your mind is troubled all the time - these days [OSQ] Very much [facility] (I/We) worried stanislav er (my/our) food would run out before (I/we) got money to buy more. Never true [facility] The food that (I/we) bought just didn't last, and (I/we) didn't have money to get more. Sometimes true [facility] Start: 04-09-2021 Gender identity Identifies as female gender (finding) [facility] Start: 04-09-2021 Sexual orientation Heterosexual (finding) [facility] Clinical Notes 03-30-2014 to 07-19-2024 Note Date & Type Note Facility 07-19-2024 Evaluation note Diagnosis Onset Date Resolution Dysphagia acute July 19, 2024 7:47am Iron deficiency anemia acute Ju 2024 7:47am Multiple thyroid nodules acute July 19, 2024 7 :47am Weight loss acute July 19 7:47am [facility] Work Phone: [phone] Radiology Diagnostic study note [facility] Imaging Services [address] [place] [place], [place] [address] Thyroid MR#: [id number] Acct: [id number] Name: MARKO KELLEY Rep #: [id number] : 1965 F 59 From: Munir Ortega MD PCP: Dr. Ham Tucker MD Status: REG CL I Study:Thyroid Date of Exam: 06/22/24 Exam# [id number] Ordering Dr: Yoana Tucker MD PROCEDURE: THYROID 06/22/2024 REASON FOR EXAM: THYROID LUMP TECHNIQUE: High-frequency thyroid ultrasound, including grayscale and color-flow images. REFERENCE LINKS: TI-RADS Chart: [email or web address] TI-RADS Calculator Tool with Reference Images: [email or web address] COMPARISON: None FINDINGS: Right thyroid lobe size: [...] no more than 2 nodules. Reading Location: [id number] CC: Dr. Ham Tucker MD ~ Shot Dropper: Signed [facility]10-02-2024 Telephone encounter Note* Telephone Encounter - Haylee Crump APRN.CNP - 11/12/2023 11:34 AM EDT Diagnoses and all orders for this visit: 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 - THYROID STIMULATING HORMONE; Future - T4 FREE/FREE THYROXINE; Future - T3, FREE; Future Haylee Crump APRN.CNP November 12, 2023 11:34 AM [facility]10-02-2024 Miscellaneous Notes* Telephone Encounter - [...] Leach to order labs. Please advise at [phone]. * Telephone Encounter - Barbra Finn RN - 11/04/2023 8:31 AM EDT Please see patient's my chart message. Last TSH/T3/T4 drawn 05/21/2023. Patient reduced dose of synthroid by half d/t symptoms and has continued the reduced dose. Barbra Finn RN documented in [facility] encounterA[facility] Telephone encounter Note * Telephone Encounter - Keith Irvin OCCA - 11/10/2023 1:50 PM EDT HINA- 02/17/2023 NOV- Not scheduled Patient states that her body has developed an issue with Synthroid. Patient is requesting labs due to having symptoms. Thank you, ROSENDO Carrillo [facility]09-30-2024 Telephone encounter Note* Telephone Encounter - Evi Beaver - 11/10/2023 1:07 PM EDT Patient is concerned about her thyroid levels. Asking for Dr Catrachita Leach to order labs. Please advise at [phone]. [facility]09-24-2024 Telephone encounter Note* Telephone Encounter - Barbra Finn RN - 11/04/2023 8:31 AM EDT Please see patient's my chart message. Last TSH/T3/T4 drawn 05/21/2023. Patient reduced dose of synthroid by half d/t symptoms and has continued the reduced dose. Barbra Finn, RN [facility]05-29-2024 Telephone encounter Note* Telephone Encounter [...] Patient needs scheduled appointment Yes ROSENDO Carrillo [facility]05-29-2024 Miscellaneous Notes* Telephone Encounter - [...] appointment Yes ROSENDO Carrillo documented in this encounterAdena [facility] Center04-12-2024 Miscellaneous Notes* Telephone Encounter - Keith Irvin OCCA - 05/23/2023 12:45 PM EDT - 02/17/2023Dec- 10/06/2023 Please review recent message and advise. Thank you, ROSENDO Carrillo documented in this encounterAdena [facility] Center01-08-2024 NoteHNO ID: [id number] Author: HAYLEE CRUMP APRN.OIL WELL SHOOTER Service: ? Author Type: Nurse Practitioner Type: Progress Notes Filed: 02/17/2023 10:00 Note Text: 02/17/23 VIRTUAL VISIT PROGRESS NOTE This is a virtual visit using [employer] Zoom Video Visit. It required patient-provider interaction for the medical decision making as documented below. I have communicated my name and active licensure. The patient's identity and physical location were verified at the time of this visit. Either the patient or their legal chain sales representative has been informed of the risks [...] thyroiditis - SYNTHROID 1 (more content not included)...[facility]12-06-2023 Miscellaneous Notes* Telephone Encounter - Glenna Saravia Ma - 01/15/2023 7:17 AM EST HINA: 11/04/2022 Patient is not feeling well and on Prednisone. She was going to have her labs drawn but would like to wait until these medications are out of her system. How long should she wait to have labs drawn? Glenna Saravia Ma documented in this encounterAden[facility] Center09-25-2023 History of Present illness Narrative* [...] or soonest thereafter - with Haylee Crump APRN.OIL WELL SHOOTER - fasting labs prior to visit Follow up in 6 months with me I spent a total of 20 minutes on the date of the service which included preparing to see the patient, [id number] patient care, completing clinical documentation, obtaining and/or [...] visit. Either the patient or their legal chain sales representative has been informed of the risks and benefits of -- and alternatives to -- treatment through a remote evaluation andconsents to proceed with the evaluation remotely. documented in this encounterAdena [facility] Center03-23-2023 Procedure [facility]08-22-2022 History of Present illness Narrative* Carl Domínguez [...] which included preparing to see the patient, [id number] patient care, completing clinical documentation, obtaining and/or reviewing separately obtained history, counseling and educating the patient/family/caregiver, ordering medications, sonja ts, or procedures, and communicating results to the patient/family/caregiver. Carl Domínguez MD Endocrinology, Diabetes, & Metabolism October 01, 2021 4:07 PM documented in this encounterAdena [facility] Center07-14-2022 Miscellaneous Notes* Telephone Encounter - Brenda Guerra RN - 08/23/2021 9:15 AM EDT Patient notified. Brenda Guerra RN * Telephone Encounter - Verito Franco APRN.CNP - 08/23/2021 9:06 AM EDT Please let the pt know that her US is normal and vaginal culture is negative for infection. She should follow up the GI. Verito Franco APRN.CNP documented in this encounterAdena [facility] Medical Center07-12-2022 History of Present illness Narrative* [...] L3 SAB0 IAB0 Ectopic0 Multiple0 Live Births0 Sales And Service Officer History LMP: 11/13/2019, Having periods Age at Menarche: Age at First : Age at Menopause: Sales And Service Officer History Comments: Sexual Activity: Yes; Male Contraception: [...] external genitalia normal, normal Bartholin's glands, urethra, Sunnyside's glands, no vulvar lesions, no cervical lesions, [...] Level: 3 - Low documented in this encounterAdena [facility] Center07-01-2022 Miscellaneous Notes* Telephone Encounter - [...] and blood in urine. documented in this encounterAdena [facility] Center06-29-2022 Miscellaneous Notes* Telephone Encounter - [...] normal. Please inform patient. documented in this encounterAdena [facility] Medical Center06-29-2022 Miscellaneous Notes* Telephone Encounter - Shirley Sands APRN.CNP - 08/08/2021 2:05 PM EDT Return patients call. Informed here of the results. CBC normal CMP normal aside from mildly elevated glucose. We are pending Lipase, call to lab. Specimen is pending being sent over to [facility] Patient also reeducated of blood in her urine, culture is pending. If positive we will treat with ATB as indicated. Verbalized understanding. * Telephone Encounter - Eloisa Gibson RN - 08/08/2021 1:16 PM EDT Patient calling for lab results done today. She was able to view them in My Chart and is asking about her UA. Eloisa Gibson RN documented in this encounterAdena [facility] Medical Center06-29-2022 Instructions* Patient Instructions* Shirley Sands [...] feel short of breath. documented in this encounterAdena [facility] Medical Center06-29-2022 History of Present illness Narrative* Shirley Sands APRN.CNP - 08/08/2021 10:54 AM EDT This note was created using Yarraariter. Subjective Marko Kelley is a 56 year [...] Denies SOB/CP, or weakness. 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 No language pathologist was used. Fever This is a new [...] blood and need Petrona Lopesus TEACHING PROVIDER (Physician/PA/NEUROPSYCHOLOGY DIVISION CHIEF) NOTE OF PERSONAL INVOLVEMENT IN CARE: I have personally seen and examined the patient and performed the medical decision-making components. I have reviewed the Advanced Practice Registered Nurse (NEUROPSYCHOLOGY DIVISION CHIEF) Student's documentation and verified the findings in the note as written. Any additions or changes are noted in bold/italics. 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 Breast pain, left 02/24/2013 08/06/2016 Hypothyroidism 11/08/2009 03/30/2014 Routine general medical exam ination at a [facility] care facility 05/16/2008 08/19/2011 Routine gynecological examination 05/16/2008 08/19/2011 documented as of this encounter (statuses as of 05/24/2021) [facility] History of Past illness Narrative* Problem Noted Date Resolved Date 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 Breast pain, left 02/24/2013 08/06/2016 Hypothyroidism 11/08/2009 03/30/2014 Routine general medical exam ination at a [facility] care facility 05/16/2008 08/19/2011 Routine gynecological examination 05/16/2008 08/19/2011 documented as of this encounter (statuses as of 08/08/2021) [facility] History of Past illness Narrative* Problem Noted Date Resolved Date 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 Breast pain, left 02/24/2013 08/06/2016 Hypothyroidism 11/08/2009 03/30/2014 Routine general medical exam ination at a health care facility 05/16/2008 08/19/2011 Routine gynecological examination 05/16/2008 08/19/2011 documented as of this encounter (statuses as of 08/08/2021) [place] [id number] History of Past illness Narrative* Problem Noted Date Resolved Date 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 Breast pain, left 02/24/2013 08/06/2016 Hypothyroidism 11/08/2009 03/30/2014 Routine general medical exam ination at a [facility] care facility 05/16/2008 08/19/2011 Routine gynecological examination 05/16/2008 08/19/2011 documented as of this encounter (statuses as of 08/10/2021) [address] History of Past illness Narrative* Problem Noted Date Resolved Date 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 Breast pain, left 02/24/2013 08/06/2016 Hypothyroidism 11/08/2009 03/30/2014 Routine general medical exam ination at a [facility] care facility 05/16/2008 08/19/2011 Routine gynecological examination 05/16/2008 08/19/2011 documented as of this encounter (statuses as of 08/21/2021) [address]18-2015 History of Past illness Narrative* Problem Noted Date Resolved Date 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 Breast pain, left 02/24/2013 08/06/2016 Hypothyroidism 11/08/2009 03/30/2014 Routine general medical exam ination at a [facility] care facility 05/16/2008 08/19/2011 Routine gynecological examination 05/16/2008 08/19/2011 documented as of this encounter (statuses as of 08/22/2021) [address]18-2015 History of Past illness Narrative* Problem Noted Date Resolved Date 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 Breast pain, left 02/24/2013 08/06/2016 Hypothyroidism 11/08/2009 03/30/2014 Routine general medical exam ination at a [facility] care facility 05/16/2008 08/19/2011 Routine gynecological examination 05/16/2008 08/19/2011 documented as of this encounter (statuses as of 08/23/2021) [address]18-2015 History of Past illness Narrative* Problem Noted Date Resolved Date 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 Breast pain, left 02/24/2013 08/06/2016 Hypothyroidism 11/08/2009 03/30/2014 Routine general medical exam ination at a health care facility 05/16/2008 08/19/2011 Routine gynecological examination 05/16/2008 08/19/2011 documented as of this encounter (statuses as of 10/01/2021) [facility]2015 History of Past illness Narrative* Problem Noted Date Diagnosed Date Resolved Date 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 03/07/19 17 Breast pain, left 02/24/2013 08/06/2016 Hypothyroidism 11/08/2009 03/30/2014 Routine general medical exam ination at a [facility] care facility 05/16/2008 08/19/2011 Routine gynecological examination 05/16/2008 08/19/2011 documented as of this encounter (statuses as of 11/05/2022) [facility] History of Past illness Narrative* Problem Noted Date Diagnosed Date Resolved Date 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 03/07/19 17 Breast pain, left 02/24/2013 08/06/2016 Hypothyroidism 11/08/2009 03/30/2014 Routine general medical exam ination at a [facility] care facility 05/16/2008 08/19/2011 Routine gynecological examination 05/16/2008 08/19/2011 documented as of this encounter (statuses as of 01/17/2023) [address]2015 History of Past illness Narrative* Problem Noted Date Diagnosed Date Resolved Date 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 03/07/19 17 Breast pain, left 02/24/2013 08/06/2016 Hypothyroidism 11/08/2009 03/30/2014 Routine general medical exam ination at a [facility] care facility 05/16/2008 08/19/2011 Routine gynecological examination 05/16/2008 08/19/2011 documented as of this encounter (statuses as of 05/30/2023) [facility] Diagnosis 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 [facility] this [facility] Diagnosis Viral illness- Primary Unspecified viral infection, in conditions classified elsewhere and of unspecified site Fever, unspecified fever cause Generalized abdominal pain Abdominal pain, generalized Microscopic hematuria documented in this encounter [facility] noteNo assessment information availableWHocking [facility] Work Phone: [facility]* Diagnosis Gross hematuria- Primary Pelvic pain in female Unspecified symptom associated with female genital organs [facility] Diagnosis Pelvic pain in female- Primary Unspecified symptom associated with female genital organs documented in this encounter [facility] note* Diagnosis 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 Insulin resistance Dysmetabolic Syndrome X Abnormal glucose Other abnormal glucose Dyslipidemia Other and unspecified hyperlipidemia documented in this encounter [facility] note* Diagnosis Onset Date Resolution Status Asthma acute [facility] Work Phone: Evaluation note* Diagnosis Onset Date Resolution Status Asthma chronic Family history of intracranial aneurysms acute Terri's thyroiditis acut e Right-sided carotid artery disease acute Asthma chronic Hypothyroidism chronic Asthma chronic [facility] Work Phone: Evaluation note* Diagnosis Onset Date Resolution Status Ganglion cyst of joint of finger of right hand chronic BENJIE (obstructive sleep apnea) acute Asthma chronic Obesity chronic [facility] Work Phone: Evaluation note* Diagnosis 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 Insulin resistance Dysmetabolic Syndrome X Abnormal glucose Other abnormal glucose Dyslipidemia Other and unspecified hyperlipidemia Vitamin D deficiency Unspecified vitamin D deficiency documented in this encounter [facility] note* Diagnosis Onset Date Resolution Status BENJIE (obstructive sleep apnea) acute Asthma chronic Carotid artery stenosis acut e Pain and swelling of right lower leg acute [facility] Work Phone: Evaluation note* Diagnosis Onset Date Resolution Status Carotid artery stenosis acut e Pain and swelling of right lower leg acute [facility] Work Phone: Evaluation note* Diagnosis 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 documented in this encounter [facility] note* Diagnosis 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 documented in this encounter [facility] for referral (narrative)* Diagnostic Procedure Only (Routine) - Pending Review Specialty Diagnoses / Procedures Referred By Anh dyer Referred To Contact [facility] Diagnoses Pelvic pain in female Procedures PELVIC US WHI US PELVIC NONOBSTETRIC REAL-TIME IMAGE COMPLETE Verito Franco, SETH.OIL WELL SHOOTER [address] [place] [address] [facility] [address] [place] [address] Referral ID Status Reason Start Date Expiration Date Visits Requested Visits Authorized [id number] Pending Review Auto-Generat ed Referral 08/21/2021 08/21/2022 1 1 [facility] for referral (narrative)No reason for referral information availableWHocking [facility] Work Phone: Health Concerns Infection Onset [...] No October 28, 2020 10:26pm Power of Box Spring Frame Builder No October 10:26pm Advance Directive Response Recorded Date/ Time Living Will No September 04, 2021 7:01am Power of Box Spring Frame Builder No September 04 7:01am Advance Directive Response Recorded Date/ Time Living Will No September 04, 2021 6:01am Power of Box Spring Frame Builder No September 04 6:01am Chief Complaint and [...] or prosecute any alcohol or drug abuse patient.[facility] the event this information is protected by the Federal Confidentiality of Alcohol and Drug Abuse Patient Records regulations: The Federal rules restrict any use of the information to criminally investigate or prosecute any alcohol or drug abuse patient.[facility] CenterIn the event this information is protected by the Federal Confidentiality of Alcohol and Drug Abuse Patient Records regulations: The Federal rules restrict any use of the information to criminally investigate or prosecute any alcohol or drug abuse patient.[facility] CenterIn the event this information is protected by the Federal Confidentiality of Alcohol and Drug Abuse Patient Records regulations: The Federal rules restrict any use of the information to criminally investigate or prosecute any alcohol or drug abuse patient.[facility] CenterIn the event this information is protected by the Federal Confidentiality of Alcohol and Drug Abuse Patient Records regulations: The Federal rules restrict any use of the information to criminally investigate or prosecute any alcohol or drug abuse patient.[facility] Center[facility] the event this information is protected by the Federal Confidentiality of Alcohol and Drug Abuse Patient Records regulations: The Federal rules restrict any use of the information to criminally investigate or prosecute any alcohol or drug abuse patient.[facility] CenterIn the event this information is protected by the Federal Confidentiality of Alcohol and Drug Abuse Patient Records regulations: The Federal rules restrict any use of the information to criminally investigate or prosecute any alcohol or drug abuse patient.[facility] CenterIn the event this information is protected by the Federal Confidentiality of Alcohol and Drug Abuse Patient Records regulations: The Federal rules restrict any use of the information to criminally investigate or prosecute any alcohol or drug abuse patient.[facility] CenterIn the event this information is protected by the Federal Confidentiality of Alcohol and Drug Abuse Patient Records regulations: The Federal rules restrict any use of the information to criminally investigate or prosecute any alcohol or drug abuse patient.[facility] CenterIn the event this information is protected by the Federal Confidentiality of Alcohol and Drug Abuse Patient Records regulations: The Federal rules restrict any use of the information to criminally investigate or prosecute any alcohol or drug abuse patient.[facility] CenterIn the event this information is protected by the Federal Confidentiality of Alcohol and Drug Abuse Patient Records regulations: The Federal rules restrict any use of the information to criminally investigate or prosecute any alcohol or drug abuse patient.[facility] CenterIn the event this information is protected by the Federal Confidentiality of Alcohol and Drug Abuse Patient Records regulations: The Federal rules restrict any use of the information to criminally investigate or prosecute any alcohol or drug abuse patient.[facility] CenterIn the event this information is protected by the Federal Confidentiality of Alcohol and Drug Abuse Patient Records regulations: The Federal rules restrict any use of the information to criminally investigate or prosecute any alcohol or drug abuse patient.[facility] CenterIn the event this information is protected by the Federal Confidentiality of Alcohol and Drug Abuse Patient Records regulations: The Federal rules restrict any use of the information to criminally investigate or prosecute any alcohol or drug abuse patient.[facility] Care Teams (unrecognized sec tion and content) Telecommunications Facility Examiner Relationship Specialty Start Date End Date Sylvester Ontiveros MD PCP - General 04/27/09 Telecommunications Facility Examiner Relationship Specialty Start Date End Date Sylvester Ontiveros MD PCP - General 04/27/09 Telecommunications Facility Examiner Relationship Specialty Start Date End Date Sylvester Ontiveros MD PCP - General 04/27/09 Telecommunications Facility Examiner Relationship Specialty Start Date End Date Sylvester Ontiveros MD PCP - General 04/27/09 Telecommunications Facility Examiner Relationship Specialty Start Date End Date Sylvester Ontiveros MD PCP - General 04/27/09 Telecommunications Facility Examiner Relationship Specialty Start Date End Date Sylvester [...] Provider, Referring Prov ider Active Hawa Galeana PRODUCTION SUPERVISOR TRAINEE, PRODUCTION SUPERVISOR TRAINEE-C Attending Provider Active Team Status: Inactive Member Role Status Oneal Tucker MD Primary Care Provider, Attending Prov ider Active Team Status: Inactive Member Role Status Oneal Tucker MD Primary Care Provider Active Dr. Sanya Mariano MD Attending Provider, Referring P rovider Active Team Status: Inactive Member Role Status Oneal Tucker MD Primary Care Provider Active [employer] Galeana PRODUCTION SUPERVISOR TRAINEE, PRODUCTION SUPERVISOR TRAINEE-C Attending Provider Active Telecommunications Facility Examiner Relationship Specialty Start Date End Date Sylvester Ontiveros MD PCP - General 04/27/09 Telecommunications Facility Examiner Relationship Specialty Start Date End Date Sylvester [...] Provider Active JAMES Donato Referring Provider Active Telecommunications Facility Examiner Relationship Specialty Start Date End Date Sylvester Ontiveros MD PCP - General 04/27/09 Telecommunications Facility Examiner Relationship Specialty Start Date End Date Sylvester [...] 2024 Team Status: Inactive Member Role/Relationship Status Onael Tucker MD Primary Care Provider Active St art: June 22, 2024 End: June 22, 2024 Ham Tucker MD Attending Provider Active Start : June 22, 2024 End: June 22, 2024 aHm Tucker MD Referring Provider Active Start : [...] MINUTES NEW SAME DAY Self Shirley Sands, NEUROPSYCHOLOGY DIVISION CHIEF.[employer] WELL SHOOTER [address] [place] [address] Referral ID Status Reason Start Date Expiration Date Visits Re quested Visits Authorized [id number] Closed 08/08/2021 02/09/2022 1 1 Reason Comments Results Reason Comments Vaginal Problem Specialty Diagnoses / Procedures Referred By Contac t Referred To Contact Gynecology / CHALK MACHINE OPERATOR Diagnoses Hematuria vaginal pressure/discharge/hemat uria Procedures OFFICE/OUTPATIENT ESTABLISHED HIGH MDM 40-54 MIN EST WHI PATIENT SelfMD Joan Renee, NEUROPSYCHOLOGY DIVISION CHIEF.OIL WELL SHOOTER [address] [place] [address] Referral ID Status Reason Start Date Expiration Date Visits Re quested Visits Authorized [id number] Closed 08/21/2021 02/09/2022 1 1 Reason Comments TAXI DRIVER Ultrasound Specialty Diagnoses / Procedures Referred By Contac t Referred To Contact CHALK MACHINE OPERATOR Diagnoses READ Procedures US PELVIC NONOBSTETRIC REAL-TIME IMAGE COMPLETE PELVIC ULTRASOUND Verito Franco, NEUROPSYCHOLOGY DIVISION CHIEF.OIL WELL SHOOTER [address] [place] [address] Yvonne Garcia MD [address] [place] [address] Referral ID Status Reason Start Date Expiration Date Visits Re quested Visits Authorized [id number] Closed 08/22/2021 02/09/2022 1 1 Reason Comments Thyroid Problem High Blood Sugar Specialty Diagnoses / Procedures Referred By Contac t Referred To Contact Laboratory Medicine / LAB [facility] [address] Diagnoses lab Procedures VENIPUNCTURE LAB Carl Domínguez MD [address] [place] [address] Lab [facility] [address] [place] [address] Referral ID Status Reason Start Date Expiration Date V isits Requested Visits Authorized [id number] Authorized 12/06/2020 12/05/2021 99 99 Reason Comments Follow Up Specialty Diagnoses / Procedures Referred By Contac t Referred To Contact Endocrinology / ENDOCRINOLOGY Diagnoses thyroid follow up Procedures VIDEO SPEC EST Self Carl Domínguez MD [address] [place] [address] Referral ID Status Reason Start Date Expiration Date Visits Re quested Visits Authorized [id number] Closed 11/04/2022 02/09/2023 1 1 Reason Onset [...] section and content) DATE CREATED AUTHOR 11/19/2023 [facility] DATE CREATED AUTHOR 'Mary LYLE 09/04/2024 [facility] FOR RECORDS PERTAINING TO PATIENTS WHO [...] BE BASED ON THE PRIMARY CLINICAL RECORDS. [employer] provides no warranty or guarantee of the accuracy or completeness of information in this document.
[2024-11-30 21:46] LABS: PTHIN 39 pg/mL (11-61)
[2024-11-30 21:54] LABS: Follicle Stimulating Hormone 50.7 mIU/mL
[2024-11-30 22:38] LABS: Hematocrit 45.7 % (37-47); Hemoglobin 15.0 g/dL (12.0-15.0); Mean Corp Hgb Conc 32.8 g/dL (32-36); Mean Corpuscular Volume 88.2 fL (81-99); Mean Platelet Vol. 11.2 fl (6.2-12.0); Platelet Count 231 K/mm3 (150-450); RBC Distribution Width CV 12.5 % (11.6-14.6); RBC Distribution Width SD 40.6 fl (35.1-43.9); Red Blood Count 5.18 M/mm3 (4.2-5.4); White Blood Count 4.9 K/mm3 (4.4-11.0)
[2024-12-03 16:09] LABS: Estrogen, Total, Serum 57 pg/mL (40-244)
== END | disposition home or self-care (01) ==
LOC: LABSPEC 16:05 → MTLAB 18:26
PROVIDERS: PCP Family Medicine; Referring Provider Family Medicine; Visit Provider Family Medicine
DX: E03.9 Hypothyroidism, unspecified (principal); Z78.0 Asymptomatic menopausal state; E21.5 Disorder of parathyroid gland, unspecified
CPT/HCPCS: 36415; 82672; 83001; 83002; 83970; 84443; 85027